=== PATIENT | female | born 1960 | race Hispanic/Latino ===

== ENCOUNTER 2023-04-07 15:49 | Emergency (ER) | payer OTHER ==
--- OUTSIDE RECORDS SUMMARY | 2023-04-07 16:05 | XMS REPORT | Continuity of Care Document ---
:1960 Author Organization [facility] t Address [address] [place] [address] [place] [id number] Care Team Providers Name Role Phone REGINA PIRES Primary Care Physician Unavailable DYLAN FERNANDEZ Attending Clinician Unavailable JONELLE DRISCOLL Attending Clinician Unavailable SVETLANA ORANTES Attending Clinician Unavailable LAB90 Attending Clinician Unavailable DELVIS MERINO Attending Clinician Unavailable RADIOLOGY Attending Clinician Unavailable Brenda Rogers MD Attending Clinician Doctor Unassigned, Martinez Attending Clinician Unavailable Regina Ruiz Attending Clinician REGINA PIRES Attending Clinician Unavailable Edel Flores MD Attending Clinician Vitor Birmingham MD Attending Clinician Provider, [facility] Attending Clinician Unavailable Colten Kramer DO Attending Clinician Brien Valles Attending Clinician BRIEN BEGUM Attending Clinician Unavailable Lorie Lnad PA-C Attending Clinician LORIE LAND Attending Clinician Unavailable Lab, Pcp Covid Attending Clinician Unavailable Lab, Adc Fam Pob I Attending Clinician Unavailable Pob, Adc Lab Main Attending Clinician Unavailable MUNA OCONNOR Attending Clinician Unavailable Muna Oconnor MD Attending Clinician Shayla Mccabe Attending Clinician Rober MICHELLE, Tiesha Attending Clinician Shannan MICHELLE, Hang Moreno Attending Clinician BRENDA ROGERS Attending Clinician Unavailable AMANDA DEL TORO Attending Clinician Unavailable Jasvir Avila Attending Clinician Pob1, Acute Care Clinic Attending Clinician Unavailable 2, Adc Lab Attending Clinician Unavailable Valencia MICHELLE, Vitor Admitting Clinician Rober MICHELLE, Tiesha Admitting Clinician Payers Payer Name Policy Type Policy Number Effective Date Expiration Date Prateek valero [facility] [id number] 2017 00:00:00 [employer] MP 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 9 [id number] 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 [id number] NON-CONTRACT GENERIC Problems Condition Condition Condition Status Onset Resolution Last Treating Co mments Source Name Details Category Date Date Treatment Clinician Date Mixed Mixed Disease Active Yodit hyperlipid hyperlipid 3-23 Se ybold emia emia 00:00: - 00 Externa l Primary Primary Disease Active Yodit hypertensi hypertensi 3-16 Se ybold on on 00:00: - 00 Externa l Other Other Disease Active Yodit fatigue fatigue 3-16 Seybold 00:00: - 00 Externa l Screening Screening Disease Active Kojo sey for lipid for lipid 3-16 Seyb old disorders disorders 00:00: - 00 Externa l Class 3 Class 3 Disease Active Yodit severe severe 3-16 Seybold obesity obesity 00:00: - due to due to 00 Externa excess excess l calories calories with with serious serious comorbidit comorbidit y and body y and body mass index mass index (BMI) of (BMI) of 50.0 to 50.0 to 59.9 in 59.9 in adult adult Prediabete Prediabete Disease Active Burton khan s s 3-16 Seybold 00:00: - 00 Externa l Chest pain Chest pain Disease Active U nivers 7-14 ity of 00:00: [place] [facility] Disease Active 2019-09 Unive rs discharge discharge 0-13 ity of follow[place]up [place] [facility] Dyslipidem Dyslipidem Disease Active 2020- U nivers ia ia 9-25 ity of 00:00: [place] [facility] Asymptomat Asymptomat Disease Active 2019-0 U nivers ic ic 8-11 ity of hypertensi hypertensi 00:[place] ve urgency ve urgency 00 Me dicwy Branch Runny nose Runny nose Disease Active 2019- U nivers 8-11 ity of 00:00: [place] 00 [facility] Pneumonia Pneumonia Disease Active 2019- Uni vers of right of right 8-10 ity of lower lobe lower lobe 00:00[place] due to due to 00 Medical infectious infectious Br anch organism organism Community Community Disease Active 2019- Uni vers acquired acquired 8-10 ity of pneumonia pneumonia 00:[place] of right of right 00 Medica l lower lobe lower lobe Br anch of lung of lung Urticaria, Urticaria, Disease Active 2019- U nivers acute acute 7-28 ity of 00:00: [place] 00 Medical Branch Pruritus Pruritus Disease Active 2019- Unive rs 7-28 ity of 00:00: [place] 00 [facility] Female Female Disease Active 2019- Univers pattern pattern 6-23 ity of hair loss hair loss 00:[place] [facility] Contact Contact Disease Active 2019- Univers dermatitis dermatitis 6-23 it y of , , 00:00: [place] unspecifie unspecifie 00 Me dical d contact d contact Bran ch dermatitis dermatitis type, type, unspecifie unspecifie d trigger d trigger Screening Screening Disease Active 2019- Uni vers for for 2-27 ity of diabetes diabetes 00:00: [place] mellitus mellitus 00 Medica l Branch BMI BMI Disease Active 2020- Univers 50.0-59.9, 50.0-59.9, 2-27 it y of adult adult 00:00: [place] 00 [facility] URI with URI with Disease Active Unive rs cough and cough and 2-06 ity of congestion congestion 00:00: [place] 00 [facility] Congestion Congestion Disease Active 2020- U nivers of nasal of nasal 2-06 ity of sinus sinus 00:00: Medical Branch Wheezing Wheezing Disease Active Unive rs 2-06 ity of 00:00: Medical Branch Viral Viral Disease Active Univers pharyngiti pharyngiti 2-06 it y of s s 00:00: Medical Branch Morbid Morbid Disease Active Univers obesity obesity 5-08 ity of with body with body 00:[place] mass index mass index 00 Me dical of of Branch 40.0-49.9 40.0-49.9 Morbid Morbid Disease Active Univers obesity obesity 5-08 ity of with body with body 00:[place] mass index mass index 00 Me dical of 50 or of 50 or Branch higher higher Total knee Total knee Disease Active U nivers replacemen replacemen 5-08 it y of t status t status 00:00: Medical Branch Dyspnea Dyspnea Disease Active Univers 8-31 ity of 00:00: Medical Branch Chest pain Chest pain Disease Active U nivers 8-24 ity of 00:00: Medical Branch Acute Acute Disease Active Univers chest pain chest pain 8-24 it y of 00:00: Medical Branch Atypical Atypical Disease Active Unive rs chest pain chest pain 8-24 it y of 00:00: Medical Branch Hypertensi Hypertensi Disease Active U nivers on on ity of [facility] Obesity Obesity Disease Active Univers ity of [facility] Allergies, Adverse Reactions, Alerts Allergy Allergy Status Severity Reaction(s) Onset Inactive Treating Comm ents Source Name Type Date Date Clinician NO KNOWN Drug Active Univers ALLERGIE Class ity of S [facility] Social History Social Habit Start Date Stop Date Quantity Comments Source History of tobacco Passive smoker Sharad Dc - use External Gender identity Yodit ahmadi - External Sexual orientation Yodit Dc - External Exposure to Not sure University of SARS-CoV-2 (event) [facility] Alcohol intake 2023-02-01 2023-02-01 Lifetime Yodit cr - 00:00:00 00:00:00 non-drinker External (finding) History of Social 2023-01-16 2023-01-16 Yodit Seybold - function 00:00:00 00:00:00 External Tobacco use and 2023-01-16 2023-01-16 Smokeless Yodit ahmadi - exposure 00:00:00 00:00:00 tobacco non-user External Education 2022-12-13 2022-12-13 16 Yodit Dc - 00:00:00 00:00:00 External Sex [birth year] At [birth year] Yodit ahmadi - 00:00:00 00:00:00 External Smoking Status Start Date Stop Date Source Never smoked tobacco Yodit Pendleton old - External Medications Ordered Filled Start Stop Current Ordering Indication Dosage Frequency Signature Comments Components Source Medication Medication Date Date Medication? Clinician (SIG) Name Name Methylpredn 2022- No [id number] 80mg Yodit isolone 5-05 05-05 Seybold Acetate 17:00: 16:52 - (Depo-Medro 00 :00 Externa l) [40 l mg/mL], 80mg - Physician Administere d (J1030) Methylpredn 2022- No [id number] 80mg 80 mg, Yodit isolone 5-05 05-05 Physician Seybol d Acetate 17:00: 16:52 Administer - (Depo-Medro 00 :00 ed, ONCE, Ext alondra l) [40 1 dose, On l mg/mL], Sat02/01/23 80mg - at 1200 Physician Administere d ([id number]) [place]-3 Yes 1000mg Take 1 Yodit Fatty Acids 5-05 capsule Seybo ld (Fish Oil) 10:51: (1,000 mg - 1000 MG 10 total) by Externa oral mouth l Capsule daily Diclofenac Yes [id number] 75mg Take 1 Yodit Sodium 75 5-05 tablet (75 Seyb old MG oral 00:00: mg total) - Tablet 00 by mouth 2 Externa Delayed times l Response daily Blood Yes [id number] Check BS Kojo y Glucose 4-27 daily Seybold Monitoring 00:00: - Suppl 00 Externa (Blood l Glucose Monitor System) w/Device does not apply Kit Glucose Yes [id number] 1{each} 1 each by Yodit Blood in -27 other Seybold vitro Strip 00:00: route - 00 daily Externa Check BS l daily Lancets 30G 2022-0 Yes [id number] Check BS Yodit does not 4-27 daily Seybold apply Misc 00:00: - 00 Externa l hydroCHLORO 2022-0 Yes [id number] 25mg Take 1 Yodit thiazide 25 4-24 tablet (25 Se ybold MG oral 00:00: mg total) - Tablet 00 by mouth Externa daily l [place]-3 2022-0 Yes 1000mg Take 1 [place] Fatty Acids 4-19 capsule Seybo ld (Fish Oil) 14:23: (1,000 mg - 1000 MG 16 total) by Externa oral mouth l Capsule daily Metformin 0 Yes [id number] 500mg Take 1 Yodit HCl 500 MG 4-19 tablet Seybold oral Tablet 00:00: (500 mg - 00 total) by Externa mouth l daily (with breakfast) Amlodipine 2022-0 Yes [id number] 5mg Take 1 K elsey Besylate 4-19 tablet (5 Seybol d (Norvasc) 5 00:00: mg total) - MG oral 00 by mouth Externa Tablet daily l Tramadol 2022-0 Yes [id number] 50mg QD Take 1 K elsey HCl 4-19 tablet (50 Seybold (ULTRAM) 50 00:00: mg total) - MG oral 00 by mouth Externa Tablet daily as l needed for pain Metformin 2022-0 Yes [id number] 500mg Take 1 Yodit HCl 500 MG 4-19 tablet Seybold oral Tablet 00:00: (500 mg - 00 total) by Externa mouth l daily (with breakfast) Amlodipine 2022-0 Yes [id number] 5mg Take 1 K elsey Besylate 4-19 tablet (5 Seybol d (Norvasc) 5 00:00: mg total) - MG oral 00 by mouth Externa Tablet daily l Tramadol 2022-0 Yes [id number] 50mg QD Take 1 K elsey HCl 4-19 tablet (50 Seybold (ULTRAM) 50 00:00: mg total) - MG oral 00 by mouth Externa Tablet daily as l needed for pain Ketoconazol 2022-0 Yes [id number] APPLY TO Yodit e 2 % apply 4-19 AFFECTED Seyb old externally 00:00: SKIN TWICE - Cream 00 DAILY Externa l Celecoxib 2022-0 Yes [id number] 200mg Q.5D Take 1 Yodit (CeleBREX) 4-03 capsule Seybol d 200 MG oral 00:00: (200 mg - Capsule 00 total) by Externa mouth 2 l times daily as needed for pain Celecoxib 2022-0 Yes [id number] 200mg Q.5D Take 1 Yodit (CeleBREX) 4-03 capsule Seybol d 200 MG oral 00:00: (200 mg - Capsule 00 total) by Externa mouth 2 l times daily as needed for pain Losartan 2022-0 Yes [id number] 100mg Take 1 Ke lsey Potassium 3-30 tablet Seybold (COZAAR) 00:00: (100 mg - 100 MG oral 00 total) by Ext alondra Tablet mouth l daily Losartan 2022-0 Yes [id number] 100mg Take 1 Ke lsey Potassium 3-30 tablet Seybold (COZAAR) 00:00: (100 mg - 100 MG oral 00 total) by Ext alondra Tablet mouth l daily hydroCHLORO 2022-0 Yes [id number] 25mg TAKE 1 Yodit thiazide 25 3-28 TABLET (25 Se ybold MG oral 00:00: MG TOTAL) - Tablet 00 BY MOUTH Externa DAILY. 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 a 0.25 a week l MG/0.5ML subcutaneou s Solution Auto-inject or Ketoconazol 2022-0 Yes [id number] Apply to Yodit e 2 % apply 3-16 affected Seyb old externally 00:00: skin twice - Cream 00 daily Externa l Ketoconazol 2022-0 Yes [id number] Apply to Yodit e 2 % apply 3-16 affected Seyb old externally 00:00: skin twice - Cream 00 daily Externa l Losartan 2022-0 Yes [id number] 25mg Take 1 Kojo sey Potassium 3-16 tablet (25 Seyb old 25 MG oral 00:00: mg total) - Tablet 00 by mouth Externa daily l Ketoconazol 2022- Yes [id number] Apply to Yodit e 2 % apply 16 affected Seyb old externally 00:00: skin twice - Cream 00 daily Externa l Losartan 2022- No [id number] 25mg Take 1 Ke lsey Potassium 12-13- tablet (25 Sey bold 25 MG oral 00:00: 00:00 mg total) - Tablet 00 :00 by mouth Externa daily l methylPREDN 2022-0 Yes [id number] 1{jackelyn} Take 1 jackelyn Monsivais ISolone 12-06 by mouth Seybold (Medrol) 4 00:00: daily As - MG oral 00 directed Externa Tablet l Therapy Pack Triamcinolo 0 2022- No [id number] AAA 2-3 Yodit ne 12-06 04-07 times day Seybold Acetonide 00:00: 04:59 - 0.1 % apply 00 :00 Externa externally l Cream Triamcinolo 0 2022- No [id number] AAA 2-3 Yodit ne 12-06-16 times day Seybold Acetonide 00:00: 00:00 - 0.1 % apply 00 :00 Externa externally l Cream methylPREDN 2022-0 2022- No [id number] 1{jackelyn} Take 1 jackelyn Monsivais ISolone 12-06 by mouth Seybold (Medrol) 4 00:00: 00:00 daily As - MG oral 00 :00 directed Externa Tablet l Therapy Pack Zinc 2022-0 2022- No Take by Yodit Gluconate 3- 03-03 mouth Seybold 50 MG oral 14:47: 00:00 daily - Tablet 50 :00 Externa l hydroCHLORO 2022-0 Yes [id number] 25mg Take 1 Yodit thiazide 25 -03 tablet (25 Se ybold MG oral 00:00: mg total) - Tablet 00 by mouth Externa daily l Celecoxib 2022-0 Yes [id number] 200mg Take 1 Yodit (CeleBREX) 3- capsule Seybol d 200 MG oral 00:00: (200 mg - Capsule 00 total) by Externa mouth 2 l times daily Tramadol 2023-0 Yes [id number] 50mg Q.25D Take 1 Yodit HCl 3-03 tablet (50 Seybold (ULTRAM) 50 00:00: mg total) - MG oral 00 by mouth Externa Tablet every 6 l hours as needed for pain hydroCHLORO 2023-0 Yes [id number] 25mg Take 1 Yodit thiazide 25 3-03 tablet (25 Se ybold MG oral 00:00: mg total) - Tablet 00 by mouth Externa daily l Celecoxib 2023-0 Yes [id number] 200mg Take 1 Yodit (CeleBREX) 3-03 capsule Seybol d 200 MG oral 00:00: (200 mg - Capsule 00 total) by Externa mouth 2 l times daily Tramadol 3-0 Yes [id number] 50mg Q.25D Take 1 Yodit HCl 3-03 tablet (50 Seybold (ULTRAM) 50 00:00: mg total) - MG oral 00 by mouth Externa Tablet every 6 l hours as needed for pain hydroCHLORO 2023-0 Yes [id number] 25mg Take 1 Yodit thiazide 25 3-03 tablet (25 Se ybold MG oral 00:00: mg total) - Tablet 00 by mouth Externa daily l Celecoxib 2023-0 Yes [id number] 200mg Take 1 Yodit (CeleBREX) 3-03 capsule Seybol d 200 MG oral 00:00: (200 mg - Capsule 00 total) by Externa mouth 2 l times daily Tramadol 2023-0 Yes [id number] 50mg Q.25D Take 1 Yodit HCl 3-03 tablet (50 Seybold (ULTRAM) 50 00:00: mg total) - MG oral 00 by mouth Externa Tablet every 6 l hours as needed for pain hydroCHLORO 2023-0 Yes [id number] 25mg Take 1 Yodit thiazide 25 3-03 tablet (25 Se ybold MG oral 00:00: mg total) - Tablet 00 by mouth Externa daily l Celecoxib 2023-0 Yes [id number] 200mg Take 1 Yodit (CeleBREX) 3-03 capsule Seybol d 200 MG oral 00:00: (200 mg - Capsule 00 total) by Externa mouth 2 l times daily Tramadol 2023-0 Yes [id number] 50mg Q.25D Take 1 Yodit HCl 3-03 tablet (50 Seybold (ULTRAM) 50 00:00: mg total) - MG oral 00 by mouth Externa Tablet every 6 l hours as needed for pain Tramadol 0 2022- No [id number] 50mg Q.25D Take 1 Yodit HCl 3-03 04-19 tablet (50 Seybold (ULTRAM) 50 00:00: 00:00 mg total) - MG oral 00 :00 by mouth Externa Tablet every 6 l hours as needed for pain ATORVASTATI 2020-09 Yes [id number] TAKE ONE Univers N 40 mg 1-08 TABLET BY ity of tablet 00:00: MOUTH [place] 00 DAILY Medical Branch IPRATROPIUM 2020-0 Yes [id number] USE 1 VIAL Univers 0.02 % 9-13 IN ity of nebulizer 00:00: NEBULIZER [place] as solution 00 EVERY 8 Medical HOURS Branch NEEDED FOR WHEEZING OR FOR SHORTNESS OF BREATH IPRATROPIUM 2020-0 Yes [id number] USE 1 VIAL Univers 0.02 % 9-13 IN ity of nebulizer 00:00: NEBULIZER [place] as solution 00 EVERY 8 Medical HOURS Branch NEEDED FOR WHEEZING OR FOR SHORTNESS OF BREATH IPRATROPIUM 2020-0 Yes [id number] USE 1 VIAL Univers 0.02 % 9-13 IN ity of nebulizer 00:00: NEBULIZER [place] as solution 00 EVERY 8 Medical HOURS Branch NEEDED FOR WHEEZING OR FOR SHORTNESS OF BREATH IPRATROPIUM 2020-0 Yes [id number] USE 1 VIAL Univers 0.02 % 9-13 IN ity of nebulizer 00:00: NEBULIZER [place] as solution 00 EVERY 8 Medical HOURS Branch NEEDED FOR WHEEZING OR FOR SHORTNESS OF BREATH IPRATROPIUM 2020-0 Yes [id number] USE 1 VIAL Univers 0.02 % 8-30 IN ity of nebulizer 00:00: NEBULIZER [place] as solution 00 EVERY 8 Medical HOURS Branch NEEDED FOR WHEEZING OR FOR SHORTNESS OF BREATH IPRATROPIUM 2020-0 Yes [id number] USE 1 VIAL Univers 0.02 % 8-30 IN ity of nebulizer 00:00: NEBULIZER [place] as solution 00 EVERY 8 Medical HOURS Branch NEEDED FOR WHEEZING OR FOR SHORTNESS OF BREATH IPRATROPIUM 2020-0 202- No [id number] USE 1 VIAL Univers 0.02 % 8-30 09-13 IN ity of nebulizer 00:00: 00:00 NEBULIZER [place] solution 00 :00 EVERY 8 Medical HOURS Branch NEEDED FOR WHEEZING OR FOR SHORTNESS OF BREATH IPRATROPIUM 2020-0 2021- No [id number] USE 1 VIAL Univers 0.02 % 05-29 IN ity of nebulizer 00:00: 00:00 NEBULIZER [place] solution 00 :00 EVERY 8 Medical HOURS Branch NEEDED FOR WHEEZING OR FOR SHORTNESS OF BREATH HYDROCHLORO 2020-0 Yes [id number] TAKE ONE Univers THIAZIDE 25 8-16 TABLET BY ity of mg tablet 00:00: MOUTH [place] 00 DAILY Medical Branch METOPROLOL 2020-0 Yes [id number] TAKE ONE Univers TARTRATE 8-16 TABLET BY ity of 100 mg 00:00: MOUTH [place] tablet 00 TWICE A Medical DAY Branch HYDROCHLORO 2020-0 Yes [id number] TAKE ONE Univers THIAZIDE 25 8-16 TABLET BY ity of mg tablet 00:00: MOUTH [place] 00 DAILY Medical Branch METOPROLOL 2020-0 Yes [id number] TAKE ONE Univers TARTRATE 8-16 TABLET BY ity of 100 mg 00:00: MOUTH [place] tablet 00 TWICE A Medical DAY Branch HYDROCHLORO 2020-0 Yes [id number] TAKE ONE Univers THIAZIDE 25 8-16 TABLET BY ity of mg tablet 00:00: MOUTH [place] 00 DAILY Medical Branch METOPROLOL 2020-0 Yes [id number] TAKE ONE Univers TARTRATE 8-16 TABLET BY ity of 100 mg 00:00: MOUTH [place] tablet 00 TWICE A Medical DAY Branch HYDROCHLORO 2020-0 Yes [id number] TAKE ONE Univers THIAZIDE 25 8-16 TABLET BY ity of mg tablet 00:00: MOUTH [place] 00 DAILY Medical Branch METOPROLOL 2020-0 Yes [id number] TAKE ONE Univers TARTRATE 8-16 TABLET BY ity of 100 mg 00:00: MOUTH [place] tablet 00 TWICE A Medical DAY Branch HYDROCHLORO 1-0 Yes [id number] TAKE ONE Univers THIAZIDE 25 8-16 TABLET BY ity of mg tablet 00:00: MOUTH [place] 00 DAILY Medical Branch METOPROLOL 2020-0 Yes [id number] TAKE ONE Univers TARTRATE 8-16 TABLET BY ity of 100 mg 00:00: MOUTH [place] tablet 00 TWICE A Medical DAY Branch HYDROCHLORO 1-0 Yes [id number] TAKE ONE Univers THIAZIDE 25 8-16 TABLET BY ity of mg tablet 00:00: MOUTH [place] 00 DAILY Medical Branch METOPROLOL 2021-0 Yes [id number] TAKE ONE Univers TARTRATE 8-16 TABLET BY ity of 100 mg 00:00: MOUTH [place] tablet 00 TWICE A Medical DAY Branch HYDROCHLORO 2020-0 Yes [id number] TAKE ONE Univers THIAZIDE 25 8-16 TABLET BY ity of mg tablet 00:00: MOUTH [place] 00 DAILY Medical Branch METOPROLOL 2020-0 Yes [id number] TAKE ONE Univers TARTRATE 8-16 TABLET BY ity of 100 mg 00:00: MOUTH [place] tablet 00 TWICE A Medical DAY Branch HYDROCHLORO 2020-0 Yes [id number] TAKE ONE Univers THIAZIDE 25 8-16 TABLET BY ity of mg tablet 00:00: MOUTH [place] 00 DAILY Medical Branch METOPROLOL 0 Yes [id number] TAKE ONE Univers TARTRATE 8-16 TABLET BY ity of 100 mg 00:00: MOUTH [place] tablet 00 TWICE A Medical DAY Branch albuterol Yes [id number] 2{puff} Inhale 2 Univers 90 7-23 Puffs ity of mcg/actuati 00:00: every 6 Jake as on inhaler 00 (six) Medical hours as Branch needed for Wheezing or Shortness of Breath. albuterol Yes [id number] 2{puff} Inhale 2 Univers 90 7-23 Puffs ity of mcg/actuati 00:00: every 6 Jake as on inhaler 00 (six) Medical hours as Branch needed for Wheezing or Shortness of Breath. albuterol Yes [id number] 2{puff} Inhale 2 Univers 90 7-23 Puffs ity of mcg/actuati 00:00: every 6 Jake as on inhaler 00 (six) Medical hours as Branch needed for Wheezing or Shortness of Breath. albuterol Yes [id number] 2{puff} Inhale 2 Univers 90 7-23 Puffs ity of mcg/actuati 00:00: every 6 Jake as on inhaler 00 (six) Medical hours as Branch needed for Wheezing or Shortness of Breath. albuterol Yes [id number] 2{puff} Inhale 2 Univers 90 7-23 Puffs ity of mcg/actuati 00:00: every 6 Jake as on inhaler 00 (six) Medical hours as Branch needed for Wheezing or Shortness of Breath. albuterol Yes [id number] 2{puff} Inhale 2 Univers 90 7-23 Puffs ity of mcg/actuati 00:00: every 6 Jake as on inhaler 00 (six) Medical hours as Branch needed for Wheezing or Shortness of Breath. albuterol Yes [id number] 2{puff} Inhale 2 Univers 90 7-23 Puffs ity of mcg/actuati 00:00: every 6 Jake as on inhaler 00 (six) Medical hours as Branch needed for Wheezing or Shortness of Breath. albuterol Yes [id number] 2{puff} Inhale 2 Univers 90 7-23 Puffs ity of mcg/actuati 00:00: every 6 Jake as on inhaler 00 (six) Medical hours as Branch needed for Wheezing or Shortness of Breath. albuterol Yes [id number] 2{puff} Inhale 2 Univers 90 7-23 Puffs ity of mcg/actuati 00:00: every 6 Jake as on inhaler 00 (six) Medical hours as Branch needed for Wheezing or Shortness of Breath. albuterol Yes [id number] 2{puff} Inhale 2 Univers 90 7-23 Puffs ity of mcg/actuati 00:00: every 6 Jake as on inhaler 00 (six) Medical hours as Branch needed for Wheezing or Shortness of Breath. atorvastati Yes 40mg 40 mg, Univ ers n (LIPITOR) 7-16 Oral, QHS, it y of tablet 40 02:00: First dose [place] mg 00 (after Medical last Branch modificati on) on Sat04/13/21 at 2100, Until Discontinu ed, Routine
hourly team members approving Restricted medication : HERLINDA MCDERMOTT Zinc 50 mg Yes Take by Univ ers Tab 7-15 mouth ity of 21:51: daily. [address] Branch Zinc 50 mg Yes Take by Univ ers Tab 7-15 mouth ity of 21:51: daily. [address] Branch Zinc 50 mg Yes Take by Univ ers Tab 7-15 mouth ity of 21:51: daily. [address] Branch Zinc 50 mg Yes Take by Univ ers Tab 7-15 mouth ity of 21:51: daily. [address] Zinc 50 mg 0 Yes Take by Univ ers Tab 7-15 mouth ity of 21:51: daily. [address] Zinc 50 mg 2020-0 Yes Take by Univ ers Tab 7-15 mouth ity of 21:51: daily. [address] Zinc 50 mg 2020-0 Yes Take by Univ ers Tab 7-15 mouth ity of 21:51: daily. [address] Zinc 50 mg 2020-0 Yes Take by Univ ers Tab 7-15 mouth ity of 16:51: daily. [address] Zinc 50 mg 2020-0 Yes Take by Univ ers Tab 7-15 mouth ity of 16:51: daily. [address] Zinc 50 mg 2020-0 Yes Take by Univ ers Tab 7-15 mouth ity of 16:51: daily. [address] Zinc 50 mg 0 Yes Take by Univ ers Tab 7-15 mouth ity of 16:51: daily. [address] sulfur 2020-2020- No [id number] 5mL [facility] Intravenou i ty of e microsphr 15:00: 15:00 s, ONCE, 1 [place] (LUMASON) 00 :00 dose, [facility] injection 5 04/13/21 at Br anch mL 1000, Routine
hourly team members approving Restricted medication : VIOLETBYRONAZRAYADIRA zinc Yes 220mg 220 mg, Univers sulfate 7-15 Oral, ity of (ORAZINC) 14:00: DAILY, [place] capsule 220 00 First dose Me dical mg on [facility] 04/13/21 at 0900, Until Discontinu ed losartan Yes 50mg 50 mg, Univers (COZAAR) 7-15 Oral, ity of tablet 50 14:00: DAILY, [place] mg 00 First dose Medical on [facility] 04/13/21 at 0900, Until Discontinu ed, Routine hydroCHLORO Yes 25mg 25 mg, Univ ers thiazide 7-15 Oral, ity of (ESIDRIX) 14:00: DAILY, [place] tablet 25 00 First dose Medi trever mg on [facility] 04/13/21 at 0900, Until Discontinu ed, Routine aspirin Yes 81mg 81 mg, Univers chewable 04-13 Oral, ity of tablet 81 14:00: DAILY, [place] mg 00 First dose Medical on [facility] 04/13/21 at 0900, Until Discontinu ed, Routine enoxaparin Yes 40mg 40 mg, Unive rs (LOVENOX) 04-13 Subcutaneo ity of injection 14:00: us, DAILY, [place] 40 mg 00 First dose Medical on [facility] 04/13/21 at 0900, Until Discontinu ed, Routine metoprolol Yes 100mg 100 mg, Uni vers tartrate 15 Oral, BID, ity o f (LOPRESSOR) 04:15: First dose [place] tablet 100 00 on Sat Medical mg 04/12/21 at Branch 2315, Until Discontinu ed, Routine ipratropium Yes 3mL 3 mL, Unive rs -albuteroL 04-13 Inhalation ity of (DUONEB) 04:00: , Q6HPRN, [place] 0.5 mg-3 55 Starting Medical mg(2.5 mg [facility] )/3 mL 04/12/21 at nebulizer 2300, solution 3 Until mL Discontinu ed, Routine, Wheezing, Shortness of Breath atorvastati 2020- No 80mg 80 mg, Uni vers n (LIPITOR) 04-13 Oral, QHS, i ty of tablet 80 02:00: 03:59 First dose [place] mg 00 :26 on [facility] 04/12/21 at Branch 2100, Until Discontinu ed, Routine
hourly team members approving Restricted medication : HERLINDA MCDERMOTT aspirin 2020- No 325mg 325 mg, Unive rs tablet 325 04-13 Oral, ity of mg 00:45: 00:11 ONCE, 1 [place] 00 :00 dose, [facility] 04/12/21 at Branch 1945, STAT nitroglycer Yes .4mg 0.4 mg, Uni vers in 04-13 Sublingual ity of (NITROSTAT) 00:39: , Q5MIN [place] sublingual 52 PRN, Medical tablet 0.4 Starting Branc h mg [facility] 04/12/21 at 1939, Until Discontinu ed, Routine, Chest pain ondansetron 0 Yes 4mg 4 mg, Slow Univers (ZOFRAN 7-15 IV Push, ity of (PF)) 00:39: Q6HPRN, [place] injection 4 46 Starting Medi trever mg Wed Branch 04/12/21 at 1939, Until Discontinu ed, Routine, Nausea and Vomiting (N/V) morpHINE 0 2020- No 4mg 4 mg, Slow Un sonali injection 4 04-13 07-16 IV Push, ity of mg 00:39: 00:38 Q4HPRN, [place] 41 :41 Starting Medical Wed Branch 04/12/21 at 193, Until [place] 04/13/21 at 1937, Routine, Pain (scale 7-10) HYDROcodone 2020- No 1{tbl} 1 tablet, Univers -acetaminop 04-13 07-17 Oral, ity of hen (NORCO 00:39: 00:38 Q6HPRN, [place] 5) 5-325 mg 37 :37 Starting Medi trever tablet 1 [facility] tablet 04/12/21 at 193, Until 04/14/21 at 1937, Routine, Pain (scale 4-6) acetaminoph Yes 650mg 650 mg, Un sonali en 7-15 Oral, ity of (TYLENOL) 00:39: Q6HPRN, [place] tablet 650 29 Starting Medic al mg [facility] Branch 04/12/21 at 193, Until Discontinu ed, Routine, Pain (scale 1-3), Temp > 38.5 C Zinc 50 mg 0 Yes Take by Univ ers Tab 7-15 mouth ity of 00:21: daily. [place] 28 [facility] Branch traMADoL 50 0 Yes 4647 50mg Take 1 Univ ers mg tablet 7-15 tablet by ity o f 00:00: mouth [place] [id number] every 6 Medical (six) Branch hours as needed for Pain (scale 7-10). Indication s: acute pain traMADoL 50 2020-0 Yes 4647 50mg Take 1 Univ ers mg tablet 7-15 tablet by ity o f 00:00: mouth [place] [id number] every 6 Medical (six) Branch hours as needed for Pain (scale 7-10). Indication s: acute pain traMADoL 50 2020-0 Yes 4647 50mg Take 1 Univ ers mg tablet 7-15 tablet by ity o f 00:00: mouth [place] 00 every 6 Medical (six) Branch hours as needed for Pain (scale 7-10). Indication s: acute pain traMADoL 50 2020-0 Yes 4647 50mg Take 1 Univ ers mg tablet 7-15 tablet by ity o f 00:00: mouth [place] 00 every 6 Medical (six) Branch hours as needed for Pain (scale 7-10). Indication s: acute pain traMADoL 50 2020-0 Yes 4647 50mg Take 1 Univ ers mg tablet 7-15 tablet by ity o f 00:00: mouth [place] 00 every 6 Medical (six) Branch hours as needed for Pain (scale 7-10). Indication s: acute pain traMADoL 50 2020-0 Yes 4647 50mg Take 1 Univ ers mg tablet 7-15 tablet by ity o f 00:00: mouth [place] 00 every 6 Medical (six) Branch hours as needed for Pain (scale 7-10). Indication s: acute pain traMADoL 50 2020-0 Yes 4647 50mg Take 1 Univ ers mg tablet 7-15 tablet by ity o f 00:00: mouth [place] 00 every 6 Medical (six) Branch hours as needed for Pain (scale 7-10). Indication s: acute pain traMADoL 50 2020-0 Yes 4647 50mg Take 1 Univ ers mg tablet 7-15 tablet by ity o f 00:00: mouth [place] 00 every 6 Medical (six) Branch hours as needed for Pain (scale 7-10). Indication s: acute pain traMADoL 50 2020-0 Yes 4647 50mg Take 1 Univ ers mg tablet 7-15 tablet by ity o f 00:00: mouth [place] 00 every 6 Medical (six) Branch hours as needed for Pain (scale 7-10). Indication s: acute pain traMADoL 50 2020-0 Yes 4647 50mg Take 1 Univ ers mg tablet 7-15 tablet by ity o f 00:00: mouth [place] 00 every 6 Medical (six) Branch hours as needed for Pain (scale 7-10). Indication s: acute pain traMADoL 50 2020-0 Yes 4647 50mg Take 1 Univ ers mg tablet 7-15 tablet by ity o f 00:00: mouth [place] 00 every 6 Medical (six) Branch hours as needed for Pain (scale 7-10). Indication s: acute pain ondansetron 2020- No 4mg 4 mg, Slow Univers (ZOFRAN 04-12 IV Push, ity of (PF)) 23:15: 22:21 ONCE, 1 [place] injection 4 00 :00 dose, Wed Med ical mg 04/12/21 at Branch 1815, NAOMI morpHINE 2020- No 4mg 4 mg, Slow Un sonali injection 4 04-12 IV Push, ity of mg 23:15: 22:21 ONCE, 1 [place] 00 :00 dose, Wed Medical 04/12/21 at Branch 1815, STAT iopamidol 2020- No [id number] 100mL 100 mL, Univers (ISOVUE 04-12 Intravenou ity o f 370-500 mL) 22:28: 22:31 s, ONCE, 1 [place] injection 00 :00 dose, Sat Medic al 100 mL 04/12/21 at Branch 1745, Routine Zinc 50 mg Yes Take by [facility] ers Tab 3-05 mouth ity of 14:03: daily. [address] Zinc 50 mg 2020-0 Yes Take by [facility] ers Tab 3-05 mouth ity of 14:03: daily. [address] Zinc 50 mg 2020-0 Yes Take by [facility] ers Tab 3-05 mouth ity of 14:03: daily. [address] Zinc 50 mg 2020-0 Yes Take by [facility] ers Tab 3-05 mouth ity of 14:03: daily. [address] Zinc 50 mg 2020-0 Yes Take by [facility] ers Tab 3-05 mouth ity of 14:03: daily. [address] clotrimazol 2020-0 2020- No [id number] Apply to [facility] e-betametha 12-02- area(s) 2 it y of sone 00:00: 04:59 (two) [place] (LOTRISONE) 00 :00 times Medical cream daily for Branch 30 days. clotrimazol 2020-0 2020- No [id number] Apply to [facility] e-betametha 12-02-05 area(s) 2 it y of sone 00:00: 04:59 (two) [place] (LOTRISONE) 00 :00 times Medical cream daily for Branch 30 days. clotrimazol 2020- No [id number] Apply to [facility] e-betametha 12-02 area(s) 2 it y of sone 00:00: 04:59 (two) [place] (LOTRISONE) 00 :00 times Medical cream daily for Branch 30 days. hydrOXYzine 2020- No [id number] 50mg Take 1 Univers 50 mg 12-02 tablet by ity of tablet 00:00: 04:59 mouth 3 [place] 00 :00 (three) Medical times Branch daily as needed for Itching for up to 21 days. hydrOXYzine 2020- No [id number] 50mg Take 1 Univers 50 mg 12-02 tablet by ity of tablet 00:00: 04:59 mouth 3 [place] 00 :00 (three) Medical times Branch daily as needed for Itching for up to 21 days. hydrOXYzine 2020- No [id number] 50mg Take 1 Univers 50 mg 12-02 tablet by ity of tablet 00:00: 04:59 mouth 3 [place] 00 :00 (three) Medical times Branch daily as needed for Itching for up to 21 days. methylPREDN 2020- No [id number] Take by [facility] 4 12-02 mouth ity of mg tablets 00:00: 05:59 SEE-INSTRU [place] 00 :00 CTIONS for Medical 6 days. Branch follow package directions methylPREDN 2020- No [id number] Take by [place] [id number] 12-02 mouth ity of mg tablets 00:00: 05:59 SEE-INSTRU [place] 00 :00 CTIONS for Medical 6 days. Branch follow package directions methylPREDN 2020-2020- No [id number] Take by [facility] 4 12-02 mouth ity of mg tablets 00:00: 05:59 SEE-INSTRU [place] 00 :00 CTIONS for Medical 6 days. Branch follow package directions Nitrofurant 2020- No [id number] 100mg Take 1 Univers oin&Nit. 2-11 11-18 capsule by ity of Macrocryst 00:00: 05:59 mouth 2 [place] (MACROBID) 00 :00 (two) Medical 100 mg times Branch capsule daily for 7 days. Nitrofurant 2020- No [id number] 100mg Take 1 Univers oin&Nit. 211-18 capsule by ity of Macrocryst 00:00: 05:59 mouth 2 [place] (MACROBID) 00 :00 (two) Medical 100 mg times Branch capsule daily for 7 days. traZODone No [id number] 50mg Take 1 Univers 50 mg 10-1112 tablet by ity of tablet 00:00: 05:59 mouth at [place] 00 :00 bedtime Medical for 30 Branch days. traZODone No [id number] 50mg Take 1 Univers 50 mg 10-11 tablet by ity of tablet 00:00: 05:59 mouth at [place] 00 :00 bedtime Medical for 30 Branch days. traZODone No [id number] 50mg Take 1 Univers 50 mg 10-11 tablet by ity of tablet 00:00: 05:59 mouth at [place] 00 :00 bedtime Medical for 30 Branch days. traZODone No [id number] 50mg Take 1 Univers 50 mg 10-11 tablet by ity of tablet 00:00: 05:59 mouth at [place] 00 :00 bedtime Medical for 30 Branch days. traZODone No [id number] 50mg Take 1 Univers 50 mg 10-11 tablet by ity of tablet 00:00: 05:59 mouth at [place] 00 :00 bedtime Medical for 30 Branch days. ibuprofen 2019-09- No [id number] 800mg Take 1 Univers 800 mg - tablet by ity of tablet 00:00: 05:59 mouth [place] 00 :00 every 6 Medical (six) Branch hours as needed for Pain (scale 4-6) for up to 14 days. ondansetron 2019-09- No [id number] 4mg Take 1 Univers (ZOFRAN) 4 - tablet by ity of mg tablet 00:00: 05:59 mouth [place] 00 :00 every 8 Medical (eight) Branch hours as needed for Nausea and Vomiting (N/V) for up to 14 days. ibuprofen 2019-09 2020- No [id number] 800mg Take 1 Univers 800 mg 0- tablet by ity of tablet 00:00: 05:59 mouth [place] 00 :00 every 6 Medical (six) Branch hours as needed for Pain (scale 4-6) for up to 14 days. ondansetron 2019-09 2020- No [id number] 4mg Take 1 Univers (ZOFRAN) 4 008-06 tablet by ity of mg tablet 00:00: 05:59 mouth [place] 00 :00 every 8 Medical (eight) Branch hours as needed for Nausea and Vomiting (N/V) for up to 14 days. IPRATROPIUM 2020-0 Yes [id number] INHALE 1 Univers 0.02 % 9-30 VIAL IN ity of nebulizer 00:00: NEBUILZER [place] solution 00 BY MOUTH Medical EVERY 8 Branch HOURS NEEDED FOR WHEEZING OR FOR SHORTNESS OF BREATH IPRATROPIUM 2020-0 Yes [id number] INHALE 1 Univers 0.02 % 9-30 VIAL IN ity of nebulizer 00:00: NEBUILZER [place] solution 00 BY MOUTH Medical EVERY 8 Branch HOURS NEEDED FOR WHEEZING OR FOR SHORTNESS OF BREATH IPRATROPIUM 2020-0 Yes [id number] INHALE 1 Univers 0.02 % 9-30 VIAL IN ity of nebulizer 00:00: NEBUILZER [place] solution 00 BY MOUTH Medical EVERY 8 Branch HOURS NEEDED FOR WHEEZING OR FOR SHORTNESS OF BREATH IPRATROPIUM 2020-0 Yes [id number] INHALE 1 Univers 0.02 % 9-30 VIAL IN ity of nebulizer 00:00: NEBUILZER [place] solution 00 BY MOUTH Medical EVERY 8 Branch HOURS NEEDED FOR WHEEZING OR FOR SHORTNESS OF BREATH IPRATROPIUM 2020-0 Yes [id number] INHALE 1 Univers 0.02 % 9-30 VIAL IN ity of nebulizer 00:00: NEBUILZER [place] solution 00 BY MOUTH Medical EVERY 8 Branch HOURS NEEDED FOR WHEEZING OR FOR SHORTNESS OF BREATH IPRATROPIUM 2020-0 Yes [id number] INHALE 1 Univers 0.02 % 9-30 VIAL IN ity of nebulizer 00:00: NEBUILZER [place] solution 00 BY MOUTH Medical EVERY 8 Branch HOURS NEEDED FOR WHEEZING OR FOR SHORTNESS OF BREATH IPRATROPIUM 2020-0 Yes [id number] INHALE 1 Univers 0.02 % 9-30 VIAL IN ity of nebulizer 00:00: NEBUILZER [place] solution 00 BY MOUTH Medical EVERY 8 Branch HOURS NEEDED FOR WHEEZING OR FOR SHORTNESS OF BREATH IPRATROPIUM 2020-0 Yes [id number] INHALE 1 Univers 0.02 % 9-30 VIAL IN ity of nebulizer 00:00: NEBUILZER [place] solution 00 BY MOUTH Medical EVERY 8 Branch HOURS NEEDED FOR WHEEZING OR FOR SHORTNESS OF BREATH IPRATROPIUM 2020-0 Yes [id number] INHALE 1 Univers 0.02 % 9-30 VIAL IN ity of nebulizer 00:00: NEBUILZER [place] solution 00 BY MOUTH Medical EVERY 8 Branch HOURS NEEDED FOR WHEEZING OR FOR SHORTNESS OF BREATH IPRATROPIUM 2020-0 Yes [id number] INHALE 1 Univers 0.02 % 9-30 VIAL IN ity of nebulizer 00:00: NEBUILZER [place] solution 00 BY MOUTH Medical EVERY 8 Branch HOURS NEEDED FOR WHEEZING OR FOR SHORTNESS OF BREATH IPRATROPIUM 2020-0 Yes [id number] INHALE 1 Univers 0.02 % 9-30 VIAL IN ity of nebulizer 00:00: NEBUILZER [place] solution 00 BY MOUTH Medical EVERY 8 Branch HOURS NEEDED FOR WHEEZING OR FOR SHORTNESS OF BREATH IPRATROPIUM 2020-0 Yes [id number] INHALE 1 Univers 0.02 % 9-30 VIAL IN ity of nebulizer 00:00: NEBUILZER [place] solution 00 BY MOUTH Medical EVERY 8 Branch HOURS NEEDED FOR WHEEZING OR FOR SHORTNESS OF BREATH IPRATROPIUM 2020-0 Yes [id number] INHALE 1 Univers 0.02 % 9-30 VIAL IN ity of nebulizer 00:00: NEBUILZER [place] solution 00 BY MOUTH Medical EVERY 8 Branch HOURS NEEDED FOR WHEEZING OR FOR SHORTNESS OF BREATH IPRATROPIUM 2020-0 Yes [id number] INHALE 1 Univers 0.02 % 9-30 VIAL IN ity of nebulizer 00:00: NEBUILZER [place] solution 00 BY MOUTH Medical EVERY 8 Branch HOURS NEEDED FOR WHEEZING OR FOR SHORTNESS OF BREATH IPRATROPIUM 2020-0 Yes [id number] INHALE 1 Univers 0.02 % 9-30 VIAL IN ity of nebulizer 00:00: NEBUILZER [place] solution 00 BY MOUTH Medical EVERY 8 Branch HOURS NEEDED FOR WHEEZING OR FOR SHORTNESS OF BREATH IPRATROPIUM 2020-0 Yes [id number] INHALE 1 Univers 0.02 % 9-30 VIAL IN ity of nebulizer 00:00: NEBUILZER [place] solution 00 BY MOUTH Medical EVERY 8 Branch HOURS NEEDED FOR WHEEZING OR FOR SHORTNESS OF BREATH IPRATROPIUM 2020-0 Yes [id number] INHALE 1 Univers 0.02 % 9-30 VIAL IN ity of nebulizer 00:00: NEBUILZER [place] solution 00 BY MOUTH Medical EVERY 8 Branch HOURS NEEDED FOR WHEEZING OR FOR SHORTNESS OF BREATH IPRATROPIUM 2020-0 Yes [id number] INHALE 1 Univers 0.02 % 9-30 VIAL IN ity of nebulizer 00:00: NEBUILZER [place] solution 00 BY MOUTH Medical EVERY 8 Branch HOURS NEEDED FOR WHEEZING OR FOR SHORTNESS OF BREATH IPRATROPIUM 2020-0 Yes [id number] INHALE 1 Univers 0.02 % 9-30 VIAL IN ity of nebulizer 00:00: NEBUILZER [place] solution 00 BY MOUTH Medical EVERY 8 Branch HOURS NEEDED FOR WHEEZING OR FOR SHORTNESS OF BREATH IPRATROPIUM 2020-0 Yes [id number] INHALE 1 Univers 0.02 % 9-30 VIAL IN ity of nebulizer 00:00: NEBUILZER [place] solution 00 BY MOUTH Medical EVERY 8 Branch HOURS NEEDED FOR WHEEZING OR FOR SHORTNESS OF BREATH IPRATROPIUM 2020-0 Yes [id number] INHALE 1 Univers 0.02 % 9-30 VIAL IN ity of nebulizer 00:00: NEBUILZER [place] solution 00 BY MOUTH Medical EVERY 8 Branch HOURS NEEDED FOR WHEEZING OR FOR SHORTNESS OF BREATH IPRATROPIUM 2020-0 Yes [id number] INHALE 1 Univers 0.02 % 9-30 VIAL IN ity of nebulizer 00:00: NEBUILZER [place] solution 00 BY MOUTH Medical EVERY 8 Branch HOURS NEEDED FOR WHEEZING OR FOR SHORTNESS OF BREATH IPRATROPIUM 2020-0 Yes [id number] INHALE 1 Univers 0.02 % 9-30 VIAL IN ity of nebulizer 00:00: NEBUILZER [place] solution 00 BY MOUTH Medical EVERY 8 Branch HOURS NEEDED FOR WHEEZING OR FOR SHORTNESS OF BREATH IPRATROPIUM 2020-0 Yes [id number] INHALE 1 Univers 0.02 % 9-30 VIAL IN ity of nebulizer 00:00: NEBUILZER [place] solution 00 BY MOUTH Medical EVERY 8 Branch HOURS NEEDED FOR WHEEZING OR FOR SHORTNESS OF BREATH IPRATROPIUM 2020-0 Yes [id number] INHALE 1 Univers 0.02 % 9-30 VIAL IN ity of nebulizer 00:00: NEBUILZER [place] solution 00 BY MOUTH Medical EVERY 8 Branch HOURS NEEDED FOR WHEEZING OR FOR SHORTNESS OF BREATH IPRATROPIUM 2020-0 1- No [id number] INHALE 1 Univers 0.02 % 9-30 08-30 VIAL IN ity of nebulizer 00:00: 00:00 NEBUILZER [place] solution 00 :00 BY MOUTH Medical EVERY 8 Branch HOURS NEEDED FOR WHEEZING OR FOR SHORTNESS OF BREATH IPRATROPIUM 2020-0 2020- No [id number] INHALE 1 Univers 0.02 % 9-30 08-30 VIAL IN ity of nebulizer 00:00: 00:00 NEBUILZER [place] solution 00 :00 BY MOUTH Medical EVERY 8 Branch HOURS NEEDED FOR WHEEZING OR FOR SHORTNESS OF BREATH Zinc 50 mg 2020-0 Yes Take by Univ ers Tab 9-26 mouth ity of 21:16: daily. [place] [address] Medical Branch Zinc 50 mg 2020-0 Yes Take by Univ ers Tab 9-26 mouth ity of 21:16: daily. [place] [address] Medical Branch Zinc 50 mg 2020-0 Yes Take by Univ ers Tab 9-26 mouth ity of 21:16: daily. [place] [address] Medical Branch Zinc 50 mg 2020-0 Yes Take by Univ ers Tab 9-26 mouth ity of 21:16: daily. [place] [address] Medical Branch Zinc 50 mg 2020-0 Yes Take by Univ ers Tab 9-26 mouth ity of 21:16: daily. [place] [address] Medical Branch Zinc 50 mg 2020-0 Yes Take by Univ ers Tab 9-26 mouth ity of 21:16: daily. [place] [address] Medical Branch Zinc 50 mg 2020-0 Yes Take by Univ ers Tab 9-26 mouth ity of 21:16: daily. [place] [address] Medical Branch Zinc 50 mg 2020-0 Yes Take by Univ ers Tab 9-26 mouth ity of 21:16: daily. [place] [address] Medical Branch Zinc 50 mg 2020-0 Yes Take by Univ ers Tab 9-26 mouth ity of 21:16: daily. [address] Zinc 50 mg 2020-0 Yes Take by [facility] ers Tab 9 mouth ity of 21:16: daily. [address] Zinc 50 mg 2020-0 Yes Take by [facility] ers Tab - mouth ity of 21:16: daily. [address] Zinc 50 mg 2020-0 Yes Take by [facility] ers Tab 06-25 mouth ity of 21:16: daily. [address] Zinc 50 mg 2020-0 Yes Take by [facility] ers Tab 9- mouth ity of 21:16: daily. [address] Zinc 50 mg 2020-0 Yes Take by [facility] ers Tab 9 mouth ity of 21:16: daily. [address] Zinc 50 mg 2020-0 Yes Take by [facility] ers Tab 9- mouth ity of 21:16: daily. [address] ondansetron 2020-0 2020- No 4mg 4 mg, Slow Univers (ZOFRAN 06-25 IV Push, ity of (PF)) 18:45: 17:43 ONCE, 1 [place] injection 4 00 :00 dose, Sat Med ical mg 06/25/20 at Branch 1345, Routine KCL 2020-0 2020- No 40meq 40 mEq, Univers (KLOR-CON 06-25 Oral, ity of M20) tablet 18:00: 17:43 ONCE, 1 [place] 40 mEq 00 :00 dose, Sat Medical 06/25/20 at Branch 1300, Routine butalbital- 2020-0 Yes 1{tbl} 1 tablet, Univers acetaminoph 06-25 Oral, ity of en-caff 16:45: Q4HPRN, [place] (ESGIC) 40 Starting Medical 50-325-40 Sat Branch mg tablet 1 06/25/20 at tablet 1145, Until Discontinu ed, Routine, headache melatonin 2020-0 2020- No 6mg 6 mg, Univer s (MELATIN) 06-25 Oral, ity of tablet 6 mg 02:09: 02:18 ONCE, 1 [place] 00 :00 dose, Fri Medical 06/24/20 at Branch 2115, Routine sulfur 2020-0 2020- No 5mL 5 mL, Univers hexafluorid 06-25 Intravenou i ty of e microsphr 00:45: 21:00 s, ONCE, 1 [place] (LUMASON) 00 :00 dose, Fri Medic al injection 5 06/24/20 at Br anch mL 1945, Routine
hourly team members approving Restricted medication : MUNA OCONNOR butalbital2019- No [id number] 1{tbl} Take 1 Univers acetaminoph 9-26 10-27 tablet by it y of en-caff 00:00: 04:59 mouth [place] 50-325-40 00 :00 every 4 Medical mg tablet (four) Branch hours as needed (headache) for up to 30 days. butalbital- 2019- No [id number] 1{tbl} Take 1 Univers acetaminoph 9-26 10-27 tablet by it y of en-caff 00:00: 04:59 mouth [place] 50-325-40 00 :00 every 4 Medical mg tablet (four) Branch hours as needed (headache) for up to 30 days. butalbital- 2019- No [id number] 1{tbl} Take 1 Univers acetaminoph 9-26 10-27 tablet by it y of en-caff 00:00: 04:59 mouth [place] 50-325-40 00 :00 every 4 Medical mg tablet (four) Branch hours as needed (headache) for up to 30 days. butalbital- 2019- No [id number] 1{tbl} Take 1 Univers acetaminoph 9-26 10-27 tablet by it y of en-caff 00:00: 04:59 mouth [place] 50-325-40 00 :00 every 4 Medical mg tablet (four) Branch hours as needed (headache) for up to 30 days. butalbital- 2019- No [id number] 1{tbl} Take 1 Univers acetaminoph 9-26 10-27 tablet by it y of en-caff 00:00: 04:59 mouth [place] 50-325-40 00 :00 every 4 Medical mg tablet (four) Branch hours as needed (headache) for up to 30 days. butalbital2019- No [id number] 1{tbl} Take 1 Univers acetaminoph 9-26 10-27 tablet by it y of en-caff 00:00: 04:59 mouth [place] 50-325-40 00 :00 every 4 Medical mg tablet (four) Branch hours as needed (headache) for up to 30 days. butalbital- 2020-0 2020- No [id number] 1{tbl} Take 1 Univers acetaminoph 9-26 10-27 tablet by it y of en-caff 00:00: 04:59 mouth [place] 50-325-40 00 :00 every 4 Medical mg tablet (four) Branch hours as needed (headache) for up to 30 days. butalbital- 2020-0 2020- No [id number] 1{tbl} Take 1 Univers acetaminoph 9-26 10-27 tablet by it y of en-caff 00:00: 04:59 mouth [place] 50-325-40 00 :00 every 4 Medical mg tablet (four) Branch hours as needed (headache) for up to 30 days. acetaminoph 2020-0 Yes 650mg 650 mg, Un sonali en 9-25 Oral, ity of (TYLENOL) 16:16: Q6HPRN, [place] tablet 650 42 Starting Medic al mg Sat Branch 06/24/20 at 1116, Until Discontinu ed, Routine, Pain (scale 4-6) losartan 2020-0 Yes 50mg 50 mg, Univers (COZAAR) 9-25 Oral, ity of tablet 50 14:00: DAILY, [place] mg 00 First dose Medical on Sat Branch 06/24/20 at 0900, Until Discontinu ed, Routine hydroCHLORO 2020-0 Yes 25mg 25 mg, Univ ers thiazide 9-25 Oral, ity of (ESIDRIX) 14:00: DAILY, [place] tablet 25 00 First dose Medi trever mg on Sat Branch 06/24/20 at 0900, Until Discontinu ed, Routine atorvastati 2020-0 Yes 40mg 40 mg, Univ ers n (LIPITOR) 9-25 Oral, ity of tablet 40 14:00: DAILY, [place] mg 00 First dose Medical on Sat Branch 06/24/20 at 0900, Until Discontinu ed, Routine metoprolol 2020-0 Yes 100mg 100 mg, Uni vers tartrate 9-25 Oral, BID, ity o f (LOPRESSOR) 13:00: First dose [place] tablet 100 00 on Sat Medical mg 06/24/20 at Branch 0800, Until Discontinu ed, Routine cefTRIAXone 2020-0 Yes 1000mg 1,000 mg, Univers (ROCEPHIN) 06-24 IV ity of 1,000 mg in 06:00: Piggyback, [place] NaCl 0.9% 00 Q12H ABX, Medic al (NS) 50 mL First dose [facility] MINI-BAG on Sat06/24/20 at 0100, Until Discontinu ed, 50 mL
R shira for Anti-Infec tive: Empiric Therapy for Suspected Infection< br>Empiric Therapy Site: Urine
D uration of therapy: 7 days furosemide 2019-0 2020- No 20mg 20 mg, IV U nivers (LASIX) 06-24 Push, ity of injection 06:00: 06:08 ONCE, 1 [place] 20 mg 00 :00 dose, [facility] Medical 06/24/20 at Branch 0100, NAOMI aspirin 2019-0 Yes 81mg 81 mg, Univers chewable 06-24 Oral, QAM ity of tablet 81 05:00: WITH [place] mg 00 BREAKFAST, Medical First dose Branch on Sat06/24/20 at 0000, Until Discontinu ed, Routine enoxaparin 2019-0 Yes 40mg 40 mg, Unive rs (LOVENOX) 06-23 Subcutaneo ity of injection 22:00: [place], DAILY, [place] 40 mg 00 First dose Medical on [place] Branch 06/23/20 at 1700, Until Discontinu ed, Routine proCHLORper 2020-0 Yes 5mg 5 mg, Slow Univers azine 06-23 IV Push, ity of (COMPAZINE) 21:49: Q6HPRN, [place] injection 5 42 Starting Medi trever mg [facility] Branch 06/23/20 at 1649, Until Discontinu ed, Routine, Nausea and Vomiting (N/V) acetaminoph 2019-0 2020- No 975mg 975 mg, U nivers en 06-23 Oral, ity of (TYLENOL) 20:00: 20:30 ONCE, 1 [place] tablet 975 00 :00 dose, [place] Medi trever mg 06/23/20 at Branch 1515, NAOMI iohexol 2020-0 2020- No 120mL 120 mL, Unive rs (OMNIPAQUE 06-23 Intravenou it y of 350 19:15: 19:04 s, ONCE, 1 [place] BULK-150 00 :00 dose, [place] Medica l mL) 06/23/20 at [place] injection 1415, 120 mL Routine famotidine 2019-0 2020- No 20mg 20 mg, Univ ers (PEPCID 06-23 Slow IV ity of (PF)) 18:23: 18:28 Push, [place] injection 00 :00 ONCE, 1 Medical 20 mg dose, [place] Branch 06/23/20 at 1330, NAOMI maalox:diph 2020-0 2020- No 15mL 15 mL, Uni vers enhydrAMINE 06-23 Oral, ity of :lidocaine 18:22: 18:30 ONCE, 1 [place] 2 % viscous 00 :00 dose, [place] Med ical 1:1:1 06/23/20 at [place] (FIRST-MOUT 1330, NAOMI HWASH BLM) oral suspension 15 mL NaCl 0.9% 2020-0 2020- No 500mL at 999 [facility] ers (NS) bolus 06-23 mL/hr, 500 it y of infusion 17:45: 18:00 mL, IV [place] 500 mL 00 :00 Infusion, Medical ONCE, 1 Branch dose, [place] 06/23/20 at 1245, STAT NaCl 0.9% 2020-0 2020- No 500mL at 999 [facility] ers (NS) bolus 06-23 mL/hr, 500 it y of infusion 17:39: 19:50 mL, IV [place] 500 mL 00 :00 Infusion, Medical ONCE, 1 [place] dose, [place] 06/23/20 at 1245, STAT aspirin 2019-0 2020- No 324mg 324 mg, Unive rs chewable 06-23 Oral, ity of tablet 324 16:40: 16:58 ONCE, 1 [place] mg 00 :00 dose, [place] Medical 06/23/20 at Branch 1145, NAOMI morpHINE 2020-0 2020- No 4mg 4 mg, Slow Un sonali injection 4 06-23 IV Push, ity of mg 16:39: 17:04 ONCE, 1 [place] 00 :00 dose, [place] Medical 06/23/20 at Branch 1145, STAT ondansetron 2019-0 2020- No 4mg 4 mg, Slow Univers (ZOFRAN 06-23 IV Push, ity of (PF)) 16:38: 17:05 ONCE, 1 [place] injection 4 00 :00 dose, [place] Med ical mg 06/23/20 at Branch 1145, NAOMI IPRATROPIUM 2020-0 Yes [id number] INHALE 1 Univers 0.02 % 9-22 VIAL IN ity of nebulizer 00:00: NEBULIZER [place] solution 00 BY MOUTH Medical EVERY 8 Branch HOURS NEEDED FOR WHEEZING OR FOR SHORTNESS OF BREATH IPRATROPIUM 2020-0 Yes [id number] INHALE 1 Univers 0.02 % 9-22 VIAL IN ity of nebulizer 00:00: NEBULIZER [place] solution 00 BY MOUTH Medical EVERY 8 Branch HOURS NEEDED FOR WHEEZING OR FOR SHORTNESS OF BREATH IPRATROPIUM 2020-0 Yes [id number] INHALE 1 Univers 0.02 % 9-22 VIAL IN ity of nebulizer 00:00: NEBULIZER [place] solution 00 BY MOUTH Medical EVERY 8 Branch HOURS NEEDED FOR WHEEZING OR FOR SHORTNESS OF BREATH IPRATROPIUM 2020-0 Yes [id number] INHALE 1 [facility] 0.02 % 9-22 VIAL IN ity of nebulizer 00:00: NEBULIZER [facility] solution 00 BY MOUTH Medical EVERY 8 Branch HOURS NEEDED FOR WHEEZING OR FOR SHORTNESS OF BREATH IPRATROPIUM 2020-0 2020- No [id number] INHALE 1 [facility] 0.02 % 9-22 30 VIAL IN ity of nebulizer 00:00: 00:00 NEBULIZER [place] solution 00 :00 BY MOUTH Medical EVERY 8 Branch HOURS NEEDED FOR WHEEZING OR FOR SHORTNESS OF BREATH ATORVASTATI 2020-0 Yes [id number] TAKE ONE [facility] N 40 mg 9-03 TABLET BY ity of tablet 00:00: [facility] DAILY Medical Branch ATORVASTATI 2020-0 Yes [id number] TAKE ONE Univers N 40 mg 9-03 TABLET BY ity of tablet 00:00: [facility] DAILY Medical Branch ATORVASTATI 2020-0 Yes [id number] TAKE ONE Univers N 40 mg 9-03 TABLET BY ity of tablet 00:00: [facility] DAILY Medical Branch ATORVASTATI 2020-0 Yes [id number] TAKE ONE Univers N 40 mg 9-03 TABLET BY ity of tablet 00:00: [facility] DAILY Medical Branch ATORVASTATI 2020-0 Yes [id number] TAKE ONE Univers N 40 mg 9-03 TABLET BY ity of tablet 00:00: MOUTH [place] 00 DAILY Medical Branch ATORVASTATI 2020-0 Yes [id number] TAKE ONE [facility] N 40 mg 9-03 TABLET BY ity of tablet 00:00: MOUTH [place] 00 DAILY Medical Branch ATORVASTATI 2020-0 Yes [id number] TAKE ONE [facility] N 40 mg 9-03 TABLET BY ity of tablet 00:00: MOUTH [place] 00 DAILY Medical Branch ATORVASTATI 2020-0 Yes [id number] TAKE ONE [facility] N 40 mg 9-03 TABLET BY ity of tablet 00:00: MOUTH [place] 00 DAILY Medical Branch ATORVASTATI 2020-0 Yes [id number] TAKE ONE [facility] N 40 mg 9-03 TABLET BY ity of tablet 00:00: MOUTH [place] 00 DAILY Medical Branch ATORVASTATI 2020-0 Yes [id number] TAKE ONE [facility] N 40 mg 9-03 TABLET BY ity of tablet 00:00: MOUTH [place] DAILY Medical Branch ATORVASTATI 2020-0 Yes [id number] TAKE ONE [facility] N 40 mg 9-03 TABLET BY ity of tablet 00:00: MOUTH [place] DAILY Medical Branch ATORVASTATI 2020-0 Yes [id number] TAKE ONE [facility] N 40 mg 9-03 TABLET BY ity of tablet 00:00: MOUTH [place] 00 DAILY Medical Branch ATORVASTATI 2020-0 Yes [id number] TAKE ONE [facility] N 40 mg 9-03 TABLET BY ity of tablet 00:00: MOUTH [place] DAILY Medical Branch ATORVASTATI 2020-0 Yes [id number] TAKE ONE [facility] N 40 mg 9-03 TABLET BY ity of tablet 00:00: MOUTH [place] DAILY Medical Branch ATORVASTATI 2020-0 Yes [id number] TAKE ONE [facility] N 40 mg 9-03 TABLET BY ity of tablet 00:00: MOUTH [place] DAILY Medical Branch ATORVASTATI 2020-0 Yes [id number] TAKE ONE [facility] N 40 mg 9-03 TABLET BY ity of tablet 00:00: MOUTH [place] 00 DAILY Medical Branch ATORVASTATI 2020-0 Yes [id number] TAKE ONE [facility] N 40 mg 9-03 TABLET BY ity of tablet 00:00: MOUTH [place] DAILY Medical Branch ATORVASTATI 2020-0 Yes [id number] TAKE ONE [facility] N 40 mg 9-03 TABLET BY ity of tablet 00:00: MOUTH [place] 00 DAILY Medical Branch ATORVASTATI 2020-0 Yes [id number] TAKE ONE [facility] N 40 mg 9-03 TABLET BY ity of tablet 00:00: MOUTH [place] 00 DAILY Medical Branch ATORVASTATI 2020-0 Yes [id number] TAKE ONE [facility] N 40 mg 9-03 TABLET BY ity of tablet 00:00: MOUTH [place] 00 DAILY Medical Branch ATORVASTATI 2020-0 Yes [id number] TAKE ONE [facility] N 40 mg 9-03 TABLET BY ity of tablet 00:00: MOUTH [place] DAILY Medical Branch ATORVASTATI 2020-0 Yes [id number] TAKE ONE [facility] N 40 mg 9-03 TABLET BY ity of tablet 00:00: MOUTH [place] DAILY Medical Branch ATORVASTATI 2020-0 Yes [id number] TAKE ONE [facility] N 40 mg 9-03 TABLET BY ity of tablet 00:00: MOUTH [place] DAILY Medical Branch ATORVASTATI 2020-0 Yes [id number] TAKE ONE [facility] N 40 mg 9-03 TABLET BY ity of tablet 00:00: MOUTH [place] DAILY Medical Branch ATORVASTATI 2020-0 Yes [id number] TAKE ONE [facility] N 40 mg 9-03 TABLET BY ity of tablet 00:00: MOUTH [place] DAILY Medical Branch ATORVASTATI 2020-0 Yes [id number] TAKE ONE [facility] N 40 mg 9-03 TABLET BY ity of tablet 00:00: MOUTH [place] 00 DAILY Medical Branch ATORVASTATI 2020-0 Yes [id number] TAKE ONE [facility] N 40 mg 9-03 TABLET BY ity of tablet 00:00: MOUTH [place] DAILY Medical Branch ATORVASTATI 2020-0 Yes [id number] TAKE ONE [facility] N 40 mg 9-03 TABLET BY ity of tablet 00:00: MOUTH [place] DAILY Medical Branch ATORVASTATI 2020-0 Yes [id number] TAKE ONE [facility] N 40 mg 9-03 TABLET BY ity of tablet 00:00: MOUTH [place] DAILY Medical Branch ATORVASTATI 2020-0 Yes [id number] TAKE ONE [facility] N 40 mg 9-03 TABLET BY ity of tablet 00:00: MOUTH [place] 00 DAILY Medical Branch ATORVASTATI 2020-0 Yes [id number] TAKE ONE [facility] N 40 mg 9-03 TABLET BY ity of tablet 00:00: MOUTH [place] DAILY Medical Branch ATORVASTATI 2020-0 Yes [id number] TAKE ONE [facility] N 40 mg 9-03 TABLET BY ity of tablet 00:00: MOUTH [place] DAILY Medical Branch ATORVASTATI 2020-0 Yes [id number] TAKE ONE [facility] N 40 mg 9-03 TABLET BY ity of tablet 00:00: MOUTH [place] 00 DAILY Medical Branch ATORVASTATI 2020-0 Yes [id number] TAKE ONE [facility] N 40 mg 9-03 TABLET BY ity of tablet 00:00: MOUTH [place] 00 DAILY Medical Branch ATORVASTATI 2020-0 Yes [id number] TAKE ONE [facility] N 40 mg 9-03 TABLET BY ity of tablet 00:00: MOUTH [place] 00 DAILY Medical Branch ATORVASTATI 2020-0 Yes [id number] TAKE ONE [facility] N 40 mg 9-03 TABLET BY ity of tablet 00:00: MOUTH [place] 00 DAILY Medical Branch ATORVASTATI 2020-0 2021- No [id number] TAKE ONE [facility] N 40 mg 9-03 11-08 TABLET BY ity of tablet 00:00: 00:00 MOUTH [place] 00 :00 DAILY Medical Branch IPRATROPIUM 2020-0 Yes [id number] INHALE ONE Univers 0.02 % 8-28 VIAL VIA ity of nebulizer 00:00: NEBULIZER [place] [facility] solution 00 BY MOUTH [facility] EVERY 8 Branch HOURS NEEDED FOR WHEEZING OR FOR SHORTNESS OF BREATH IPRATROPIUM 2020-0 Yes [id number] INHALE ONE Univers 0.02 % 8-28 VIAL VIA ity of nebulizer 00:00: NEBULIZER [place] [facility] solution 00 BY MOUTH [facility] EVERY 8 Branch HOURS NEEDED FOR WHEEZING OR FOR SHORTNESS OF BREATH IPRATROPIUM 2020-0 Yes [id number] INHALE ONE Univers 0.02 % 8-28 VIAL VIA ity of nebulizer 00:00: NEBULIZER [place] solution 00 BY MOUTH [facility] EVERY 8 Branch HOURS NEEDED FOR WHEEZING OR FOR SHORTNESS OF BREATH IPRATROPIUM 2020-0 2020- No [id number] INHALE ONE [facility] 0.02 % 8-28 - VIAL VIA ity of nebulizer 00:00: 00:00 NEBULIZER [place] solution 00 :00 BY MOUTH [facility] EVERY 8 Branch HOURS NEEDED FOR WHEEZING OR FOR SHORTNESS OF BREATH IPRATROPIUM 2020-0 Yes [id number] USE 1 VIAL [facility] 0.02 % 8-18 IN ity of nebulizer 00:00: NEBULIZER [place] [facility] 00 EVERY 8 Medical HOURS Branch NEEDED FOR WHEEZING OR FOR SHORTNESS OF BREATH IPRATROPIUM 2020-0 2020- No [id number] USE 1 VIAL [facility] 0.02 % 8-18 -28 IN ity of nebulizer 00:00: 00:00 NEBULIZER [place] solution 00 :00 EVERY 8 Medical HOURS Branch NEEDED FOR WHEEZING OR FOR SHORTNESS OF BREATH IPRATROPIUM 2020-0 Yes [id number] USE 1 VIAL [facility] 0.02 % 8-10 IN ity of nebulizer 00:00: NEBULIZER [place] 00 EVERY 8 Medical HOURS Branch NEEDED FOR WHEEZING OR FOR SHORTNESS OF BREATH IPRATROPIUM 2020-0 Yes [id number] USE 1 VIAL [facility] 0.02 % 8-10 IN ity of nebulizer 00:00: NEBULIZER [place] 00 EVERY 8 Medical HOURS Branch NEEDED FOR WHEEZING OR FOR SHORTNESS OF BREATH IPRATROPIUM 2020-0 Yes [id number] USE 1 VIAL [facility] 0.02 % 8-10 IN ity of nebulizer 00:00: NEBULIZER [place] [facility] 00 EVERY 8 Medical HOURS Branch NEEDED FOR WHEEZING OR FOR SHORTNESS OF BREATH IPRATROPIUM 2020-0 Yes [id number] USE 1 VIAL [facility] 0.02 % 8-10 IN ity of nebulizer 00:00: NEBULIZER [place] [facility] 00 EVERY 8 Medical HOURS Branch NEEDED FOR WHEEZING OR FOR SHORTNESS OF BREATH IPRATROPIUM 2020-0 Yes [id number] USE 1 VIAL [facility] 0.02 % 8-10 IN ity of nebulizer 00:00: NEBULIZER [place] [facility] 00 EVERY 8 Medical HOURS Branch NEEDED FOR WHEEZING OR FOR SHORTNESS OF BREATH IPRATROPIUM 2020-0 Yes [id number] USE 1 VIAL [facility] 0.02 % 8-10 IN ity of nebulizer 00:00: NEBULIZER [place] [facility] 00 EVERY 8 Medical HOURS Branch NEEDED FOR WHEEZING OR FOR SHORTNESS OF BREATH IPRATROPIUM 2020-0 Yes [id number] USE 1 VIAL [facility] 0.02 % 8-10 IN ity of nebulizer 00:00: NEBULIZER [place] [facility] 00 EVERY 8 Medical HOURS Branch NEEDED FOR WHEEZING OR FOR SHORTNESS OF BREATH IPRATROPIUM 2020-0 Yes [id number] USE 1 VIAL [facility] 0.02 % 8-10 IN ity of nebulizer 00:00: NEBULIZER [place] [facility] 00 EVERY 8 Medical HOURS Branch NEEDED FOR WHEEZING OR FOR SHORTNESS OF BREATH IPRATROPIUM 2020-0 2020- No [id number] USE 1 VIAL [facility] 0.02 % 8-10 08-18 IN ity of nebulizer 00:00: 00:00 NEBULIZER [place] solution 00 :00 EVERY 8 Medical HOURS Branch NEEDED FOR WHEEZING OR FOR SHORTNESS OF BREATH levoFLOXaci 2020-0 2020- No [id number] 750mg Take 1 [facility] n 750 mg 8- 08-15 tablet by ity o f tablet 00:00: 04:59 mouth [place] 00 :00 every 24 Medical (twenty-fo Branch ur) hours for 7 days. codeine-gua 2020-0 2020- No 5mL Take 5 mL Univers ifenesin 8 08-15 by mouth ity of 10-100 mg/5 00:00: 04:59 every 6 [place] mL solution 00 :00 (six) Medical hours as Branch needed for Cough for up to 7 days. Indication s: cough levoFLOXaci 2020-0 2020- No [id number] 750mg Take 1 [facility] n 750 mg 8- 08-15 tablet by ity o f tablet 00:00: 04:59 mouth [place] 00 :00 every 24 Medical (twenty-fo Branch ur) hours for 7 days. codeine-gua 2020-0 2020- No 5mL Take 5 mL Univers ifenesin 8- 08-15 by mouth ity of 10-100 mg/5 00:00: 04:59 every 6 [place] mL solution 00 :00 (six) Medical hours as Branch needed for Cough for up to 7 days. Indication s: cough levoFLOXaci 2020-0 2020- No [id number] 750mg Take 1 [facility] n 750 mg 8-15 tablet by ity o f tablet 00:00: 04:59 mouth [place] 00 :00 every 24 Medical (twenty-fo Branch ur) hours for 7 days. codeine-gua 2020-0 2020- No 5mL Take 5 mL Univers ifenesin 8 08-15 by mouth ity of 10-100 mg/5 00:00: 04:59 every 6 [place] mL solution 00 :00 (six) Medical hours as Branch needed for Cough for up to 7 days. Indication s: cough levoFLOXaci 2020-0 2020- No [id number] 750mg Take 1 [facility] n 750 mg 8- 08-15 tablet by ity o f tablet 00:00: 04:59 mouth [place] 00 :00 every 24 Medical (twenty-fo Branch ur) hours for 7 days. codeine-gua 2020-0 2020- No 5mL Take 5 mL Univers ifenesin 8- 08-15 by mouth ity of 10-100 mg/5 00:00: 04:59 every 6 [place] mL solution 00 :00 (six) Medical hours as Branch needed for Cough for up to 7 days. Indication s: cough levoFLOXaci 2020-0 2020- No [id number] 750mg Take 1 [facility] n 750 mg 8- 08-15 tablet by ity o f tablet 00:00: 04:59 mouth [place] 00 :00 every 24 Medical (twenty-fo Branch ur) hours for 7 days. codeine-gua 2020-0 2020- No 5mL Take 5 mL Univers ifenesin 8 08-15 by mouth ity of 10-100 mg/5 00:00: 04:59 every 6 [place] mL solution 00 :00 (six) Medical hours as Branch needed for Cough for up to 7 days. Indication s: cough levoFLOXaci 2020-0 2020- No [id number] 750mg Take 1 [facility] n 750 mg 8-04 06-15 tablet by ity o f tablet 00:00: 04:59 mouth [place] 00 :00 every 24 Medical (twenty-fo Branch ur) hours for 7 days. codeine-gua 2020-0 2020- No 5mL Take 5 mL [facility] ifenesin 8 08-15 by mouth ity of 10-100 mg/5 00:00: 04:59 every 6 [place] mL solution 00 :00 (six) Medical hours as Branch needed for Cough for up to 7 days. Indication s: cough levoFLOXaci 2020-0 2020- No [id number] 750mg Take 1 [facility] n 750 mg 05-06-15 tablet by ity o f tablet 00:00: 04:59 mouth [place] 00 :00 every 24 Medical (twenty-fo Branch ur) hours for 7 days. codeine-gua 2020-0 2020- No 5mL Take 5 mL [facility] ifenesin 8- 08-15 by mouth ity of 10-100 mg/5 00:00: 04:59 every 6 [place] mL solution 00 :00 (six) Medical hours as Branch needed for Cough for up to 7 days. Indication s: cough levoFLOXaci 2020-0 2020- No [id number] 750mg Take 1 [facility] n 750 mg 8- 08-15 tablet by ity o f tablet 00:00: 04:59 mouth [place] 00 :00 every 24 Medical (twenty-fo Branch ur) hours for 7 days. codeine-gua 2020-0 2020- No 5mL Take 5 mL [facility] ifenesin 05-06 by mouth ity of 10-100 mg/5 00:00: 04:59 every 6 [place] mL solution 00 :00 (six) Medical hours as Branch needed for Cough for up to 7 days. Indication s: cough Miscellaneo 2020-0 Yes [id number] J40: U [facility] 05-04 [place] ity of Supply Kit 00:00: - Dispense [place] 00 # 1 [facility] [place] Respironic s (okay for alternativ e brand) for nebulizer treatment Miscellaneo 2020-0 Yes [id number] J40: U [facility] 05-04 [place] ity of Supply Kit 00:00: - Dispense [place] 00 # 1 [facility] [place] Respironic s (okay for alternativ e brand) for nebulizer treatment Miscellaneo 2020-0 Yes [id number] J40: U [facility] 05-04 [place] ity of Supply Kit 00:00: - Dispense [place] 00 # 1 [facility] [place] Respironic s (okay for alternativ e brand) for nebulizer treatment Miscellaneo 2020-0 Yes [id number] J40: [facility] 05-04 [place] ity of Supply Kit 00:00: - Dispense [place] 00 # 1 [facility] [place] [facility] Respironic s (okay for alternativ e brand) for nebulizer treatment Miscellaneo 2020-0 Yes [id number] J40: [facility] 05-04 [place] ity of Supply Kit 00:00: - Dispense [place] 00 # 1 [facility] [place] [facility] Respironic s (okay for alternativ e brand) for nebulizer treatment Miscellaneo 2020-0 Yes [id number] J40: [facility] 05-04 [place] ity of Supply Kit 00:00: - Dispense [place] 00 # 1 [facility] [place] [facility] Respironic s (okay for alternativ e brand) for nebulizer treatment Miscellaneo 2020-0 Yes [id number] J40: [facility] 05-04 [place] ity of Supply Kit 00:00: - Dispense [place] 00 # 1 [facility] [place] [facility] Respironic s (okay for alternativ e brand) for nebulizer treatment Miscellaneo 2020-0 Yes [id number] J40: [facility] 05-04 [place] ity of Supply Kit 00:00: - Dispense [place] 00 # 1 [facility] [place] [facility] Respironic s (okay for alternativ e brand) for nebulizer treatment Miscellaneo 2020-0 Yes [id number] J40: [facility] 05-04 [place] ity of Supply Kit 00:00: - Dispense [place] 00 # 1 [facility] [place] [facility] Respironic s (okay for alternativ e brand) for nebulizer treatment Miscellaneo 2020-0 Yes [id number] J40: [facility] 05-04 [place] ity of Supply Kit 00:00: - Dispense [place] 00 # 1 [facility] [place] [facility] Respironic s (okay for alternativ e brand) for nebulizer treatment Miscellaneo 2020-0 Yes [id number] J40: U [facility] 05-04 [place] ity of Supply Kit 00:00: - Dispense [place] 00 # 1 [facility] [place] [facility] Respironic s (okay for alternativ e brand) for nebulizer treatment Miscellaneo 2020-0 Yes [id number] J40: [facility] 05-04 [place] ity of Supply Kit 00:00: - Dispense [place] 00 # 1 [facility] [place] [facility] Respironic s (okay for alternativ e brand) for nebulizer treatment Miscellaneo 2020-0 Yes [id number] J40: [facility] 05-04 [place] ity of Supply Kit 00:00: - Dispense [place] 00 # 1 [facility] [place] [facility] Respironic s (okay for alternativ e brand) for nebulizer treatment Miscellaneo 2020-0 Yes [id number] J40: [facility] 05-04 [place] ity of Supply Kit 00:00: - Dispense [place] 00 # 1 [facility] [place] [facility] Respironic s (okay for alternativ e brand) for nebulizer treatment Miscellaneo 2020-0 Yes [id number] J40: [facility] 05-04 [place] ity of Supply Kit 00:00: - Dispense [place] 00 # 1 [facility] [place] [facility] Respironic s (okay for alternativ e brand) for nebulizer treatment Miscellaneo 2020-0 Yes [id number] J40: [facility] 05-04 [place] ity of Supply Kit 00:00: - Dispense [place] 00 # 1 [facility] [place] [facility] Respironic s (okay for alternativ e brand) for nebulizer treatment Miscellaneo 2020-0 Yes [id number] J40: [facility] 05-04 [place] ity of Supply Kit 00:00: - Dispense [place] 00 # 1 [facility] [place] [facility] Respironic s (okay for alternativ e brand) for nebulizer treatment Miscellaneo 2020-0 Yes [id number] J40: [facility] 05-04 [place] ity of Supply Kit 00:00: - Dispense [place] 00 # 1 [facility] [place] [facility] Respironic s (okay for alternativ e brand) for nebulizer treatment Miscellaneo 2020-0 Yes [id number] J40: [facility] 05-04 [place] ity of Supply Kit 00:00: - Dispense [place] 00 # 1 [facility] [place] [facility] Respironic s (okay for alternativ e brand) for nebulizer treatment Miscellaneo 2020-0 Yes [id number] J40: [facility] 05-04 [place] ity of Supply Kit 00:00: - Dispense [place] 00 # 1 [facility] [place] Respironic s (okay for alternativ e brand) for nebulizer treatment Miscellaneo 2020-0 Yes [id number] J40: [facility] 05-04 [place] ity of Supply Kit 00:00: - Dispense [place] 00 # 1 [facility] [place] [facility] Respironic s (okay for alternativ e brand) for nebulizer treatment Miscellaneo 2020-0 Yes [id number] J40: [facility] 05-04 [place] ity of Supply Kit 00:00: - Dispense [place] 00 # 1 [facility] [place] [facility] Respironic s (okay for alternativ e brand) for nebulizer treatment Miscellaneo 2020-0 Yes [id number] J40: [facility] 05-04 [place] ity of Supply Kit 00:00: - Dispense [place] 00 # 1 [facility] [place] Respironic s (okay for alternativ e brand) for nebulizer treatment Miscellaneo 2020-0 Yes [id number] J40: [facility] [place] ity of Supply Kit 00:00: - Dispense [place] 00 # 1 [facility] [place] [facility] Respironic s (okay for alternativ e brand) for nebulizer treatment Miscellaneo 2020-0 Yes [id number] J40: [facility] [place] ity of Supply Kit 00:00: - Dispense [place] 00 # 1 [facility] [place] [facility] Respironic s (okay for alternativ e brand) for nebulizer treatment Miscellaneo 2020-0 Yes [id number] J40: [facility] [place] ity of Supply Kit 00:00: - Dispense [place] 00 # 1 [facility] [place] Respironic s (okay for alternativ e brand) for nebulizer treatment Miscellaneo 2020-0 Yes [id number] J40: [facility] [place] ity of Supply Kit 00:00: - Dispense [place] 00 # 1 [facility] [place] [facility] Respironic s (okay for alternativ e brand) for nebulizer treatment Miscellaneo 2020-0 Yes [id number] J40: [facility] [place] ity of Supply Kit 00:00: - Dispense [place] 00 # 1 [facility] [place] [facility] Respironic s (okay for alternativ e brand) for nebulizer treatment Miscellaneo 2020-0 Yes [id number] J40: [facility] [place] ity of Supply Kit 00:00: - Dispense [place] 00 # 1 [facility] [place] Respironic s (okay for alternativ e brand) for nebulizer treatment Miscellaneo 2020-0 Yes [id number] [facility] [place] ity of Supply Kit 00:00: - Dispense [place] 00 # 1 [facility] [place] [facility] Respironic s (okay for alternativ e brand) for nebulizer treatment Miscellaneo 2020-0 Yes [id number] J40: U [facility] 05-04 [place] ity of Supply Kit 00:00: - Dispense [place] 00 # 1 [facility] [place] Respironic s (okay for alternativ e brand) for nebulizer treatment Miscellaneo 2020-0 Yes [id number] [facility] [place] [facility]y of Supply Kit 00:00: - Dispense [place] 00 # 1 [facility] [place] [facility] Respironic s (okay for alternativ e brand) for nebulizer treatment Miscellaneo 2020-0 Yes [id number] [facility] [place] [facility]y of Supply Kit 00:00: - Dispense [place] 00 # 1 [facility] [place] [facility] Respironic s (okay for alternativ e brand) for nebulizer treatment Miscellaneo 2020-0 Yes [id number] [facility] [place] [facility]y of Supply Kit 00:00: - Dispense [place] 00 # 1 [facility] [place] [facility] Respironic s (okay for alternativ e brand) for nebulizer treatment Miscellaneo 2020-0 Yes [id number] [facility]40[facility] [place] ity of Supply Kit 00:00: - Dispense [place] 00 # 1 [facility] [place] [facility] Respironic s (okay for alternativ e brand) for nebulizer treatment Miscellaneo 2020-0 Yes [id number] J40: [facility] [place] ity of Supply Kit 00:00: - Dispense [place] 00 # 1 [facility] [place] [facility] Respironic s (okay for alternativ e brand) for nebulizer treatment Miscellaneo 2020-0 Yes [id number] [facility]40[facility] [place] ity of Supply Kit 00:00: - Dispense [place] 00 # 1 [facility] [place] [facility] Respironic s (okay for alternativ e brand) for nebulizer treatment Miscellaneo 2020-0 Yes [id number] [facility]40[facility] [place] ity of Supply Kit 00:00: - Dispense [place] 00 # 1 [facility] [place] [facility] Respironic s (okay for alternativ e brand) for nebulizer treatment Miscellaneo 2020-0 Yes [id number] [facility]40[facility] [place] ity of Supply Kit 00:00: - Dispense [place] 00 # 1 [facility] [place] [facility] Respironic s (okay for alternativ e brand) for nebulizer treatment Miscellaneo 2020-0 Yes [id number] J40[facility] [place] ity of Supply Kit 00:00: - Dispense [place] 00 # 1 [facility] [place] [facility] Respironic s (okay for alternativ e brand) for nebulizer treatment Miscellaneo 2020-0 Yes [id number] J40[facility] [place] ity of Supply Kit 00:00: - Dispense [place] 00 # 1 [facility] [place] [facility] Respironic s (okay for alternativ e brand) for nebulizer treatment Miscellaneo 2020-0 Yes [id number] [facility]40[facility] [place] ity of Supply Kit 00:00: - Dispense [place] 00 # 1 [facility] [place] [facility] Respironic s (okay for alternativ e brand) for nebulizer treatment Miscellaneo 2020-0 Yes [id number] [facility]40[facility] [place] ity of Supply Kit 00:00: - Dispense [place] 00 # 1 [facility] [place] [facility] Respironic s (okay for alternativ e brand) for nebulizer treatment Miscellaneo 2020-0 Yes [id number] [facility] [place] ity of Supply Kit 00:00: - Dispense [place] 00 # 1 [facility] [place] [facility] Respironic s (okay for alternativ e brand) for nebulizer treatment Miscellaneo 2020-0 Yes [id number] J40[facility] [place] ity of Supply Kit 00:00: - Dispense [place] 00 # 1 [facility] [place] [facility] Respironic s (okay for alternativ e brand) for nebulizer treatment Miscellaneo 2020-0 Yes [id number] [facility]40[facility] [place] ity of Supply Kit 00:00: - Dispense [place] 00 # 1 [facility] [place] [facility] Respironic s (okay for alternativ e brand) for nebulizer treatment Miscellaneo 2020-0 Yes [id number] J40[facility] [place] ity of Supply Kit 00:00: - Dispense [place] 00 # 1 [facility] [place] [facility] Respironic s (okay for alternativ e brand) for nebulizer treatment Miscellaneo 2020-0 Yes [id number] J40: [facility] 05-04 [place] ity of Supply Kit 00:00: - Dispense [place] 00 # 1 [facility] [place] [facility] Respironic s (okay for alternativ e brand) for nebulizer treatment Miscellaneo 2020-0 Yes [id number] J40: [facility] 05-03 [place] ity of Supply Kit 00:00: - Dispense [place] 00 # 1 [facility] [place] [facility] Respironic s (okay for alternativ e brand) for nebulizer treatment Miscellaneo 2020-0 2020- No [id number] J40: [facility] 05-03 [place] ity of Supply Kit 00:00: 00:00 - Dispense [place] 00 :00 # 1 Medical [place] [facility] Respironic s (okay for alternativ e brand) for nebulizer treatment albuterol 2020-0 Yes [id number] 2.5mg Inhale 3 Univers 2.5 mg /3 8-03 mL every 4 ity of mL (0.083 00:00: (four) [place] %) 00 hours as Medical nebulizer needed for Bran ch solution Wheezing or Shortness of Breath. methylPREDN 2020-0 Yes [id number] Take by [employer] ISolone 8-03 mouth ity of (MEDROL, 00:00: SEE-INSTRU Jake as JACKELYN,) 4 mg 00 CTIONS. Medica l tablets follow Branch package directions albuterol 2020-0 Yes [id number] 2.5mg Inhale 3 Univers 2.5 mg /3 8-03 mL every 4 ity of mL (0.083 00:00: (four) [place] %) 00 hours as Medical nebulizer needed for Bran ch solution Wheezing or Shortness of Breath. methylPREDN 2020-0 Yes [id number] Take by [facility] ISolone 8-03 mouth ity of (MEDROL, 00:00: SEE-INSTRU [place] as JACKELYN,) 4 mg 00 CTIONS. Medica l tablets follow Branch package directions albuterol 2020-0 Yes [id number] 2.5mg Inhale 3 Univers 2.5 mg /3 8-03 mL every 4 ity of mL (0.083 00:00: (four) [place] %) 00 hours as Medical nebulizer needed for Bran ch solution Wheezing or Shortness of Breath. methylPREDN 2020-0 Yes [id number] Take by [facility] ISolone 8-03 mouth ity of (MEDROL, 00:00: SEE-INSTRU [place] as JACKELYN,) 4 mg 00 CTIONS. Medica l tablets follow Branch package directions albuterol 2020-0 Yes [id number] 2.5mg Inhale 3 Univers 2.5 mg /3 8-03 mL every 4 ity of mL (0.083 00:00: (four) [place] %) 00 hours as Medical nebulizer needed for Bran ch solution Wheezing or Shortness of Breath. methylPREDN 2020-0 Yes [id number] Take by [facility] 8-03 mouth ity of (MEDROL, 00:00: SEE-INSTRU [place] JACK[place]N,) 4 mg 00 CTIONS. Medica l tablets follow Branch package directions albuterol 2020-0 Yes [id number] 2.5mg Inhale 3 [facility] 2.5 mg /3 8-03 mL every 4 ity of mL (0.083 00:00: (four) [place] %) 00 hours as Medical nebulizer needed for Bran ch solution Wheezing or Shortness of Breath. albuterol 2020-0 Yes [id number] 2.5mg Inhale 3 [facility] 2.5 mg /3 8-03 mL every 4 ity of mL (0.083 00:00: (four) [place] %) 00 hours as Medical nebulizer needed for Bran ch solution Wheezing or Shortness of Breath. albuterol 2020-0 Yes [id number] 2.5mg Inhale 3 [facility] 2.5 mg /3 8-03 mL every 4 ity of mL (0.083 00:00: (four) [place] %) 00 hours as Medical nebulizer needed for Bran ch solution Wheezing or Shortness of Breath. albuterol 2020-0 Yes [id number] 2.5mg Inhale 3 [facility] 2.5 mg /3 8-03 mL every 4 ity of mL (0.083 00:00: (four) [place] %) 00 hours as Medical nebulizer needed for Bran ch solution Wheezing or Shortness of Breath. albuterol 2020-0 Yes [id number] 2.5mg Inhale 3 [facility] 2.5 mg /3 8-03 mL every 4 ity of mL (0.083 00:00: (four) [place] %) 00 hours as Medical nebulizer needed for Bran ch solution Wheezing or Shortness of Breath. albuterol 2020-0 Yes [id number] 2.5mg Inhale 3 [facility] 2.5 mg /3 8-03 mL every 4 ity of mL (0.083 00:00: (four) [place] %) 00 hours as Medical nebulizer needed for Bran ch solution Wheezing or Shortness of Breath. albuterol 2020-0 Yes [id number] 2.5mg Inhale 3 [facility] 2.5 mg /3 8-03 mL every 4 ity of mL (0.083 00:00: (four) [place] %) 00 hours as Medical nebulizer needed for Bran ch solution Wheezing or Shortness of Breath. albuterol 2020-0 Yes [id number] 2.5mg Inhale 3 [facility] 2.5 mg /3 8-03 mL every 4 ity of mL (0.083 00:00: (four) [place] %) 00 hours as Medical nebulizer needed for Bran ch solution Wheezing or Shortness of Breath. albuterol 2020-0 Yes [id number] 2.5mg Inhale 3 [facility] 2.5 mg /3 8-03 mL every 4 ity of mL (0.083 00:00: (four) [place] %) 00 hours as Medical nebulizer needed for Bran ch solution Wheezing or Shortness of Breath. albuterol 2020-0 Yes [id number] 2.5mg Inhale 3 [facility] 2.5 mg /3 8-03 mL every 4 ity of mL (0.083 00:00: (four) [place] %) 00 hours as Medical nebulizer needed for Bran ch solution Wheezing or Shortness of Breath. albuterol 2020-0 Yes [id number] 2.5mg Inhale 3 [facility] 2.5 mg /3 8-03 mL every 4 ity of mL (0.083 00:00: (four) [place] %) 00 hours as Medical nebulizer needed for Bran ch solution Wheezing or Shortness of Breath. albuterol 2020-0 Yes [id number] 2.5mg Inhale 3 [facility] 2.5 mg /3 8-03 mL every 4 ity of mL (0.083 00:00: (four) [place] %) 00 hours as Medical nebulizer needed for Bran ch solution Wheezing or Shortness of Breath. albuterol 2020-0 Yes [id number] 2.5mg Inhale 3 [facility] 2.5 mg /3 8-03 mL every 4 ity of mL (0.083 00:00: (four) [place] %) 00 hours as Medical nebulizer needed for Bran ch solution Wheezing or Shortness of Breath. albuterol 2020-0 Yes [id number] 2.5mg Inhale 3 [facility] 2.5 mg /3 8-03 mL every 4 ity of mL (0.083 00:00: (four) [place] %) 00 hours as Medical nebulizer needed for Bran ch solution Wheezing or Shortness of Breath. albuterol 2020-0 Yes [id number] 2.5mg Inhale 3 [facility] 2.5 mg /3 8-03 mL every 4 ity of mL (0.083 00:00: (four) [place] %) 00 hours as Medical nebulizer needed for Bran ch solution Wheezing or Shortness of Breath. albuterol 2020-0 Yes [id number] 2.5mg Inhale 3 [facility] 2.5 mg /3 8-03 mL every 4 ity of mL (0.083 00:00: (four) [place] %) 00 hours as Medical nebulizer needed for Bran ch solution Wheezing or Shortness of Breath. albuterol 2020-0 Yes [id number] 2.5mg Inhale 3 [facility] 2.5 mg /3 8-03 mL every 4 ity of mL (0.083 00:00: (four) [place] %) 00 hours as Medical nebulizer needed for Bran ch solution Wheezing or Shortness of Breath. albuterol 2020-0 Yes [id number] 2.5mg Inhale 3 [facility] 2.5 mg /3 8-03 mL every 4 ity of mL (0.083 00:00: (four) [place] %) 00 hours as Medical nebulizer needed for Bran ch solution Wheezing or Shortness of Breath. albuterol 2020-0 Yes [id number] 2.5mg Inhale 3 [facility] 2.5 mg /3 8-03 mL every 4 ity of mL (0.083 00:00: (four) [place] %) 00 hours as Medical nebulizer needed for Bran ch solution Wheezing or Shortness of Breath. albuterol 2020-0 Yes [id number] 2.5mg Inhale 3 [facility] 2.5 mg /3 8-03 mL every 4 ity of mL (0.083 00:00: (four) [place] %) 00 hours as Medical nebulizer needed for Bran ch solution Wheezing or Shortness of Breath. albuterol 2020-0 Yes [id number] 2.5mg Inhale 3 [facility] 2.5 mg /3 8-03 mL every 4 ity of mL (0.083 00:00: (four) [place] %) 00 hours as Medical nebulizer needed for Bran ch solution Wheezing or Shortness of Breath. albuterol 2020-0 Yes [id number] 2.5mg Inhale 3 [facility] 2.5 mg /3 8-03 mL every 4 ity of mL (0.083 00:00: (four) [place] %) 00 hours as Medical nebulizer needed for Bran ch solution Wheezing or Shortness of Breath. albuterol 2020-0 Yes [id number] 2.5mg Inhale 3 [facility] 2.5 mg /3 8-03 mL every 4 ity of mL (0.083 00:00: (four) [place] %) 00 hours as Medical nebulizer needed for Bran ch solution Wheezing or Shortness of Breath. albuterol 2020-0 Yes [id number] 2.5mg Inhale 3 [facility] 2.5 mg /3 8-03 mL every 4 ity of mL (0.083 00:00: (four) [place] %) 00 hours as Medical nebulizer needed for Bran ch solution Wheezing or Shortness of Breath. ipratropium 2020-0 Yes [id number] .5mg Inhale 2.5 [facility] 0.02 % 8-03 mL every 8 ity of nebulizer 00:00: (eight) [place] solution 00 hours as Medical needed for Branch Wheezing or Shortness of Breath. albuterol 2020-0 Yes [id number] 2.5mg Inhale 3 [facility] 2.5 mg /3 8-03 mL every 4 ity of mL (0.083 00:00: (four) [place] %) 00 hours as Medical nebulizer needed for Bran ch solution Wheezing or Shortness of Breath. methylPREDN 2020-0 Yes [id number] Take by [facility] 8-03 mouth ity of (MEDROL, 00:00: SEE-INSTRU [place]N,) 4 mg 00 CTIONS. Medica l tablets follow Branch package directions ipratropium 2020-0 Yes [id number] .5mg Inhale 2.5 [facility] 0.02 % 8-03 mL every 8 ity of nebulizer 00:00: (eight) [place] solution 00 hours as Medical needed for Branch Wheezing or Shortness of Breath. albuterol 2020-0 Yes [id number] 2.5mg Inhale 3 [facility] 2.5 mg /3 8-03 mL every 4 ity of mL (0.083 00:00: (four) [place] %) 00 hours as Medical nebulizer needed for Bran ch solution Wheezing or Shortness of Breath. methylPREDN 2020-0 Yes [id number] Take by [facility] 8-03 mouth ity of (MEDROL, 00:00: SEE-INSTRU [place],) 4 mg 00 CTIONS. Medica l tablets follow Branch package directions ipratropium 2020-0 Yes [id number] .5mg Inhale 2.5 [facility] 0.02 % 8-03 mL every 8 ity of nebulizer 00:00: (eight) [place] solution 00 hours as Medical needed for Branch Wheezing or Shortness of Breath. albuterol 2020-0 Yes [id number] 2.5mg Inhale 3 [facility] 2.5 mg /3 8-03 mL every 4 ity of mL (0.083 00:00: (four) [place] %) 00 hours as Medical nebulizer needed for Bran ch solution Wheezing or Shortness of Breath. methylPREDN 2020-0 Yes [id number] Take by [facility] 8-03 mouth ity of (MEDROL, 00:00: SEE-INSTRU [place] JACK[place]N,) 4 mg 00 CTIONS. Medica l tablets follow Branch package directions ipratropium 2020-0 Yes [id number] .5mg Inhale 2.5 [facility] 0.02 % 8-03 mL every 8 ity of nebulizer 00:00: (eight) [place] solution 00 hours as Medical needed for Branch Wheezing or Shortness of Breath. albuterol 2020-0 Yes [id number] 2.5mg Inhale 3 [facility] 2.5 mg /3 8-03 mL every 4 ity of mL (0.083 00:00: (four) [place] %) 00 hours as Medical nebulizer needed for Bran ch solution Wheezing or Shortness of Breath. methylPREDN 2020-0 Yes [id number] Take by [facility] 8-03 mouth ity of (MEDROL, 00:00: SEE-INSTRU [place],) 4 mg 00 CTIONS. Medica l tablets follow Branch package directions ipratropium 2020-0 Yes [id number] .5mg Inhale 2.5 [facility] 0.02 % 8-03 mL every 8 ity of nebulizer 00:00: (eight) [place] solution 00 hours as Medical needed for Branch Wheezing or Shortness of Breath. albuterol 2020-0 Yes [id number] 2.5mg Inhale 3 [facility] 2.5 mg /3 8-03 mL every 4 ity of mL (0.083 00:00: (four) [place] %) 00 hours as Medical nebulizer needed for Bran ch solution Wheezing or Shortness of Breath. methylPREDN 2020-0 Yes [id number] Take by [facility] 8-03 mouth ity of (MEDROL, 00:00: SEE-INSTRU [place]ACK[place],) 4 mg 00 CTIONS. Medica l tablets follow Branch package directions ipratropium 2020-0 Yes [id number] .5mg Inhale 2.5 [facility] 0.02 % 8-03 mL every 8 ity of nebulizer 00:00: (eight) [place] solution 00 hours as Medical needed for Branch Wheezing or Shortness of Breath. albuterol 2020-0 Yes [id number] 2.5mg Inhale 3 [facility] 2.5 mg /3 8-03 mL every 4 ity of mL (0.083 00:00: (four) [place] %) 00 hours as Medical nebulizer needed for Bran ch solution Wheezing or Shortness of Breath. methylPREDN 2020-0 Yes [id number] Take by [facility] 8-03 mouth ity of (MEDROL, 00:00: SEE-INSTRU [place] JACKELYN,) 4 mg 00 CTIONS. Medica l tablets follow Branch package directions ipratropium 2020-0 Yes [id number] .5mg Inhale 2.5 [facility] 0.02 % 8-03 mL every 8 ity of nebulizer 00:00: (eight) [place] solution 00 hours as Medical needed for Branch Wheezing or Shortness of Breath. albuterol 2020-0 Yes [id number] 2.5mg Inhale 3 [facility] 2.5 mg /3 8-03 mL every 4 ity of mL (0.083 00:00: (four) [place] %) 00 hours as Medical nebulizer needed for Bran ch solution Wheezing or Shortness of Breath. methylPREDN 2020-0 Yes [id number] Take by [facility] 8-03 mouth ity of (MEDROL, 00:00: SEE-INSTRU [place] JACK[place]N,) 4 mg 00 CTIONS. Medica l tablets follow Branch package directions albuterol 2020-0 Yes [id number] 2.5mg Inhale 3 [facility] 2.5 mg /3 8-03 mL every 4 ity of mL (0.083 00:00: (four) [place] %) 00 hours as Medical nebulizer needed for Bran ch solution Wheezing or Shortness of Breath. methylPREDN 2020-0 Yes [id number] Take by [facility] 8-03 mouth ity of (MEDROL, 00:00: SEE-INSTRU [place],) 4 mg 00 CTIONS. Medica l tablets follow Branch package directions albuterol 2020-0 Yes [id number] 2.5mg Inhale 3 [facility] 2.5 mg /3 8-03 mL every 4 ity of mL (0.083 00:00: (four) [place] %) 00 hours as Medical nebulizer needed for Bran ch solution Wheezing or Shortness of Breath. methylPREDN 2020-0 Yes [id number] Take by [facility] 8-03 mouth ity of (MEDROL, 00:00: SEE-INSTRU [place],) 4 mg 00 CTIONS. Medica l tablets follow Branch package directions albuterol 2020-0 Yes [id number] 2.5mg Inhale 3 [facility] 2.5 mg /3 8-03 mL every 4 ity of mL (0.083 00:00: (four) [place] %) 00 hours as Medical nebulizer needed for Bran ch solution Wheezing or Shortness of Breath. methylPREDN 2020-0 Yes [id number] Take by [facility] 8-03 mouth ity of (MEDROL, 00:00: SEE-INSTRU [place],) 4 mg 00 CTIONS. Medica l tablets follow Branch package directions albuterol 2020-0 Yes [id number] 2.5mg Inhale 3 [facility] 2.5 mg /3 8-03 mL every 4 ity of mL (0.083 00:00: (four) [place] %) 00 hours as Medical nebulizer needed for Bran ch solution Wheezing or Shortness of Breath. methylPREDN 2020-0 Yes [id number] Take by [facility] 8-03 mouth ity of (MEDROL, 00:00: SEE-INSTRU [place] JACK[place],) 4 mg 00 CTIONS. Medica l tablets follow Branch package directions albuterol 2020-0 Yes [id number] 2.5mg Inhale 3 [facility] 2.5 mg /3 8-03 mL every 4 ity of mL (0.083 00:00: (four) [place] %) 00 hours as Medical nebulizer needed for Bran ch solution Wheezing or Shortness of Breath. methylPREDN 2020-0 Yes [id number] Take by [facility] 8-03 mouth ity of (MEDROL, 00:00: SEE-INSTRU [place] JACK[place],) 4 mg 00 CTIONS. Medica l tablets follow Branch package directions albuterol 2020-0 Yes [id number] 2.5mg Inhale 3 [facility] 2.5 mg /3 8-03 mL every 4 ity of mL (0.083 00:00: (four) [place] %) 00 hours as Medical nebulizer needed for Bran ch solution Wheezing or Shortness of Breath. methylPREDN 2020-0 Yes [id number] Take by [facility] 8-03 mouth ity of (MEDROL, 00:00: SEE-INSTRU [place]ACK[place],) 4 mg 00 CTIONS. Medica l tablets follow Branch package directions albuterol 2020-0 Yes [id number] 2.5mg Inhale 3 [facility] 2.5 mg /3 8-03 mL every 4 ity of mL (0.083 00:00: (four) [place] %) 00 hours as Medical nebulizer needed for Bran ch solution Wheezing or Shortness of Breath. methylPREDN 2020-0 Yes [id number] Take by [facility] 8-03 mouth ity of (MEDROL, 00:00: SEE-INSTRU [place] JACK[place],) 4 mg 00 CTIONS. Medica l tablets follow Branch package directions albuterol 2020-0 Yes [id number] 2.5mg Inhale 3 [facility] 2.5 mg /3 8-03 mL every 4 ity of mL (0.083 00:00: (four) [place] %) 00 hours as Medical nebulizer needed for Bran ch solution Wheezing or Shortness of Breath. methylPREDN 2020-0 Yes [id number] Take by [employer] ISolone 803 mouth ity of (MEDROL, 00:00: SEE-INSTRU [place] JACKELYN,) 4 mg 00 CTIONS. Medica l tablets follow Branch package directions albuterol 2020 Yes [id number] 2.5mg Inhale 3 [facility] 2.5 mg /3 8-03 mL every 4 ity of mL (0.083 00:00: (four) [place] %) 00 hours as Medical nebulizer needed for Bran ch solution Wheezing or Shortness of Breath. methylPREDN 2020-0 Yes [id number] Take by [employer] ISolone 8 mouth ity of (MEDROL, 00:00: SEE-INSTRU [place] JACKELYN,) 4 mg 00 CTIONS. Medica l tablets follow Branch package directions albuterol 2020- No [id number] 2.5mg Inhale 3 [facility] 2.5 mg /3 8- 07-23 mL every 4 ity of mL (0.083 00:00: 00:00 (four) [place] %) 00 :00 hours as Medical nebulizer needed for Bran ch solution Wheezing or Shortness of Breath. albuterol 2019-2020- No [id number] 2.5mg Inhale 3 [facility] 2.5 mg /3 8-03 07-23 mL every 4 ity of mL (0.083 00:00: 00:00 (four) [place] %) 00 :00 hours as Medical nebulizer needed for Bran ch solution Wheezing or Shortness of Breath. methylPREDN 2020- No [id number] Take by [employer] 05-02 09-24 mouth ity of (MEDROL, 00:00: 00:00 SEE-INSTRU [place] JACKELYN,) 4 mg 00 :00 CTIONS. Medica l tablets follow Branch package directions ipratropium 2020- No [id number] .5mg Inhale 2.5 [facility] 0.02 % 05-02 08-10 mL every 8 ity of nebulizer 00:00: 00:00 (eight) [place] solution 00 :00 hours as Medical needed for Branch Wheezing or Shortness of Breath. albuterol Yes [id number] 2{puff} Inhale 2 [facility] 90 8-01 Puffs ity of mcg/actuati 00:00: every 6 [place] as on inhaler 00 (six) Medical hours as Branch needed for Wheezing or Shortness of Breath. triamcinolo 2020-0 Yes [id number] Apply to [place] [address] area(s) 2 ity of acetonide 00:00: (two) [place] 0.1 % cream 00 times Medical daily. Branch albuterol 2020-0 Yes [id number] 2{puff} Inhale 2 [facility] 90 8-01 Puffs ity of mcg/actuati 00:00: every 6 [place] on inhaler 00 (six) Medical hours as Branch needed for Wheezing or Shortness of Breath. triamcinolo 2020-0 Yes [id number] Apply to [place] [address] area(s) 2 ity of acetonide 00:00: (two) [place] 0.1 % cream 00 times Medical daily. Branch albuterol 2020-0 Yes [id number] 2{puff} Inhale 2 [facility] 90 8-01 Puffs ity of mcg/actuati 00:00: every 6 [place] on inhaler 00 (six) Medical hours as Branch needed for Wheezing or Shortness of Breath. triamcinolo 2020-0 Yes [id number] Apply to [place] [address] area(s) 2 ity of acetonide 00:00: (two) [place] 0.1 % cream 00 times Medical daily. Branch albuterol 2020-0 Yes [id number] 2{puff} Inhale 2 [facility] 90 8-01 Puffs ity of mcg/actuati 00:00: every 6 [place] on inhaler 00 (six) Medical hours as Branch needed for Wheezing or Shortness of Breath. triamcinolo 2020-0 Yes [id number] Apply to [place] [address] area(s) 2 ity of acetonide 00:00: (two) [place] 0.1 % cream 00 times Medical daily. Branch triamcinolo 2020-0 Yes [id number] Apply to [place] [address] area(s) 2 ity of acetonide 00:00: (two) [place] 0.1 % cream 00 times Medical daily. Branch albuterol 2020-0 Yes [id number] 2{puff} Inhale 2 [facility] 90 8-01 Puffs ity of mcg/actuati 00:00: every 6 [place] on inhaler 00 (six) Medical hours as Branch needed for Wheezing or Shortness of Breath. azithromyci 2020-0 Yes [id number] 250mg Take 1 [facility] n 250 mg 8-01 tablet by ity of tablet 00:00: mouth [place] 00 daily. Medical Take 500 Branch mg day 1, then 250 mg days 2 to 5. triamcinolo 2020-0 Yes [id number] Apply to [place] [address] area(s) 2 ity of acetonide 00:00: (two) [place] 0.1 % cream 00 times Medical daily. Branch albuterol 2020-0 Yes [id number] 2{puff} Inhale 2 [facility] 90 8-01 Puffs ity of mcg/actuati 00:00: every 6 [place] as on inhaler 00 (six) Medical hours as Branch needed for Wheezing or Shortness of Breath. azithromyci 2020-0 Yes [id number] 250mg Take 1 [facility] n 250 mg 8-01 tablet by ity of tablet 00:00: mouth [place] 00 daily. Medical Take 500 Branch mg day 1, then 250 mg days 2 to 5. triamcinolo 2020-0 Yes [id number] Apply to [place] [address] area(s) 2 ity of acetonide 00:00: (two) [place] 0.1 % cream 00 times Medical daily. Branch albuterol 2020-0 Yes [id number] 2{puff} Inhale 2 [facility] 90 8-01 Puffs ity of mcg/actuati 00:00: every 6 [place] on inhaler 00 (six) Medical hours as Branch needed for Wheezing or Shortness of Breath. azithromyci 2020-0 Yes [id number] 250mg Take 1 [facility] n 250 mg 8-01 tablet by ity of tablet 00:00: mouth [place] 00 daily. Medical Take 500 Branch mg day 1, then 250 mg days 2 to 5. triamcinolo 2020-0 Yes [id number] Apply to [place] [address] area(s) 2 ity of acetonide 00:00: (two) [place] 0.1 % cream 00 times Medical daily. Branch albuterol 2020-0 Yes [id number] 2{puff} Inhale 2 [facility] 90 8-01 Puffs ity of mcg/actuati 00:00: every 6 [place] on inhaler 00 (six) Medical hours as Branch needed for Wheezing or Shortness of Breath. azithromyci 2020-0 Yes [id number] 250mg Take 1 [facility] n 250 mg 8-01 tablet by ity of tablet 00:00: mouth [place] 00 daily. Medical Take 500 Branch mg day 1, then 250 mg days 2 to 5. triamcinolo 2020-0 Yes [id number] Apply to [place] [address] area(s) 2 ity of acetonide 00:00: (two) [place] 0.1 % cream 00 times Medical daily. Branch albuterol 2020-0 Yes [id number] 2{puff} Inhale 2 [facility] 90 8-01 Puffs ity of mcg/actuati 00:00: every 6 [place] on inhaler 00 (six) Medical hours as Branch needed for Wheezing or Shortness of Breath. azithromyci 2020-0 Yes [id number] 250mg Take 1 [facility] n 250 mg 8-01 tablet by ity of tablet 00:00: mouth [place] 00 daily. Medical Take 500 Branch mg day 1, then 250 mg days 2 to 5. triamcinolo 2020-0 Yes [id number] Apply to [place] [address] area(s) 2 ity of acetonide 00:00: (two) [place] 0.1 % cream 00 times Medical daily. Branch albuterol 2020-0 Yes [id number] 2{puff} Inhale 2 [facility] 90 8-01 Puffs ity of mcg/actuati 00:00: every 6 [place] on inhaler 00 (six) Medical hours as Branch needed for Wheezing or Shortness of Breath. azithromyci 2020-0 Yes [id number] 250mg Take 1 [facility] n 250 mg 8-01 tablet by ity of tablet 00:00: mouth [place] 00 daily. Medical Take 500 Branch mg day 1, then 250 mg days 2 to 5. triamcinolo 2020-0 Yes [id number] Apply to [place] [address] area(s) 2 ity of acetonide 00:00: (two) [place] 0.1 % cream 00 times Medical daily. Branch albuterol 2020-0 Yes [id number] 2{puff} Inhale 2 [facility] 90 8-01 Puffs ity of mcg/actuati 00:00: every 6 [place] on inhaler 00 (six) Medical hours as Branch needed for Wheezing or Shortness of Breath. azithromyci 2020-0 Yes [id number] 250mg Take 1 [facility] n 250 mg 8-01 tablet by ity of tablet 00:00: mouth [place] 00 daily. Medical Take 500 Branch mg day 1, then 250 mg days 2 to 5. triamcinolo 2020-0 Yes [id number] Apply to [place] [address] area(s) 2 ity of acetonide 00:00: (two) [place] 0.1 % cream 00 times Medical daily. Branch albuterol 2020-0 Yes [id number] 2{puff} Inhale 2 [facility] 90 8-01 Puffs ity of mcg/actuati 00:00: every 6 [place] on inhaler 00 (six) Medical hours as Branch needed for Wheezing or Shortness of Breath. azithromyci 2020-0 Yes [id number] 250mg Take 1 [facility] n 250 mg 8-01 tablet by ity of tablet 00:00: mouth [place] 00 daily. Medical Take 500 Branch mg day 1, then 250 mg days 2 to 5. triamcinolo 2020-0 Yes [id number] Apply to [place] [address] area(s) 2 ity of acetonide 00:00: (two) [place] 0.1 % cream 00 times Medical daily. Branch albuterol 2020-0 Yes [id number] 2{puff} Inhale 2 [facility] 90 8-01 Puffs ity of mcg/actuati 00:00: every 6 [place] on inhaler 00 (six) Medical hours as Branch needed for Wheezing or Shortness of Breath. azithromyci 2020-0 Yes [id number] 250mg Take 1 [facility] n 250 mg 8-01 tablet by ity of tablet 00:00: mouth [place] 00 daily. Medical Take 500 Branch mg day 1, then 250 mg days 2 to 5. triamcinolo 2020-0 Yes [id number] Apply to [place] [address] area(s) 2 ity of acetonide 00:00: (two) [place] 0.1 % cream 00 times Medical daily. Branch albuterol 2020-0 Yes [id number] 2{puff} Inhale 2 [facility] 90 8-01 Puffs ity of mcg/actuati 00:00: every 6 [place] on inhaler 00 (six) Medical hours as Branch needed for Wheezing or Shortness of Breath. azithromyci 2020-0 Yes [id number] 250mg Take 1 [facility] n 250 mg 8-01 tablet by ity of tablet 00:00: mouth [place] 00 daily. Medical Take 500 Branch mg day 1, then 250 mg days 2 to 5. triamcinolo 2020-0 Yes [id number] Apply to [place] [address] area(s) 2 ity of acetonide 00:00: (two) [place] 0.1 % cream 00 times Medical daily. Branch albuterol 2020-0 Yes [id number] 2{puff} Inhale 2 [facility] 90 8-01 Puffs ity of mcg/actuati 00:00: every 6 [place] on inhaler 00 (six) Medical hours as Branch needed for Wheezing or Shortness of Breath. triamcinolo 2020-0 Yes [id number] Apply to [place] [address] area(s) 2 ity of acetonide 00:00: (two) [place] 0.1 % cream 00 times Medical daily. Branch albuterol 2020-0 Yes [id number] 2{puff} Inhale 2 [facility] 90 8-01 Puffs ity of mcg/actuati 00:00: every 6 [place] on inhaler 00 (six) Medical hours as Branch needed for Wheezing or Shortness of Breath. triamcinolo 2020-0 Yes [id number] Apply to [place] [address] area(s) 2 ity of acetonide 00:00: (two) [place] 0.1 % cream 00 times Medical daily. Branch albuterol 2020-0 Yes [id number] 2{puff} Inhale 2 [facility] 90 8-01 Puffs ity of mcg/actuati 00:00: every 6 [place] on inhaler 00 (six) Medical hours as Branch needed for Wheezing or Shortness of Breath. triamcinolo 2020-0 Yes [id number] Apply to [place] [address] area(s) 2 ity of acetonide 00:00: (two) [place] 0.1 % cream 00 times Medical daily. Branch albuterol 2020-0 Yes [id number] 2{puff} Inhale 2 [facility] 90 8-01 Puffs ity of mcg/actuati 00:00: every 6 [place] on inhaler 00 (six) Medical hours as Branch needed for Wheezing or Shortness of Breath. triamcinolo 2020-0 Yes [id number] Apply to [place] [address] area(s) 2 ity of acetonide 00:00: (two) [place] 0.1 % cream 00 times Medical daily. Branch albuterol 2020-0 Yes [id number] 2{puff} Inhale 2 [facility] 90 8-01 Puffs ity of mcg/actuati 00:00: every 6 [place] on inhaler 00 (six) Medical hours as Branch needed for Wheezing or Shortness of Breath. triamcinolo 2020-0 Yes [id number] Apply to [place] [address] area(s) 2 ity of acetonide 00:00: (two) [place] 0.1 % cream 00 times Medical daily. Branch albuterol 2020-0 Yes [id number] 2{puff} Inhale 2 [facility] 90 8-01 Puffs ity of mcg/actuati 00:00: every 6 [place] on inhaler 00 (six) Medical hours as Branch needed for Wheezing or Shortness of Breath. triamcinolo 2020-0 Yes [id number] Apply to [place] [address] area(s) 2 ity of acetonide 00:00: (two) [place] 0.1 % cream 00 times Medical daily. Branch albuterol 2020-0 Yes [id number] 2{puff} Inhale 2 [facility] 90 8-01 Puffs ity of mcg/actuati 00:00: every 6 [place] on inhaler 00 (six) Medical hours as Branch needed for Wheezing or Shortness of Breath. triamcinolo 2020-0 Yes [id number] Apply to [address](s) 2 ity of acetonide 00:00: (two) [place] 0.1 % cream 00 times Medical daily. Branch albuterol 2020-0 Yes [id number] 2{puff} Inhale 2 [facility] 90 8-01 Puffs ity of mcg/actuati 00:00: every 6 [place] on inhaler 00 (six) Medical hours as Branch needed for Wheezing or Shortness of Breath. triamcinolo 2020-0 Yes [id number] Apply to [place] [address] area(s) 2 ity of acetonide 00:00: (two) [place] 0.1 % cream 00 times Medical daily. Branch albuterol 2020-0 Yes [id number] 2{puff} Inhale 2 [facility] 90 8-01 Puffs ity of mcg/actuati 00:00: every 6 [place] on inhaler 00 (six) Medical hours as Branch needed for Wheezing or Shortness of Breath. triamcinolo 2020-0 Yes [id number] Apply to [place] [address] area(s) 2 ity of acetonide 00:00: (two) [place] 0.1 % cream 00 times Medical daily. Branch triamcinolo 2019- No [id number] Apply to [facility] 04-30 area(s) 2 ity of acetonide 00:00: 00:00 (two) [place] 0.1 % cream 00 :00 times Medical daily. Branch albuterol 2020- No [id number] 2{puff} Inhale 2 [place] [address] 04-30 Puffs ity of mcg/actuati 00:00: 00:00 every 6 [place] inhaler 00 :00 (six) Medical hours as Branch needed for Wheezing or Shortness of Breath. triamcinolo 2019- No [id number] Apply to [facility] 04-30 area(s) 2 ity of acetonide 00:00: 00:00 (two) [place] 0.1 % cream 00 :00 times Medical daily. [place] fluconazole 2019- No [id number] 150mg Take 1 [facility] (DIFLUCAN) 04-30 tablet by ity of 150 mg 00:00: 04:59 mouth [place] tablet 00 :00 weekly for Medical 4 doses. [place] fluconazole 2019- No [id number] 150mg Take 1 [facility] (DIFLUCAN) 04-30 tablet by ity of 150 mg 00:00: 04:59 mouth [place] tablet 00 :00 weekly for Medical 4 doses. [place] fluconazole 2019- No [id number] 150mg Take 1 [facility] (DIFLUCAN) 04-30 tablet by ity of 150 mg 00:00: 04:59 mouth [place] tablet 00 :00 weekly for Medical 4 doses. [place] fluconazole 2019- No [id number] 150mg Take 1 [facility] (DIFLUCAN) 04-30 tablet by ity of 150 mg 00:00: 04:59 mouth [place] tablet 00 :00 weekly for Medical 4 doses. [place] fluconazole 2019- No [id number] 150mg Take 1 [facility] (DIFLUCAN) 04-30 tablet by ity of 150 mg 00:00: 04:59 mouth [place] tablet 00 :00 weekly for Medical 4 doses. [place] fluconazole 2019- No [id number] 150mg Take 1 [facility] (DIFLUCAN) 04-30 tablet by ity of 150 mg 00:00: 04:59 mouth [place] tablet 00 :00 weekly for Medical 4 doses. [place] fluconazole 2019- No [id number] 150mg Take 1 [facility] (DIFLUCAN) 04-30 tablet by ity of 150 mg 00:00: 04:59 mouth [place] tablet 00 :00 weekly for Medical 4 doses. [place] fluconazole 2019- No [id number] 150mg Take 1 [facility] (DIFLUCAN) 04-30 tablet by ity of 150 mg 00:00: 04:59 mouth [place] tablet 00 :00 weekly for Medical 4 doses. [place] fluconazole 2019- No [id number] 150mg Take 1 [facility] (DIFLUCAN) 04-30 tablet by ity of 150 mg 00:00: 04:59 mouth [place] tablet 00 :00 weekly for Medical 4 doses. [place] fluconazole 2019- No [id number] 150mg Take 1 [facility] (DIFLUCAN) 04-30 tablet by ity of 150 mg 00:00: 04:59 mouth [place] tablet 00 :00 weekly for Medical 4 doses. [place] fluconazole 2019- No [id number] 150mg Take 1 [facility] (DIFLUCAN) 04-30 tablet by ity of 150 mg 00:00: 04:59 mouth [place] tablet 00 :00 weekly for Medical 4 doses. [place] fluconazole 2020- No [id number] 150mg Take 1 [facility] (DIFLUCAN) 04-30 tablet by ity of 150 mg 00:00: 04:59 mouth [place] tablet 00 :00 weekly for Medical 4 doses. [place] fluconazole 2019- No [id number] 150mg Take 1 [facility] (DIFLUCAN) 04-30 tablet by ity of 150 mg 00:00: 04:59 mouth [place] tablet 00 :00 weekly for Medical 4 doses. [place] fluconazole 2019- No [id number] 150mg Take 1 [facility] (DIFLUCAN) 04-30 tablet by ity of 150 mg 00:00: 04:59 mouth [place] tablet 00 :00 weekly for Medical 4 doses. [place] fluconazole 2019- No [id number] 150mg Take 1 [facility] (DIFLUCAN) 8-01 08-24 tablet by ity of 150 mg 00:00: 04:59 mouth [place] tablet 00 :00 weekly for Medical 4 doses. Branch fluconazole 2019- No [id number] 150mg Take 1 [facility] (DIFLUCAN) 04-30-24 tablet by ity of 150 mg 00:00: 04:59 mouth [place] tablet 00 :00 weekly for Medical 4 doses. Branch fluconazole 2019- No [id number] 150mg Take 1 [facility] (DIFLUCAN) 04-30-24 tablet by ity of 150 mg 00:00: 04:59 mouth [place] tablet 00 :00 weekly for Medical 4 doses. Branch fluconazole 2019- No [id number] 150mg Take 1 [facility] (DIFLUCAN) 04-30-24 tablet by ity of 150 mg 00:00: 04:59 mouth [place] tablet 00 :00 weekly for Medical 4 doses. Branch fluconazole 2019- No [id number] 150mg Take 1 [facility] (DIFLUCAN) 04-30 tablet by ity of 150 mg 00:00: 04:59 mouth [place] tablet 00 :00 weekly for Medical 4 doses. Branch amoxicillin 2019- No [id number] 1{tbl} Take 1 [facility] -clavulanat 04-30-12 tablet by it y of e 00:00: 04:59 mouth 2 [place] (AUGMENTIN) 00 :00 (two) Medical 875-125 mg times Branch per tablet daily for 10 days. amoxicillin 2019- No [id number] 1{tbl} Take 1 [facility] -clavulanat 04-30-12 tablet by it y of e 00:00: 04:59 mouth 2 [place] (AUGMENTIN) 00 :00 (two) Medical 875-125 mg times Branch per tablet daily for 10 days. amoxicillin 2019- No [id number] 1{tbl} Take 1 [facility] -clavulanat -10 07-12 tablet by it y of e 00:00: 04:59 mouth 2 [place] (AUGMENTIN) 00 :00 (two) Medical 875-125 mg times Branch per tablet daily for 10 days. amoxicillin 2019- No [id number] 1{tbl} Take 1 [facility] -clavulanat - 08-12 tablet by it y of e 00:00: 04:59 mouth 2 [place] (AUGMENTIN) 00 :00 (two) Medical 875-125 mg times Branch per tablet daily for 10 days. amoxicillin 2020- No [id number] 1{tbl} Take 1 [facility] -clavulanat 8-01 08-12 tablet by it y of e 00:00: 04:59 mouth 2 [place] (AUGMENTIN) 00 :00 (two) Medical 875-125 mg times Branch per tablet daily for 10 days. amoxicillin 2019- 2020- No [id number] 1{tbl} Take 1 [facility] -clavulanat 8-01 08-12 tablet by it y of e 00:00: 04:59 mouth 2 [place] (AUGMENTIN) 00 :00 (two) Medical 875-125 mg times Branch per tablet daily for 10 days. amoxicillin 2020- No [id number] 1{tbl} Take 1 [facility] -clavulanat 8-01 08-12 tablet by it y of e 00:00: 04:59 mouth 2 [place] (AUGMENTIN) 00 :00 (two) Medical 875-125 mg times Branch per tablet daily for 10 days. amoxicillin 2020- No [id number] 1{tbl} Take 1 [facility] -clavulanat 8-01 08-12 tablet by it y of e 00:00: 04:59 mouth 2 [place] (AUGMENTIN) 00 :00 (two) Medical 875-125 mg times Branch per tablet daily for 10 days. amoxicillin 2020- No [id number] 1{tbl} Take 1 [facility] -clavulanat 8-01 08-12 tablet by it y of e 00:00: 04:59 mouth 2 [place] (AUGMENTIN) 00 :00 (two) Medical 875-125 mg times Branch per tablet daily for 10 days. amoxicillin 2020- No [id number] 1{tbl} Take 1 [facility] -clavulanat 8-01 08-12 tablet by it y of e 00:00: 04:59 mouth 2 [place] (AUGMENTIN) 00 :00 (two) Medical 875-125 mg times Branch per tablet daily for 10 days. triamcinolo 2020-0 Yes [id number] Apply to [facility] ne 7-28 area(s) 2 ity of acetonide 00:00: (two) [place] 0.1 % 00 times Medical ointment daily. Branch Apply 2g to affected areas BID triamcinolo 2020-0 Yes [id number] Apply to [facility] 7-28 area(s) 2 ity of acetonide 00:00: (two) [place] 0.1 % 00 times Medical ointment daily. Branch Apply 2g to affected areas BID triamcinolo 2020-0 Yes [id number] Apply to [facility] 7-28 area(s) 2 ity of acetonide 00:00: (two) [place] 0.1 % 00 times Medical ointment daily. Branch Apply 2g to affected areas BID triamcinolo 2020-0 Yes [id number] Apply to [facility] 7-28 area(s) 2 ity of acetonide 00:00: (two) [place] 0.1 % 00 times Medical ointment daily. Branch Apply 2g to affected areas BID triamcinolo 2020-0 Yes [id number] Apply to [facility] 7-28 area(s) 2 ity of acetonide 00:00: (two) [place] 0.1 % 00 times Medical ointment daily. Branch Apply 2g to affected areas BID hydrOXYzine 2020-0 Yes [id number] 25mg Take 1 [facility] 25 mg 7-28 tablet by ity of tablet 00:00: mouth [place] 00 every 6 Medical (six) Branch hours as needed for Itching (Rash). triamcinolo 2020-0 Yes [id number] Apply to [facility] 7-28 area(s) 2 ity of acetonide 00:00: (two) [place] 0.1 % 00 times Medical ointment daily. Branch Apply 2g to affected areas BID hydrOXYzine 2020-0 Yes [id number] 25mg Take 1 [facility] 25 mg 7-28 tablet by ity of tablet 00:00: mouth [place] 00 every 6 Medical (six) Branch hours as needed for Itching (Rash). triamcinolo 2020-0 Yes [id number] Apply to [facility] 7-28 area(s) 2 ity of acetonide 00:00: (two) [place] 0.1 % 00 times Medical ointment daily. Branch Apply 2g to affected areas BID hydrOXYzine 2020-0 Yes [id number] 25mg Take 1 [facility] 25 mg 7-28 tablet by ity of tablet 00:00: mouth [place] 00 every 6 Medical (six) Branch hours as needed for Itching (Rash). triamcinolo 2020-0 Yes [id number] Apply to [facility] ne 7-28 area(s) 2 ity of acetonide 00:00: (two) [place] 0.1 % 00 times Medical ointment daily. Branch Apply 2g to affected areas BID hydrOXYzine 2020-0 Yes [id number] 25mg Take 1 [facility] 25 mg 7-28 tablet by ity of tablet 00:00: mouth [place] 00 every 6 Medical (six) Branch hours as needed for Itching (Rash). triamcinolo 2020-0 Yes [id number] Apply to [facility] 7-28 area(s) 2 ity of acetonide 00:00: (two) [place] 0.1 % 00 times Medical ointment daily. Branch Apply 2g to affected areas BID hydrOXYzine 2020-0 Yes [id number] 25mg Take 1 [facility] 25 mg 7-28 tablet by ity of tablet 00:00: mouth [place] 00 every 6 Medical (six) Branch hours as needed for Itching (Rash). triamcinolo 2020-0 Yes [id number] Apply to [facility] 7-28 area(s) 2 ity of acetonide 00:00: (two) [place] 0.1 % 00 times Medical ointment daily. Branch Apply 2g to affected areas BID hydrOXYzine 2020-0 Yes [id number] 25mg Take 1 [facility] 25 mg 7-28 tablet by ity of tablet 00:00: mouth [place] 00 every 6 Medical (six) Branch hours as needed for Itching (Rash). triamcinolo 2020-0 Yes [id number] Apply to [facility] 7-28 area(s) 2 ity of acetonide 00:00: (two) [place] 0.1 % 00 times Medical ointment daily. Branch Apply 2g to affected areas BID hydrOXYzine 2020-0 Yes [id number] 25mg Take 1 [facility] 25 mg 7-28 tablet by ity of tablet 00:00: mouth [place] 00 every 6 Medical (six) Branch hours as needed for Itching (Rash). triamcinolo 2020-0 Yes [id number] Apply to [facility] 7-28 area(s) 2 ity of acetonide 00:00: (two) [place] 0.1 % 00 times Medical ointment daily. Branch Apply 2g to affected areas BID hydrOXYzine 2020-0 Yes [id number] 25mg Take 1 [facility] 25 mg 7-28 tablet by ity of tablet 00:00: mouth [place] 00 every 6 Medical (six) Branch hours as needed for Itching (Rash). triamcinolo 2020-0 Yes [id number] Apply to [facility] ne 7-28 area(s) 2 ity of acetonide 00:00: (two) [place] 0.1 % 00 times Medical ointment daily. Branch Apply 2g to affected areas BID hydrOXYzine 2020-0 Yes [id number] 25mg Take 1 [facility] 25 mg 7-28 tablet by ity of tablet 00:00: mouth [place] 00 every 6 Medical (six) Branch hours as needed for Itching (Rash). triamcinolo 2020-0 Yes [id number] Apply to [facility] ne 7-28 area(s) 2 ity of acetonide 00:00: (two) [place] 0.1 % 00 times Medical ointment daily. Branch Apply 2g to affected areas BID hydrOXYzine 2020-0 Yes [id number] 25mg Take 1 [facility] 25 mg 7-28 tablet by ity of tablet 00:00: mouth [place] 00 every 6 Medical (six) Branch hours as needed for Itching (Rash). triamcinolo 2020-0 Yes [id number] Apply to [facility] ne 7-28 area(s) 2 ity of acetonide 00:00: (two) [place] 0.1 % 00 times Medical ointment daily. Branch Apply 2g to affected areas BID hydrOXYzine 2020-0 Yes [id number] 25mg Take 1 [facility] 25 mg 7-28 tablet by ity of tablet 00:00: mouth [place] 00 every 6 Medical (six) Branch hours as needed for Itching (Rash). triamcinolo 2020-0 Yes [id number] Apply to [facility] ne 7-28 area(s) 2 ity of acetonide 00:00: (two) [place] 0.1 % 00 times Medical ointment daily. Branch Apply 2g to affected areas BID triamcinolo 2020-0 Yes [id number] Apply to [facility] ne 7-28 area(s) 2 ity of acetonide 00:00: (two) [place] 0.1 % 00 times Medical ointment daily. Branch Apply 2g to affected areas BID triamcinolo 2020-0 Yes [id number] Apply to [facility] ne 7-28 area(s) 2 ity of acetonide 00:00: (two) [place] 0.1 % 00 times Medical ointment daily. Branch Apply 2g to affected areas BID triamcinolo 2020-0 Yes [id number] Apply to [facility] 7-28 area(s) 2 ity of acetonide 00:00: (two) [place] 0.1 % 00 times Medical ointment daily. Branch Apply 2g to affected areas BID triamcinolo 2020-0 Yes [id number] Apply to [facility] 7-28 area(s) 2 ity of acetonide 00:00: (two) [place] 0.1 % 00 times Medical ointment daily. Branch Apply 2g to affected areas BID triamcinolo 2020-0 Yes [id number] Apply to [facility] 7- area(s) 2 ity of acetonide 00:00: (two) [place] 0.1 % 00 times Medical ointment daily. Branch Apply 2g to affected areas BID triamcinolo 2020-0 Yes [id number] Apply to [place] [address] area(s) 2 ity of acetonide 00:00: (two) [place] 0.1 % 00 times Medical ointment daily. Branch Apply 2g to affected areas BID triamcinolo 2020-0 Yes [id number] Apply to [place] [address] area(s) 2 ity of acetonide 00:00: (two) [place] 0.1 % 00 times Medical ointment daily. Branch Apply 2g to affected areas BID triamcinolo 2020-0 Yes [id number] Apply to [place] [address] area(s) 2 ity of acetonide 00:00: (two) [place] 0.1 % 00 times Medical ointment daily. Branch Apply 2g to affected areas BID triamcinolo 2020-0 Yes [id number] Apply to [facility] area(s) 2 ity of acetonide 00:00: (two) [place] 0.1 % 00 times Medical ointment daily. Branch Apply 2g to affected areas BID triamcinolo 2020-0 2020- No [id number] Apply to [place] [address] 09-24 area(s) 2 ity of acetonide 00:00: 00:00 (two) [place] 0.1 % 00 :00 times Medical ointment daily. Branch Apply 2g to affected areas BID triamcinolo 2020-0 2020- No [id number] Apply to [facility] 7- 09-24 area(s) 2 ity of acetonide 00:00: 00:00 (two) [place] 0.1 % 00 :00 times Medical ointment daily. Branch Apply 2g to affected areas BID nystatin 2020-0 Yes [id number] Apply to [facility] 100,000 7-16 area(s) 2 ity of unit/gram 00:00: (two) [place] cream 00 times Medical daily. Branch nystatin 2020-0 Yes [id number] Apply to [facility] 100,000 7-16 area(s) 2 ity of unit/gram 00:00: (two) [place] cream 00 times Medical daily. Branch nystatin 2020-0 Yes [id number] Apply to [facility] 100,000 7-16 area(s) 2 ity of unit/gram 00:00: (two) [place] cream 00 times Medical daily. Branch nystatin 2020-0 Yes [id number] Apply to [facility] 100,000 7-16 area(s) 2 ity of unit/gram 00:00: (two) [place] cream 00 times Medical daily. Branch nystatin 2020-0 Yes [id number] Apply to [facility] 100,000 7-16 area(s) 2 ity of unit/gram 00:00: (two) [place] cream 00 times Medical daily. Branch triamcinolo 2020-0 Yes [id number] Apply to [facility] ne 7-16 area(s) 2 ity of acetonide 00:00: (two) [place] 0.1 % cream 00 times Medical daily. Branch nystatin 2020-0 Yes [id number] Apply to [facility] 100,000 7-16 area(s) 2 ity of unit/gram 00:00: (two) [place] cream 00 times Medical daily. Branch triamcinolo 2020-0 Yes [id number] Apply to [facility] ne 7-16 area(s) 2 ity of acetonide 00:00: (two) [place] 0.1 % cream 00 times Medical daily. Branch nystatin 2020-0 Yes [id number] Apply to [facility] 100,000 7-16 area(s) 2 ity of unit/gram 00:00: (two) [place] cream 00 times Medical daily. Branch nystatin 2020-0 Yes [id number] Apply to [facility] 100,000 7-16 area(s) 2 ity of unit/gram 00:00: (two) [place] cream 00 times Medical daily. Branch nystatin 2020-0 Yes [id number] Apply to [facility] 100,000 7-16 area(s) 2 ity of unit/gram 00:00: (two) [place] cream 00 times Medical daily. Branch nystatin 2020-0 Yes [id number] Apply to [facility] 100,000 7-16 area(s) 2 ity of unit/gram 00:00: (two) [place] cream 00 times Medical daily. Branch nystatin 2020-0 Yes [id number] Apply to [facility] 100,000 7-16 area(s) 2 ity of unit/gram 00:00: (two) [place] cream 00 times Medical daily. Branch nystatin 2020-0 Yes [id number] Apply to [facility] 100,000 7-16 area(s) 2 ity of unit/gram 00:00: (two) [place] cream 00 times Medical daily. Branch nystatin 2020-0 Yes [id number] Apply to [facility] 100,000 7-16 area(s) 2 ity of unit/gram 00:00: (two) [place] cream 00 times Medical daily. Branch nystatin 2020-0 Yes [id number] Apply to [facility] 100,000 7-16 area(s) 2 ity of unit/gram 00:00: (two) [place] cream 00 times Medical daily. Branch nystatin 2020-0 Yes [id number] Apply to [facility] 100,000 7-16 area(s) 2 ity of unit/gram 00:00: (two) [place] cream 00 times Medical daily. Branch nystatin 2020-0 Yes [id number] Apply to [facility] 100,000 7-16 area(s) 2 ity of unit/gram 00:00: (two) [place] cream 00 times Medical daily. Branch nystatin 2020-0 Yes [id number] Apply to [facility] 100,000 7-16 area(s) 2 ity of unit/gram 00:00: (two) [place] cream 00 times Medical daily. Branch nystatin 2020-0 Yes [id number] Apply to [facility] 100,000 7-16 area(s) 2 ity of unit/gram 00:00: (two) [place] cream 00 times Medical daily. Branch nystatin 2020-0 Yes [id number] Apply to [facility] 100,000 7-16 area(s) 2 ity of unit/gram 00:00: (two) [place] cream 00 times Medical daily. Branch nystatin 2020-0 Yes [id number] Apply to [facility] 100,000 7-16 area(s) 2 ity of unit/gram 00:00: (two) [place] cream 00 times Medical daily. Branch nystatin 2020-0 Yes [id number] Apply to [facility] 100,000 7-16 area(s) 2 ity of unit/gram 00:00: (two) [place] cream 00 times Medical daily. Branch nystatin 2020-0 Yes [id number] Apply to [facility] 100,000 7-16 area(s) 2 ity of unit/gram 00:00: (two) [place] cream 00 times Medical daily. Branch nystatin 2020-0 Yes [id number] Apply to [facility] 100,000 7-16 area(s) 2 ity of unit/gram 00:00: (two) [place] cream 00 times Medical daily. Branch nystatin 2020-0 Yes [id number] Apply to [facility] 100,000 7-16 area(s) 2 ity of unit/gram 00:00: (two) [place] cream 00 times Medical daily. Branch nystatin 2020-0 Yes [id number] Apply to [facility] 100,000 7-16 area(s) 2 ity of unit/gram 00:00: (two) [place] cream 00 times Medical daily. Branch nystatin 2020-0 Yes [id number] Apply to [facility] 100,000 7-16 area(s) 2 ity of unit/gram 00:00: (two) [place] cream 00 times Medical daily. Branch nystatin 2020-0 Yes [id number] Apply to [facility] 100,000 7-16 area(s) 2 ity of unit/gram 00:00: (two) [place] cream 00 times Medical daily. Branch nystatin 2020-0 2020- No [id number] Apply to [facility] 100,000 7-16 09-24 area(s) 2 ity of unit/gram 00:00: 00:00 (two) [place] cream 00 :00 times Medical daily. Branch nystatin 2020-0 2020- No [id number] Apply to [facility] 100,000 7-16 09-24 area(s) 2 ity of unit/gram 00:00: 00:00 (two) [place] cream 00 :00 times Medical daily. Branch triamcinolo 2020-0 2020- No [id number] Apply to [facility] ne 7-16 07-28 area(s) 2 ity of acetonide 00:00: 00:00 (two) [place] 0.1 % cream 00 :00 times Medical daily. Branch losartan 50 2020-0 Yes [id number] 50mg Take 1 [facility] mg tablet 7-10 tablet by ity o f 00:00: mouth [place] 00 daily. Medical Branch metoprolol 2020-0 Yes [id number] 100mg Take 1 [facility] tartrate 7-10 tablet by ity of 100 mg 00:00: mouth 2 [place] tablet 00 (two) Medical times Branch daily. losartan 50 2020-0 Yes [id number] 50mg Take 1 [facility] mg tablet 7-10 tablet by ity o f 00:00: mouth [place] 00 daily. Medical Branch metoprolol 2020-0 Yes [id number] 100mg Take 1 [facility] tartrate 7-10 tablet by ity of 100 mg 00:00: mouth 2 [place] tablet 00 (two) Medical times Branch daily. losartan 50 2020-0 Yes [id number] 50mg Take 1 [facility] mg tablet 7-10 tablet by ity o f 00:00: mouth [place] 00 daily. Medical Branch metoprolol 2020-0 Yes [id number] 100mg Take 1 [facility] tartrate 7-10 tablet by ity of 100 mg 00:00: mouth 2 [place] tablet 00 (two) Medical times Branch daily. losartan 50 2020-0 Yes [id number] 50mg Take 1 [facility] mg tablet 7-10 tablet by ity o f 00:00: mouth [place] 00 daily. Medical Branch metoprolol 2020-0 Yes [id number] 100mg Take 1 [facility] tartrate 7-10 tablet by ity of 100 mg 00:00: mouth 2 [place] tablet 00 (two) Medical times Branch daily. losartan 50 2020-0 Yes [id number] 50mg Take 1 [facility] mg tablet 7-10 tablet by ity o f 00:00: mouth [place] 00 daily. Medical Branch losartan 50 2020-0 Yes [id number] 50mg Take 1 [facility] mg tablet 7-10 tablet by ity o f 00:00: mouth [place] 00 daily. Medical Branch metoprolol 2020-0 Yes [id number] 100mg Take 1 [facility] tartrate 7-10 tablet by ity of 100 mg 00:00: mouth 2 [place] tablet 00 (two) Medical times Branch daily. losartan 50 2020-0 Yes [id number] 50mg Take 1 [facility] mg tablet 7-10 tablet by ity o f 00:00: mouth [place] 00 daily. Medical Branch metoprolol 2020-0 Yes [id number] 100mg Take 1 [facility] tartrate 7-10 tablet by ity of 100 mg 00:00: mouth 2 [place] tablet 00 (two) Medical times Branch daily. losartan 50 2020-0 Yes [id number] 50mg Take 1 [facility] mg tablet 7-10 tablet by ity o f 00:00: mouth [place] 00 daily. Medical Branch metoprolol 2020-0 Yes [id number] 100mg Take 1 [facility] tartrate 7-10 tablet by ity of 100 mg 00:00: mouth 2 [place] tablet 00 (two) Medical times Branch daily. losartan 50 2020-0 Yes [id number] 50mg Take 1 [facility] mg tablet 7-10 tablet by ity o f 00:00: mouth [place] 00 daily. Medical Branch metoprolol 2020-0 Yes [id number] 100mg Take 1 [facility] tartrate 7-10 tablet by ity of 100 mg 00:00: mouth 2 [place] tablet 00 (two) Medical times Branch daily. losartan 50 2020-0 Yes [id number] 50mg Take 1 [facility] mg tablet 7-10 tablet by ity o f 00:00: mouth [place] 00 daily. Medical Branch metoprolol 2020-0 Yes [id number] 100mg Take 1 [facility] tartrate 7-10 tablet by ity of 100 mg 00:00: mouth 2 [place] tablet 00 (two) Medical times Branch daily. losartan 50 2020-0 Yes [id number] 50mg Take 1 [facility] mg tablet 7-10 tablet by ity o f 00:00: mouth [place] 00 daily. Medical Branch metoprolol 2020-0 Yes [id number] 100mg Take 1 [facility] tartrate 7-10 tablet by ity of 100 mg 00:00: mouth 2 [place] tablet 00 (two) Medical times Branch daily. losartan 50 2020-0 Yes [id number] 50mg Take 1 [facility] mg tablet 7-10 tablet by ity o f 00:00: mouth [place] 00 daily. Medical Branch metoprolol 2020-0 Yes [id number] 100mg Take 1 [facility] tartrate 7-10 tablet by ity of 100 mg 00:00: mouth 2 [place] tablet 00 (two) Medical times Branch daily. losartan 50 2020-0 Yes [id number] 50mg Take 1 [facility] mg tablet 7-10 tablet by ity o f 00:00: mouth [place] 00 daily. Medical Branch metoprolol 2020-0 Yes [id number] 100mg Take 1 [facility] tartrate 7-10 tablet by ity of 100 mg 00:00: mouth 2 [place] tablet 00 (two) Medical times Branch daily. losartan 50 2020-0 Yes [id number] 50mg Take 1 [facility] mg tablet 7-10 tablet by ity o f 00:00: mouth [place] 00 daily. Medical Branch metoprolol 2020-0 Yes [id number] 100mg Take 1 [facility] tartrate 7-10 tablet by ity of 100 mg 00:00: mouth 2 [place] tablet 00 (two) Medical times Branch daily. losartan 50 2020-0 Yes [id number] 50mg Take 1 [facility] mg tablet 7-10 tablet by ity o f 00:00: mouth [place] 00 daily. Medical Branch metoprolol 2020-0 Yes [id number] 100mg Take 1 [facility] tartrate 7-10 tablet by ity of 100 mg 00:00: mouth 2 [place] tablet 00 (two) Medical times Branch daily. losartan 50 2020-0 Yes [id number] 50mg Take 1 [facility] mg tablet 7-10 tablet by ity o f 00:00: mouth [place] 00 daily. Medical Branch metoprolol 2020-0 Yes [id number] 100mg Take 1 [facility] tartrate 7-10 tablet by ity of 100 mg 00:00: mouth 2 [place] tablet 00 (two) Medical times Branch daily. losartan 50 2020-0 Yes [id number] 50mg Take 1 [facility] mg tablet 7-10 tablet by ity o f 00:00: mouth [place] 00 daily. Medical Branch metoprolol 2020-0 Yes [id number] 100mg Take 1 [facility] tartrate 7-10 tablet by ity of 100 mg 00:00: mouth 2 [place] tablet 00 (two) Medical times Branch daily. losartan 50 2020-0 Yes [id number] 50mg Take 1 [facility] mg tablet 7-10 tablet by ity o f 00:00: mouth [place] 00 daily. Medical Branch metoprolol 2020-0 Yes [id number] 100mg Take 1 [facility] tartrate 7-10 tablet by ity of 100 mg 00:00: mouth 2 [place] tablet 00 (two) Medical times Branch daily. losartan 50 2020-0 Yes [id number] 50mg Take 1 [facility] mg tablet 7-10 tablet by ity o f 00:00: mouth [place] 00 daily. Medical Branch metoprolol 2020-0 Yes [id number] 100mg Take 1 [facility] tartrate 7-10 tablet by ity of 100 mg 00:00: mouth 2 [place] tablet 00 (two) Medical times Branch daily. losartan 50 2020-0 Yes [id number] 50mg Take 1 [facility] mg tablet 7-10 tablet by ity o f 00:00: mouth [place] 00 daily. Medical Branch metoprolol 2020-0 Yes [id number] 100mg Take 1 [facility] tartrate 7-10 tablet by ity of 100 mg 00:00: mouth 2 [place] tablet 00 (two) Medical times Branch daily. losartan 50 2020-0 Yes [id number] 50mg Take 1 [facility] mg tablet 7-10 tablet by ity o f 00:00: mouth [place] 00 daily. Medical Branch metoprolol 2020-0 Yes [id number] 100mg Take 1 [facility] tartrate 7-10 tablet by ity of 100 mg 00:00: mouth 2 [place] tablet 00 (two) Medical times Branch daily. losartan 50 2020-0 Yes [id number] 50mg Take 1 [facility] mg tablet 7-10 tablet by ity o f 00:00: mouth [place] 00 daily. Medical Branch metoprolol 2020-0 Yes [id number] 100mg Take 1 [facility] tartrate 7-10 tablet by ity of 100 mg 00:00: mouth 2 [place] tablet 00 (two) Medical times Branch daily. losartan 50 2020-0 Yes [id number] 50mg Take 1 [facility] mg tablet 7-10 tablet by ity o f 00:00: mouth [place] 00 daily. Medical Branch metoprolol 2020-0 Yes [id number] 100mg Take 1 [facility] tartrate 7-10 tablet by ity of 100 mg 00:00: mouth 2 [place] tablet 00 (two) Medical times Branch daily. losartan 50 2020-0 Yes [id number] 50mg Take 1 [facility] mg tablet 7-10 tablet by [facility] o f 00:00: mouth [place] 00 daily. [facility] metoprolol 2020-0 Yes [id number] 100mg Take 1 [facility] tartrate 7-10 tablet by [facility] of 100 mg 00:00: mouth 2 [place] tablet 00 (two) Medical times Branch daily. losartan 50 2020-0 Yes [id number] 50mg Take 1 [facility] mg tablet 7-10 tablet by [facility] o f 00:00: mouth [place] 00 daily. [facility] metoprolol 2020-0 Yes [id number] 100mg Take 1 [facility] tartrate 7-10 tablet by [facility] of 100 mg 00:00: mouth 2 [place] tablet 00 (two) Medical times [facility] daily. losartan 50 2020-0 Yes [id number] 50mg Take 1 [facility] mg tablet 7-10 tablet by [facility] o f 00:00: mouth [place] 00 daily. [facility] metoprolol 2020-0 Yes [id number] 100mg Take 1 [facility] tartrate 7-10 tablet by [facility] of 100 mg 00:00: mouth 2 [place] tablet 00 (two) Medical times [facility] daily. losartan 50 2020-0 Yes [id number] 50mg Take 1 [facility] mg tablet 7-10 tablet by [facility] o f 00:00: mouth [place] 00 daily. [facility] metoprolol 2020-0 Yes [id number] 100mg Take 1 [facility] tartrate 7-10 tablet by [facility] of 100 mg 00:00: mouth 2 [place] tablet 00 (two) Medical times [facility] daily. losartan 50 2020-0 Yes [id number] 50mg Take 1 [facility] mg tablet 7-10 tablet by [facility] o f 00:00: mouth [place] 00 daily. [facility] metoprolol 2020-0 Yes [id number] 100mg Take 1 [facility] tartrate 7-10 tablet by [facility] of 100 mg 00:00: mouth 2 [place] tablet 00 (two) Medical times [facility] daily. losartan 50 2020-0 Yes [id number] 50mg Take 1 [facility] mg tablet 7-10 tablet by [facility] o f 00:00: mouth [place] 00 daily. [facility] metoprolol 2020-0 Yes [id number] 100mg Take 1 [facility] tartrate 7-10 tablet by [facility] of 100 mg 00:00: mouth 2 [place] tablet 00 (two) Medical times Branch daily. losartan 50 2020-0 Yes [id number] 50mg Take 1 [facility] mg tablet 7-10 tablet by [facility] o f 00:00: mouth [place] 00 daily. [facility] metoprolol 2020-0 Yes [id number] 100mg Take 1 [facility] tartrate 7-10 tablet by [facility] of 100 mg 00:00: mouth 2 [place] tablet 00 (two) Medical times Branch daily. losartan 50 2020-0 Yes [id number] 50mg Take 1 [facility] mg tablet 7-10 tablet by [facility] o f 00:00: mouth [place] 00 daily. [facility] losartan 50 2020-0 Yes [id number] 50mg Take 1 [facility] mg tablet 7-10 tablet by [facility] o f 00:00: mouth [place] 00 daily. [facility] losartan 50 2020-0 Yes [id number] 50mg Take 1 [facility] mg tablet 7-10 tablet by [facility] o f 00:00: mouth [place] 00 daily. [facility] losartan 50 2020-0 Yes [id number] 50mg Take 1 [facility] mg tablet 7-10 tablet by [facility] o f 00:00: mouth [place] 00 daily. [facility] losartan 50 2020-0 Yes [id number] 50mg Take 1 [facility] mg tablet 7-10 tablet by [facility] o f 00:00: mouth [place] 00 daily. [facility] losartan 50 2020-0 Yes [id number] 50mg Take 1 [facility] mg tablet 7-10 tablet by [facility] o f 00:00: mouth [place] 00 daily. [facility] losartan 50 2020-0 Yes [id number] 50mg Take 1 [facility] mg tablet 7-10 tablet by [facility] o f 00:00: mouth [place] 00 daily. [facility] metoprolol 2020-0 Yes [id number] 100mg Take 1 [facility] tartrate 7-10 tablet by [facility] of 100 mg 00:00: mouth 2 [place] tablet 00 (two) Medical times [facility] daily. losartan 50 2020-0 Yes [id number] 50mg Take 1 [facility] mg tablet 7-10 tablet by [facility] o f 00:00: mouth [place] 00 daily. [facility] metoprolol 2020-0 Yes [id number] 100mg Take 1 [facility] tartrate 7-10 tablet by [facility] of 100 mg 00:00: mouth 2 [place] tablet 00 (two) Medical times [facility] daily. losartan 50 2020-0 Yes [id number] 50mg Take 1 [facility] mg tablet 7-10 tablet by [facility] o f 00:00: mouth [place] 00 daily. [facility] metoprolol 2020-0 Yes [id number] 100mg Take 1 [facility] tartrate 7-10 tablet by [facility] of 100 mg 00:00: mouth 2 [place] tablet 00 (two) Medical times [facility] daily. losartan 50 2020-0 Yes [id number] 50mg Take 1 [facility] mg tablet 7-10 tablet by [facility] o f 00:00: mouth [place] 00 daily. [facility] metoprolol 2020-0 Yes [id number] 100mg Take 1 [facility] tartrate 7-10 tablet by [facility] of 100 mg 00:00: mouth 2 [place] tablet 00 (two) Medical times [facility] daily. losartan 50 2020-0 Yes [id number] 50mg Take 1 [facility] mg tablet 7-10 tablet by [facility] o f 00:00: mouth [place] 00 daily. [facility] metoprolol 2020-0 Yes [id number] 100mg Take 1 [facility] tartrate 7-10 tablet by [facility] of 100 mg 00:00: mouth 2 [place] tablet 00 (two) Medical times [facility] daily. losartan 50 2020-0 Yes [id number] 50mg Take 1 [facility] mg tablet 7-10 tablet by [facility] o f 00:00: mouth [place] 00 daily. [facility] metoprolol 2020-0 Yes [id number] 100mg Take 1 [facility] tartrate 7-10 tablet by [facility] of 100 mg 00:00: mouth 2 [place] tablet 00 (two) Medical times [facility] daily. losartan 50 2020-0 Yes [id number] 50mg Take 1 [facility] mg tablet 7-10 tablet by [facility] o f 00:00: mouth [place] 00 daily. [facility] metoprolol 2020-0 Yes [id number] 100mg Take 1 [facility] tartrate 7-10 tablet by [facility] of 100 mg 00:00: mouth 2 [place] tablet 00 (two) Medical times [facility] daily. losartan 50 2020-0 Yes [id number] 50mg Take 1 [facility] mg tablet 7-10 tablet by [facility] o f 00:00: mouth [place] 00 daily. [facility] metoprolol 2020-0 Yes [id number] 100mg Take 1 [facility] tartrate 7-10 tablet by [facility] of 100 mg 00:00: mouth 2 [place] tablet 00 (two) Medical times [facility] daily. losartan 50 2020-0 Yes [id number] 50mg Take 1 [facility] mg tablet 7-10 tablet by [facility] o f 00:00: mouth [place] 00 daily. [facility] metoprolol 2020-0 Yes [id number] 100mg Take 1 [facility] tartrate 7-10 tablet by [facility] of 100 mg 00:00: mouth 2 [place] tablet 00 (two) Medical times Branch daily. losartan 50 2020-0 Yes [id number] 50mg Take 1 [facility] mg tablet 7-10 tablet by [facility] o f 00:00: mouth [place] 00 daily. [facility] metoprolol 2020-0 Yes [id number] 100mg Take 1 [facility] tartrate 7-10 tablet by [facility] of 100 mg 00:00: mouth 2 [place] tablet 00 (two) Medical times Branch daily. losartan 50 2020-0 Yes [id number] 50mg Take 1 [facility] mg tablet 7-10 tablet by [facility] o f 00:00: mouth [place] 00 daily. [facility] metoprolol 2020-0 Yes [id number] 100mg Take 1 [facility] tartrate 7-10 tablet by [facility] of 100 mg 00:00: mouth 2 [place] tablet 00 (two) Medical times [facility] daily. losartan 50 2020-0 Yes [id number] 50mg Take 1 [facility] mg tablet 7-10 tablet by [facility] o f 00:00: mouth [place] 00 daily. [facility] metoprolol 2020-0 Yes [id number] 100mg Take 1 [facility] tartrate 7-10 tablet by [facility] of 100 mg 00:00: mouth 2 [place] tablet 00 (two) Medical times Branch daily. losartan 50 2020-0 Yes [id number] 50mg Take 1 [facility] mg tablet 7-10 tablet by [facility] o f 00:00: mouth [place] 00 daily. [facility] metoprolol 2020-0 Yes [id number] 100mg Take 1 [facility] tartrate 7-10 tablet by [facility] of 100 mg 00:00: mouth 2 [place] tablet 00 (two) Medical times [facility] daily. losartan 50 2020-0 Yes [id number] 50mg Take 1 [facility] mg tablet 7-10 tablet by [facility] o f 00:00: mouth [place] 00 daily. [facility] metoprolol 2020-0 Yes [id number] 100mg Take 1 [facility] tartrate 7-10 tablet by [facility] of 100 mg 00:00: mouth 2 [place] tablet 00 (two) Medical times Branch daily. losartan 50 2020-0 Yes [id number] 50mg Take 1 [facility] mg tablet 7-10 tablet by [facility] o f 00:00: mouth [place] 00 daily. [facility] metoprolol 2020-0 Yes [id number] 100mg Take 1 [facility] tartrate 7-10 tablet by [facility] of 100 mg 00:00: mouth 2 [place] tablet 00 (two) Medical times Branch daily. losartan 50 2020-0 Yes [id number] 50mg Take 1 [facility] mg tablet 7-10 tablet by [facility] o f 00:00: mouth [place] 00 daily. [facility] metoprolol 2020-0 Yes [id number] 100mg Take 1 [facility] tartrate 7-10 tablet by [facility] of 100 mg 00:00: mouth 2 [place] tablet 00 (two) Medical times Branch daily. losartan 50 2020-0 Yes [id number] 50mg Take 1 [facility] mg tablet 7-10 tablet by [facility] o f 00:00: mouth [place] 00 daily. [facility] metoprolol 2020-0 Yes [id number] 100mg Take 1 [facility] tartrate 7-10 tablet by [facility] of 100 mg 00:00: mouth 2 [place] tablet 00 (two) Medical times Branch daily. losartan 50 2020-0 Yes [id number] 50mg Take 1 [facility] mg tablet 7-10 tablet by [facility] o f 00:00: mouth [place] 00 daily. [facility] metoprolol 2020-0 Yes [id number] 100mg Take 1 [facility] tartrate 7-10 tablet by [facility] of 100 mg 00:00: mouth 2 [place] tablet 00 (two) Medical times Branch daily. losartan 50 2020-0 Yes [id number] 50mg Take 1 [facility] mg tablet 7-10 tablet by [facility] o f 00:00: mouth [place] 00 daily. [facility] metoprolol 2020-0 Yes [id number] 100mg Take 1 [facility] tartrate 7-10 tablet by [facility] of 100 mg 00:00: mouth 2 [place] tablet 00 (two) Medical times Branch daily. losartan 50 2020-0 Yes [id number] 50mg Take 1 [facility] mg tablet 7-10 tablet by [facility] o f 00:00: mouth [place] 00 daily. [facility] metoprolol 2020-0 Yes [id number] 100mg Take 1 [facility] tartrate 7-10 tablet by [facility] of 100 mg 00:00: mouth 2 [place] tablet 00 (two) Medical times Branch daily. losartan 50 2020-0 Yes [id number] 50mg Take 1 [facility] mg tablet 7-10 tablet by [facility] o f 00:00: mouth [place] 00 daily. [facility] losartan 50 2020-0 Yes [id number] 50mg Take 1 [facility] mg tablet 7-10 tablet by [facility] o f 00:00: mouth [place] 00 daily. [facility] metoprolol 2020-0 Yes [id number] 100mg Take 1 [facility] tartrate 7-10 tablet by [facility] of 100 mg 00:00: mouth 2 [place] tablet 00 (two) Medical times Branch daily. losartan 50 2020-0 Yes [id number] 50mg Take 1 [facility] mg tablet 7-10 tablet by [facility] o f 00:00: mouth [place] 00 daily. [facility] metoprolol 2020-0 Yes [id number] 100mg Take 1 [facility] tartrate 7-10 tablet by [facility] of 100 mg 00:00: mouth 2 [place] tablet 00 (two) Medical times Branch daily. losartan 50 2020-0 Yes [id number] 50mg Take 1 [facility] mg tablet 7-10 tablet by it[facility] o f 00:00: mouth [place] 00 daily. [facility] metoprolol 2020-0 Yes [id number] 100mg Take 1 [facility] tartrate 7-10 tablet by [facility] of 100 mg 00:00: mouth 2 [place] tablet 00 (two) Medical times Branch daily. losartan 50 2020-0 Yes [id number] 50mg Take 1 [facility] mg tablet 7-10 tablet by [facility] o f 00:00: mouth [place] 00 daily. [facility] metoprolol 2020-0 Yes [id number] 100mg Take 1 [facility] tartrate 7-10 tablet by [facility] of 100 mg 00:00: mouth 2 [place] tablet 00 (two) Medical times [place] daily. losartan 50 2020-0 Yes [id number] 50mg Take 1 [facility] mg tablet 7-10 tablet by ity o f 00:00: mouth [place] 00 daily. [facility] metoprolol 2020-0 Yes [id number] 100mg Take 1 [facility] tartrate 7-10 tablet by [facility] of 100 mg 00:00: mouth 2 [place] tablet 00 (two) Medical times [place] daily. metoprolol 2020-0 2021- No [id number] 100mg Take 1 [facility] tartrate 7-10 08-16 tablet by ity o f 100 mg 00:00: 00:00 mouth 2 [place] tablet 00 :00 (two) Medical times [place] daily. metoprolol 2020-0 2021- No [id number] 100mg Take 1 [facility] tartrate 7-10 08-16 tablet by ity o f 100 mg 00:00: 00:00 mouth 2 [place] tablet 00 :00 (two) Medical times [place] daily. nystatin 2020-0 Yes [id number] Apply to [facility] 100,000 6-23 area(s) 2 [facility] of unit/gram 00:00: (two) [place] cream 00 times Medical daily. Branch triamcinolo 2020-0 Yes [id number] Apply to [facility] ne 6-23 area(s) 2 ity of acetonide 00:00: (two) [place] 0.1 % cream 00 times Medical daily. Branch nystatin 2020-0 Yes [id number] Apply to [facility] nivers 100,000 6-23 area(s) 2 ity of unit/gram 00:00: (two) [place] cream 00 times Medical daily. Branch triamcinolo 2020-0 Yes [id number] Apply to [facility] ne 6-23 area(s) 2 ity of acetonide 00:00: (two) [place] 0.1 % cream 00 times Medical daily. Branch nystatin 2020-0 Yes [id number] Apply to [facility] nivers 100,000 6-23 area(s) 2 ity of unit/gram 00:00: (two) [place] cream 00 times Medical daily. Branch triamcinolo 2020-0 Yes [id number] Apply to [facility] ne 6-23 area(s) 2 ity of acetonide 00:00: (two) [place] 0.1 % cream 00 times Medical daily. Branch nystatin 2020-0 Yes [id number] Apply to [facility] nivers 100,000 6-23 area(s) 2 ity of unit/gram 00:00: (two) [place] cream 00 times Medical daily. Branch triamcinolo 2020-0 Yes [id number] Apply to [facility] ne 6-23 area(s) 2 ity of acetonide 00:00: (two) [place] 0.1 % cream 00 times Medical daily. Branch nystatin 2020-0 Yes [id number] Apply to [facility] nivers 100,000 6-23 area(s) 2 ity of unit/gram 00:00: (two) [place] cream 00 times Medical daily. Branch triamcinolo 2020-0 Yes [id number] Apply to [facility] ne 6-23 area(s) 2 ity of acetonide 00:00: (two) [place] 0.1 % cream 00 times Medical daily. Branch nystatin 2020-0 Yes [id number] Apply to [facility] nivers 100,000 6-23 area(s) 2 ity of unit/gram 00:00: (two) [place] cream 00 times Medical daily. Branch triamcinolo 2020-0 Yes [id number] Apply to [facility] ne 6-23 area(s) 2 ity of acetonide 00:00: (two) [place] 0.1 % cream 00 times Medical daily. Branch nystatin 2020-0 Yes [id number] Apply to [facility] nivers 100,000 6-23 area(s) 2 ity of unit/gram 00:00: (two) [place] cream 00 times Medical daily. Branch triamcinolo 2020-0 Yes [id number] Apply to [facility] ne 6-23 area(s) 2 ity of acetonide 00:00: (two) [place] 0.1 % cream 00 times Medical daily. Branch nystatin 2020-0 2020- No [id number] Apply to [facility] 100,000 6-23 07-16 area(s) 2 ity of unit/gram 00:00: 00:00 (two) [place] cream 00 :00 times Medical daily. Branch triamcinolo 2020-0 2020- No [id number] Apply to [facility] ne 6-23 07-16 area(s) 2 ity of acetonide 00:00: 00:00 (two) [place] 0.1 % cream 00 :00 times Medical daily. Branch nystatin 2019-0 2020- No [id number] Apply to [facility] 100,000 03-22 area(s) 2 ity of unit/gram 00:00: 00:00 (two) [place] cream 00 :00 times Medical daily. Branch triamcinolo 0 2020- No [id number] Apply to [facility] ne 03-22 area(s) 2 ity of acetonide 00:00: 00:00 (two) [place] 0.1 % cream 00 :00 times Medical daily. Branch METOPROLOL 2020-0 Yes [id number] TAKE ONE [facility] TARTRATE 5-21 TABLET BY ity of 100 mg 00:00: MOUTH [place] tablet 00 TWICE A Medical DAY Branch METOPROLOL 2020-0 Yes [id number] TAKE ONE [facility] TARTRATE 5-21 TABLET BY ity of 100 mg 00:00: MOUTH [place] tablet 00 TWICE A Medical DAY Branch METOPROLOL 2020-0 Yes [id number] TAKE ONE [facility] TARTRATE 5-21 TABLET BY ity of 100 mg 00:00: MOUTH [place] tablet 00 TWICE A Medical DAY Branch METOPROLOL 2020-0 Yes [id number] TAKE ONE [facility] TARTRATE 5-21 TABLET BY ity of 100 mg 00:00: MOUTH [place] tablet 00 TWICE A Medical DAY Branch METOPROLOL 2020-0 Yes [id number] TAKE ONE [facility] TARTRATE 5-21 TABLET BY ity of 100 mg 00:00: MOUTH [place] tablet 00 TWICE A Medical DAY Branch METOPROLOL 2020-0 Yes [id number] TAKE ONE [facility] TARTRATE 5-21 TABLET BY ity of 100 mg 00:00: MOUTH [place] tablet 00 TWICE A Medical DAY Branch METOPROLOL 2020-0 Yes [id number] TAKE ONE [facility] TARTRATE 5-21 TABLET BY ity of 100 mg 00:00: MOUTH [place] tablet 00 TWICE A Medical DAY Branch METOPROLOL 2020-0 2020- No [id number] TAKE ONE [facility] TARTRATE 5-21 07-10 TABLET BY ity o f 100 mg 00:00: 00:00 MOUTH [place] tablet 00 :00 TWICE A Medical DAY Branch METOPROLOL 2020-0 2020- No [id number] TAKE ONE [facility] TARTRATE 5-21 07-10 TABLET BY ity o f 100 mg 00:00: 00:00 MOUTH [place] tablet 00 :00 TWICE A Medical DAY Branch METOPROLOL 2020-0 2020- No [id number] TAKE ONE [facility] TARTRATE 5-21 07-10 TABLET BY ity o f 100 mg 00:00: 00:00 MOUTH [place] tablet 00 :00 TWICE A Medical DAY Branch aspirin 2020-0 2020- No 81mg Take 81 mg [facility] vers (ASPIRIN 2-27 02-27 by mouth ity of LOW DOSE) 22:25: 00:00 daily. [place] 81 mg EC 21 :00 Medical tablet Branch aspirin 2020-0 2020- No 81mg Take 81 mg [facility] vers (ASPIRIN 2-27 02-27 by mouth ity of LOW DOSE) 22:25: 00:00 daily. [place] 81 mg EC 21 :00 Medical tablet Branch aspirin 2020-0 2020- No 81mg Take 81 mg [facility] vers (ASPIRIN 2-27 02-27 by mouth ity of LOW DOSE) 22:25: 00:00 daily. [place] 81 mg EC 21 :00 Medical tablet Branch hydroCHLORO 2020-0 Yes [id number] 25mg Take 1 [facility] thiazide 25 2-27 tablet by ity of mg tablet 00:00: mouth [place] 00 daily. Medical [facility] aspirin 2020-0 Yes [id number] 81mg Take 1 [facility] ers (ASPIRIN 2-27 tablet by ity of LOW DOSE) 00:00: mouth [place] 81 mg EC 00 daily. Medical tablet Branch hydroCHLORO 2020-0 Yes [id number] 25mg Take 1 [facility] thiazide 25 2-27 tablet by ity of mg tablet 00:00: mouth [place] 00 daily. Medical [facility] aspirin 2020-0 Yes [id number] 81mg Take 1 [facility] ers (ASPIRIN 2-27 tablet by ity of LOW DOSE) 00:00: mouth [place] 81 mg EC 00 daily. Medical tablet Branch hydroCHLORO 2020-0 Yes [id number] 25mg Take 1 [facility] thiazide 25 2-27 tablet by ity of mg tablet 00:00: mouth [place] 00 daily. Medical [facility] aspirin 2020-0 Yes [id number] 81mg Take 1 [facility] ers (ASPIRIN 2-27 tablet by ity of LOW DOSE) 00:00: mouth [place] 81 mg EC 00 daily. Medical tablet Branch aspirin 2020-0 Yes [id number] 81mg Take 1 [facility] ers (ASPIRIN 2-27 tablet by ity of LOW DOSE) 00:00: mouth [place] 81 mg EC 00 daily. Medical tablet Branch hydroCHLORO 2020-0 Yes [id number] 25mg Take 1 [facility] thiazide 25 2-27 tablet by ity of mg tablet 00:00: mouth [place] 00 daily. Medical [facility] aspirin 2020-0 Yes [id number] 81mg Take 1 [facility] ers (ASPIRIN 2-27 tablet by ity of LOW DOSE) 00:00: mouth [place] 81 mg EC 00 daily. Medical tablet Branch hydroCHLORO 2020-0 Yes [id number] 25mg Take 1 [facility] thiazide 25 2-27 tablet by ity of mg tablet 00:00: mouth [place] 00 daily. Medical [facility] aspirin 2020-0 Yes [id number] 81mg Take 1 [facility] ers (ASPIRIN 2-27 tablet by ity of LOW DOSE) 00:00: mouth [place] 81 mg EC 00 daily. Medical tablet Branch hydroCHLORO 2020-0 Yes [id number] 25mg Take 1 [facility] thiazide 25 2-27 tablet by ity of mg tablet 00:00: mouth [place] 00 daily. Medical [facility] aspirin 2020-0 Yes [id number] 81mg Take 1 [facility] ers (ASPIRIN 2-27 tablet by ity of LOW DOSE) 00:00: mouth [place] 81 mg EC 00 daily. Medical tablet Branch hydroCHLORO 2020-0 Yes [id number] 25mg Take 1 [facility] thiazide 25 2-27 tablet by ity of mg tablet 00:00: mouth [place] 00 daily. Medical [facility] aspirin 2020-0 Yes [id number] 81mg Take 1 [facility] ers (ASPIRIN 2-27 tablet by ity of LOW DOSE) 00:00: mouth [place] 81 mg EC 00 daily. Medical tablet Branch hydroCHLORO 2020-0 Yes [id number] 25mg Take 1 [facility] thiazide 25 2-27 tablet by ity of mg tablet 00:00: mouth [place] 00 daily. Medical [facility] aspirin 2020-0 Yes [id number] 81mg Take 1 [facility] ers (ASPIRIN 2-27 tablet by ity of LOW DOSE) 00:00: mouth [place] 81 mg EC 00 daily. Medical tablet Branch hydroCHLORO 2020-0 Yes [id number] 25mg Take 1 [facility] thiazide 25 2-27 tablet by ity of mg tablet 00:00: mouth [place] 00 daily. Medical [facility] aspirin 2020-0 Yes [id number] 81mg Take 1 [facility] ers (ASPIRIN 2-27 tablet by ity of LOW DOSE) 00:00: mouth [place] 81 mg EC 00 daily. Medical tablet Branch hydroCHLORO 2020-0 Yes [id number] 25mg Take 1 [facility] thiazide 25 2-27 tablet by ity of mg tablet 00:00: mouth [place] 00 daily. Medical [facility] aspirin 2020-0 Yes [id number] 81mg Take 1 [facility] ers (ASPIRIN 2-27 tablet by ity of LOW DOSE) 00:00: mouth [place] 81 mg EC 00 daily. Medical tablet Branch hydroCHLORO 2020-0 Yes [id number] 25mg Take 1 [facility] thiazide 25 2-27 tablet by ity of mg tablet 00:00: mouth [place] 00 daily. Medical [facility] aspirin 2020-0 Yes [id number] 81mg Take 1 [facility] ers (ASPIRIN 2-27 tablet by ity of LOW DOSE) 00:00: mouth [place] 81 mg EC 00 daily. Medical tablet Branch hydroCHLORO 2020-0 Yes [id number] 25mg Take 1 [facility] thiazide 25 2-27 tablet by ity of mg tablet 00:00: mouth [place] 00 daily. Medical [facility] aspirin 2020-0 Yes [id number] 81mg Take 1 [facility] ers (ASPIRIN 2-27 tablet by ity of LOW DOSE) 00:00: mouth [place] 81 mg EC 00 daily. Medical tablet Branch hydroCHLORO 2020-0 Yes [id number] 25mg Take 1 [facility] thiazide 25 2-27 tablet by ity of mg tablet 00:00: mouth [place] 00 daily. Medical [facility] aspirin 2020-0 Yes [id number] 81mg Take 1 [facility] ers (ASPIRIN 2-27 tablet by ity of LOW DOSE) 00:00: mouth [place] 81 mg EC 00 daily. Medical tablet Branch hydroCHLORO 2020-0 Yes [id number] 25mg Take 1 [facility] thiazide 25 2-27 tablet by ity of mg tablet 00:00: mouth [place] 00 daily. Medical [facility] aspirin 2020-0 Yes [id number] 81mg Take 1 [facility] ers (ASPIRIN 2-27 tablet by ity of LOW DOSE) 00:00: mouth [place] 81 mg EC 00 daily. Medical tablet Branch hydroCHLORO 2020-0 Yes [id number] 25mg Take 1 [facility] thiazide 25 2-27 tablet by ity of mg tablet 00:00: mouth [place] 00 daily. Medical [facility] aspirin 2020-0 Yes [id number] 81mg Take 1 [facility] ers (ASPIRIN 2-27 tablet by ity of LOW DOSE) 00:00: mouth [place] 81 mg EC 00 daily. Medical tablet Branch hydroCHLORO 2020-0 Yes [id number] 25mg Take 1 [facility] thiazide 25 2-27 tablet by ity of mg tablet 00:00: mouth [place] 00 daily. Medical [facility] aspirin 2020-0 Yes [id number] 81mg Take 1 [facility] ers (ASPIRIN 2-27 tablet by ity of LOW DOSE) 00:00: mouth [place] 81 mg EC 00 daily. Medical tablet Branch hydroCHLORO 2020-0 Yes [id number] 25mg Take 1 [facility] thiazide 25 2-27 tablet by ity of mg tablet 00:00: mouth [place] 00 daily. Medical [facility] aspirin 2020-0 Yes [id number] 81mg Take 1 [facility] ers (ASPIRIN 2-27 tablet by ity of LOW DOSE) 00:00: mouth [place] 81 mg EC 00 daily. Medical tablet Branch hydroCHLORO 2020-0 Yes [id number] 25mg Take 1 [facility] thiazide 25 2-27 tablet by ity of mg tablet 00:00: mouth [place] 00 daily. Medical [facility] aspirin 2020-0 Yes [id number] 81mg Take 1 [facility] ers (ASPIRIN 2-27 tablet by ity of LOW DOSE) 00:00: mouth [place] 81 mg EC 00 daily. Medical tablet Branch hydroCHLORO 2020-0 Yes [id number] 25mg Take 1 [facility] thiazide 25 2-27 tablet by ity of mg tablet 00:00: mouth [place] 00 daily. Medical [facility] aspirin 2020-0 Yes [id number] 81mg Take 1 [facility] ers (ASPIRIN 2-27 tablet by ity of LOW DOSE) 00:00: mouth [place] 81 mg EC 00 daily. Medical tablet Branch hydroCHLORO 2020-0 Yes [id number] 25mg Take 1 [facility] thiazide 25 2-27 tablet by ity of mg tablet 00:00: mouth [place] 00 daily. Medical [facility] aspirin 2020-0 Yes [id number] 81mg Take 1 [facility] ers (ASPIRIN 2-27 tablet by ity of LOW DOSE) 00:00: mouth [place] 81 mg EC 00 daily. Medical tablet Branch hydroCHLORO 2020-0 Yes [id number] 25mg Take 1 [facility] thiazide 25 2-27 tablet by ity of mg tablet 00:00: mouth [place] 00 daily. Medical [facility] aspirin 2020-0 Yes [id number] 81mg Take 1 [facility] ers (ASPIRIN 2-27 tablet by ity of LOW DOSE) 00:00: mouth [place] 81 mg EC 00 daily. Medical tablet Branch hydroCHLORO 2020-0 Yes [id number] 25mg Take 1 [facility] thiazide 25 2-27 tablet by ity of mg tablet 00:00: mouth [place] 00 daily. Medical Branch aspirin 2020-0 Yes [id number] 81mg Take 1 [facility] ers (ASPIRIN 2-27 tablet by ity of LOW DOSE) 00:00: mouth [place] 81 mg EC 00 daily. Medical tablet Branch hydroCHLORO 2020-0 Yes [id number] 25mg Take 1 [facility] thiazide 25 2-27 tablet by ity of mg tablet 00:00: mouth [place] 00 daily. Medical Branch aspirin 2020-0 Yes [id number] 81mg Take 1 [facility] ers (ASPIRIN 2-27 tablet by ity of LOW DOSE) 00:00: mouth [place] 81 mg EC 00 daily. Medical tablet Branch hydroCHLORO 2020-0 Yes [id number] 25mg Take 1 [facility] thiazide 25 2-27 tablet by ity of mg tablet 00:00: mouth [place] 00 daily. Medical Branch aspirin 2020-0 Yes [id number] 81mg Take 1 [facility] ers (ASPIRIN 2-27 tablet by ity of LOW DOSE) 00:00: mouth [place] 81 mg EC 00 daily. Medical tablet Branch hydroCHLORO 2020-0 Yes [id number] 25mg Take 1 [facility] thiazide 25 2-27 tablet by ity of mg tablet 00:00: mouth [place] 00 daily. Medical Branch aspirin 2020-0 Yes [id number] 81mg Take 1 [facility] ers (ASPIRIN 2-27 tablet by ity of LOW DOSE) 00:00: mouth [place] 81 mg EC 00 daily. Medical tablet Branch hydroCHLORO 2020-0 Yes [id number] 25mg Take 1 [facility] thiazide 25 2-27 tablet by ity of mg tablet 00:00: mouth [place] 00 daily. Medical Branch aspirin 2020-0 Yes [id number] 81mg Take 1 [facility] ers (ASPIRIN 2-27 tablet by ity of LOW DOSE) 00:00: mouth [place] 81 mg EC 00 daily. Medical tablet Branch hydroCHLORO 2020-0 Yes [id number] 25mg Take 1 [facility] thiazide 25 2-27 tablet by ity of mg tablet 00:00: mouth [place] 00 daily. Medical Branch aspirin 2020-0 Yes [id number] 81mg Take 1 [facility] ers (ASPIRIN 2-27 tablet by ity of LOW DOSE) 00:00: mouth [place] 81 mg EC 00 daily. Medical tablet Branch hydroCHLORO 2020-0 Yes [id number] 25mg Take 1 [facility] thiazide 25 2-27 tablet by ity of mg tablet 00:00: mouth [place] 00 daily. Medical Branch aspirin 2020-0 Yes [id number] 81mg Take 1 [facility] ers (ASPIRIN 2-27 tablet by ity of LOW DOSE) 00:00: mouth [place] 81 mg EC 00 daily. Medical tablet Branch hydroCHLORO 2020-0 Yes [id number] 25mg Take 1 [facility] thiazide 25 2-27 tablet by ity of mg tablet 00:00: mouth [place] 00 daily. Medical Branch aspirin 2020-0 Yes [id number] 81mg Take 1 [facility] ers (ASPIRIN 2-27 tablet by ity of LOW DOSE) 00:00: mouth [place] 81 mg EC 00 daily. Medical tablet Branch aspirin 2020-0 Yes [id number] 81mg Take 1 [facility] ers (ASPIRIN 2-27 tablet by ity of LOW DOSE) 00:00: mouth [place] 81 mg EC 00 daily. Medical tablet Branch aspirin 2020-0 Yes [id number] 81mg Take 1 [facility] ers (ASPIRIN 2-27 tablet by ity of LOW DOSE) 00:00: mouth [place] 81 mg EC 00 daily. Medical tablet Branch aspirin 2020-0 Yes [id number] 81mg Take 1 [facility] ers (ASPIRIN 2-27 tablet by ity of LOW DOSE) 00:00: mouth [place] 81 mg EC 00 daily. Medical tablet Branch aspirin 2020-0 Yes [id number] 81mg Take 1 [facility] (ASPIRIN 2-27 tablet by ity of LOW DOSE) 00:00: mouth [place] 81 mg EC 00 daily. Medical tablet Branch aspirin 2020-0 Yes [id number] 81mg Take 1 [facility] (ASPIRIN 2-27 tablet by ity of LOW DOSE) 00:00: mouth [place] 81 mg EC 00 daily. Medical tablet Branch aspirin 2020-0 Yes [id number] 81mg Take 1 [facility] (ASPIRIN 2-27 tablet by ity of LOW DOSE) 00:00: mouth [place] 81 mg EC 00 daily. Medical tablet Branch hydroCHLORO 2020-0 Yes [id number] 25mg Take 1 [facility] thiazide 25 2-27 tablet by [facility] of mg tablet 00:00: mouth [place] 00 daily. Medical [facility] metoprolol 2020-0 Yes [id number] 100mg Take 1 [facility] tartrate 2-27 tablet by [facility] of (LOPRESSOR) 00:00: mouth 2 [place] 100 mg 00 (two) Medical tablet times Branch daily. valsartan 2020-0 Yes [id number] 320mg Take 1 [facility] 320 mg 2-27 tablet by [facility] of tablet 00:00: mouth [place] 00 daily. Medical Branch aspirin 2020-0 Yes [id number] 81mg Take 1 [facility] (ASPIRIN 2-27 tablet by ity of LOW DOSE) 00:00: mouth [place] 81 mg EC 00 daily. Medical tablet Branch hydroCHLORO 2020-0 Yes [id number] 25mg Take 1 [facility] thiazide 25 2-27 tablet by [facility] of mg tablet 00:00: mouth [place] 00 daily. Medical [facility] metoprolol 2020-0 Yes [id number] 100mg Take 1 [facility] tartrate 2-27 tablet by [facility] of (LOPRESSOR) 00:00: mouth 2 [place] 100 mg 00 (two) Medical tablet times Branch daily. valsartan 2020-0 Yes [id number] 320mg Take 1 [facility] 320 mg 2-27 tablet by [facility] of tablet 00:00: mouth [place] 00 daily. Medical [facility] aspirin 2020-0 Yes [id number] 81mg Take 1 [facility] (ASPIRIN 2-27 tablet by ity of LOW DOSE) 00:00: mouth [place] 81 mg EC 00 daily. Medical tablet Branch hydroCHLORO 2020-0 Yes [id number] 25mg Take 1 [facility] thiazide 25 2-27 tablet by [facility] of mg tablet 00:00: mouth [place] 00 daily. Medical [facility] metoprolol 2020-0 Yes [id number] 100mg Take 1 [facility] tartrate 2-27 tablet by [facility] of (LOPRESSOR) 00:00: mouth 2 [place] 100 mg 00 (two) Medical tablet times Branch daily. valsartan 2020-0 Yes [id number] 320mg Take 1 [facility] 320 mg 2-27 tablet by [facility] of tablet 00:00: mouth [place] 00 daily. Medical [facility] aspirin 2020-0 Yes [id number] 81mg Take 1 [facility] (ASPIRIN 2-27 tablet by ity of LOW DOSE) 00:00: mouth [place] 81 mg EC 00 daily. Medical tablet Branch hydroCHLORO 2020-0 Yes [id number] 25mg Take 1 [facility] thiazide 25 2-27 tablet by [facility] of mg tablet 00:00: mouth [place] 00 daily. Medical [facility] metoprolol 2020-0 Yes [id number] 100mg Take 1 [facility] tartrate 2-27 tablet by [facility] of (LOPRESSOR) 00:00: mouth 2 [place] 100 mg 00 (two) Medical tablet times Branch daily. valsartan 2020-0 Yes [id number] 320mg Take 1 [facility] 320 mg 2-27 tablet by [facility] of tablet 00:00: mouth [place] 00 daily. Medical [facility] aspirin 2020-0 Yes [id number] 81mg Take 1 [facility] (ASPIRIN 2-27 tablet by ity of LOW DOSE) 00:00: mouth [place] 81 mg EC 00 daily. Medical tablet Branch hydroCHLORO 2020-0 Yes [id number] 25mg Take 1 [facility] thiazide 25 2-27 tablet by [facility] of mg tablet 00:00: mouth [place] 00 daily. Medical [facility] metoprolol 2020-0 Yes [id number] 100mg Take 1 [facility] tartrate 2-27 tablet by [facility] of (LOPRESSOR) 00:00: mouth 2 [place] 100 mg 00 (two) Medical tablet times Branch daily. valsartan 2020-0 Yes [id number] 320mg Take 1 [facility] 320 mg 2-27 tablet by [facility] of tablet 00:00: mouth [place] 00 daily. Medical Branch aspirin 2020-0 Yes [id number] 81mg Take 1 [facility] (ASPIRIN 2-27 tablet by ity of LOW DOSE) 00:00: mouth [place] 81 mg EC 00 daily. Medical tablet Branch hydroCHLORO 2020-0 Yes [id number] 25mg Take 1 [facility] thiazide 25 2-27 tablet by [facility] of mg tablet 00:00: mouth [place] 00 daily. Medical Branch metoprolol 2020-0 Yes [id number] 100mg Take 1 [facility] tartrate 2-27 tablet by [facility] of (LOPRESSOR) 00:00: mouth 2 [place] 100 mg 00 (two) Medical tablet times Branch daily. valsartan 2020-0 Yes [id number] 320mg Take 1 [facility] 320 mg 2-27 tablet by [facility] of tablet 00:00: mouth [place] 00 daily. Medical Branch aspirin 2020-0 Yes [id number] 81mg Take 1 [facility] (ASPIRIN 2-27 tablet by ity of LOW DOSE) 00:00: mouth [place] 81 mg EC 00 daily. Medical tablet Branch hydroCHLORO 2020-0 Yes [id number] 25mg Take 1 [facility] thiazide 25 2-27 tablet by [facility] of mg tablet 00:00: mouth [place] 00 daily. Medical Branch metoprolol 2020-0 Yes [id number] 100mg Take 1 [facility] tartrate 2-27 tablet by ity of (LOPRESSOR) 00:00: mouth 2 [place] 100 mg 00 (two) Medical tablet times Branch daily. valsartan 2020-0 Yes [id number] 320mg Take 1 [facility] 320 mg 2-27 tablet by it[facility] of tablet 00:00: mouth [place] 00 daily. Medical Branch aspirin 2020-0 Yes [id number] 81mg Take 1 [facility] (ASPIRIN 2-27 tablet by ity of LOW DOSE) 00:00: mouth [place] 81 mg EC 00 daily. Medical tablet Branch hydroCHLORO 2020-0 Yes [id number] 25mg Take 1 [facility] thiazide 25 2-27 tablet by [facility]y of mg tablet 00:00: mouth [place] 00 daily. Medical Branch metoprolol 2020-0 Yes [id number] 100mg Take 1 [facility] tartrate 2-27 tablet by ity of (LOPRESSOR) 00:00: mouth 2 [place] 100 mg 00 (two) Medical tablet times Branch daily. valsartan 2020-0 Yes [id number] 320mg Take 1 [facility] 320 mg 2-27 tablet by [facility] of tablet 00:00: mouth [place] 00 daily. Medical Branch aspirin 2020-0 Yes [id number] 81mg Take 1 [facility] (ASPIRIN 2-27 tablet by ity of LOW DOSE) 00:00: mouth [place] 81 mg EC 00 daily. Medical tablet Branch hydroCHLORO 2020-0 Yes [id number] 25mg Take 1 [facility] thiazide 25 2-27 tablet by [facility]y of mg tablet 00:00: mouth [place] 00 daily. Medical Branch valsartan 2020-0 Yes [id number] 320mg Take 1 [facility] 320 mg 2-27 tablet by [facility] of tablet 00:00: mouth [place] 00 daily. Medical [facility] aspirin 2020-0 Yes [id number] 81mg Take 1 [facility] (ASPIRIN 2-27 tablet by ity of LOW DOSE) 00:00: mouth [place] 81 mg EC 00 daily. Medical tablet Branch hydroCHLORO 2020-0 Yes [id number] 25mg Take 1 [facility] thiazide 25 2-27 tablet by ity of mg tablet 00:00: mouth [place] 00 daily. Medical Branch valsartan 2020-0 Yes [id number] 320mg Take 1 [facility] 320 mg 2-27 tablet by [facility] of tablet 00:00: mouth [place] 00 daily. Medical [facility] aspirin 2020-0 Yes [id number] 81mg Take 1 [facility] (ASPIRIN 2-27 tablet by ity of LOW DOSE) 00:00: mouth [place] 81 mg EC 00 daily. Medical tablet Branch hydroCHLORO 2020-0 Yes [id number] 25mg Take 1 [facility] thiazide 25 2-27 tablet by ity of mg tablet 00:00: mouth [place] 00 daily. Medical Branch valsartan 2020-0 Yes [id number] 320mg Take 1 [facility] 320 mg 2-27 tablet by [facility] of tablet 00:00: mouth [place] 00 daily. Medical [facility] aspirin 2020-0 Yes [id number] 81mg Take 1 [facility] (ASPIRIN 2-27 tablet by ity of LOW DOSE) 00:00: mouth [place] 81 mg EC 00 daily. Medical tablet Branch hydroCHLORO 2020-0 Yes [id number] 25mg Take 1 [facility] thiazide 25 2-27 tablet by [facility]y of mg tablet 00:00: mouth [place] 00 daily. Medical [facility] valsartan 2020-0 Yes [id number] 320mg Take 1 [facility] 320 mg 2-27 tablet by [facility] of tablet 00:00: mouth [place] 00 daily. Medical [facility] aspirin 2020-0 Yes [id number] 81mg Take 1 [facility] (ASPIRIN 2-27 tablet by ity of LOW DOSE) 00:00: mouth [place] 81 mg EC 00 daily. Medical tablet Branch hydroCHLORO 2020-0 Yes [id number] 25mg Take 1 [facility] thiazide 25 2-27 tablet by [facility]y of mg tablet 00:00: mouth [place] 00 daily. Medical [facility] valsartan 2020-0 Yes [id number] 320mg Take 1 [facility] 320 mg 2-27 tablet by [facility] of tablet 00:00: mouth [place] 00 daily. Medical [facility] aspirin 2020-0 Yes [id number] 81mg Take 1 [facility] (ASPIRIN 2-27 tablet by ity of LOW DOSE) 00:00: mouth [place] 81 mg EC 00 daily. Medical tablet Branch hydroCHLORO 2020-0 Yes [id number] 25mg Take 1 [facility] thiazide 25 2-27 tablet by [facility]y of mg tablet 00:00: mouth [place] 00 daily. Medical Branch valsartan 2020-0 Yes [id number] 320mg Take 1 [facility] 320 mg 2-27 tablet by [facility] of tablet 00:00: mouth [place] 00 daily. Medical [facility] aspirin 2020-0 Yes [id number] 81mg Take 1 [facility] (ASPIRIN 2-27 tablet by ity of LOW DOSE) 00:00: mouth [place] 81 mg EC 00 daily. Medical tablet Branch hydroCHLORO 2020-0 Yes [id number] 25mg Take 1 [facility] thiazide 25 2-27 tablet by [facility] of mg tablet 00:00: mouth [place] 00 daily. Medical Branch valsartan 2020-0 Yes [id number] 320mg Take 1 [facility] 320 mg 2-27 tablet by [facility] of tablet 00:00: mouth [place] 00 daily. Medical [facility] aspirin 2020-0 Yes [id number] 81mg Take 1 [facility] (ASPIRIN 2-27 tablet by ity of LOW DOSE) 00:00: mouth [place] 81 mg EC 00 daily. Medical tablet Branch hydroCHLORO 2020-0 Yes [id number] 25mg Take 1 [facility] thiazide 25 2-27 tablet by [facility] of mg tablet 00:00: mouth [place] 00 daily. Medical [facility] aspirin 2020-0 Yes [id number] 81mg Take 1 [facility] (ASPIRIN 2-27 tablet by ity of LOW DOSE) 00:00: mouth [place] 81 mg EC 00 daily. Medical tablet Branch hydroCHLORO 2020-0 Yes [id number] 25mg Take 1 [facility] thiazide 25 2-27 tablet by ity of mg tablet 00:00: mouth [place] 00 daily. Medical Branch aspirin 2020-0 Yes [id number] 81mg Take 1 [facility] (ASPIRIN 2-27 tablet by ity of LOW DOSE) 00:00: mouth [place] 81 mg EC 00 daily. Medical tablet Branch hydroCHLORO 2020-0 Yes [id number] 25mg Take 1 [facility] thiazide 25 2-27 tablet by [facility] of mg tablet 00:00: mouth [place] 00 daily. Medical Branch aspirin 2020-0 Yes [id number] 81mg Take 1 [facility] (ASPIRIN 2-27 tablet by ity of LOW DOSE) 00:00: mouth [place] 81 mg EC 00 daily. Medical tablet Branch hydroCHLORO 2020-0 Yes [id number] 25mg Take 1 [facility] thiazide 25 2-27 tablet by [facility] of mg tablet 00:00: mouth [place] 00 daily. Medical [facility] aspirin 2020-0 Yes [id number] 81mg Take 1 [facility] (ASPIRIN 2-27 tablet by ity of LOW DOSE) 00:00: mouth [place] 81 mg EC 00 daily. Medical tablet Branch hydroCHLORO 2020-0 Yes [id number] 25mg Take 1 [facility] thiazide 25 2-27 tablet by [facility] of mg tablet 00:00: mouth [place] 00 daily. Medical [facility] aspirin 2020-0 Yes [id number] 81mg Take 1 [facility] (ASPIRIN 2-27 tablet by ity of LOW DOSE) 00:00: mouth [place] 81 mg EC 00 daily. Medical tablet Branch hydroCHLORO 2020-0 Yes [id number] 25mg Take 1 [facility] thiazide 25 2-27 tablet by it[facility] of mg tablet 00:00: mouth [place] 00 daily. Medical [facility] aspirin 2020-0 Yes [id number] 81mg Take 1 [facility] (ASPIRIN 2-27 tablet by ity of LOW DOSE) 00:00: mouth [place] 81 mg EC 00 daily. Medical tablet Branch hydroCHLORO 2020-0 Yes [id number] 25mg Take 1 [facility] thiazide 25 2-27 tablet by [facility] of mg tablet 00:00: mouth [place] 00 daily. Medical [facility] aspirin 2020-0 Yes [id number] 81mg Take 1 [facility] (ASPIRIN 2-27 tablet by ity of LOW DOSE) 00:00: mouth [place] 81 mg EC 00 daily. Medical tablet Branch hydroCHLORO 2020-0 Yes [id number] 25mg Take 1 [facility] thiazide 25 2-27 tablet by ity of mg tablet 00:00: mouth [place] 00 daily. Medical [facility] aspirin 2020-0 Yes [id number] 81mg Take 1 [facility] (ASPIRIN 2-27 tablet by ity of LOW DOSE) 00:00: mouth [place] 81 mg EC 00 daily. Medical tablet Branch hydroCHLORO 2020-0 Yes [id number] 25mg Take 1 [facility] thiazide 25 2-27 tablet by ity of mg tablet 00:00: mouth [place] 00 daily. Medical [facility] aspirin 2020-0 Yes [id number] 81mg Take 1 [facility] (ASPIRIN 2-27 tablet by ity of LOW DOSE) 00:00: mouth [place] 81 mg EC 00 daily. Medical tablet Branch hydroCHLORO 2020-0 Yes [id number] 25mg Take 1 [facility] thiazide 25 2-27 tablet by [facility] of mg tablet 00:00: mouth [place] 00 daily. Medical [facility] aspirin 2020-0 Yes [id number] 81mg Take 1 [facility] (ASPIRIN 2-27 tablet by ity of LOW DOSE) 00:00: mouth [place] 81 mg EC 00 daily. Medical tablet Branch hydroCHLORO 2020-0 Yes [id number] 25mg Take 1 [facility] thiazide 25 2-27 tablet by [facility] of mg tablet 00:00: mouth [place] 00 daily. Medical Branch aspirin 2020-0 Yes [id number] 81mg Take 1 [facility] (ASPIRIN 2-27 tablet by ity of LOW DOSE) 00:00: mouth [place] 81 mg EC 00 daily. Medical tablet Branch hydroCHLORO 2020-0 Yes [id number] 25mg Take 1 [facility] thiazide 25 2-27 tablet by [facility] of mg tablet 00:00: mouth [place] 00 daily. Medical [facility] aspirin 2020-0 Yes [id number] 81mg Take 1 [facility] (ASPIRIN 2-27 tablet by ity of LOW DOSE) 00:00: mouth [place] 81 mg EC 00 daily. Medical tablet Branch hydroCHLORO 2020-0 Yes [id number] 25mg Take 1 [facility] thiazide 25 2-27 tablet by ity of mg tablet 00:00: mouth [place] 00 daily. Medical [facility] aspirin 2020-0 Yes [id number] 81mg Take 1 [facility] (ASPIRIN 2-27 tablet by ity of LOW DOSE) 00:00: mouth [place] 81 mg EC 00 daily. Medical tablet Branch hydroCHLORO 2020-0 Yes [id number] 25mg Take 1 [facility] thiazide 25 2-27 tablet by it[facility] of mg tablet 00:00: mouth [place] 00 daily. Medical [facility] aspirin 2020-0 Yes [id number] 81mg Take 1 [facility] (ASPIRIN 2-27 tablet by ity of LOW DOSE) 00:00: mouth [place] 81 mg EC 00 daily. Medical tablet Branch hydroCHLORO 2020-0 Yes [id number] 25mg Take 1 [facility] thiazide 25 2-27 tablet by [facility] of mg tablet 00:00: mouth [place] 00 daily. Medical [facility] aspirin 2020-0 Yes [id number] 81mg Take 1 [facility] (ASPIRIN 2-27 tablet by ity of LOW DOSE) 00:00: mouth [place] 81 mg EC 00 daily. Medical tablet Branch hydroCHLORO 2020-0 Yes [id number] 25mg Take 1 [facility] thiazide 25 2-27 tablet by it[facility] of mg tablet 00:00: mouth [place] 00 daily. Medical [facility] aspirin 2020-0 Yes [id number] 81mg Take 1 [facility] (ASPIRIN 2-27 tablet by ity of LOW DOSE) 00:00: mouth [place] 81 mg EC 00 daily. Medical tablet Branch hydroCHLORO 2020-0 Yes [id number] 25mg Take 1 [facility] thiazide 25 2-27 tablet by ity of mg tablet 00:00: mouth [place] 00 daily. Medical Branch aspirin 2020-0 Yes [id number] 81mg Take 1 [facility] (ASPIRIN 2-27 tablet by ity of LOW DOSE) 00:00: mouth [place] 81 mg EC 00 daily. Medical tablet Branch hydroCHLORO 2020-0 Yes [id number] 25mg Take 1 [facility] thiazide 25 2-27 tablet by ity of mg tablet 00:00: mouth [place] 00 daily. Medical [facility] aspirin 2020-0 Yes [id number] 81mg Take 1 [facility] (ASPIRIN 2-27 tablet by ity of LOW DOSE) 00:00: mouth [place] 81 mg EC 00 daily. Medical tablet Branch hydroCHLORO 2020-0 Yes [id number] 25mg Take 1 [facility] thiazide 25 2-27 tablet by ity of mg tablet 00:00: mouth [place] 00 daily. Medical [facility] aspirin 2020-0 Yes [id number] 81mg Take 1 [facility] (ASPIRIN 2-27 tablet by ity of LOW DOSE) 00:00: mouth [place] 81 mg EC 00 daily. Medical tablet Branch hydroCHLORO 2020-0 Yes [id number] 25mg Take 1 [facility] thiazide 25 2-27 tablet by ity of mg tablet 00:00: mouth [place] 00 daily. Medical Branch aspirin 2020-0 Yes [id number] 81mg Take 1 [facility] (ASPIRIN 2-27 tablet by ity of LOW DOSE) 00:00: mouth [place] 81 mg EC 00 daily. Medical tablet Branch hydroCHLORO 2020-0 Yes [id number] 25mg Take 1 [facility] thiazide 25 2-27 tablet by ity of mg tablet 00:00: mouth [place] 00 daily. Medical Branch aspirin 2020-0 Yes [id number] 81mg Take 1 [facility] (ASPIRIN 2-27 tablet by ity of LOW DOSE) 00:00: mouth [place] 81 mg EC 00 daily. Medical tablet Branch aspirin 2020-0 Yes [id number] 81mg Take 1 [facility] (ASPIRIN 2-27 tablet by ity of LOW DOSE) 00:00: mouth [place] 81 mg EC 00 daily. Medical tablet Branch hydroCHLORO 2020-0 Yes [id number] 25mg Take 1 [facility] thiazide 25 2-27 tablet by ity of mg tablet 00:00: mouth [place] 00 daily. Medical Branch aspirin 2020-0 Yes [id number] 81mg Take 1 [facility] (ASPIRIN 2-27 tablet by ity of LOW DOSE) 00:00: mouth [place] 81 mg EC 00 daily. Medical tablet Branch hydroCHLORO 2020-0 Yes [id number] 25mg Take 1 [facility] thiazide 25 2-27 tablet by ity of mg tablet 00:00: mouth [place] 00 daily. Medical Branch aspirin 2020-0 Yes [id number] 81mg Take 1 [facility] (ASPIRIN 2-27 tablet by ity of LOW DOSE) 00:00: mouth [place] 81 mg EC 00 daily. Medical tablet Branch hydroCHLORO 2020-0 Yes [id number] 25mg Take 1 [facility] thiazide 25 2-27 tablet by ity of mg tablet 00:00: mouth [place] 00 daily. Medical Branch aspirin 2020-0 Yes [id number] 81mg Take 1 [facility] (ASPIRIN 2-27 tablet by ity of LOW DOSE) 00:00: mouth [place] 81 mg EC 00 daily. Medical tablet Branch hydroCHLORO 2020-0 Yes [id number] 25mg Take 1 [facility] thiazide 25 2-27 tablet by ity of mg tablet 00:00: mouth [place] 00 daily. Medical [facility] aspirin 2020-0 Yes [id number] 81mg Take 1 [facility] (ASPIRIN 2-27 tablet by ity of LOW DOSE) 00:00: mouth [place] 81 mg EC 00 daily. Medical tablet Branch hydroCHLORO Yes [id number] 25mg Take 1 [facility] thiazide 25 2-27 tablet by ity of mg tablet 00:00: mouth [place] 00 daily. Medical Branch aspirin Yes [id number] 81mg Take 1 [facility] (ASPIRIN 2-27 tablet by ity of LOW DOSE) 00:00: mouth [place] 81 mg EC 00 daily. Medical tablet Branch hydroCHLORO 2020- No [id number] 25mg Take 1 [facility] thiazide 25 2-27 08-16 tablet by it y of mg tablet 00:00: 00:00 mouth [place] 00 :00 daily. Medical Branch hydroCHLORO 2020- No [id number] 25mg Take 1 [facility] thiazide 25 2-27 08-16 tablet by it y of mg tablet 00:00: 00:00 mouth [place] 00 :00 daily. Medical Branch valsartan 2019- No [id number] 320mg Take 1 [facility] 320 mg 2-27 07-10 tablet by ity of tablet 00:00: 00:00 mouth [place] 00 :00 daily. Medical Branch valsartan 2019- No [id number] 320mg Take 1 [facility] 320 mg 2-27 07-10 tablet by ity of tablet 00:00: 00:00 mouth [place] 00 :00 daily. Medical Branch valsartan 2019- No [id number] 320mg Take 1 [facility] 320 mg 2-27 07-10 tablet by it[facility] of tablet 00:00: 00:00 mouth [place] 00 :00 daily. Medical Branch metoprolol 2019- No [id number] 100mg Take 1 [facility] tartrate 2-27 05-21 tablet by ity o f (LOPRESSOR) 00:00: 00:00 mouth 2 [place] 100 mg 00 :00 (two) Medical tablet times Branch daily. metoprolol 2019- No [id number] 100mg Take 1 [facility] tartrate 2-27 05-21 tablet by ity o f (LOPRESSOR) 00:00: 00:00 mouth 2 [place] 100 mg 00 :00 (two) Medical tablet times Branch daily. benzonatate 2019- Yes [id number] 100mg Take 1 [facility] 100 mg 2-08 capsule by ity of capsule 00:00: mouth 3 00 (three) Medical times Branch daily as needed for Cough. benzonatate 2020-0 Yes [id number] 100mg Take 1 [facility] 100 mg 2-08 capsule by ity of capsule 00:00: mouth 3 00 (three) Medical times Branch daily as needed for Cough. benzonatate 2020-0 2020- No [id number] 100mg Take 1 [facility] 100 mg 2-08 -27 capsule by ity of capsule 00:00: 00:00 mouth 3 [place] 00 :00 (three) Medical times Branch daily as needed for Cough. benzonatate 2019-0 2020- No [id number] 100mg Take 1 [facility] 100 mg 2-08 -27 capsule by ity of capsule 00:00: 00:00 mouth 3 [place] 00 :00 (three) Medical times Branch daily as needed for Cough. Pseudoephed 2020-0 Yes [id number] 1{tbl} Take 1 [facility] rine HCl 2-06 tablet by ity of (SUDAFED 24 00:00: mouth [place] HOUR) 240 00 daily. Medical mg Tb24 Branch fluticasone 2020-0 Yes [id number] 1{spray Use 1 [facility] propionate 2-06 } [place] in ity o f (FLONASE 00:00: each [place] ALLERGY 00 nostril Medical RELIEF) 50 daily. Branch mcg/actuati on nasal spray acetaminoph 2020-0 Yes [id number] 650mg Take 1 [facility] en 650 mg 2-06 tablet by ity o f CR tablet 00:00: mouth [place] 00 every 8 Medical (eight) Branch hours as needed for Pain. Pseudoephed 2020-0 Yes [id number] 1{tbl} Take 1 [facility] rine HCl 2-06 tablet by ity of (SUDAFED 24 00:00: mouth [place] HOUR) 240 00 daily. Medical mg Tb24 Branch fluticasone 2020-0 Yes [id number] 1{spray Use 1 [facility] propionate 2-06 } [place] in [facility] o f (FLONASE 00:00: each [place] ALLERGY 00 nostril Medical RELIEF) 50 daily. Branch mcg/actuati on nasal spray acetaminoph 2020-0 Yes [id number] 650mg Take 1 [facility] en 650 mg 2-06 tablet by ity o f CR tablet 00:00: mouth [place] 00 every 8 Medical (eight) Branch hours as needed for Pain. Pseudoephed 2020-0 Yes [id number] 1{tbl} Take 1 [facility] rine HCl 2-06 tablet by ity of (SUDAFED 24 00:00: mouth [place] HOUR) 240 00 daily. Medical mg Tb24 Branch fluticasone 2020-0 Yes [id number] 1{spray Use 1 [facility] propionate 2-06 } [place] in [facility] o f (FLONASE 00:00: each [place] ALLERGY 00 nostril Medical RELIEF) 50 daily. Branch mcg/actuati on nasal spray acetaminoph 2020-0 Yes [id number] 650mg Take 1 [facility] en 650 mg 2-06 tablet by ity o f CR tablet 00:00: mouth [place] 00 every 8 Medical (eight) Branch hours as needed for Pain. acetaminoph 2020-0 Yes [id number] 650mg Take 1 [facility] en 650 mg 2-06 tablet by ity o f CR tablet 00:00: mouth [place] 00 every 8 Medical (eight) Branch hours as needed for Pain. fluticasone 2020-0 Yes [id number] 1{spray Use 1 [facility] propionate 2-06 } [place] in [facility] o f (FLONASE 00:00: each [place] ALLERGY 00 nostril Medical RELIEF) 50 daily. Branch mcg/actuati on nasal spray acetaminoph 2020-0 Yes [id number] 650mg Take 1 [facility] en 650 mg 2-06 tablet by ity o f CR tablet 00:00: mouth [place] 00 every 8 Medical (eight) Branch hours as needed for Pain. fluticasone 2020-0 Yes [id number] 1{spray Use 1 [facility] propionate 2-06 } [place] in [facility] o f (FLONASE 00:00: each [place] ALLERGY 00 nostril Medical RELIEF) 50 daily. Branch mcg/actuati on nasal spray acetaminoph 2020-0 Yes [id number] 650mg Take 1 [facility] en 650 mg 2-06 tablet by ity o f CR tablet 00:00: mouth [place] 00 every 8 Medical (eight) Branch hours as needed for Pain. fluticasone 2020-0 Yes [id number] 1{spray Use 1 [facility] propionate 2-06 } [place] in [facility] o f (FLONASE 00:00: each [place] ALLERGY 00 nostril Medical RELIEF) 50 daily. Branch mcg/actuati on nasal spray acetaminoph 2020-0 Yes [id number] 650mg Take 1 [facility] en 650 mg 2-06 tablet by ity o f CR tablet 00:00: mouth [place] 00 every 8 Medical (eight) Branch hours as needed for Pain. fluticasone 2020-0 Yes [id number] 1{spray Use 1 [facility] propionate 2-06 } [place] in [facility] o f (FLONASE 00:00: each [place] ALLERGY 00 nostril Medical RELIEF) 50 daily. Branch mcg/actuati on nasal spray acetaminoph 2020-0 Yes [id number] 650mg Take 1 [facility] en 650 mg 2-06 tablet by ity o f CR tablet 00:00: mouth [place] 00 every 8 Medical (eight) Branch hours as needed for Pain. fluticasone 2020-0 Yes [id number] 1{spray Use 1 [facility] propionate 2-06 } [place] in [facility] o f (FLONASE 00:00: each [place] ALLERGY 00 nostril Medical RELIEF) 50 daily. Branch mcg/actuati on nasal spray acetaminoph 2020-0 Yes [id number] 650mg Take 1 [facility] en 650 mg 2-06 tablet by ity o f CR tablet 00:00: mouth [place] 00 every 8 Medical (eight) Branch hours as needed for Pain. fluticasone 2020-0 Yes [id number] 1{spray Use 1 [facility] propionate 2-06 } [place] in [facility] o f (FLONASE 00:00: each [place] ALLERGY 00 nostril Medical RELIEF) 50 daily. Branch mcg/actuati on nasal spray acetaminoph 2020-0 Yes [id number] 650mg Take 1 [facility] en 650 mg 2-06 tablet by ity o f CR tablet 00:00: mouth [place] 00 every 8 Medical (eight) Branch hours as needed for Pain. fluticasone 2020-0 Yes [id number] 1{spray Use 1 [facility] propionate 2-06 } [place] in [facility] o f (FLONASE 00:00: each [place] ALLERGY 00 nostril Medical RELIEF) 50 daily. Branch mcg/actuati on nasal spray acetaminoph 2020-0 Yes [id number] 650mg Take 1 [facility] en 650 mg 2-06 tablet by ity o f CR tablet 00:00: mouth [place] 00 every 8 Medical (eight) Branch hours as needed for Pain. fluticasone 2020-0 Yes [id number] 1{spray Use 1 [facility] propionate 2-06 } [place] in [facility] o f (FLONASE 00:00: each [place] ALLERGY 00 nostril Medical RELIEF) 50 daily. Branch mcg/actuati on nasal spray acetaminoph 2020-0 Yes [id number] 650mg Take 1 [facility] en 650 mg 2-06 tablet by ity o f CR tablet 00:00: mouth [place] 00 every 8 Medical (eight) Branch hours as needed for Pain. fluticasone 2020-0 Yes [id number] 1{spray Use 1 [facility] propionate 2-06 } [place] in [facility] o f (FLONASE 00:00: each [place] ALLERGY 00 nostril Medical RELIEF) 50 daily. Branch mcg/actuati on nasal spray acetaminoph 2020-0 Yes [id number] 650mg Take 1 [facility] en 650 mg 2-06 tablet by ity o f CR tablet 00:00: mouth [place] 00 every 8 Medical (eight) Branch hours as needed for Pain. Pseudoephed 2020-0 Yes [id number] 1{tbl} Take 1 [facility] rine HCl 2-06 tablet by ity of (SUDAFED 24 00:00: mouth [place] HOUR) 240 00 daily. Medical mg Tb24 Branch fluticasone 2020-0 Yes [id number] 1{spray Use 1 [facility] propionate 2-06 } [place] in [facility] o f (FLONASE 00:00: each [place] ALLERGY 00 nostril Medical RELIEF) 50 daily. Branch mcg/actuati on nasal spray fluticasone 2020-0 Yes [id number] 1{spray Use 1 [facility] propionate 2-06 } [place] in [facility] o f (FLONASE 00:00: each [place] ALLERGY 00 nostril Medical RELIEF) 50 daily. Branch mcg/actuati on nasal spray acetaminoph 2020-0 Yes [id number] 650mg Take 1 [facility] en 650 mg 2-06 tablet by ity o f CR tablet 00:00: mouth [place] 00 every 8 Medical (eight) Branch hours as needed for Pain. acetaminoph 2020-0 Yes [id number] 650mg Take 1 [facility] en 650 mg 2-06 tablet by ity o f CR tablet 00:00: mouth [place] 00 every 8 Medical (eight) Branch hours as needed for Pain. bromphenira 2020-0 Yes [id number] 10mL Take 10 mL [facility] mine-pseudo 2-06 by mouth 4 it y of ephedrine-D 00:00: (four) [place] [facility] (BROMFED 00 times Medical DM) 2-30-10 daily as Bran ch mg/5 mL needed for syrup Congestion /Allergies or Cough. nystatin/ma 2019-0 Yes [id number] 5mL Take 5 mL [facility] alox/diphen 2-06 by mouth ity of hydrAMINE/l 00:00: as needed [place] idocaine 2 00 (Sore Medical % viscous throat). Branch 1:1:1:1 Gargle and Susp spit, do suspension not swallow fluticasone 2020-0 Yes [id number] 1{spray Use 1 [facility] propionate 2-06 } [facility] in [facility] o f (FLONASE 00:00: each [place] ALLERGY 00 nostril Medical RELIEF) 50 daily. Branch mcg/actuati on nasal spray acetaminoph 2020-0 Yes [id number] 650mg Take 1 [facility] en 650 mg 2-06 tablet by ity o f CR tablet 00:00: mouth [place] 00 every 8 Medical (eight) Branch hours as needed for Pain. fluticasone 2020-0 Yes [id number] 1{spray Use 1 [facility] propionate 2-06 } [facility] in [facility] o f (FLONASE 00:00: each [place] ALLERGY 00 nostril Medical RELIEF) 50 daily. Branch mcg/actuati on nasal spray acetaminoph 2020-0 Yes [id number] 650mg Take 1 [facility] 650 mg 2-06 tablet by ity o f CR tablet 00:00: mouth [place] 00 every 8 Medical (eight) Branch hours as needed for Pain. fluticasone 2020-0 Yes [id number] 1{spray Use 1 [facility] propionate 2-06 } [facility] in [facility] o f (FLONASE 00:00: each [place] ALLERGY 00 nostril Medical RELIEF) 50 daily. Branch mcg/actuati on nasal spray acetaminoph 2020-0 Yes [id number] 650mg Take 1 [facility] 650 mg 2-06 tablet by ity o f CR tablet 00:00: mouth [place] 00 every 8 Medical (eight) Branch hours as needed for Pain. fluticasone 2020-0 Yes [id number] 1{spray Use 1 [facility] propionate 2-06 } [facility] in [facility] o f (FLONASE 00:00: each [place] ALLERGY 00 nostril Medical RELIEF) 50 daily. Branch mcg/actuati on nasal spray acetaminoph 2020-0 Yes [id number] 650mg Take 1 [facility] 650 mg 2-06 tablet by ity o f CR tablet 00:00: mouth [place] 00 every 8 Medical (eight) Branch hours as needed for Pain. fluticasone 2020-0 Yes [id number] 1{spray Use 1 [facility] propionate 2-06 } [facility] in [facility] f (FLONASE 00:00: each [place] ALLERGY 00 nostril Medical RELIEF) 50 daily. Branch mcg/actuati on nasal spray acetaminoph 2020-0 Yes [id number] 650mg Take 1 [facility] 650 mg 2-06 tablet by ity o f CR tablet 00:00: mouth [place] 00 every 8 Medical (eight) Branch hours as needed for Pain. fluticasone 2020-0 Yes [id number] 1{spray Use 1 [facility] propionate 2-06 } [facility] in [facility] o f (FLONASE 00:00: each [place] ALLERGY 00 nostril Medical RELIEF) 50 daily. Branch mcg/actuati on nasal spray acetaminoph 2020-0 Yes [id number] 650mg Take 1 [facility] 650 mg 2-06 tablet by ity o f CR tablet 00:00: mouth [place] 00 every 8 Medical (eight) Branch hours as needed for Pain. fluticasone 2020-0 Yes [id number] 1{spray Use 1 [facility] propionate 2-06 } [facility] in [facility] o f (FLONASE 00:00: each [place] ALLERGY 00 nostril Medical RELIEF) 50 daily. Branch mcg/actuati on nasal spray acetaminoph 2020-0 Yes [id number] 650mg Take 1 [facility] 650 mg 2-06 tablet by ity o f CR tablet 00:00: mouth [place] 00 every 8 Medical (eight) Branch hours as needed for Pain. fluticasone 2020-0 Yes [id number] 1{spray Use 1 [facility] propionate 2-06 } [facility] in [facility] o f (FLONASE 00:00: each [place] ALLERGY 00 nostril Medical RELIEF) 50 daily. Branch mcg/actuati on nasal spray acetaminoph 2020-0 Yes [id number] 650mg Take 1 [facility] 650 mg 2-06 tablet by ity o f CR tablet 00:00: mouth [place] 00 every 8 Medical (eight) Branch hours as needed for Pain. fluticasone 2020-0 Yes [id number] 1{spray Use 1 [facility] propionate 2-06 } [facility] in [facility] o f (FLONASE 00:00: each [place] ALLERGY 00 nostril Medical RELIEF) 50 daily. Branch mcg/actuati on nasal spray acetaminoph 2020-0 Yes [id number] 650mg Take 1 [facility] 650 mg 2-06 tablet by ity o f CR tablet 00:00: mouth [place] 00 every 8 Medical (eight) Branch hours as needed for Pain. Pseudoephed 2020-0 Yes [id number] 1{tbl} Take 1 [facility] rine HCl 2-06 tablet by ity of (SUDAFED 24 00:00: mouth [place] HOUR) 240 00 daily. Medical mg Tb24 Branch fluticasone 2020-0 Yes [id number] 1{spray Use 1 [facility] propionate 2-06 } [facility] in [facility] o f (FLONASE 00:00: each [place] ALLERGY 00 nostril Medical RELIEF) 50 daily. Branch mcg/actuati on nasal spray acetaminoph 2020-0 Yes [id number] 650mg Take 1 [facility] 650 mg 2-06 tablet by ity o f CR tablet 00:00: mouth [place] 00 every 8 Medical (eight) Branch hours as needed for Pain. fluticasone 2020-0 Yes [id number] 1{spray Use 1 [facility] propionate 2-06 } [facility] in [facility] o f (FLONASE 00:00: each [place] ALLERGY 00 nostril Medical RELIEF) 50 daily. Branch mcg/actuati on nasal spray acetaminoph 2020-0 Yes [id number] 650mg Take 1 [facility] 650 mg 2-06 tablet by ity o f CR tablet 00:00: mouth [place] 00 every 8 Medical (eight) Branch hours as needed for Pain. fluticasone 2020-0 Yes [id number] 1{spray Use 1 [facility] propionate 2-06 } [facility] in [facility] o f (FLONASE 00:00: each [place] ALLERGY 00 nostril Medical RELIEF) 50 daily. Branch mcg/actuati on nasal spray acetaminoph 2020-0 Yes [id number] 650mg Take 1 [facility] 650 mg 2-06 tablet by ity o f CR tablet 00:00: mouth [place] 00 every 8 Medical (eight) Branch hours as needed for Pain. bromphenira 2020-0 Yes [id number] 10mL Take 10 mL [facility] mine-pseudo 2-06 by mouth 4 it y of ephedrine-D 00:00: (four) [place] (BROMFED 00 times Medical DM) 2-30-10 daily as Bran ch mg/5 mL needed for syrup Congestion /Allergies or Cough. fluticasone 2020-0 Yes [id number] 1{spray Use 1 [facility] propionate 2-06 } [facility] in [facility] o f (FLONASE 00:00: each [place] ALLERGY 00 nostril Medical RELIEF) 50 daily. Branch mcg/actuati on nasal spray acetaminoph 2020-0 Yes [id number] 650mg Take 1 [facility] 650 mg 2-06 tablet by ity o f CR tablet 00:00: mouth [place] 00 every 8 Medical (eight) Branch hours as needed for Pain. nystatin/ma 2020-0 Yes [id number] 5mL Take 5 mL [facility] alox/diphen 2-06 by mouth ity of hydrAMINE/l 00:00: as needed [place] idocaine 2 00 (Sore Medical % viscous throat). Branch 1:1:1:1 Gargle and Susp spit, do suspension not swallow fluticasone 2020-0 Yes [id number] 1{spray Use 1 [facility] propionate 2-06 } [facility] in [facility] o f (FLONASE 00:00: each [place] ALLERGY 00 nostril Medical RELIEF) 50 daily. Branch mcg/actuati on nasal spray acetaminoph 2020-0 Yes [id number] 650mg Take 1 [facility] 650 mg 2-06 tablet by ity o f CR tablet 00:00: mouth [place] 00 every 8 Medical (eight) Branch hours as needed for Pain. acetaminoph 2020-0 Yes [id number] 650mg Take 1 [facility] 650 mg 2-06 tablet by ity o f CR tablet 00:00: mouth [place] 00 every 8 Medical (eight) Branch hours as needed for Pain. acetaminoph 2020-0 Yes [id number] 650mg Take 1 [facility] 650 mg 2-06 tablet by ity o f CR tablet 00:00: mouth [place] 00 every 8 Medical (eight) Branch hours as needed for Pain. acetaminoph 2020-0 Yes [id number] 650mg Take 1 [facility] 650 mg 2-06 tablet by ity o f CR tablet 00:00: mouth [place] 00 every 8 Medical (eight) Branch hours as needed for Pain. acetaminoph 2020-0 Yes [id number] 650mg Take 1 [facility] 650 mg 2-06 tablet by ity o f CR tablet 00:00: mouth [place] 00 every 8 Medical (eight) Branch hours as needed for Pain. acetaminoph 2020-0 Yes [id number] 650mg Take 1 [facility] 650 mg 2-06 tablet by ity o f CR tablet 00:00: mouth [place] 00 every 8 Medical (eight) Branch hours as needed for Pain. Pseudoephed 2020-0 Yes [id number] 1{tbl} Take 1 [facility] rine HCl 2-06 tablet by ity of (SUDAFED 24 00:00: mouth [place] HOUR) 240 00 daily. Medical mg Tb24 Branch acetaminoph 2020-0 Yes [id number] 650mg Take 1 [facility] en 650 mg 2-06 tablet by ity o f CR tablet 00:00: mouth [place] 00 every 8 Medical (eight) Branch hours as needed for Pain. fluticasone 2020-0 Yes [id number] 1{spray Use 1 [facility] propionate 2-06 } [facility] in [facility] o f (FLONASE 00:00: each [place] ALLERGY 00 nostril Medical RELIEF) 50 daily. Branch mcg/actuati on nasal spray acetaminoph 2020-0 Yes [id number] 650mg Take 1 [facility] 650 mg 2-06 tablet by ity o f CR tablet 00:00: mouth [place] 00 every 8 Medical (eight) Branch hours as needed for Pain. acetaminoph 2020-0 Yes [id number] 650mg Take 1 [facility] 650 mg 2-06 tablet by ity o f CR tablet 00:00: mouth [place] 00 every 8 Medical (eight) Branch hours as needed for Pain. bromphenira 2020-0 Yes [id number] 10mL Take 10 mL [facility] mine-pseudo 2-06 by mouth 4 it y of ephedrine-D 00:00: (four) [place] [facility] (BROMFED 00 times Medical DM) 2-30-10 daily as Bran ch mg/5 mL needed for syrup Congestion /Allergies or Cough. acetaminoph 2020-0 Yes [id number] 650mg Take 1 [facility] 650 mg 2-06 tablet by ity o f CR tablet 00:00: mouth [place] 00 every 8 Medical (eight) Branch hours as needed for Pain. nystatin/ma 2020-0 Yes [id number] 5mL Take 5 mL [facility] alox/diphen 2-06 by mouth ity of hydrAMINE/l 00:00: as needed [place] idocaine 2 00 (Sore Medical % viscous throat). Branch 1:1:1:1 Gargle and Susp spit, do suspension not swallow Pseudoephed 2020-0 Yes [id number] 1{tbl} Take 1 [facility] rine HCl 2-06 tablet by ity of (SUDAFED 24 00:00: mouth [place] HOUR) 240 00 daily. Medical mg Tb24 Branch fluticasone 2020-0 Yes [id number] 1{spray Use 1 [facility] propionate 2-06 } [facility] in [facility] o f (FLONASE 00:00: each [place] ALLERGY 00 nostril Medical RELIEF) 50 daily. Branch mcg/actuati on nasal spray acetaminoph 2020-0 Yes [id number] 650mg Take 1 [facility] en 650 mg 2-06 tablet by ity o f CR tablet 00:00: mouth [place] 00 every 8 Medical (eight) Branch hours as needed for Pain. bromphenira 2020-0 Yes [id number] 10mL Take 10 mL [facility] mine-pseudo 2-06 by mouth 4 it y of ephedrine-D 00:00: (four) [place] [facility] (BROMFED 00 times Medical DM) 2-30-10 daily as Bran ch mg/5 mL needed for syrup Congestion /Allergies or Cough. nystatin/ma 2020-0 Yes [id number] 5mL Take 5 mL [facility] alox/diphen 2-06 by mouth ity of hydrAMINE/l 00:00: as needed [place] idocaine 2 00 (Sore Medical % viscous throat). Branch 1:1:1:1 Gargle and Susp spit, do suspension not swallow acetaminoph 2020-0 Yes [id number] 650mg Take 1 [facility] en 650 mg 2-06 tablet by ity o f CR tablet 00:00: mouth [place] 00 every 8 Medical (eight) Branch hours as needed for Pain. Pseudoephed 2020-0 Yes [id number] 1{tbl} Take 1 [facility] rine HCl 2-06 tablet by ity of (SUDAFED 24 00:00: mouth [place] HOUR) 240 00 daily. Medical mg Tb24 Branch fluticasone 2020-0 Yes [id number] 1{spray Use 1 [facility] propionate 2-06 } [facility] in [facility] o f (FLONASE 00:00: each [place] ALLERGY 00 nostril Medical RELIEF) 50 daily. Branch mcg/actuati on nasal spray acetaminoph 2020-0 Yes [id number] 650mg Take 1 [facility] en 650 mg 2-06 tablet by ity o f CR tablet 00:00: mouth [place] 00 every 8 Medical (eight) Branch hours as needed for Pain. Pseudoephed 2020-0 Yes [id number] 1{tbl} Take 1 [facility] rine HCl 2-06 tablet by ity of (SUDAFED 24 00:00: mouth [place] HOUR) 240 00 daily. Medical mg Tb24 Branch fluticasone 2020-0 Yes [id number] 1{spray Use 1 [facility] propionate 2-06 } [facility] in [facility] o f (FLONASE 00:00: each [place] ALLERGY 00 nostril Medical RELIEF) 50 daily. Branch mcg/actuati on nasal spray acetaminoph 2020-0 Yes [id number] 650mg Take 1 [facility] en 650 mg 2-06 tablet by ity o f CR tablet 00:00: mouth [place] 00 every 8 Medical (eight) Branch hours as needed for Pain. Pseudoephed 2020-0 Yes [id number] 1{tbl} Take 1 [facility] rine HCl 2-06 tablet by ity of (SUDAFED 24 00:00: mouth [place] HOUR) 240 00 daily. Medical mg Tb24 Branch fluticasone 2020-0 Yes [id number] 1{spray Use 1 [facility] propionate 2-06 } [facility] in [facility] o f (FLONASE 00:00: each [place] ALLERGY 00 nostril Medical RELIEF) 50 daily. Branch mcg/actuati on nasal spray acetaminoph 2020-0 Yes [id number] 650mg Take 1 [facility] en 650 mg 2-06 tablet by ity o f CR tablet 00:00: mouth [place] 00 every 8 Medical (eight) Branch hours as needed for Pain. Pseudoephed 2020-0 Yes [id number] 1{tbl} Take 1 [facility] rine HCl 2-06 tablet by ity of (SUDAFED 24 00:00: mouth [place] HOUR) 240 00 daily. Medical mg Tb24 Branch fluticasone 2020-0 Yes [id number] 1{spray Use 1 [facility] propionate 2-06 } [facility] in [facility] o f (FLONASE 00:00: each [place] ALLERGY 00 nostril Medical RELIEF) 50 daily. Branch mcg/actuati on nasal spray acetaminoph 2020-0 Yes [id number] 650mg Take 1 [facility] en 650 mg 2-06 tablet by ity o f CR tablet 00:00: mouth [place] 00 every 8 Medical (eight) Branch hours as needed for Pain. Pseudoephed 2020-0 Yes [id number] 1{tbl} Take 1 [facility] rine HCl 2-06 tablet by ity of (SUDAFED 24 00:00: mouth [place] HOUR) 240 00 daily. Medical mg Tb24 Branch fluticasone 2020-0 Yes [id number] 1{spray Use 1 [facility] propionate 2-06 } [facility] in [facility] o f (FLONASE 00:00: each [place] ALLERGY 00 nostril Medical RELIEF) 50 daily. Branch mcg/actuati on nasal spray acetaminoph 2020-0 Yes [id number] 650mg Take 1 [facility] en 650 mg 2-06 tablet by ity o f CR tablet 00:00: mouth [place] 00 every 8 Medical (eight) Branch hours as needed for Pain. Pseudoephed 2020-0 Yes [id number] 1{tbl} Take 1 [facility] rine HCl 2-06 tablet by ity of (SUDAFED 24 00:00: mouth [place] HOUR) 240 00 daily. Medical mg Tb24 Branch fluticasone 2020-0 Yes [id number] 1{spray Use 1 [facility] propionate 2-06 } [facility] in [facility] o f (FLONASE 00:00: each [place] ALLERGY 00 nostril Medical RELIEF) 50 daily. Branch mcg/actuati on nasal spray acetaminoph 2020-0 Yes [id number] 650mg Take 1 [facility] en 650 mg 2-06 tablet by ity o f CR tablet 00:00: mouth [place] 00 every 8 Medical (eight) Branch hours as needed for Pain. Pseudoephed 2020-0 Yes [id number] 1{tbl} Take 1 [facility] rine HCl 2-06 tablet by ity of (SUDAFED 24 00:00: mouth [place] HOUR) 240 00 daily. Medical mg Tb24 Branch fluticasone 2020-0 Yes [id number] 1{spray Use 1 [facility] propionate 2-06 } [facility] in it[facility] o f (FLONASE 00:00: each [place] ALLERGY 00 nostril Medical RELIEF) 50 daily. Branch mcg/actuati on nasal spray acetaminoph 2020-0 Yes [id number] 650mg Take 1 [facility] en 650 mg 2-06 tablet by ity o f CR tablet 00:00: mouth [place] 00 every 8 Medical (eight) Branch hours as needed for Pain. Pseudoephed 2020-0 Yes [id number] 1{tbl} Take 1 [facility] rine HCl 2-06 tablet by ity of (SUDAFED 24 00:00: mouth [place] HOUR) 240 00 daily. Medical mg Tb24 Branch fluticasone 2020-0 Yes [id number] 1{spray Use 1 [facility] propionate 2-06 } [facility] in [facility] o f (FLONASE 00:00: each [place] ALLERGY 00 nostril Medical RELIEF) 50 daily. Branch mcg/actuati on nasal spray acetaminoph 2020-0 Yes [id number] 650mg Take 1 [facility] en 650 mg 2-06 tablet by ity o f CR tablet 00:00: mouth [place] 00 every 8 Medical (eight) Branch hours as needed for Pain. Pseudoephed 2020-0 Yes [id number] 1{tbl} Take 1 [facility] rine HCl 2-06 tablet by ity of (SUDAFED 24 00:00: mouth [place] HOUR) 240 00 daily. Medical mg Tb24 Branch fluticasone 2020-0 Yes [id number] 1{spray Use 1 [facility] propionate 2-06 } [facility] in [facility] o f (FLONASE 00:00: each [place] ALLERGY 00 nostril Medical RELIEF) 50 daily. Branch mcg/actuati on nasal spray acetaminoph 2020-0 Yes [id number] 650mg Take 1 [facility] en 650 mg 2-06 tablet by ity o f CR tablet 00:00: mouth [place] 00 every 8 Medical (eight) Branch hours as needed for Pain. Pseudoephed 2020-0 Yes [id number] 1{tbl} Take 1 [facility] rine HCl 2-06 tablet by ity of (SUDAFED 24 00:00: mouth [place] HOUR) 240 00 daily. Medical mg Tb24 Branch fluticasone 2020-0 Yes [id number] 1{spray Use 1 [facility] propionate 2-06 } [facility] in [facility] o f (FLONASE 00:00: each [place] ALLERGY 00 nostril Medical RELIEF) 50 daily. Branch mcg/actuati on nasal spray acetaminoph 2020-0 Yes [id number] 650mg Take 1 [facility] en 650 mg 2-06 tablet by ity o f CR tablet 00:00: mouth [place] 00 every 8 Medical (eight) Branch hours as needed for Pain. Pseudoephed 2020-0 Yes [id number] 1{tbl} Take 1 [facility] rine HCl 2-06 tablet by ity of (SUDAFED 24 00:00: mouth [place] HOUR) 240 00 daily. Medical mg Tb24 Branch fluticasone 2020-0 Yes [id number] 1{spray Use 1 [facility] propionate 2-06 } [facility] in [facility] o f (FLONASE 00:00: each [place] ALLERGY 00 nostril Medical RELIEF) 50 daily. Branch mcg/actuati on nasal spray acetaminoph 2020-0 Yes [id number] 650mg Take 1 [facility] en 650 mg 2-06 tablet by ity o f CR tablet 00:00: mouth [place] 00 every 8 Medical (eight) Branch hours as needed for Pain. Pseudoephed 2020-0 Yes [id number] 1{tbl} Take 1 [facility] rine HCl 2-06 tablet by ity of (SUDAFED 24 00:00: mouth [place] HOUR) 240 00 daily. Medical mg Tb24 Branch fluticasone 2020-0 Yes [id number] 1{spray Use 1 [facility] propionate 2-06 } [facility] in [facility] o f (FLONASE 00:00: each [place] ALLERGY 00 nostril Medical RELIEF) 50 daily. Branch mcg/actuati on nasal spray acetaminoph 2020-0 Yes [id number] 650mg Take 1 [facility] en 650 mg 2-06 tablet by ity o f CR tablet 00:00: mouth [place] 00 every 8 Medical (eight) Branch hours as needed for Pain. Pseudoephed 2020-0 Yes [id number] 1{tbl} Take 1 [facility] rine HCl 2-06 tablet by ity of (SUDAFED 24 00:00: mouth [place] HOUR) 240 00 daily. Medical mg Tb24 Branch fluticasone 2020-0 Yes [id number] 1{spray Use 1 [facility] propionate 2-06 } [place] in [facility] o f (FLONASE 00:00: each [place] ALLERGY 00 nostril Medical RELIEF) 50 daily. Branch mcg/actuati on nasal spray acetaminoph 2020-0 Yes [id number] 650mg Take 1 [facility] en 650 mg 2-06 tablet by ity o f CR tablet 00:00: mouth [place] 00 every 8 Medical (eight) Branch hours as needed for Pain. Pseudoephed 2020-0 Yes [id number] 1{tbl} Take 1 [facility] rine HCl 2-06 tablet by ity of (SUDAFED 24 00:00: mouth [place] HOUR) 240 00 daily. Medical mg Tb24 Branch fluticasone 2020-0 Yes [id number] 1{spray Use 1 [facility] propionate 2-06 } [place] in [facility] o f (FLONASE 00:00: each [place] ALLERGY 00 nostril Medical RELIEF) 50 daily. Branch mcg/actuati on nasal spray acetaminoph 2020-0 Yes [id number] 650mg Take 1 [facility] en 650 mg 2-06 tablet by ity o f CR tablet 00:00: mouth [place] 00 every 8 Medical (eight) Branch hours as needed for Pain. Pseudoephed 2020-0 Yes [id number] 1{tbl} Take 1 [facility] rine HCl 2-06 tablet by ity of (SUDAFED 24 00:00: mouth [place] HOUR) 240 00 daily. Medical mg Tb24 Branch fluticasone 2020-0 Yes [id number] 1{spray Use 1 [facility] propionate 2-06 } [place] in [facility] o f (FLONASE 00:00: each [place] ALLERGY 00 nostril Medical RELIEF) 50 daily. Branch mcg/actuati on nasal spray acetaminoph 2020-0 Yes [id number] 650mg Take 1 [facility] en 650 mg 2-06 tablet by ity o f CR tablet 00:00: mouth [place] 00 every 8 Medical (eight) Branch hours as needed for Pain. Pseudoephed 2020-0 Yes [id number] 1{tbl} Take 1 [facility] rine HCl 2-06 tablet by ity of (SUDAFED 24 00:00: mouth [place] HOUR) 240 00 daily. Medical mg Tb24 Branch fluticasone 2020-0 Yes [id number] 1{spray Use 1 [facility] propionate 2-06 } [place] in [facility] o f (FLONASE 00:00: each [place] ALLERGY 00 nostril Medical RELIEF) 50 daily. Branch mcg/actuati on nasal spray acetaminoph 2020-0 Yes [id number] 650mg Take 1 [facility] en 650 mg 2-06 tablet by ity o f CR tablet 00:00: mouth [place] 00 every 8 Medical (eight) Branch hours as needed for Pain. Pseudoephed 2020-0 Yes [id number] 1{tbl} Take 1 [facility] rine HCl 2-06 tablet by ity of (SUDAFED 24 00:00: mouth [place] HOUR) 240 00 daily. Medical mg Tb24 Branch fluticasone 2020-0 Yes [id number] 1{spray Use 1 [facility] propionate 2-06 } [place] in [facility] o f (FLONASE 00:00: each [place] ALLERGY 00 nostril Medical RELIEF) 50 daily. Branch mcg/actuati on nasal spray acetaminoph 2020-0 Yes [id number] 650mg Take 1 [facility] en 650 mg 2-06 tablet by ity o f CR tablet 00:00: mouth [place] 00 every 8 Medical (eight) Branch hours as needed for Pain. Pseudoephed 2020-0 Yes [id number] 1{tbl} Take 1 [facility] rine HCl 2-06 tablet by ity of (SUDAFED 24 00:00: mouth [place] HOUR) 240 00 daily. Medical mg Tb24 Branch fluticasone 2020-0 Yes [id number] 1{spray Use 1 [facility] propionate 2-06 } [place] in [facility] o f (FLONASE 00:00: each [place] ALLERGY 00 nostril Medical RELIEF) 50 daily. Branch mcg/actuati on nasal spray acetaminoph 2020-0 Yes [id number] 650mg Take 1 [facility] en 650 mg 2-06 tablet by ity o f CR tablet 00:00: mouth [place] 00 every 8 Medical (eight) Branch hours as needed for Pain. Pseudoephed 2020-0 Yes [id number] 1{tbl} Take 1 [facility] rine HCl 2-06 tablet by ity of (SUDAFED 24 00:00: mouth [place] HOUR) 240 00 daily. Medical mg Tb24 Branch fluticasone 2020-0 Yes [id number] 1{spray Use 1 [facility] propionate 2-06 } [place] in [facility] o f (FLONASE 00:00: each [place] ALLERGY 00 nostril Medical RELIEF) 50 daily. Branch mcg/actuati on nasal spray acetaminoph 2020-0 Yes [id number] 650mg Take 1 [facility] en 650 mg 2-06 tablet by ity o f CR tablet 00:00: mouth [place] 00 every 8 Medical (eight) Branch hours as needed for Pain. Pseudoephed 2020-0 Yes [id number] 1{tbl} Take 1 [facility] rine HCl 2-06 tablet by ity of (SUDAFED 24 00:00: mouth [place] HOUR) 240 00 daily. Medical mg Tb24 Branch fluticasone 2020-0 Yes [id number] 1{spray Use 1 [facility] propionate 2-06 } [place] in [facility] o f (FLONASE 00:00: each [place] ALLERGY 00 nostril Medical RELIEF) 50 daily. Branch mcg/actuati on nasal spray acetaminoph 2020-0 Yes [id number] 650mg Take 1 [facility] en 650 mg 2-06 tablet by ity o f CR tablet 00:00: mouth [place] 00 every 8 Medical (eight) Branch hours as needed for Pain. Pseudoephed 2020-0 Yes [id number] 1{tbl} Take 1 [facility] rine HCl 2-06 tablet by ity of (SUDAFED 24 00:00: mouth [place] HOUR) 240 00 daily. Medical mg Tb24 Branch fluticasone 2020-0 Yes [id number] 1{spray Use 1 [facility] propionate 2-06 } [facility] in [facility] o f (FLONASE 00:00: each [place] ALLERGY 00 nostril Medical RELIEF) 50 daily. Branch mcg/actuati on nasal spray acetaminoph 2020-0 Yes [id number] 650mg Take 1 [facility] en 650 mg 2-06 tablet by ity o f CR tablet 00:00: mouth [place] 00 every 8 Medical (eight) Branch hours as needed for Pain. Pseudoephed 2020-0 Yes [id number] 1{tbl} Take 1 [facility] rine HCl 2-06 tablet by ity of (SUDAFED 24 00:00: mouth [place] HOUR) 240 00 daily. Medical mg Tb24 Branch fluticasone 2020-0 Yes [id number] 1{spray Use 1 [facility] propionate 2-06 } [place] in [facility] o f (FLONASE 00:00: each [place] ALLERGY 00 nostril Medical RELIEF) 50 daily. Branch mcg/actuati on nasal spray acetaminoph 2020-0 Yes [id number] 650mg Take 1 [facility] en 650 mg 2-06 tablet by ity o f CR tablet 00:00: mouth [place] 00 every 8 Medical (eight) Branch hours as needed for Pain. Pseudoephed 2020-0 Yes [id number] 1{tbl} Take 1 [facility] rine HCl 2-06 tablet by ity of (SUDAFED 24 00:00: mouth [place] HOUR) 240 00 daily. Medical mg Tb24 Branch fluticasone 2020-0 Yes [id number] 1{spray Use 1 [facility] propionate 2-06 } [place] in [facility] o f (FLONASE 00:00: each [place] ALLERGY 00 nostril Medical RELIEF) 50 daily. Branch mcg/actuati on nasal spray acetaminoph 2020-0 Yes [id number] 650mg Take 1 [facility] en 650 mg 2-06 tablet by ity o f CR tablet 00:00: mouth [place] 00 every 8 Medical (eight) Branch hours as needed for Pain. Pseudoephed 2020-0 Yes [id number] 1{tbl} Take 1 [facility] rine HCl 2-06 tablet by ity of (SUDAFED 24 00:00: mouth [place] HOUR) 240 00 daily. Medical mg Tb24 Branch fluticasone 2020-0 Yes [id number] 1{spray Use 1 [facility] propionate 2-06 } [place] in [facility] o f (FLONASE 00:00: each [place] ALLERGY 00 nostril Medical RELIEF) 50 daily. Branch mcg/actuati on nasal spray acetaminoph 2020-0 Yes [id number] 650mg Take 1 [facility] en 650 mg 2-06 tablet by ity o f CR tablet 00:00: mouth [place] 00 every 8 Medical (eight) Branch hours as needed for Pain. Pseudoephed 2020-0 Yes [id number] 1{tbl} Take 1 [facility] rine HCl 2-06 tablet by ity of (SUDAFED 24 00:00: mouth [place] HOUR) 240 00 daily. Medical mg Tb24 Branch fluticasone 2020-0 Yes [id number] 1{spray Use 1 [facility] propionate 2-06 } [place] in [facility] o f (FLONASE 00:00: each [place] ALLERGY 00 nostril Medical RELIEF) 50 daily. Branch mcg/actuati on nasal spray acetaminoph 2020-0 Yes [id number] 650mg Take 1 [facility] en 650 mg 2-06 tablet by ity o f CR tablet 00:00: mouth [place] 00 every 8 Medical (eight) Branch hours as needed for Pain. Pseudoephed 2020-0 Yes [id number] 1{tbl} Take 1 [facility] rine HCl 2-06 tablet by ity of (SUDAFED 24 00:00: mouth [place] HOUR) 240 00 daily. Medical mg Tb24 Branch fluticasone 2020-0 Yes [id number] 1{spray Use 1 [facility] propionate 2-06 } [place] in [facility] o f (FLONASE 00:00: each [place] ALLERGY 00 nostril Medical RELIEF) 50 daily. Branch mcg/actuati on nasal spray acetaminoph 2020-0 Yes [id number] 650mg Take 1 [facility] en 650 mg 2-06 tablet by ity o f CR tablet 00:00: mouth [place] 00 every 8 Medical (eight) Branch hours as needed for Pain. Pseudoephed 2020-0 Yes [id number] 1{tbl} Take 1 [facility] rine HCl 2-06 tablet by ity of (SUDAFED 24 00:00: mouth [place] HOUR) 240 00 daily. Medical mg Tb24 Branch fluticasone 2020-0 Yes [id number] 1{spray Use 1 [facility] propionate 2-06 } [place] in [facility] o f (FLONASE 00:00: each [place] ALLERGY 00 nostril Medical RELIEF) 50 daily. Branch mcg/actuati on nasal spray acetaminoph 2020-0 Yes [id number] 650mg Take 1 [facility] en 650 mg 2-06 tablet by ity o f CR tablet 00:00: mouth [place] 00 every 8 Medical (eight) Branch hours as needed for Pain. Pseudoephed 2020-0 Yes [id number] 1{tbl} Take 1 [facility] rine HCl 2-06 tablet by ity of (SUDAFED 24 00:00: mouth [place] HOUR) 240 00 daily. Medical mg Tb24 Branch fluticasone 2020-0 Yes [id number] 1{spray Use 1 [facility] propionate 2-06 } [facility]ina in ity o f (FLONASE 00:00: each [place] ALLERGY 00 nostril Medical RELIEF) 50 daily. Branch mcg/actuati on nasal spray acetaminoph 2020-0 Yes [id number] 650mg Take 1 [facility] en 650 mg 2-06 tablet by ity o f CR tablet 00:00: mouth [place] 00 every 8 Medical (eight) Branch hours as needed for Pain. Pseudoephed 2020-0 Yes [id number] 1{tbl} Take 1 [facility] rine HCl 2-06 tablet by ity of (SUDAFED 24 00:00: mouth [place] HOUR) 240 00 daily. Medical mg Tb24 Branch fluticasone 2020-0 Yes [id number] 1{spray Use 1 [facility] propionate 2-06 } [facility] in ity o f (FLONASE 00:00: each [place] ALLERGY 00 nostril Medical RELIEF) 50 daily. Branch mcg/actuati on nasal spray acetaminoph 2020-0 Yes [id number] 650mg Take 1 [facility] en 650 mg 2-06 tablet by ity o f CR tablet 00:00: mouth [place] 00 every 8 Medical (eight) Branch hours as needed for Pain. Pseudoephed 2020-0 Yes [id number] 1{tbl} Take 1 [facility] rine HCl 2-06 tablet by ity of (SUDAFED 24 00:00: mouth [place] HOUR) 240 00 daily. Medical mg Tb24 Branch fluticasone 2020-0 Yes [id number] 1{spray Use 1 [facility] propionate 2-06 } [facility] in ity o f (FLONASE 00:00: each [place] ALLERGY 00 nostril Medical RELIEF) 50 daily. Branch mcg/actuati on nasal spray acetaminoph 2020-0 Yes [id number] 650mg Take 1 [facility] en 650 mg 2-06 tablet by ity o f CR tablet 00:00: mouth [place] 00 every 8 Medical (eight) Branch hours as needed for Pain. Pseudoephed 2020-0 Yes [id number] 1{tbl} Take 1 [facility] rine HCl 2-06 tablet by ity of (SUDAFED 24 00:00: mouth [place] HOUR) 240 00 daily. Medical mg Tb24 Branch fluticasone 2020-0 Yes [id number] 1{spray Use 1 [facility] propionate 2-06 } [facility] in ity o f (FLONASE 00:00: each [place] ALLERGY 00 nostril Medical RELIEF) 50 daily. Branch mcg/actuati on nasal spray acetaminoph 2020-0 Yes [id number] 650mg Take 1 [facility] en 650 mg 2-06 tablet by ity o f CR tablet 00:00: mouth [place] 00 every 8 Medical (eight) Branch hours as needed for Pain. Pseudoephed 2020-0 Yes [id number] 1{tbl} Take 1 [facility] rine HCl 2-06 tablet by ity of (SUDAFED 24 00:00: mouth [place] HOUR) 240 00 daily. Medical mg Tb24 Branch fluticasone 2020-0 Yes [id number] 1{spray Use 1 [facility] propionate 2-06 } [facility] in ity o f (FLONASE 00:00: each [place] ALLERGY 00 nostril Medical RELIEF) 50 daily. Branch mcg/actuati on nasal spray acetaminoph 2020-0 Yes [id number] 650mg Take 1 [facility] en 650 mg 2-06 tablet by ity o f CR tablet 00:00: mouth [place] 00 every 8 Medical (eight) Branch hours as needed for Pain. Pseudoephed 2020-0 Yes [id number] 1{tbl} Take 1 [facility] rine HCl 2-06 tablet by ity of (SUDAFED 24 00:00: mouth [place] HOUR) 240 00 daily. Medical mg Tb24 Branch fluticasone 2020-0 Yes [id number] 1{spray Use 1 [facility] propionate 2-06 } [facility] in ity o f (FLONASE 00:00: each [place] ALLERGY 00 nostril Medical RELIEF) 50 daily. Branch mcg/actuati on nasal spray acetaminoph 2020-0 Yes [id number] 650mg Take 1 [facility] en 650 mg 2-06 tablet by ity o f CR tablet 00:00: mouth [place] 00 every 8 Medical (eight) Branch hours as needed for Pain. Pseudoephed 2020-0 Yes [id number] 1{tbl} Take 1 [facility] rine HCl 2-06 tablet by ity of (SUDAFED 24 00:00: mouth [place] HOUR) 240 00 daily. Medical mg Tb24 Branch fluticasone 2020-0 Yes [id number] 1{spray Use 1 [facility] propionate 2-06 } [facility] in ity o f (FLONASE 00:00: each [place] ALLERGY 00 nostril Medical RELIEF) 50 daily. Branch mcg/actuati on nasal spray acetaminoph 2020-0 Yes [id number] 650mg Take 1 [facility] en 650 mg 2-06 tablet by ity o f CR tablet 00:00: mouth [place] 00 every 8 Medical (eight) Branch hours as needed for Pain. Pseudoephed 2020-0 Yes [id number] 1{tbl} Take 1 [facility] rine HCl 2-06 tablet by ity of (SUDAFED 24 00:00: mouth [place] HOUR) 240 00 daily. Medical mg Tb24 Branch fluticasone 2020-0 Yes [id number] 1{spray Use 1 [facility] propionate 2-06 } [facility] in ity o f (FLONASE 00:00: each [place] ALLERGY 00 nostril Medical RELIEF) 50 daily. Branch mcg/actuati on nasal spray acetaminoph 2020-0 Yes [id number] 650mg Take 1 [facility] en 650 mg 2-06 tablet by ity o f CR tablet 00:00: mouth [place] 00 every 8 Medical (eight) Branch hours as needed for Pain. Pseudoephed 2020-0 Yes [id number] 1{tbl} Take 1 [facility] rine HCl 2-06 tablet by ity of (SUDAFED 24 00:00: mouth [place] HOUR) 240 00 daily. Medical mg Tb24 Branch fluticasone 2020-0 Yes [id number] 1{spray Use 1 [facility] propionate 2-06 } [facility] in ity o f (FLONASE 00:00: each [place] ALLERGY 00 nostril Medical RELIEF) 50 daily. Branch mcg/actuati on nasal spray acetaminoph 2020-0 Yes [id number] 650mg Take 1 [facility] en 650 mg 2-06 tablet by ity o f CR tablet 00:00: mouth [place] 00 every 8 Medical (eight) Branch hours as needed for Pain. Pseudoephed 2020-0 Yes [id number] 1{tbl} Take 1 [facility] rine HCl 2-06 tablet by ity of (SUDAFED 24 00:00: mouth [place] HOUR) 240 00 daily. Medical mg Tb24 Branch fluticasone 2020-0 Yes [id number] 1{spray Use 1 [facility] propionate 2-06 } [place] in ity o f (FLONASE 00:00: each [place] ALLERGY 00 nostril Medical RELIEF) 50 daily. Branch mcg/actuati on nasal spray acetaminoph 2020-0 Yes [id number] 650mg Take 1 [facility] en 650 mg 2-06 tablet by ity o f CR tablet 00:00: mouth [place] 00 every 8 Medical (eight) Branch hours as needed for Pain. acetaminoph 2020-0 Yes [id number] 650mg Take 1 [facility] en 650 mg 2-06 tablet by ity o f CR tablet 00:00: mouth [place] 00 every 8 Medical (eight) Branch hours as needed for Pain. Pseudoephed 2020-0 Yes [id number] 1{tbl} Take 1 [facility] rine HCl 2-06 tablet by ity of (SUDAFED 24 00:00: mouth [place] HOUR) 240 00 daily. Medical mg Tb24 Branch fluticasone 2020-0 Yes [id number] 1{spray Use 1 [facility] propionate 2-06 } [facility] in ity o f (FLONASE 00:00: each [place] ALLERGY 00 nostril Medical RELIEF) 50 daily. Branch mcg/actuati on nasal spray acetaminoph 2020-0 Yes [id number] 650mg Take 1 [facility] en 650 mg 2-06 tablet by ity o f CR tablet 00:00: mouth [place] 00 every 8 Medical (eight) Branch hours as needed for Pain. Pseudoephed 2020-0 Yes [id number] 1{tbl} Take 1 [facility] rine HCl 2-06 tablet by ity of (SUDAFED 24 00:00: mouth [place] HOUR) 240 00 daily. Medical mg Tb24 Branch fluticasone 2020-0 Yes [id number] 1{spray Use 1 [facility] propionate 2-06 } [facility] in ity o f (FLONASE 00:00: each [place] ALLERGY 00 nostril Medical RELIEF) 50 daily. Branch mcg/actuati on nasal spray acetaminoph 2020-0 Yes [id number] 650mg Take 1 [facility] en 650 mg 2-06 tablet by ity o f CR tablet 00:00: mouth [place] 00 every 8 Medical (eight) Branch hours as needed for Pain. Pseudoephed 2020-0 Yes [id number] 1{tbl} Take 1 [facility] rine HCl 2-06 tablet by ity of (SUDAFED 24 00:00: mouth [place] HOUR) 240 00 daily. Medical mg Tb24 Branch fluticasone 2020-0 Yes [id number] 1{spray Use 1 [facility] propionate 2-06 } [facility] in ity o f (FLONASE 00:00: each [place] ALLERGY 00 nostril Medical RELIEF) 50 daily. Branch mcg/actuati on nasal spray acetaminoph 2020-0 Yes [id number] 650mg Take 1 [facility] en 650 mg 2-06 tablet by ity o f CR tablet 00:00: mouth [place] 00 every 8 Medical (eight) Branch hours as needed for Pain. Pseudoephed 2020-0 Yes [id number] 1{tbl} Take 1 [facility] rine HCl 2-06 tablet by ity of (SUDAFED 24 00:00: mouth [place] HOUR) 240 00 daily. Medical mg Tb24 Branch fluticasone 2020-0 Yes [id number] 1{spray Use 1 [facility] propionate 2-06 } [facility] in ity o f (FLONASE 00:00: each [place] ALLERGY 00 nostril Medical RELIEF) 50 daily. Branch mcg/actuati on nasal spray acetaminoph 2020-0 Yes [id number] 650mg Take 1 [facility] en 650 mg 2-06 tablet by ity o f CR tablet 00:00: mouth [place] 00 every 8 Medical (eight) Branch hours as needed for Pain. Pseudoephed 2020-0 Yes [id number] 1{tbl} Take 1 [facility] rine HCl 2-06 tablet by ity of (SUDAFED 24 00:00: mouth [place] HOUR) 240 00 daily. Medical mg Tb24 Branch fluticasone 2020-0 Yes [id number] 1{spray Use 1 [facility] propionate 2-06 } [facility] in ity o f (FLONASE 00:00: each [place] ALLERGY 00 nostril Medical RELIEF) 50 daily. Branch mcg/actuati on nasal spray acetaminoph 2020-0 Yes [id number] 650mg Take 1 [facility] en 650 mg 2-06 tablet by ity o f CR tablet 00:00: mouth [place] 00 every 8 Medical (eight) Branch hours as needed for Pain. fluticasone 2020-0 2020- No [id number] 1{spray Use 1 [facility] propionate 2-06 07-14 } [facility] in ity of (FLONASE 00:00: 00:00 each [place] ALLERGY 00 :00 nostril Medical RELIEF) 50 daily. Branch mcg/actuati on nasal spray Pseudoephed 2019- 2020- No [id number] 1{tbl} Take 1 [facility] rine HCl 11-0524 tablet by ity o f (SUDAFED 24 00:00: 00:[place] H[place] 240 00 :00 daily. Medical mg Tb24 Branch bromphenira 2019-2019- No [id number] 10mL Take 10 mL [facility] mine-pseudo 11-05 by mouth 4 i ty of ephedrine-D 00:00: 00:00 (four) [place] as M (BROMFED 00 :00 times Medical DM) 2-30-10 daily as Bran ch mg/5 mL needed for syrup Congestion /Allergies or Cough. nystatin/ma 2019-0 2020- No [id number] 5mL Take 5 mL [facility] alox/diphen 11-05 by mouth ity of hydrAMINE/l 00:00: 00:00 as needed [place] idocaine 2 00 :00 (Sore Medical % viscous throat). Branch 1:1:1:1 Gargle and Susp spit, do suspension not swallow bromphenira 2019-0 2019- No [id number] 10mL Take 10 mL [facility] mine-pseudo 11-05 by mouth 4 i ty of ephedrine-D 00:00: 00:00 (four) [place] as M (BROMFED 00 :00 times Medical DM) 2-30-10 daily as Bran ch mg/5 mL needed for syrup Congestion /Allergies or Cough. nystatin/ma 2019-0 2020- No [id number] 5mL Take 5 mL [facility] alox/diphen 11-05 by mouth ity of hydrAMINE/l 00:00: 00:00 as needed [place] idocaine 2 00 :00 (Sore Medical % viscous throat). Branch 1:1:1:1 Gargle and Susp spit, do suspension not swallow bromphenira 2019-0 2019- No [id number] 10mL Take 10 mL [facility] mine-pseudo 11-05 by mouth 4 i ty of ephedrine-D 00:00: 00:00 (four) [place] as M (BROMFED 00 :00 times Medical DM) 2-30-10 daily as Bran ch mg/5 mL needed for syrup Congestion /Allergies or Cough. nystatin/ma 2019-0 2020- No [id number] 5mL Take 5 mL [facility] alox/diphen 11-05 by mouth ity of hydrAMINE/l 00:00: 00:00 as needed [place] idocaine 2 00 :00 (Sore Medical % viscous throat). Branch 1:1:1:1 Gargle and Susp spit, do suspension not swallow albuterol 2018-09 Yes [id number] 2{puff} Inhale 2 [facility] 90 2-12 Puffs ity of mcg/actuati 00:00: every 6 [place] as on inhaler 00 (six) Medical hours as Branch needed for Wheezing or Shortness of Breath. albuterol 2018-09 Yes [id number] 2{puff} Inhale 2 [facility] 90 2-12 Puffs ity of mcg/actuati 00:00: every 6 [place] as on inhaler 00 (six) Medical hours as Branch needed for Wheezing or Shortness of Breath. albuterol 2018-09 Yes [id number] 2{puff} Inhale 2 [facility] 90 2-12 Puffs ity of mcg/actuati 00:00: every 6 [place] as on inhaler 00 (six) Medical hours as Branch needed for Wheezing or Shortness of Breath. albuterol 2018-09 Yes [id number] 2{puff} Inhale 2 [facility] 90 2-12 Puffs ity of mcg/actuati 00:00: every 6 [place] as on inhaler 00 (six) Medical hours as Branch needed for Wheezing or Shortness of Breath. albuterol 2018-09 Yes [id number] 2{puff} Inhale 2 [facility] 90 2-12 Puffs ity of mcg/actuati 00:00: every 6 [place] as on inhaler 00 (six) Medical hours as Branch needed for Wheezing or Shortness of Breath. albuterol 2018-09 Yes [id number] 2{puff} Inhale 2 [facility] 90 2-12 Puffs ity of mcg/actuati 00:00: every 6 [place] as on inhaler 00 (six) Medical hours as Branch needed for Wheezing or Shortness of Breath. albuterol 2018-09 Yes [id number] 2{puff} Inhale 2 [facility] 90 2-12 Puffs ity of mcg/actuati 00:00: every 6 [place] as on inhaler 00 (six) Medical hours as Branch needed for Wheezing or Shortness of Breath. albuterol 2018-09 Yes [id number] 2{puff} Inhale 2 [facility] 90 2-12 Puffs ity of mcg/actuati 00:00: every 6 [place] as on inhaler 00 (six) Medical hours as Branch needed for Wheezing or Shortness of Breath. albuterol 2018-09 Yes [id number] 2{puff} Inhale 2 [facility] 90 2-12 Puffs ity of mcg/actuati 00:00: every 6 [place] as on inhaler 00 (six) Medical hours as Branch needed for Wheezing or Shortness of Breath. albuterol 2018-09 Yes [id number] 2{puff} Inhale 2 [facility] 90 2-12 Puffs ity of mcg/actuati 00:00: every 6 [place] as on inhaler 00 (six) Medical hours as Branch needed for Wheezing or Shortness of Breath. azithromyci 2018-09 Yes [id number] 500mg Take 1 [facility] n 500 mg 2-12 tablet by ity of tablet 00:00: mouth [place] 00 daily. Medical Branch albuterol 2018-09 Yes [id number] 2{puff} Inhale 2 [facility] 90 2-12 Puffs ity of mcg/actuati 00:00: every 6 [place] as on inhaler 00 (six) Medical hours as Branch needed for Wheezing or Shortness of Breath. codeine-gua 2018-09 Yes [id number] 5mL Take 5 mL [facility] ifenesin 2-12 by mouth ity of (CHERATUSSI 00:00: every 6 [place] as N AC) 00 (six) Medical 10-100 mg/5 hours as Bran ch mL solution needed for Cough. albuterol 2018-09 Yes [id number] 2{puff} Inhale 2 [facility] 90 2-12 Puffs ity of mcg/actuati 00:00: every 6 [place] as on inhaler 00 (six) Medical hours as Branch needed for Wheezing or Shortness of Breath. albuterol 2018-09 Yes [id number] 2{puff} Inhale 2 [facility] 90 2-12 Puffs ity of mcg/actuati 00:00: every 6 [place] as on inhaler 00 (six) Medical hours as Branch needed for Wheezing or Shortness of Breath. albuterol 2018-09 Yes [id number] 2{puff} Inhale 2 [facility] 90 2-12 Puffs ity of mcg/actuati 00:00: every 6 [place] as on inhaler 00 (six) Medical hours as Branch needed for Wheezing or Shortness of Breath. albuterol 2018-09 Yes [id number] 2{puff} Inhale 2 [facility] 90 2-12 Puffs ity of mcg/actuati 00:00: every 6 [place] as on inhaler 00 (six) Medical hours as Branch needed for Wheezing or Shortness of Breath. albuterol 2018-09 Yes [id number] 2{puff} Inhale 2 [facility] 90 2-12 Puffs ity of mcg/actuati 00:00: every 6 [place] as on inhaler 00 (six) Medical hours as Branch needed for Wheezing or Shortness of Breath. albuterol 2018-09 Yes [id number] 2{puff} Inhale 2 [facility] 90 2-12 Puffs ity of mcg/actuati 00:00: every 6 [place] as on inhaler 00 (six) Medical hours as Branch needed for Wheezing or Shortness of Breath. albuterol 2018-09 Yes [id number] 2{puff} Inhale 2 [facility] 90 2-12 Puffs ity of mcg/actuati 00:00: every 6 [place] as on inhaler 00 (six) Medical hours as Branch needed for Wheezing or Shortness of Breath. albuterol 2018-09 Yes [id number] 2{puff} Inhale 2 [facility] 90 2-12 Puffs ity of mcg/actuati 00:00: every 6 [place] as on inhaler 00 (six) Medical hours as Branch needed for Wheezing or Shortness of Breath. albuterol 2018-09 Yes [id number] 2{puff} Inhale 2 [facility] 90 2-12 Puffs ity of mcg/actuati 00:00: every 6 [place] as on inhaler 00 (six) Medical hours as Branch needed for Wheezing or Shortness of Breath. albuterol 2018-09 Yes [id number] 2{puff} Inhale 2 [facility] 90 2-12 Puffs ity of mcg/actuati 00:00: every 6 [place] as on inhaler 00 (six) Medical hours as Branch needed for Wheezing or Shortness of Breath. azithromyci 2018-09 Yes [id number] 500mg Take 1 [facility] n 500 mg 2-12 tablet by ity of tablet 00:00: mouth [place] 00 daily. Medical Branch albuterol 2018-09 Yes [id number] 2{puff} Inhale 2 [facility] 90 2-12 Puffs ity of mcg/actuati 00:00: every 6 [place] as on inhaler 00 (six) Medical hours as Branch needed for Wheezing or Shortness of Breath. codeine-gua 2018-09 Yes [id number] 5mL Take 5 mL [facility] ifenesin 2-12 by mouth ity of (CHERATUSSI 00:00: every 6 [place] as N AC) 00 (six) Medical 10-100 mg/5 hours as Bran ch mL solution needed for Cough. albuterol 2018-09 Yes [id number] 2{puff} Inhale 2 [facility] 90 2-12 Puffs ity of mcg/actuati 00:00: every 6 [place] as on inhaler 00 (six) Medical hours as Branch needed for Wheezing or Shortness of Breath. albuterol 2018-09 Yes [id number] 2{puff} Inhale 2 [facility] 90 2-12 Puffs ity of mcg/actuati 00:00: every 6 [place] as on inhaler 00 (six) Medical hours as Branch needed for Wheezing or Shortness of Breath. albuterol 2018-09 Yes [id number] 2{puff} Inhale 2 [facility] 90 2-12 Puffs ity of mcg/actuati 00:00: every 6 [place] as on inhaler 00 (six) Medical hours as Branch needed for Wheezing or Shortness of Breath. albuterol 2018-09 Yes [id number] 2{puff} Inhale 2 [facility] 90 2-12 Puffs ity of mcg/actuati 00:00: every 6 [place] as on inhaler 00 (six) Medical hours as Branch needed for Wheezing or Shortness of Breath. albuterol 2018-09 Yes [id number] 2{puff} Inhale 2 [facility] 90 2-12 Puffs ity of mcg/actuati 00:00: every 6 [place] as on inhaler 00 (six) Medical hours as Branch needed for Wheezing or Shortness of Breath. albuterol 2018-09 Yes [id number] 2{puff} Inhale 2 [facility] 90 2-12 Puffs ity of mcg/actuati 00:00: every 6 [place] as on inhaler 00 (six) Medical hours as Branch needed for Wheezing or Shortness of Breath. azithromyci 2018-09 Yes [id number] 500mg Take 1 [facility] n 500 mg 2-12 tablet by ity of tablet 00:00: mouth [place] 00 daily. Medical Branch codeine-gua 2018-09 Yes [id number] 5mL Take 5 mL [facility] ifenesin 2-12 by mouth ity of (CHERATUSSI 00:00: every 6 [place] as N AC) 00 (six) Medical 10-100 mg/5 hours as Bran ch mL solution needed for Cough. albuterol 2018-09 Yes [id number] 2{puff} Inhale 2 [facility] 90 2-12 Puffs ity of mcg/actuati 00:00: every 6 [place] as on inhaler 00 (six) Medical hours as Branch needed for Wheezing or Shortness of Breath. azithromyci 2018-09 Yes [id number] 500mg Take 1 [facility] n 500 mg 2-12 tablet by ity of tablet 00:00: mouth [place] 00 daily. Medical Branch codeine-gua 2018-09 Yes [id number] 5mL Take 5 mL [facility] ifenesin 2-12 by mouth ity of (CHERATUSSI 00:00: every 6 [place] as N AC) 00 (six) Medical 10-100 mg/5 hours as Bran ch mL solution needed for Cough. albuterol 2018-09 Yes [id number] 2{puff} Inhale 2 [facility] 90 2-12 Puffs ity of mcg/actuati 00:00: every 6 [place] as on inhaler 00 (six) Medical hours as Branch needed for Wheezing or Shortness of Breath. albuterol 2018-09 Yes [id number] 2{puff} Inhale 2 [facility] 90 2-12 Puffs ity of mcg/actuati 00:00: every 6 [place] as on inhaler 00 (six) Medical hours as Branch needed for Wheezing or Shortness of Breath. albuterol 2018-09 Yes [id number] 2{puff} Inhale 2 [facility] 90 2-12 Puffs ity of mcg/actuati 00:00: every 6 [place] as on inhaler 00 (six) Medical hours as Branch needed for Wheezing or Shortness of Breath. albuterol 2018-09 Yes [id number] 2{puff} Inhale 2 [facility] 90 2-12 Puffs ity of mcg/actuati 00:00: every 6 [place] as on inhaler 00 (six) Medical hours as Branch needed for Wheezing or Shortness of Breath. albuterol 2018-09 Yes [id number] 2{puff} Inhale 2 [facility] 90 2-12 Puffs ity of mcg/actuati 00:00: every 6 [place] as on inhaler 00 (six) Medical hours as Branch needed for Wheezing or Shortness of Breath. albuterol 2018-09 Yes [id number] 2{puff} Inhale 2 [facility] 90 2-12 Puffs ity of mcg/actuati 00:00: every 6 [place] as on inhaler 00 (six) Medical hours as Branch needed for Wheezing or Shortness of Breath. albuterol 2018-09 Yes [id number] 2{puff} Inhale 2 [facility] 90 2-12 Puffs ity of mcg/actuati 00:00: every 6 [place] as on inhaler 00 (six) Medical hours as Branch needed for Wheezing or Shortness of Breath. albuterol 2018-09 Yes [id number] 2{puff} Inhale 2 [facility] 90 2-12 Puffs ity of mcg/actuati 00:00: every 6 [place] as on inhaler 00 (six) Medical hours as Branch needed for Wheezing or Shortness of Breath. albuterol 2018-09 Yes [id number] 2{puff} Inhale 2 [facility] 90 2-12 Puffs ity of mcg/actuati 00:00: every 6 [place] as on inhaler 00 (six) Medical hours as Branch needed for Wheezing or Shortness of Breath. albuterol 2018-09 Yes [id number] 2{puff} Inhale 2 [facility] 90 2-12 Puffs ity of mcg/actuati 00:00: every 6 [place] as on inhaler 00 (six) Medical hours as Branch needed for Wheezing or Shortness of Breath. albuterol 2018-09 Yes [id number] 2{puff} Inhale 2 [facility] 90 2-12 Puffs ity of mcg/actuati 00:00: every 6 [place] as on inhaler 00 (six) Medical hours as Branch needed for Wheezing or Shortness of Breath. albuterol 2018-09 Yes [id number] 2{puff} Inhale 2 [facility] 90 2-12 Puffs ity of mcg/actuati 00:00: every 6 [place] as on inhaler 00 (six) Medical hours as Branch needed for Wheezing or Shortness of Breath. albuterol 2018-09 Yes [id number] 2{puff} Inhale 2 [facility] 90 2-12 Puffs ity of mcg/actuati 00:00: every 6 [place] as on inhaler 00 (six) Medical hours as Branch needed for Wheezing or Shortness of Breath. albuterol 2018-09 Yes [id number] 2{puff} Inhale 2 [facility] 90 2-12 Puffs ity of mcg/actuati 00:00: every 6 [place] as on inhaler 00 (six) Medical hours as Branch needed for Wheezing or Shortness of Breath. albuterol 2018-09 Yes [id number] 2{puff} Inhale 2 [facility] 90 2-12 Puffs ity of mcg/actuati 00:00: every 6 [place] as on inhaler 00 (six) Medical hours as Branch needed for Wheezing or Shortness of Breath. albuterol 2018-09 Yes [id number] 2{puff} Inhale 2 [facility] 90 2-12 Puffs ity of mcg/actuati 00:00: every 6 [place] as on inhaler 00 (six) Medical hours as Branch needed for Wheezing or Shortness of Breath. albuterol 2018-09 Yes [id number] 2{puff} Inhale 2 [facility] 90 2-12 Puffs ity of mcg/actuati 00:00: every 6 [place] as on inhaler 00 (six) Medical hours as Branch needed for Wheezing or Shortness of Breath. albuterol 2018-09 Yes [id number] 2{puff} Inhale 2 [facility] 90 2-12 Puffs ity of mcg/actuati 00:00: every 6 [place] as on inhaler 00 (six) Medical hours as Branch needed for Wheezing or Shortness of Breath. albuterol 2018-09 Yes [id number] 2{puff} Inhale 2 [facility] 90 2-12 Puffs ity of mcg/actuati 00:00: every 6 [place] as on inhaler 00 (six) Medical hours as Branch needed for Wheezing or Shortness of Breath. albuterol 2018-09 Yes [id number] 2{puff} Inhale 2 [facility] 90 2-12 Puffs ity of mcg/actuati 00:00: every 6 [place] as on inhaler 00 (six) Medical hours as Branch needed for Wheezing or Shortness of Breath. albuterol 2018-09 Yes [id number] 2{puff} Inhale 2 [facility] 90 2-12 Puffs ity of mcg/actuati 00:00: every 6 [place] as on inhaler 00 (six) Medical hours as Branch needed for Wheezing or Shortness of Breath. albuterol 2018-09 Yes [id number] 2{puff} Inhale 2 [facility] 90 2-12 Puffs ity of mcg/actuati 00:00: every 6 [place] as on inhaler 00 (six) Medical hours as Branch needed for Wheezing or Shortness of Breath. albuterol 2018-09 Yes [id number] 2{puff} Inhale 2 [facility] 90 2-12 Puffs ity of mcg/actuati 00:00: every 6 [place] as on inhaler 00 (six) Medical hours as Branch needed for Wheezing or Shortness of Breath. albuterol 2018-09 Yes [id number] 2{puff} Inhale 2 [facility] 90 2-12 Puffs ity of mcg/actuati 00:00: every 6 [place] as on inhaler 00 (six) Medical hours as Branch needed for Wheezing or Shortness of Breath. albuterol 2018-09 Yes [id number] 2{puff} Inhale 2 [facility] 90 2-12 Puffs ity of mcg/actuati 00:00: every 6 [place] as on inhaler 00 (six) Medical hours as Branch needed for Wheezing or Shortness of Breath. albuterol 2018-09 Yes [id number] 2{puff} Inhale 2 [facility] 90 2-12 Puffs ity of mcg/actuati 00:00: every 6 [place] as on inhaler 00 (six) Medical hours as Branch needed for Wheezing or Shortness of Breath. albuterol 2018-09 Yes [id number] 2{puff} Inhale 2 [facility] 90 2-12 Puffs ity of mcg/actuati 00:00: every 6 [place] as on inhaler 00 (six) Medical hours as Branch needed for Wheezing or Shortness of Breath. albuterol 2018-09 Yes [id number] 2{puff} Inhale 2 [facility] 90 2-12 Puffs ity of mcg/actuati 00:00: every 6 [place] as on inhaler 00 (six) Medical hours as Branch needed for Wheezing or Shortness of Breath. albuterol 2018-09 Yes [id number] 2{puff} Inhale 2 [facility] 90 2-12 Puffs ity of mcg/actuati 00:00: every 6 [place] as on inhaler 00 (six) Medical hours as Branch needed for Wheezing or Shortness of Breath. albuterol 2018-09 Yes [id number] 2{puff} Inhale 2 [facility] 90 2-12 Puffs ity of mcg/actuati 00:00: every 6 [place] as on inhaler 00 (six) Medical hours as Branch needed for Wheezing or Shortness of Breath. albuterol 2018-09 Yes [id number] 2{puff} Inhale 2 [facility] 90 2-12 Puffs ity of mcg/actuati 00:00: every 6 [place] as on inhaler 00 (six) Medical hours as Branch needed for Wheezing or Shortness of Breath. albuterol 2018-09 Yes [id number] 2{puff} Inhale 2 [facility] 90 2-12 Puffs ity of mcg/actuati 00:00: every 6 [place] as on inhaler 00 (six) Medical hours as Branch needed for Wheezing or Shortness of Breath. albuterol 2018-09 Yes [id number] 2{puff} Inhale 2 [facility] 90 2-12 Puffs ity of mcg/actuati 00:00: every 6 [place] as on inhaler 00 (six) Medical hours as Branch needed for Wheezing or Shortness of Breath. albuterol 2018-09 Yes [id number] 2{puff} Inhale 2 [facility] 90 2-12 Puffs ity of mcg/actuati 00:00: every 6 [place] as on inhaler 00 (six) Medical hours as Branch needed for Wheezing or Shortness of Breath. albuterol 2018-09 Yes [id number] 2{puff} Inhale 2 [facility] 90 2-12 Puffs ity of mcg/actuati 00:00: every 6 [place] as on inhaler 00 (six) Medical hours as Branch needed for Wheezing or Shortness of Breath. albuterol 2018-09 Yes [id number] 2{puff} Inhale 2 Univers 90 2-12 Puffs ity of mcg/actuati 00:00: every 6 [place] on inhaler 00 (six) Medical hours as Branch needed for Wheezing or Shortness of Breath. albuterol 2018-09 Yes [id number] 2{puff} Inhale 2 [facility] 90 2-12 Puffs ity of mcg/actuati 00:00: every 6 [place] on inhaler 00 (six) Medical hours as Branch needed for Wheezing or Shortness of Breath. albuterol 2018-09 Yes [id number] 2{puff} Inhale 2 [facility] 90 2-12 Puffs ity of mcg/actuati 00:00: every 6 [place] on inhaler 00 (six) Medical hours as Branch needed for Wheezing or Shortness of Breath. albuterol 2018-09 Yes [id number] 2{puff} Inhale 2 [facility] 90 2-12 Puffs ity of mcg/actuati 00:00: every 6 [place] on inhaler 00 (six) Medical hours as Branch needed for Wheezing or Shortness of Breath. albuterol 2018-09 Yes [id number] 2{puff} Inhale 2 [facility] 90 2-12 Puffs ity of mcg/actuati 00:00: every 6 [place] on inhaler 00 (six) Medical hours as Branch needed for Wheezing or Shortness of Breath. albuterol 2018-09 Yes [id number] 2{puff} Inhale 2 [facility] 90 2-12 Puffs ity of mcg/actuati 00:00: every 6 [place] on inhaler 00 (six) Medical hours as Branch needed for Wheezing or Shortness of Breath. albuterol 2018-09 Yes [id number] 2{puff} Inhale 2 [facility] 90 2-12 Puffs ity of mcg/actuati 00:00: every 6 [place] on inhaler 00 (six) Medical hours as Branch needed for Wheezing or Shortness of Breath. albuterol 2018-09 Yes [id number] 2{puff} Inhale 2 [facility] 90 2-12 Puffs ity of mcg/actuati 00:00: every 6 [place] on inhaler 00 (six) Medical hours as Branch needed for Wheezing or Shortness of Breath. albuterol 2018-09- No [id number] 2{puff} Inhale 2 [facility] 90 2-12 07-14 Puffs ity of mcg/actuati 00:00: 00:00 every 6 [place] inhaler 00 :00 (six) Medical hours as Branch needed for Wheezing or Shortness of Breath. azithromyci 2018-09- No [id number] 500mg Take 1 Univers n 500 mg 11-11 tablet by ity o f tablet 00:00: 00:00 mouth [place] 00 :00 daily. Medical Branch codeine-gua 2018-09- No [id number] 5mL Take 5 mL Univers ifenesin 11-11 by mouth ity of (CHERATUSSI 00:00: 00:00 every 6 [place] AC) 00 :00 (six) Medical 10-100 mg/5 hours as Bran ch mL solution needed for Cough. azithromyci 2018-09- No [id number] 500mg Take 1 [facility] n 500 mg 11-11- tablet by ity o f tablet 00:00: 00:00 mouth [place] 00 :00 daily. [facility]-09- No [id number] 5mL Take 5 mL Univers ifenesin 11-11 by mouth ity of (CHERATUSSI 00:00: 00:00 every 6 [place] AC) 00 :00 (six) Medical 10-100 mg/5 hours as Bran ch mL solution needed for Cough. azithromyci 2018-09- No [id number] 500mg Take 1 Univers n 500 mg 11-11 tablet by ity o f tablet 00:00: 00:00 mouth [place] 00 :00 daily. Medical Branch [facility] 2018-09- No [id number] 5mL Take 5 mL Univers ifenesin 11-11 by mouth ity of (CHERATUSSI 00:00: 00:00 every 6 [place] AC) 00 :00 (six) Medical 10-100 mg/5 hours as Bran ch mL solution needed for Cough. benzonatate 2018-09- No [id number] 200mg Take 1 [facility] 200 mg 2-08 31-06 capsule by ity of capsule 00:00: 00:00 mouth 3 [place] 00 :00 (three) Medical times Branch daily as needed for Cough. benzonatate 2018-09- No [id number] 200mg Take 1 [facility] 200 mg 2-12 -06 capsule by ity of capsule 00:00: 00:00 mouth 3 [place] 00 :00 (three) Medical times Branch daily as needed for Cough. hydroCHLORO 2019- Yes [id number] 25mg Take 1 Univers thiazide 25 7-23 tablet by ity of mg tablet 00:00: mouth [place] 00 daily. Medical Branch metoprolol 2018-0 Yes [id number] 100mg Take 1 Univers tartrate 7-23 tablet by ity of (LOPRESSOR) 00:00: mouth 2 [place] 100 mg 00 (two) Medical tablet times Branch daily. hydroCHLORO 2018- Yes [id number] 25mg Take 1 Univers thiazide 25 7-23 tablet by ity of mg tablet 00:00: mouth [place] 00 daily. Medical Branch metoprolol Yes [id number] 100mg Take 1 Univers tartrate 7-23 tablet by ity of (LOPRESSOR) 00:00: mouth 2 [place] 100 mg 00 (two) Medical tablet times Branch daily. hydroCHLORO Yes [id number] 25mg Take 1 Univers thiazide 25 7-23 tablet by ity of mg tablet 00:00: mouth [place] 00 daily. Medical Branch metoprolol Yes [id number] 100mg Take 1 Univers tartrate 7-23 tablet by ity of (LOPRESSOR) 00:00: mouth 2 [place] 100 mg 00 (two) Medical tablet times Branch daily. hydroCHLORO Yes [id number] 25mg Take 1 Univers thiazide 25 7-23 tablet by ity of mg tablet 00:00: mouth [place] 00 daily. Medical Branch metoprolol Yes [id number] 100mg Take 1 Univers tartrate 7-23 tablet by ity of (LOPRESSOR) 00:00: mouth 2 [place] 100 mg 00 (two) Medical tablet times Branch daily. hydroCHLORO 2019- No [id number] 25mg Take 1 Univers thiazide 25 7-23 02-27 tablet by it y of mg tablet 00:00: 00:00 mouth [place] 00 :00 daily. Medical Branch metoprolol 2019- No [id number] 100mg Take 1 Univers tartrate 7-23 02-27 tablet by ity o f (LOPRESSOR) 00:00: 00:00 mouth 2 [place] 100 mg 00 :00 (two) Medical tablet times Branch daily. hydroCHLORO 2020- No [id number] 25mg Take 1 Univers thiazide 25 7-23 02-27 tablet by it y of mg tablet 00:00: 00:00 mouth [place] 00 :00 daily. Medical Branch metoprolol 2020- No [id number] 100mg Take 1 Univers tartrate 7-23 02-27 tablet by ity o f (LOPRESSOR) 00:00: 00:00 mouth 2 [place] 100 mg 00 :00 (two) Medical tablet times Branch daily. hydroCHLORO 2019- No [id number] 25mg Take 1 Univers thiazide 25 7-23 02-27 tablet by it y of mg tablet 00:00: 00:00 mouth [place] 00 :00 daily. Medical Branch metoprolol 2020- No [id number] 100mg Take 1 Univers tartrate 7-23 02-27 tablet by ity o f (LOPRESSOR) 00:00: 00:00 mouth 2 [place] 100 mg 00 :00 (two) Medical tablet [facility] Branch daily. atorvastati 2018- Yes [id number] 40mg Take 1 Univers n 40 mg 7-19 tablet by ity of tablet 00:00: mouth [place] 00 daily. Medical Branch valsartan Yes [id number] 320mg Take 1 U nivers 320 mg 7-19 tablet by ity of tablet 00:00: mouth [place] 00 daily. Medical Branch atorvastati Yes [id number] 40mg Take 1 Univers n 40 mg 7-19 tablet by ity of tablet 00:00: mouth [place] 00 daily. Medical Branch valsartan 2018- Yes [id number] 320mg Take 1 U nivers 320 mg 7-19 tablet by ity of tablet 00:00: mouth [place] 00 daily. Medical Branch atorvastati Yes [id number] 40mg Take 1 Univers n 40 mg 7-19 tablet by ity of tablet 00:00: mouth [place] 00 daily. Medical Branch valsartan 2018- Yes [id number] 320mg Take 1 U nivers 320 mg 7-19 tablet by ity of tablet 00:00: mouth [place] 00 daily. Medical Branch atorvastati Yes [id number] 40mg Take 1 Univers n 40 mg 7-19 tablet by ity of tablet 00:00: mouth [place] 00 daily. Medical Branch valsartan Yes [id number] 320mg Take 1 U nivers 320 mg 7-19 tablet by ity of tablet 00:00: mouth [place] 00 daily. Medical Branch atorvastati Yes [id number] 40mg Take 1 Univers n 40 mg 7-19 tablet by ity of tablet 00:00: mouth [place] 00 daily. Medical Branch atorvastati Yes [id number] 40mg Take 1 Univers n 40 mg 7-19 tablet by ity of tablet 00:00: mouth [place] 00 daily. Medical Branch atorvastati Yes [id number] 40mg Take 1 Univers n 40 mg 7-19 tablet by ity of tablet 00:00: mouth [place] 00 daily. [facility] Branch atorvasta 2018-0 Yes [id number] 40mg Take 1 Univers n 40 mg 7-19 tablet by ity of tablet 00:00: mouth [place] 00 daily. [facility] Yes [id number] 40mg Take 1 Univers n 40 mg 7-19 tablet by ity of tablet 00:00: mouth [place] 00 daily. [facility] Branch atorvasta 2018-0 Yes [id number] 40mg Take 1 Univers n 40 mg 7-19 tablet by ity of tablet 00:00: mouth [place] 00 daily. [facility] Branch atorvasta Yes [id number] 40mg Take 1 Univers n 40 mg 7-19 tablet by ity of tablet 00:00: mouth [place] 00 daily. [facility] Branch atorvasta Yes [id number] 40mg Take 1 Univers n 40 mg 7-19 tablet by ity of tablet 00:00: mouth [place] 00 daily. [facility] Branch atorvasta Yes [id number] 40mg Take 1 Univers n 40 mg 7-19 tablet by ity of tablet 00:00: mouth [place] 00 daily. [facility] Branch atorvasta Yes [id number] 40mg Take 1 Univers n 40 mg 7-19 tablet by ity of tablet 00:00: mouth [place] 00 daily. [facility] Branch atorvasta Yes [id number] 40mg Take 1 Univers n 40 mg 7-19 tablet by ity of tablet 00:00: mouth [place] 00 daily. [facility] Branch atorvasta Yes [id number] 40mg Take 1 Univers n 40 mg 7-19 tablet by ity of tablet 00:00: mouth [place] 00 daily. [facility] Branch atorvasta 0 Yes [id number] 40mg Take 1 Univers n 40 mg 7-19 tablet by ity of tablet 00:00: mouth [place] 00 daily. [facility] Branch atorvasta 2018-0 Yes [id number] 40mg Take 1 Univers n 40 mg 7-19 tablet by ity of tablet 00:00: mouth [place] 00 daily. [facility] Branch atorvasta 0 Yes [id number] 40mg Take 1 Univers n 40 mg 7-19 tablet by ity of tablet 00:00: mouth [place] 00 daily. [facility] Branch atorvasta Yes [id number] 40mg Take 1 Univers n 40 mg 7-19 tablet by ity of tablet 00:00: mouth [place] 00 daily. [facility] Branch atorvasta 2019-0 Yes [id number] 40mg Take 1 Univers n 40 mg 7-19 tablet by ity of tablet 00:00: mouth [place] 00 daily. [facility] Branch atorvasta 0 Yes [id number] 40mg Take 1 Univers n 40 mg 7-19 tablet by ity of tablet 00:00: mouth [place] 00 daily. [facility] Branch atorvasta 2018-0 Yes [id number] 40mg Take 1 Univers n 40 mg 7-19 tablet by ity of tablet 00:00: mouth [place] 00 daily. [facility] Branch atorvasta 0 Yes [id number] 40mg Take 1 Univers n 40 mg 7-19 tablet by ity of tablet 00:00: mouth [place] 00 daily. [facility] Branch atorvasta Yes [id number] 40mg Take 1 Univers n 40 mg 7-19 tablet by ity of tablet 00:00: mouth [place] 00 daily. Medical Branch atorvasta Yes [id number] 40mg Take 1 Univers n 40 mg 7-19 tablet by ity of tablet 00:00: mouth [place] 00 daily. [facility] Branch atorvasta Yes [id number] 40mg Take 1 Univers n 40 mg 7-19 tablet by ity of tablet 00:00: mouth [place] 00 daily. [facility] Branch atorvasta 0 Yes [id number] 40mg Take 1 Univers n 40 mg 7-19 tablet by ity of tablet 00:00: mouth [place] 00 daily. [facility] Branch atorvasta 2018-0 Yes [id number] 40mg Take 1 Univers n 40 mg 7-19 tablet by ity of tablet 00:00: mouth [place] 00 daily. [facility] Branch atorvasta 0 Yes [id number] 40mg Take 1 Univers n 40 mg 7-19 tablet by ity of tablet 00:00: mouth [place] 00 daily. [facility] Branch atorvasta 2018-0 Yes [id number] 40mg Take 1 Univers n 40 mg 7-19 tablet by ity of tablet 00:00: mouth [place] 00 daily. [facility] Branch atorvasta 0 Yes [id number] 40mg Take 1 Univers n 40 mg 7-19 tablet by ity of tablet 00:00: mouth [place] 00 daily. [facility] Branch atorvasta 0 Yes [id number] 40mg Take 1 Univers n 40 mg 7-19 tablet by ity of tablet 00:00: mouth [place] 00 daily. Medical Branch atorvastati 2018-0 Yes [id number] 40mg Take 1 Univers n 40 mg 7-19 tablet by ity of tablet 00:00: mouth [place] 00 daily. Medical Branch atorvasta 0 Yes [id number] 40mg Take 1 Univers n 40 mg 7-19 tablet by ity of tablet 00:00: mouth [place] 00 daily. Medical Branch atorvasta 0 Yes [id number] 40mg Take 1 Univers n 40 mg 7-19 tablet by ity of tablet 00:00: mouth [place] 00 daily. Medical Branch atorvasta 0 Yes [id number] 40mg Take 1 Univers n 40 mg 7-19 tablet by ity of tablet 00:00: mouth [place] 00 daily. Medical Branch atorvasta Yes [id number] 40mg Take 1 Univers n 40 mg 7-19 tablet by ity of tablet 00:00: mouth [place] 00 daily. Medical Branch atorvasta Yes [id number] 40mg Take 1 Univers n 40 mg 7-19 tablet by ity of tablet 00:00: mouth [place] 00 daily. Medical Branch atorvasta Yes [id number] 40mg Take 1 Univers n 40 mg 7-19 tablet by ity of tablet 00:00: mouth [place] 00 daily. Medical Branch atorvasta 0 Yes [id number] 40mg Take 1 Univers n 40 mg 7-19 tablet by ity of tablet 00:00: mouth [place] 00 daily. Medical Branch atorvastati 2018-0 Yes [id number] 40mg Take 1 Univers n 40 mg 7-19 tablet by ity of tablet 00:00: mouth [place] 00 daily. Medical Branch atorvastati 0 Yes [id number] 40mg Take 1 Univers n 40 mg 7-19 tablet by ity of tablet 00:00: mouth [place] 00 daily. Medical Branch atorvasta 0 Yes [id number] 40mg Take 1 Univers n 40 mg 7-19 tablet by ity of tablet 00:00: mouth [place] 00 daily. Medical Branch atorvastati 0 Yes [id number] 40mg Take 1 Univers n 40 mg 7-19 tablet by ity of tablet 00:00: mouth [place] 00 daily. Medical Branch atorvastati 0 Yes [id number] 40mg Take 1 Univers n 40 mg 7-19 tablet by ity of tablet 00:00: mouth [place] 00 daily. Medical Branch atorvastati 2020- No [id number] 40mg Take 1 Univers n 40 mg 7-18 06- tablet by ity of tablet 00:00: 00:00 mouth [place] 00 :00 daily. [facility] Branch valsartan 2020- No [id number] 320mg Take 1 Univers 320 mg 7-11-26 tablet by ity of tablet 00:00: 00:00 mouth [place] 00 :00 daily. [facility] Branch valsartan 2020- No [id number] 320mg Take 1 Univers 320 mg 7-11-26 tablet by ity of tablet 00:00: 00:00 mouth [place] 00 :00 daily. [facility] Branch valsartan 2020- No [id number] 320mg Take 1 Univers 320 mg 04-17 tablet by ity of tablet 00:00: 00:00 mouth [place] 00 :00 daily. [facility] Branch aspirin Yes 81mg Take 81 mg Univ ers (ASPIRIN 5-23 by mouth ity of LOW DOSE) 15:27: daily. [place] 81 mg EC 26 Medical tablet Branch aspirin Yes 81mg Take 81 mg Univ ers (ASPIRIN 5-23 by mouth ity of LOW DOSE) 15:27: daily. [place] 81 mg EC 26 [facility] tablet Branch aspirin Yes 81mg Take 81 mg Univ ers (ASPIRIN 5-23 by mouth ity of LOW DOSE) 15:27: daily. [place] 81 mg EC 26 [facility] tablet Branch aspirin Yes 81mg Take 81 mg Univ ers (ASPIRIN 5-23 by mouth ity of LOW DOSE) 15:27: daily. [place] 81 mg EC 26 [facility] Branch Immunizations Ordered Immunization Filled Immunization Date Status Commen ts Source Name Name Pneumococcal Vaccine, 2020-07-16 Completed Kojo matta Seybold - Polysaccharide 00:00:00 External Tdap- (Boostrix, 2020-07-16 Completed Yodit Donald Adasherrie) 00:00:00 External Pneumococcal Vaccine, 2020-07-16 Completed Kojo matta Seybold - Polysaccharide 00:00:00 External Tdap- (Boostrix, 2020-07-16 Completed Yodit gaxiola - Adasherrie) 00:00:00 External Pneumococcal Vaccine, 2020-07-16 Completed Kojo sey Seybold - Polysaccharide 00:00:00 External Tdap- (Boostrix, 2020-07-16 Completed Yodit S eybold - Adacel) 00:00:00 External Pneumococcal Vaccine, 2020-07-16 Completed Kojo sey Seybold - Polysaccharide 00:00:00 External Tdap- (Boostrix, 2020-07-16 Completed Yodit S eybold - Adacel) 00:00:00 External Pneumococcal Vaccine, 2020-07-16 Completed Kojo sey Seybold - Polysaccharide 00:00:00 External Tdap- (Boostrix, 2020-07-16 Completed Yodit S eybold - Adacel) 00:00:00 External Pneumococcal Vaccine, 2020-07-16 Completed Kojo sey Seybold - Polysaccharide 00:00:00 External Tdap- (Boostrix, 2020-07-16 Completed Yodit S eybold - Adacel) 00:00:00 External TDAP 2020-07-16 Completed University of 00:00:00 [facility] Pneumococcal 2020-07-16 Completed University o f Polysaccharide, 00:00:00 [place] [facility] ical PPSV23 (PNEUMOVAX) Branch TDAP 2020-07-16 Completed University of 00:00:00 [facility] Pneumococcal 2020-07-16 Completed University o f Polysaccharide, 00:00:00 [place] [facility] ical PPSV23 (PNEUMOVAX) Branch TDAP 2020-07-16 Completed University of 00:00:00 [facility] Pneumococcal 2020-07-16 Completed University o f Polysaccharide, 00:00:00 [place] [facility] ical PPSV23 (PNEUMOVAX) Branch TDAP 2020-07-16 Completed University of 00:00:00 [facility] Pneumococcal 2020-07-16 Completed University o f Polysaccharide, 00:00:00 [place] [facility] ical PPSV23 (PNEUMOVAX) Branch TDAP 2020-07-16 Completed University of 00:00:00 [facility] Pneumococcal 2020-07-16 Completed University o f Polysaccharide, 00:00:00 [place] [facility] ical PPSV23 (PNEUMOVAX) Branch TDAP 2020-07-16 Completed University of 00:00:00 [facility] Pneumococcal 2020-07-16 Completed University o f Polysaccharide, 00:00:00 [place] [facility] ical PPSV23 (PNEUMOVAX) Branch TDAP 2020-07-16 Completed University of 00:00:00 [facility] Pneumococcal 2020-07-16 Completed University o f Polysaccharide, 00:00:00 [facility] ical PPSV23 (PNEUMOVAX) Branch TDAP 2020-07-16 Completed University of 00:00:00 [facility] Pneumococcal 2020-07-16 Completed University o f Polysaccharide, 00:00:00 [facility] ical PPSV23 (PNEUMOVAX) Branch TDAP 2020-07-16 Completed University of 00:00:00 [facility] Pneumococcal 2020-07-16 Completed University o f Polysaccharide, 00:00:00 [facility] ical PPSV23 (PNEUMOVAX) Branch TDAP 2020-07-16 Completed University of 00:00:00 [facility] Pneumococcal 2020-07-16 Completed University o f Polysaccharide, 00:00:00 [facility] ical PPSV23 (PNEUMOVAX) Branch TDAP 2020-07-16 Completed University of 00:00:00 [facility] Pneumococcal 2020-07-16 Completed University o f Polysaccharide, 00:00:00 [facility] ical PPSV23 (PNEUMOVAX) Branch Influenza Virus 2020-07-12 Completed Yodit Se ybold - Vaccine, Quad, Egg 00:00:00 [employer] Free Influenza Virus 2020-07-12 Completed Yodit Se ybold - Vaccine, Quad, Egg 00:00:00 [employer] Free Influenza Virus 2020-07-12 Completed Yodit Se ybold - Vaccine, Quad, Egg 00:00:00 [employer] Free Influenza Virus 2020-07-12 Completed Yodit Se ybold - Vaccine, Quad, Egg 00:00:00 [employer] Free Influenza Virus 2020-07-12 Completed Yodit Se ybold - Vaccine, Quad, Egg 00:00:00 [employer] Free Influenza Virus 2020-07-12 Completed Yodit Se ybold - Vaccine, Quad, Egg 00:00:00 [employer] Free Influenza Virus 2020-07-12 Completed Universit y of Vaccine Recomb Quad 00:00:00 [place] [facility] IM, Preserv and ABX Branc h Free 18-64 YRS Influenza Virus 2020-07-12 Completed Universit y of Vaccine Recomb Quad 00:00:00 [place] [facility] IM, Preserv and ABX Branc h Free 18-64 YRS Influenza Virus 2020-07-12 Completed Universit y of Vaccine Recomb Quad 00:00:00 [place] [facility] IM, Preserv and ABX Branc h Free 18-64 YRS Influenza Virus 2020-07-12 Completed Universit y of Vaccine Recomb Quad 00:00:00 [place] [facility] IM, Preserv and ABX Branc h Free 18-64 YRS Influenza Virus 2020-07-12 Completed Universit y of Vaccine Recomb Quad 00:00:00 [place] [facility] IM, Preserv and ABX Branc h Free 18-64 YRS Influenza Virus 2020-07-12 Completed Universit y of Vaccine Recomb Quad 00:00:00 [place] [facility] IM, Preserv and ABX Branc h Free 18-64 YRS Influenza Virus 2020-07-12 Completed Universit y of Vaccine Recomb Quad 00:00:00 [place] [facility] IM, Preserv and ABX Branc h Free 18-64 YRS Influenza Virus 2020-07-12 Completed Universit y of Vaccine Recomb Quad 00:00:00 [place] [facility] IM, Preserv and ABX Branc h Free 18-64 YRS Influenza Virus 2020-07-12 Completed Universit y of Vaccine Recomb Quad 00:00:00 [place] [facility] IM, Preserv and ABX Branc h Free 18-64 YRS Influenza Virus 2020-07-12 Completed Universit y of Vaccine Recomb Quad 00:00:00 [place] [facility] IM, Preserv and ABX Branc h Free 18-64 YRS Influenza Virus 2020-07-12 Completed Universit y of Vaccine Recomb Quad 00:00:00 [place] [facility] IM, Preserv and ABX Branc h Free 18-64 YRS Vital Signs Vital Name Observation Time Observation Value Comments Source Systolic blood 2023-01-16 18:54:00 158 mm[Hg] Yodit Dc - pressure External Diastolic blood 2023-01-16 18:54:00 70 mm[Hg] Valerie Dc - pressure External Heart rate 2023-01-16 18:54:00 118 /min Yodit gaxiola - External Body temperature 2023-01-16 18:54:00 37 Sherrie Meghna Dc - External Respiratory rate 2023-01-16 18:54:00 15 /min Meghna Dc - External Body height 2023-01-16 18:54:00 162.6 cm Yodit gaxiola - External Body weight 2023-01-16 18:54:00 151.501 kg Yodit gaxiola - External BMI 2023-01-16 18:54:00 57.33 kg/m2 Yodit Chandra eybold - External Body weight 2022-12-20 16:35:00 150.594 kg Yodit Chandra eybold - External BMI 2022-12-20 16:35:00 56.99 kg/m2 Yodit Chandra eybold - External Systolic blood 2022-12-20 16:35:00 156 mm[Hg] Yodit Seybold - pressure External Diastolic blood 2022-12-20 16:35:00 68 mm[Hg] Kojose y Seybold - pressure External Heart rate 2022-12-20 16:35:00 86 /min Yodit Chandra eybold - External Body temperature 2022-12-20 16:35:00 36.67 Sherrie Meghna ey Seybold - External Respiratory rate 2022-12-20 16:35:00 15 /min Meghna ey Seybold - External Body height 2022-12-20 16:35:00 162.6 cm Yodit Chandra eybold - External Systolic blood 2022-12-13 15:52:00 174 mm[Hg] Yodit Seybold - pressure External Diastolic blood 2022-12-13 15:52:00 94 mm[Hg] Valerie y Seybold - pressure External Heart rate 2022-12-13 15:52:00 92 /min Yodit Chandra eybold - External Body temperature 2022-12-13 15:52:00 36.78 Sherrie Meghna ey Seybold - External Respiratory rate 2022-12-13 15:52:00 16 /min Meghna ey Seybold - External Body height 2022-12-13 15:52:00 162.6 cm Yodit Chandra eybold - External Body weight 2022-12-13 15:52:00 151.955 kg Yodit Chandra eybold - External BMI 2022-12-13 15:52:00 57.50 kg/m2 Yodit Chandra eybold - External Systolic blood 2022-11-30 20:43:00 172 mm[Hg] Yodit Seybold - pressure External Diastolic blood 2022-11-30 20:43:00 82 mm[Hg] Kojose y Seybold - pressure External Heart rate 2022-11-30 20:43:00 93 /min Yodit Chandra eybold - External Body temperature 2022-11-30 20:43:00 36.67 Sherrie Meghna Dc - External Respiratory rate 2022-11-30 20:43:00 16 /min Meghna Dc - External Body height 2022-11-30 20:43:00 162.6 cm Yodit Chandra eybold - External Body weight 2022-11-30 20:43:00 154.223 kg Yodit Chandra eybold - External BMI 2022-11-30 20:43:00 58.36 kg/m2 Yodit Chandra eybold - External Systolic blood 2021-04-21 19:29:00 122 mm[Hg] Univer sity of pressure [place] [facility] Diastolic blood 2021-04-21 19:29:00 62 mm[Hg] Unive rsity of pressure [place] [facility] Heart rate 2021-04-21 19:24:00 68 /min [facility] ty [facility] [place] [facility] [place] Body temperature 2021-04-21 19:24:00 36 Hserrie Univ ersity of [place] [facility] Respiratory rate 2021-04-21 19:24:00 20 /min Univ ersity of [place] [facility] Body height 2021-04-21 19:24:00 162.6 cm Universi ty of [place] [facility] Body weight 2021-04-21 19:24:00 148.145 kg [facility]i ty [facility] [place] [facility] BMI 2021-04-21 19:24:00 56.06 kg/m2 Universi ty of [place] [facility] Oxygen saturation in 2021-04-21 19:24:00 98 /min University of Arterial blood by [facility] [place] Pulse oximetry Branch Systolic blood 2021-04-13 20:16:00 123 mm[Hg] Univer sity of pressure [place] [facility] Diastolic blood 2021-04-13 20:16:00 54 mm[Hg] Unive rsity of pressure [place] [facility] Heart rate 2021-04-13 20:16:00 52 /min Universi ty of [place] [facility] Body temperature 2021-04-13 20:16:00 36.22 Sherrie Univ ersity of [place] [facility] Respiratory rate 2021-04-13 20:16:00 18 /min Univ ersity of [facility] Branch Oxygen saturation in 2021-04-13 20:16:00 96 /min University of Arterial blood by [facility] Pulse oximetry Branch Body height 2021-04-13 00:49:00 162.6 cm Universi ty of [place] [facility] Body weight 2021-04-13 00:49:00 139.708 kg Universi ty of [place] [facility] BMI 2021-04-13 00:49:00 52.87 kg/m2 [facility] [place] [facility] Systolic blood 2021-04-12 20:02:00 159 mm[Hg] Univer sity of pressure [place] [facility] Diastolic blood 2021-04-12 20:02:00 102 mm[Hg] Unive rsity of pressure [place] [facility] Heart rate 2021-04-12 20:02:00 91 /min [facility] [place] [facility] Body temperature 2021-04-12 20:01:00 36.67 Sherrie Univ ersity of [place] [facility] Respiratory rate 2021-04-12 20:01:00 20 /min Univ ersity of [place] [facility] Body height 2021-04-12 20:01:00 162.6 cm [facility] [place] [facility] Body weight 2021-04-12 20:01:00 147.419 kg [facility] [place] [facility] BMI 2021-04-12 20:01:00 55.79 kg/m2 [facility] [place] [facility] Oxygen saturation in 2021-04-12 20:01:00 98 /min University of Arterial blood by [facility] Pulse oximetry Branch Systolic blood 2020-12-02 14:07:00 141 mm[Hg] Univer sity of [facility] Diastolic blood 2020-12-02 14:07:00 84 mm[Hg] Unive rsity of [facility] Heart rate 2020-12-02 14:03:00 84 /min [facility] Body temperature 2020-12-02 14:03:00 36.56 Sherrie [facility] Respiratory rate 2020-12-02 14:03:00 13 /min [facility] Body height 2020-12-02 14:03:00 162.6 cm [facility] Body weight 2020-12-02 14:03:00 141.069 kg [facility] BMI 2020-12-02 14:03:00 53.38 kg/m2 [facility] Oxygen saturation in 2020-12-02 14:03:00 96 /min University of Ar[facility] blood by [place] [facility] Pulse oximetry Branch Systolic blood 2020-11-10 15:53:00 176 mm[Hg] Univer sity of pressure [facility] Diastolic blood 2020-11-10 15:53:00 102 mm[Hg] Unive rsity of pressure [facility] Heart rate 2020-11-10 15:53:00 82 /min [facility] Body temperature 2020-11-10 15:45:00 36.5 Sherrie [facility] Respiratory rate 2020-11-10 15:45:00 18 /min Univ [facility] Body height 2020-11-10 15:45:00 162.6 cm [facility] Body weight 2020-11-10 15:45:00 145.151 kg [facility] BMI 2020-11-10 15:45:00 54.93 kg/m2 [facility] Oxygen saturation in 2020-11-10 15:45:00 99 /min University of Arterial blood by [facility] trever Pulse oximetry Branch Systolic blood 2020-07-22 16:22:00 159 mm[Hg] Univer sity of pressure [facility] Diastolic blood 2020-07-22 16:22:00 93 mm[Hg] Unive rsity of pressure [facility] Heart rate 2020-07-22 16:21:00 87 /min [facility] Body temperature 2020-07-22 16:21:00 36.67 Sherrie [facility] Respiratory rate 2020-07-22 16:21:00 18 /min Univ [facility] Body height 2020-07-22 16:21:00 160 cm [facility] Body weight 2020-07-22 16:21:00 147.419 kg [facility] BMI 2020-07-22 16:21:00 57.57 kg/m2 [facility] Oxygen saturation in 2020-07-22 16:21:00 96 /min [facility] by [place] [facility] Pulse oximetry Branch Systolic blood 2020-06-25 16:05:00 116 mm[Hg] Univer sity of [facility] Diastolic blood 2020-06-25 16:05:00 50 mm[Hg] Unive rsity of [facility] Heart rate 2020-06-25 16:05:00 51 /min [facility] Body temperature 2020-06-25 16:05:00 36.17 Sherrie [facility] Respiratory rate 2020-06-25 16:05:00 18 /min Univ [facility] Oxygen saturation in 2020-06-25 16:05:00 96 /min University of Arterial blood by [facility] Pulse oximetry Branch Body weight 2020-06-25 09:37:00 143.422 kg [facility] BMI 2020-06-25 09:37:00 54.27 kg/m2 [facility] Body height 2020-06-23 21:32:00 162.6 cm [facility] Systolic blood 2020-06-23 15:33:00 178 mm[Hg] Univer sity of [facility] Diastolic blood 2020-06-23 15:33:00 90 mm[Hg] Unive rsity of [facility] Heart rate 2020-06-23 15:33:00 94 /min [facility] Body temperature 2020-06-23 15:33:00 36.89 Sherrie [facility] Body height 2020-06-23 15:33:00 162.6 cm [facility] Body weight 2020-06-23 15:33:00 146.058 kg [facility] BMI 2020-06-23 15:33:00 55.27 kg/m2 [facility] Oxygen saturation in 2020-06-23 15:33:00 98 /min University of Arterial blood by [facility] Pulse oximetry Branch Systolic blood 2020-05-10 21:16:00 157 mm[Hg] Univer sity of [facility] Diastolic blood 2020-05-10 21:16:00 91 mm[Hg] Unive rsity of [facility] Heart rate 2020-05-10 20:31:00 102 /min [facility] Body temperature 2020-05-10 20:31:00 36.61 Sherrie [facility] Respiratory rate 2020-05-10 20:31:00 18 /min Univ [facility] Body weight 2020-05-10 20:31:00 146.466 kg [facility] BMI 2020-05-10 20:31:00 55.43 kg/m2 [facility] Oxygen saturation in 2020-05-10 20:31:00 95 /min University of Arterial blood by [facility] Pulse oximetry Branch Systolic blood 2020-04-30 17:03:00 164 mm[Hg] Univer sity of [facility] Diastolic blood 2020-04-30 17:03:00 76 mm[Hg] Unive rsity of [facility] Heart rate 2020-04-30 16:59:00 67 /min [facility] Body temperature 2020-04-30 16:59:00 36.44 Sherrie [facility] Respiratory rate 2020-04-30 16:59:00 20 /min Univ [facility] Body height 2020-04-30 16:59:00 162.6 cm [facility] Body weight 2020-04-30 16:59:00 145.151 kg [facility] [place] [facility] BMI 2020-04-30 16:59:00 54.93 kg/m2 [facility] Oxygen saturation in 2020-04-30 16:59:00 97 /min University of Arterial blood by [facility] Pulse oximetry Branch Systolic blood 2020-03-22 19:50:00 142 mm[Hg] Univer sity of [facility] Diastolic blood 2020-03-22 19:50:00 62 mm[Hg] Unive rsity of [facility] Heart rate 2020-03-22 19:50:00 72 /min [facility] Body temperature 2020-03-22 19:50:00 36.61 Sherrie [facility] Respiratory rate 2020-03-22 19:50:00 20 /min Univ [facility] Body height 2020-03-22 19:50:00 162.6 cm [facility] Body weight 2020-03-22 19:50:00 149.732 kg [facility] BMI 2020-03-22 19:50:00 56.66 kg/m2 [facility] Oxygen saturation in 2020-03-22 19:50:00 100 /min University of Arterial blood by [facility] Pulse oximetry Branch Systolic blood 2019-11-26 22:00:00 177 mm[Hg] Univer sity of [facility] Diastolic blood 2019-11-26 22:00:00 91 mm[Hg] Unive rsity of [facility] Heart rate 2019-11-26 21:59:00 83 /min Universi ty of [facility] Body temperature 2019-11-26 21:59:00 37 Sherrie Univ [facility] Respiratory rate 2019-11-26 21:59:00 18 /min Univ [facility] Body height 2019-11-26 21:59:00 162.6 cm [facility]i [facility] [place] [facility] [place] Body weight 2019-11-26 21:59:00 151.32 kg [facility] BMI 2019-11-26 21:59:00 57.26 kg/m2 Universi ty of [facility] Oxygen saturation in 2019-11-26 21:59:00 97 /min University of Arterial blood by [facility] Pulse oximetry Branch Systolic blood 2019-11-05 19:32:00 146 mm[Hg] Univer sity of pressure [facility] Diastolic blood 2019-11-05 19:32:00 82 mm[Hg] Unive rsity of pressure [facility] Heart rate 2019-11-05 19:32:00 79 /min [facility] Body temperature 2019-11-05 19:32:00 36.5 Sherrie Univ ersity of [facility] Respiratory rate 2019-11-05 19:32:00 18 /min Univ ersity of [facility] Body height 2019-11-05 19:32:00 162.6 cm [facility] Body weight 2019-11-05 19:32:00 150.413 kg [facility] BMI 2019-11-05 19:32:00 56.92 kg/m2 [facility] Procedures Procedure Date / Time Performing Clinician Source Performed INSURANCE CORRESPONDENCE 2021-06-14 05:01:00 Doctor Unassigned, [facility] TRANSTHORACIC ECHO (TTE) 2021-04-13 14:55:24 Vitor Birmingham [facility] versity [facility] COMPLETE W/ CONTRAST Medical [facility] TROPONIN I 2021-04-13 09:40:00 Herlinda Mcdermott [facility] TROPONIN I 2021-04-13 03:47:00 Vitor Birmingham [facility] LIPID PANEL ([id number])(TOTAL 2021-04-13 03:47:00 Herlidna Mcdermott [facility] CHOLESTEROL, Medical Branch TRIGLYCERIDES, HDL) CT CHEST PULMONARY 2021-04-12 22:35:01 Edel Flores [facility] ANGIOGRAM Medical Branch HB ECG ROUTINE & RHYTHM 2021-04-12 22:14:10 Edel Flores [facility] STRIP [facility] XR CHEST 1 VW 2021-04-12 21:57:05 Edel Flores [facility] LIPASE 2021-04-12 21:49:00 Edel Flores [facility] TROPONIN I 2021-04-12 21:49:00 Edel Flores [facility] THYROID STIMULATING 2021-04-12 21:49:00 Herlinda Mcdermott [facility] HORMONE Medical Branch COMP. METABOLIC PANEL 2021-04-12 21:49:00 Edel Flores [facility] ([id number]) Medical Branch CBC WITH DIFF 2021-04-12 21:49:00 Edel Flores [facility] GLYCOSYLATED HEMOGLOBIN 2021-04-12 21:49:00 Baldemar [facility] (A1C) [facility] PROTHROMBIN TIME / INR 2021-04-12 21:49:00 Edel Flores [facility] ACTIVATED PARTIAL 2021-04-12 21:49:00 Edel Flores [facility] THRMPLAS MIRIAM [facility] N-TERMINAL PRO-BNP 2021-04-12 21:49:00 Edel Flores [facility] COVID-19 (ID NOW RAPID 2021-04-12 21:49:00 Edel Flores [facility] TESTING) Medical Branch LAB ONLY COVID 2021-04-12 21:49:00 Edel Flores [facility] INTERPRETATION [facility] CONSENT/REFUSAL FOR 2021-04-12 21:16:36 Doctor Unassmicaela, [facility] DIAGNOSIS AND TREATMENT [facility] NOTICE OF PRIVACY 2021-04-12 21:16:23 Doctor Unassigned, [facility] PRACTICES [facility] POCT URINALYSIS 2020-11-10 15:42:00 Lorie Land [facility] CBC WITH DIFF 2020-07-22 18:11:00 Brien Begum [facility] INSURANCE CORRESPONDENCE 2020-07-14 05:01:00 Doctor Unassigned, [facility] TROPONIN I 2020-06-25 07:11:00 [facility]OLIC [facility]EL 2020-06-25 07:11:00 Tiesha Richter [facility] (NA, K, CL, CO2, GLUCOSE, Medica l Branch BUN, CREATININE, CA) CBC WITH DIFF 2020-06-25 07:11:00 Rober [facility] FECES CULTURE 2020-06-24 21:45:00 Ekaterina Carey [facility] FECAL LEUKOCYTES 2020-06-24 21:45:00 Aurelio Ekaterinamore Torres [facility] CLOSTRIDIUM DIFFICILE 2020-06-24 21:45:00 Ekaterina Carey [facility] ECHO ROUTINE W/DOPPLER 2020-06-24 20:38:39 [facility] 2020-06-24 15:32:17 Muna Oconnor [facility] PHOSPHORUS 2020-06-24 09:06:00 Rusty castillo [facility] MAGNESIUM 2020-06-24 09:06:00 Rusty [facility] TROPONIN I 2020-06-24 09:06:00 Rusty [facility] BASIC METABOLIC PANEL 2020-06-24 09:06:00 Tiesha Richter [facility] (NA, K, CL, CO2, GLUCOSE, Medica l Branch BUN, CREATININE, CA) CBC WITH DIFF 2020-06-24 09:06:00 Tiesha Richter [facility] PROTHROMBIN TIME / INR 2020-06-24 09:06:00 Candis Ojeda [facility] N-TERMINAL PRO-BNP 2020-06-24 09:06:00 Candis Ojeda [facility] PROCALCITONIN 2020-06-24 05:48:00 Rusty [facility] TROPONIN I 2020-06-24 04:27:00 [facility] TROP[facility] I 2020-06-23 23:09:00 Lexie Richterecca [facility] LIPID PANEL ([id number])(TOTAL 2020-06-23 23:09:00 Muna Oconnor [facility] CHOLESTEROL, [facility] TRIGLYCERIDES, HDL) LACTIC ACID WHOLE BLOOD 2020-06-23 19:53:00 Shayla Andres [facility] CT ABDOMEN PELVIS W 2020-06-23 19:18:53 [facility] CONTRAST [facility] CT CHEST PULMONARY 2020-06-23 19:18:53 [facility] ANGIOGRAM [facility] THROAT CULTURE 2020-06-23 18:29:00 Dmitry [facility] RAPID STREP SCREEN FOR 2020-06-23 18:29:00 Shayla Andres [facility] GROUP A Medical [place] URINALYSIS 2020-06-23 18:11:00 Dmitry [facility] URINE CULTURE 2020-06-23 17:58:00 Dmitry [facility] XR CHEST 1 VW COVID 2020-06-23 17:50:57 Shayla Andres [facility] UNILATERAL VENOUS DUPLEX 2020-06-23 17:32:41 Shayla Andres [facility] LOWER EXTREMITY BY Medical [facility] VASCULAR LAB EKG-12 LEAD 2020-06-23 16:52:25 Dmitry [facility] BLOOD CULTURE SCREEN 2020-06-23 16:44:00 Shayla Andres [facility] FERRITIN SERUM 2020-06-23 16:44:00 Tiesha Richter [facility] TROPONIN I 2020-06-23 16:44:00 Dmitry [facility] COMP. METABOLIC PANEL 2020-06-23 16:44:00 Shayla Andres [facility] ([id number]) Medical Branch CBC WITH DIFF 2020-06-23 16:44:00 Dmitry [facility] GLYCOSYLATED HEMOGLOBIN 2020-06-23 16:44:00 Muna Oconnor [facility] (A1C) Medical Branch N-TERMINAL PRO-BNP 2020-06-23 16:44:00 Shayla Andres [facility] LACTIC ACID WHOLE BLOOD 2020-06-23 16:44:00 [facility] COVID-19 (ID NOW RAPID 2020-06-23 16:44:00 [facility] TESTING) Medical Branch EKG-12 LEAD 2020-06-23 16:24:01 [facility] NOTICE OF PRIVACY 2020-06-23 16:08:32 Doctor Killian, [facility] PRACTICES [facility] CONSENT/REFUSAL FOR 2020-06-23 16:08:20 Doctor Killian, [facility] DIAGNOSIS AND TREATMENT [facility] COVID-19 (PCR MOLECULAR 2020-06-23 15:28:00 Regina Pires [facility] TESTING) Medical Branch XR CHEST 2 2020-05-09 17:32:10 Brenda Rogers [facility] Medical [place] ASSIGNMENT OF BENEFITS 2020-05-09 16:47:30 Doctor Unassigned, [facility] XR CHEST 2 2020-04-30 17:40:27 Jasvir Omer [facility] ASSIGNMENT OF BENEFITS 2020-03-22 19:09:34 Doctor Unassigned, [facility] AGREEMENTS AUTHORIZATIONS 2019-11-30 06:01:00 Doctor Killian, [facility] AND IRREVOCABLE [facility] ASSIGNMENTS (FORM 2001) POCT FLU A AND B 2019-11-05 00:00:00 Brenda Rogers [facility] (MOLECULAR) Medical Branch Encounters Start End Encounter Admission Attending Care Care Encounter Source Date/Time Date/Time Type Type Clinicians Facility Department ID 2021-07-31 Emergency [facility] [id number] [facility]-07-28 Emergency [facility] [id number] Univers 19:13:43 [facility] 2023-04-17 2023-04-17 Outpatient PREOMARI YODIT MONSIVAIS [id number] Yodit 08:30:00 08:30:00 DYLAN Seybol d 2023-03-29 2023-03-29 Outpatient DRISCOLL, YODIT MONSIVAIS [id number] [place] 00:00:00 00:00:00 JONELLE Seybol d 2023-02-28 2023-02-28 Outpatient DRISCOLLYODIT MELENDEZ [id number] [place] 00:00:00 00:00:00 JONELLE Seybol d 2023-02-27 2023-02-27 Outpatient PREZAS YODIT MONSIVAIS [id number] [place] 00:00:00 00:00:00 DYLAN Seybol d 2023-02-22 2023-02-22 Outpatient DRISCOLL, YODIT MONSIVAIS [id number] [place]it 00:00:00 00:00:00 JONELLE Seybol d 2023-02-01 2023-02-01 Outpatient YODIT MONSIVAIS [id number] Y[place]it 11:25:00 11:25:00 Seybol d 2023-02-01 2023-02-01 Outpatient DRISCOLLYODIT [id number] [place] 10:40:00 10:40:00 JONELLE Seybol d 2023-02-01 2023-02-01 Outpatient PREZAS YODIT MONSIVAIS [id number] [place] 00:00:00 00:00:00 DYLAN Seybol d 2023-02-01 2023-02-01 Outpatient YODIT MONSIVAIS [id number] [place] 00:00:00 00:00:00 Seybol d 2023-01-24 2023-01-24 Outpatient PREZASYODIT [id number] [place] 00:00:00 00:00:00 DYLAN Seybol d 2023-01-24 2023-01-24 Outpatient PREZASYODIT [id number] [place] 00:00:00 00:00:00 DYLAN Seybol d 2023-01-21 2023-01-21 Outpatient PREZASYODIT [id number] Yoidt 00:00:00 00:00:00 DYLAN Seybol d 2023-01-18 2023-01-18 Outpatient PREZAS, YODIT MONSIVAIS [id number] Yodit 00:00:00 00:00:00 DYLAN Seybol d 2023-01-16 2023-01-16 Outpatient PREZAS, YODIT MONSIVAIS [id number] Y[place]it 14:00:00 14:00:00 DYLAN Seybol d 2023-01-16 2023-01-16 Outpatient PREZAS, YODIT MONSIVAIS [id number] [place]it 00:00:00 00:00:00 DYLAN Seybol d 2023-01-15 2023-01-15 Outpatient PREZAS, YODIT MONSIVAIS [id number] [place]it 00:00:00 00:00:00 DYLAN Seybol d 2023-01-07 2023-01-07 Outpatient DRISCOLL, YODIT MONSIVAIS [id number] [place] 13:10:00 13:10:00 JONELLE Seybol d 2022-12-31 2022-12-31 Outpatient PREZAS, YODIT MONSIVAIS [id number] [place] 00:00:00 00:00:00 DYLAN Seybol d 2022-12-31 2022-12-31 Outpatient PREZAS, YODIT MONSIVAIS [id number] [place] 00:00:00 00:00:00 DYLAN Seybol d 2022-12-28 2022-12-28 Outpatient HUNDL, YODIT MONSIVAIS [id number] [place] 08:30:00 08:30:00 SVETLANA Seybol d 2022-12-27 2022-12-27 Outpatient PREZAS, YODIT MONSIVAIS [id number] [place] 00:00:00 00:00:00 DYLAN Seybol d 2022-12-27 2022-12-27 Outpatient PREZAS, YODIT MONSIVAIS [id number] [place] 00:00:00 00:00:00 DYLAN Seybol d 2022-12-23 2022-12-23 Outpatient HUNDL, YODIT MONSIVAIS [id number] Y[place]it 00:00:00 00:00:00 SVETLANA Seybol d 2022-12-20 2022-12-20 Outpatient PREZASYODIT [id number] [place] 11:30:00 11:30:00 DYLAN Seybol d 2022-12-14 2022-12-14 Outpatient PREZAS, YODIT MONSIVAIS [id number] [place] 00:00:00 00:00:00 DYLAN Seybol d 2022-12-14 2022-12-14 Outpatient PREZAPrateek, YODIT MONSIVAIS [id number] [place]it 00:00:00 00:00:00 DYLAN Seybol d 2022-12-13 2022-12-13 Outpatient LAB90 YODIT MONSIVAIS [id number] [place] 12:15:00 12:15:00 Seybol d 2022-12-13 2022-12-13 Outpatient PREZAS, YODIT MONSIVAIS [id number] Y[place]it 11:45:00 11:45:00 DYLAN Seybol d 2022-12-13 2022-12-13 Outpatient PREZAS, YODIT MONSIVAIS [id number] [place] 00:00:00 00:00:00 DYLAN Seybol d 2022-12-12 2022-12-12 Outpatient HUNDL, YODIT MONSIVAIS [id number] [place] 00:00:00 00:00:00 SVETLANA Seybol d 2022-12-06 2022-12-06 Outpatient YODIT MERINO [id number] [place] 15:15:00 15:15:00 DELVIS Seybol d 2022-12-05 2022-12-05 Outpatient YODIT ORANTES [id number] [place] 00:00:00 00:00:00 SVETLANA Seybol d 2022-12-03 2022-12-03 Outpatient ANTWONL, YODIT MONSIVAIS [id number] [place] 15:00:00 15:00:00 SVETLANA Seybol d 2022-11-30 2022-11-30 Outpatient LAMBERTO, YODIT MONSIVAIS [id number] [place] 15:00:00 15:00:00 SVETLANA Seybol d 2022-11-30 2022-11-30 Outpatient YODIT MONSIVAIS [id number] [place] 00:00:00 00:00:00 Seybol d 2022-07-30 2022-07-30 Outpatient R RADIOLOGY [facility] [id number] Univers 00:00:00 00:00:00 ity of [facility] 2021-08-07 2021-08-07 [facility] [id number] Univers 00:00:00 00:00:00 Brenda FIELDS [id number] it y of [place] [id number] Jake as PROFESSIO [phone] [address] OFFICE BUILDING ONE 2021-06-14 2021-06-14 Orders Doctor LORIE [id number] Univers 00:00:00 00:00:00 Only Unassigned, DIONNE [id number] ity of [place] [facility] [id number] Jake as [phone] [address] 2021-06-12 2021-06-[address] [facility] [id number] Univers 00:00:00 00:00:00 Brenda Peña [id number] i [id number] [phone] [address] 2021-05-28 2021-05-28 [facility] 1.2.840.114 [id number] Univers 00:00:00 00:00:00 Brenda Peña [id number] i [id number] [phone] [address] 2021-05-11 2021-05-11 [facility] [id number] Univers 00:00:00 00:00:00 Brenda Peña [id number] i [id number] [phone] [address] 2021-04-21 2021-04-[address] [facility] [id number] Univers 14:22:08 15:04:17 Visit Regina Fields [id number] i ty of [place] [id number] Jake as Professio [phone] Nm dical nal [address] [place] Office Building One 2021-04-21 2021-04-21 Outpatient R PRANAY [facility] [id number] Univers 14:30:00 14:30:00 REGINA dowell [facility] 2021-04-12 2021-04-13 Emergency Mark Edel [facility] 1.2.840. 114 [id number] Univers 16:33:00 16:48:00 Vitor [place] [id number] [id number] [phone] [facility] [address] [place] 2021-04-12 2021-04-12 Outpatient R PRANAY [facility] [id number] Univers 16:00:00 16:00:00 REGINA ity [facility] 2021-04-12 2021-04-12 Urgent Provider, [facility] 1.2.840.114 [id number] Univers 14:51:47 15:53:11 Care Regina Pires [facility] [id number] ity of [place] [id number] Jake as Professio [phone] [address] Office [facility] One 2021-04-12 2021-04-12 Outpatient R PRANAY [facility] [id number] Univers 15:00:00 15:00:00 REGINA suttonparvin [facility] 2021-04-12 2021-04-12 Orders Doctor LORIE [id number] Univers 00:00:00 00:00:00 Only Unassigned, DIONNE [id number] ity of [place] [facility] [id number] Jake as [phone] [facility] 009 Branch 2020-12-06 2020-12-06 Patient Williams [facility] 1.2.840.114 [id number] Univers 00:00:00 00:00:00 Outreach Colten MENDEZ [id number] i ty of [place] [facility] [id number] [place] [phone] [address] 2020-12-02 2020-12-02 Urgent Provider, [facility] 1.2.840.114 [id number] Univers 07:47:52 08:07:52 Care Brien [facility] [id number] ity of [place] [id number] Jake as Professio [phone] Nm dical nal [address] [place] Office [facility] One 2020-12-02 2020-12-02 Outpatient R KEL [facility] [id number] Univers 08:00:00 08:00:00 BRIEN ity [facility] 2020-11-10 2020-11-10 Urgent Provider, [facility] 1.2.840.114 [id number] Univers 09:31:37 09:51:37 Care Emery [facility] [id number] ity of [place] [id number] Jake as Professio [phone] [address] One 2020-11-10 2020-11-10 [facility] [id number] Univers 09:40:00 09:40:00 LORIE ity [facility] 2020-11-10 2020-11-10 Letter Lab, Pcp [facility] 1.2.840.114 [id number] Univers 00:00:00 00:00:00 (Out) [facility] [id number] it y of [place] [id number] Jake as Professio [phone] [address] One 2020-11-05 2020-11-05 Outpatient R [facility] [id number] Univers 11:20:00 11:20:00 ity [facility] 2020-10-14 2020-10-14 Laboratory Lab, Adc Fam Pob I [facility] 1.2. 840.114 [id number] Univers 15:22:37 15:42:37 Only SusanBrien [facility] [id number] ity of [place] [id number] Jake as Professio [phone] [address] 2020-10-14 2020-10-14 [facility] [id number] Univers 15:40:00 15:40:00 BRIEN dowell [facility] 2020-10-14 2020-10-14 Patient Kel [facility] 1.2.840.114 [id number] Univers 00:00:00 00:00:00 Secure Msg [facility] [id number] ity of [place] [id number] Jake as Professio [phone] [address] 2020-10-11 2020-10-11 [facility] [facility] 1.2.840.114 [id number] Univers 16:45:52 17:15:52 ne Visit Brien Fields 350.1.13.10 i ty of [place] 4.2.7.2.686 Jake as Professio [phone] [address] 2020-10-11 2020-10-11 [facility] [id number] Univers 16:00:00 16:00:00 BRIEN dowell [facility] 2020-08-29 2020-08-29 Telephone [facility] 1.2.840.114 [id number] Univers 00:00:00 00:00:00 [facility] 350.1.13.10 it y of [place] 4.2.7.2.686 [place] as Professio [phone] [address] 2020-08-13 2020-08-13 Telephone LORIE Rogers 1.2.840.114 [id number] Univers 00:00:00 00:00:00 Brenda DIONNE 350.1.13.10 it y of [facility] 4.2.7.2.686 [place] as [phone] [address] 2020-07-22 2020-07-22 Director Targeted Marketing Robert, Adc Lab Main [facility] 1.2.8 40.114 [id number] Univers 13:06:45 13:21:45 Visit Regina Pires 350.1.13.10 it[place] of [place] [phone] [facility] 353 [facility] 2020-07-22 2020-07-22 Urgent Provider, [facility] 1.2.840.114 [id number] Univers 10:49:27 12:10:43 Care Regina Pires [facility] 350.1.13.10 ity of [place] 4.2.7.2.686 [place] Professio [phone] [facility] [address] [place] 2020-07-22 2020-07-22 [facility]patient [facility] [id number] Univers 11:00:00 11:00:00 [facility] 2020-07-18 2020-07-[address] [facility] 1.2.840.114 [id number] Univers 00:00:00 00:00:00 Brenda Peña 350.1.13.10 i ty [place] [phone] [address] 2020-07-14 2020-07-14 Orders Doctor LORIE 1.2.840.114 [id number] Univers 00:00:00 00:00:00 Only Unassigned, DIONNE 350.1.13.10 ity of [place] [facility] 4.2.7.2.686 Jake as [phone] [address] 2020-07-08 2020-07-08 Out[facility] [id number] Univers 09:00:00 09:00:00 SENDIL ity [facility] 2020-07-08 2020-07-[address] [facility] 1.2.840.114 [id number] Univers 00:00:00 00:00:00 Secure Msg Brenda Peña 350.1.13.10 ity of [place] [phone] [address] 2020-07-06 2020-07-[address] [facility] 1.2.840.114 [id number] Univers 00:00:00 00:00:00 Brenda Peña 350.1.13.10 i [place] [phone] [facility] 044 [facility] 2020-06-29 2020-06-29 Telephone Anastasia [facility] 1.2.773.060 [id number] Univers 00:00:00 00:00:00 Muna Werner Mariana 350.1.13.10 ity of [place] [phone] [facility] nal 059 [facility] 2020-06-26 2020-06-26 Refill Alexa [facility] 1.2.840.114 [id number] Univers 00:00:00 00:00:00 Brenda Peña 350.1.13.10 i ty of [place] [phone] [facility] 044 [facility] 2020-06-23 2020-06-25 Emergency Shayla Andres [facility] 1.2.840. 114 [id number] Univers 11:15:00 15:30:00 Tiesha Richter 350.1.13.10 ity of [place] 4.2.7.2.686 [place] [phone] [facility] [address] [place] [address] 2020-06-23 2020-06-23 Urgent Provider, [facility] Urgent Care [facility] 1.2.840.114 [id number] Univers 09:36:58 11:58:29 Care Brien Begum [facility] 350.1.13.10 ity of [place] 4.2.7.2.686 [place] as Professio [phone] [facility] [address] [place] [address] 2020-06-23 2020-06-23 Outpatient R [facility] [id number] Univers 09:40:00 09:40:00 ity of [facility] 2020-06-23 2020-06-23 Orders Doctor MELO 1.2.840.114 [id number] Univers 00:00:00 00:00:00 Only Unassigned, DIONNE 350.1.13.10 ity of [place] [facility] 4.2.7.2.686 Jake as [phone] [address] 2020-06-20 2020-06-20 [facility]ill [facility] 1.2.840.114 [id number] Univers 00:00:00 00:00:00 Brenda Peña 350.1.13.10 i ty of [place].2.[place] [phone] [address] 2020-06-03 2020-06-[address] [facility] 1.2.840.114 [id number] Univers 00:00:00 00:00:00 Brenda Peña 350.1.13.10 i ty [place].2.[place] [phone] [address] 2020-06-02 2020-06-02 [facility] 1.2.840.114 [id number] Univers 00:00:00 00:00:00 [facility] 350.1.13.10 it y of [place] 4.2.7.2.686 [place] Professio [phone] [address] Office [facility] One 2020-05-22 2020-05-22 Refill [facility] 1.2.840.114 [id number] Univers 00:00:00 00:00:00 Brenda Peña 350.1.13.10 i ty [place].2.[place] [phone] [address] 2020-05-17 2020-05-17 [facility] 1.2.840.114 [id number] Univers 00:00:00 00:00:00 Brenda Peña 350.1.13.10 i ty of [place].2.[place] [phone] [address] 2020-05-10 2020-05-[address] [facility] 1.2.840.114 [id number] Univers 15:18:44 16:16:20 Visit Brenda Peña 350.1.13.10 i ty of [place] 4.2.7.2.[place] [phone] Nm dical nal 044 [facility] 2020-05-10 2020-05-10 Outpatient R [facility] [id number] Univers 15:20:00 15:20:00 BRENDA dowell of [facility] 2020-05-09 2020-05-[address] [facility] 1.2.840.114 [id number] Univers 11:48:18 23:59:00 Encounter Brenda Peña 350.1.13.10 ity of [place] 4.2.7.2.[place] [phone] [facility] [address] [place] 2020-05-09 2020-05-[address] [facility] 1.2.840.114 [id number] Univers 10:22:20 10:42:20 Visit Brenda Peña 350.1.13.10 i ty of [place] 4.2.7.2.[place] [phone] Nm dical nal [address] [place] [address] 2020-05-09 2020-05-09 Outpatient R [facility] [id number] Univers 10:40:00 10:40:00 BRENDA dowell [facility] 2020-05-09 2020-05-09 Orders Doctor LORIE 1.2.840.114 [id number] Univers 00:00:00 00:00:00 Only Unassigned, DIONNE 350.1.13.10 ity of [place] [facility] 4.2.7.2.686 Jake as [phone] [facility] [address] [place] 2020-05-09 2020-05-[address] [facility] 1.2.840.114 [id number] Univers 00:00:00 00:00:00 Secure Msg Brenda Peña 350.1.13.10 ity of [place].2.[place] [phone] Nm dic[address] 2020-05-07 2020-05-07 Outpatient R [facility] [id number] Univers 12:00:00 12:00:00 ity of [facility] 2020-05-07 2020-05-[address] [facility] 1.2.840.114 [id number] Univers 00:00:00 00:00:00 Brenda Peña 350.1.13.10 i ty of [place].2.[place] [phone] Nm dic[address] 2020-05-06 2020-05-06 Outpatient [facility] [id number] Univers 20:00:00 20:00:00 AMANDA lopez [facility] 2020-05-03 2020-05-[address] [facility] 1.2.840.114 [id number] Univers 00:00:00 00:00:00 Brenda Peña 350.1.13.10 i ty of [place].2.[place] [phone] [address] 2020-05-03 2020-05-[address] [facility] 1.2.840.114 [id number] Univers 00:00:00 00:00:00 Secure Msg Brenad Peña 350.1.13.10 ity of [place].2.[place] [phone] [address] 2020-05-02 2020-05-[address] [facility] 1.2.840.114 [id number] Univers 12:15:43 12:30:43 ne Visit Brenda Peña 350.1.13.10 ity of [place] 4[place]2.7.2.[place] [phone] [address] 2020-05-02 2020-05-02 Outpatient R [facility] [id number] Univers 11:00:00 11:00:00 BRENDA ity of [facility] 2020-04-30 2020-04-30 [facility] 1.2.408.962 [id number] Univers 12:25:08 23:59:00 Encounter Jasvir Peña 350.1.13.10 ity of [place] 4[place]2.7.2.[place] [phone] [facility] [address] [place] 2020-04-30 2020-04-30 Urgent Pob1, Acute Care Clinic [facility] 1. 2.840.114 [id number] Univers 09:18:09 13:10:27 Brien Mata [facility] 350.1.13.10 ity of [place] 4.2.7.2.686 [place] as Professio [phone] [address] 2020-04-30 2020-04-30 [facility] [id number] Univers 12:00:00 12:00:00 BRIEN dowell [facility] 2020-04-30 2020-04-30 Telephone Pob1, Acute [facility] 1.2.840.114 [id number] Univers 00:00:00 00:00:00 [facility] 350.1.13.10 ity of [place] 4.2.7.2.686 [place] Professio [phone] [address] 2020-04-25 2020-04-25 Outpatient R [facility] [id number] Univers 14:15:00 14:15:00 BRENDA dowell [facility] 2020-04-25 2020-04-25 Patient [facility] 1.2.840.114 [id number] Univers 00:00:00 00:00:00 Secure Msg Brenda Peña 350.1.13.10 ity [facility] 4.2.7.2.[place] [phone] [address] 2020-04-18 2020-04-18 Outpatient [facility] [id number] Univers 08:00:00 08:00:00 BRENDA dowell [facility] 2020-04-11 2020-04-11 Patient [facility] 1.2.840.114 [id number] Univers 00:00:00 00:00:00 Secure Msg Brenda Peña 350.1.13.10 ity [facility] 4.2.7.2.[place] [phone] [address] 2020-04-08 2020-04-08 Out[facility] [id number] Univers 16:00:00 16:00:00 BRENDA dowell [facility] 2020-04-08 2020-04-08 Telephone [facility] 1.2.840.114 [id number] Univers 00:00:00 00:00:00 Brenda Peña 350.1.13.10 i ty of [place].2.[place] [phone] [facility] 044 [facility] 2020-04-08 2020-04-08 Telephone [facility] 1.2.840.114 [id number] Univers 00:00:00 00:00:00 Brenda Peña 350.1.13.10 i ty of [place] 4[place]2.7.2.[place] [phone] [facility] 044 [facility] 2020-04-03 2020-04-03 Refill [facility] 1.2.840.114 [id number] Univers 00:00:00 00:00:00 Brenda Peña 350.1.13.10 i ty of [place] 4[place]2.7.2.[place] [phone] [facility] 059 [facility] 2020-03-22 2020-03-22 Director Targeted Marketing 2, Adc Lab [facility] 1.2.840.114 [id number] Univers 15:44:06 15:59:06 Visit Brenda Rogers 350.1.13.10 ity of [place] 4[place]2.[place].2.[place] [phone] [facility] 353 [facility] 2020-03-22 2020-03-22 Office [facility] 1.2.840.114 [id number] Univers 14:11:37 14:31:37 Visit Brenda Peña 350.1.13.10 i ty of [place] 4[place]2.7.2.[place] [phone] [facility] 044 [facility] 2020-03-22 2020-03-22 Outpatient R ALEXA [facility] [id number] Univers 14:20:00 14:20:00 BRENDA dowell [facility] 2020-03-22 2020-03-22 Orders Doctor LORIE 1.2.840.114 [id number] Univers 00:00:00 00:00:00 Only Unassigned, DIONNE 350.1.13.10 ity of [place] [facility] 4.2.7.2.686 Jake as [phone] [address] 2020-02-17 2020-02-17 Chidi [facility] 1.2.840.114 [id number] Univers 00:00:00 00:00:00 Hang Peña 350.1.13.10 i ty [place].2.[place] [phone] Nm dicwy nal 059 [facility] 2019-12-14 2019-12-[address] [facility] 1.2.840.114 [id number] Univers 00:00:00 00:00:00 Brenda Peña 350.1.13.10 i ty of [place].2.[place] [phone] [facility] 231 [facility] 2019-12-11 2019-12-[address] [facility] 1.2.840.114 [id number] Univers 00:00:00 00:00:00 Secure Msg Brenda Peña 350.1.13.10 ity of [place] 4[place]2.[place].2.[place] [phone] Nm dical nal 044 [facility] 2019-12-04 2019-12-04 Outpatient R [facility] [id number] Univers 16:00:00 16:00:00 BRENDA suttony of [facility] 2019-12-04 2019-12-[address] [facility] 1.2.840.114 [id number] Univers 00:00:00 00:00:00 Secure Msg Brenda Peña 350.1.13.10 ity of [place] 4[place]2.[place].2.[place] [phone] [facility] 231 [facility] 2019-12-02 2019-12-[address] [facility] 1.2.840.114 [id number] Univers 00:00:00 00:00:00 Brenda Peña 350.1.13.10 i ty of [place] 4[place].2.[place] [phone] Nm dical [facility] 044 [facility] 2019-11-30 2019-11-30 Director Targeted Marketing 2, Adc Lab [facility] 1.2.840.114 [id number] Univers 08:09:23 08:24:23 Visit Brenda Rogers 350.1.13.10 ity of [place].2.[place] [phone] [facility] 353 [facility] 2019-11-30 2019-11-30 Outpatient [facility] [id number] Univers 08:00:00 08:00:00 BRENDA suttonparvin [facility] 2019-11-30 2019-11-30 Orders Doctor LORIE 1.2.840.114 [id number] Univers 00:00:00 00:00:00 Only Unassigned, DIONNE 350.1.13.10 ity of [place] [facility] 4.2.7.2.686 Jake as [phone] [address] 2019-11-26 2019-11-[address] [facility] 1.2.840.114 [id number] Univers 15:41:59 16:34:21 Visit Brenda Peña 350.1.13.10 i ty of [place] 4[place]2.[place].2.[place] [phone] [address] 2019-11-26 2019-11-26 Outpatient R [facility] [id number] Univers 16:00:00 16:00:00 BRENDA dowell [facility] 2019-11-19 2019-11-19 Telephone [facility] 1.2.840.114 [id number] Univers 00:00:00 00:00:00 Brenda Peña 350.1.13.10 i ty of [place] 4[place].2.[place] [phone] [facility] 044 [facility] 2019-11-05 2019-11-05 Office [facility] 1.2.840.114 [id number] Univers 12:51:54 14:47:08 Visit Brenda Peña 350.1.13.10 i ty of [place] 4.2.7.2.[place] [phone] [address] 2019-11-05 2019-11-05 Telephone Alexa [facility]NEVA 1.2.840.114 [id number] Univers 00:00:00 00:00:00 Brenda Peña 350.1.13.10 i ty of [place].2.[place] [phone] [address] 2019-11-05 2019-11-05 Patient Shannan [facility] 1.2.840.114 [id number] Univers 00:00:00 00:00:00 Secure Msg Hang Fields 350.1.13.10 ity of [place] 4.2.7.2.686 [place] as Professio [phone] [address] Office [address] One Results Test Description Test Time Test Comments Results Result [facility] e Comments LAB ONLY COVID 2021-03-30 COVID DMT [facility] 5 InterpretationInte [facility] 16:50:43 rpretation/Recomme Branch ndations:Molecular NAAT Tests for Active Infection with the SARS-CoV-2 Virus:The patient has currently tested negative for the SARS-CoV-2 virus that causes COVID-19 illness. This most likely indicates that the patient does not have an active infection with the SARS-CoV-2 virus. However, infection is not completely ruled out as the false negative rate for molecular NAAT testing using a nasopharyngeal sample can be up to 30%, mostly dependent on the timing of sample collection in relation to illness onset and any deficiencies in sampling techniques. If the patient has symptoms concerning for COVID-19 illness, a repeat NAAT test (PCR, Rapid ID Now, etc.) should be performed, at which time the SARS-CoV-2 virus - if present - may have reached a detectable viral load (usually peaking by the end of the first week of symptoms). Tests for IgM and/or IgG Antibodies to the SARS-CoV-2 Virus:If the patient develops COVID-19 illness in the future, testing for IgM and IgG antibodies approximately 3 weeks after illness onset will likely indicate if the patient has produced antibodies to the SARS-CoV-2 virus. However, some patients may take longer to develop detectable antibodies, while some patients who were infected with SARS-CoV-2 may never develop antibodies. While antibodies to SARS-CoV-2 may provide some degree of immunity, at this time the strength and duration of the antibody response is unknown. Interpretation Result Comments:These interpretation comments are based upon all COVID-19 testing the patient has had at [facility], including molecular NAAT testing (more commonly known as PCR testing and Rapid ID Now testing) and antibody testing. It does not take into account any testing that a patient has had outside of the [facility] medical record. [facility] LABOR[facility] SERVICESCOVID IgamecwRVDT-ZgS-1 NAAT (no units) ? ? Date ? Value ? 11/10/2020 ? Not Detected ? ? ? 10/14/2020 ? Not Detected ? ? ? 07/22/2020 ? Not Detected ? ? ? 06/23/2020 ? Not Detected ? ? ? 04/30/2020 ? Not Detected ? SARS-CoV -2 Rapid ID NOW (no units) ? ? Date ? Value ? 04/12/2021 ? Not Detected ? ? ? 06/23/2020 ? Not Detected ? [facility] Troponin I 2021-04-13 10:45:30 Test Item Value Reference Range Interpretation Comme nts TROPONIN I (test code = 0.001 ng/mL See_Comment [Au tomated message] The [id number]) system which ge nerated this result tra nsmitted reference range : <=0.034. The reference r [place] was not used to int erpret this result as normal/abnormal . AP (test code = AP) Reference (Normal) Range (defined by the 99th percentile reference limit): <= 0.034 ng/mL Note: Cardiac troponin begins to rise 3-4 hours after the onset of ischemia. Repeat in 4-6 hours if the sample was drawn within 3-4 hours of the onset of the symptom and found normal. Diagnosis of myocardial injury is made with acute changes in cTn concentrations with at least one serial sample above the 99th percentile upper reference limit (URL), taken together with the patient's clinical presentation. Biotin has been reported to cause a negative bias, interpret results relative to patient's use of biotin. Lab Interpretation Normal (test code = 42710-4) [facility] (Total Cholesterol, Triglycerides, HDL)2021-04-13 06:57:49 Test Item Value Reference Range Interpretation Comments CHOL (test code = 209 mg/dL 120-200 H [id number]) HDL (test code = 34 mg/dL >50 L 3588404393) HDLC RATIO (test code = See_Comment H [Au tomated message] [id number]) The system [employer] generated this result transmit julita reference range : <=4.5. The refe rence range was not u sed to interpret th is result as normal/abnormal . TRIG (test code = 152 mg/dL 30-170 2353116558) LDL CHOL (test code = 145 mg/dL See_Comment [Auto mated message] 08428-5) The system [employer] generated this result transmit julita reference range : <=160. The refe rence range was not u sed to interpret th is result as normal/abnormal . VLDL (test code = 30 mg/dL 5-60 8116870400) Lab Interpretation (test Abnormal code = 56541-0) [facility] [id number] 04:35:59 Test Item Value Reference Interpretation Comments Range TROPONIN I (test 0.002 ng/mL See_Comment [Automated code = [id number]) message] The system which generated this result transmitted reference range : <=0.034. The reference range was not used to interpret this result as normal/abnormal . AP (test code = Reference (Normal) AP) Range (defined by the 99th percentile reference limit): <= 0.034 ng/mL Note: Cardiac troponin begins to rise 3-4 hours after the onset of ischemia. Repeat in 4-6 hours if the sample was drawn within 3-4 hours of the onset of the symptom and found normal. Diagnosis of myocardial injury is made with acute changes in cTn concentrations with at least one serial sample above the 99th percentile upper reference limit (URL), taken together with the patient's clinical presentation. Biotin has been reported to cause a negative bias, interpret results relative to patient's use of biotin. Lab Interpretation Normal (test code = 38781-5) [facility] Hemoglobin (A1C)2021-04-13 02:47:18 Test Item Value Reference Range Interpretation Comments HGB A1C (test code = 5.8 % 4.0-5.7 H 4548-4) AP (test code = AP) Reference RangesNormal: <5.7%Prediabetes: 5.7 - 6.4%Diabetes: > 6.5% Lab Interpretation (test Abnormal code = 10084-3) [facility] Worth[facility] Stimulating Hormone (TSH)2021-04-13 02:45:44 Test Item Value Reference Range Interpretation Comments TSH (test code = See_Comment Biotin has been [id number]) reported to cau se a negative bias, interpret resul ts relative to pat jordin's use of biotin. [Automated mess age] The system [employer] generated this result transmitted ref erence range: 0.45 - 4 .70 mIU/L. The refe rence range was not u sed to interpret this result as normal/abnor mal. Lab Interpretation (test Normal code = 33901-5) [facility] CHEST PULMONARY [id number] 23:32:03Impression: 1. No acute abnormalities evident. Specifically, negative for pulmonaryembolus.2. Atherosclerosis.3. Small airways disease. RL: 460 End of Report Electronically signed by Matthias Ortiz 04/12/2021 6:32 PMOrdering Physician: EDEL FLORES Clinical history: Pulmonary embolus suspected, with high pretestprobability. Technique: CT angiography of the chest was performed with intravenouscontrast. Axial source images, MPRS, and MIPS were reviewed. Thisexamination was performed according to ALARA principles. Technical quality: Adequate Comparison: June 23, 2020 Findings: No filling defects are seen within the pulmonary arterial tree to suggestpulmonary malaise. There is mild aorticatherosclerosis, with no thoracicaortic aneurysm or dissection. Heart size is normal. No pericardialeffusion is evident. There is a mosaic perfusion pattern of the lungs,compatible with small airways disease. Small calcified pulmonary granulomasare present. No acute pulmonary abnormalities are evident. There are nopleural effusions. No intrathoracic lymphadenopathy is apparent. Agallbladder is not visualized. Colonic diverticula are present. No acutebony abnormalities are evident. There are mild degenerative changes of thespine. [facility], Radiant Results Inft User - 04/12/2021 6:33 PM CDT Ordering Physician: EDEL FLORESClinical history: Pulmonary embolus suspected, with high pretestprobability.Technique: CT angiography of the chest was performed with intravenouscontrast. Axial source images, MPRS, and MIPS were reviewed. Thisexamination was performed according to ALARA principles.Technical quality: AdequateComparison: June 23, 2020F indings:No filling defects are seen within the pulmonary arterial tree to suggestpulmonary malaise. There is mild aortic atherosclerosis, with no thoracicaortic aneurysm or dissection. Heart size is normal. No pericardialeffusion is evident. There is a mosaic perfusion pattern of the lungs,compatible with small airways disease. Small calcified pulmonary granulomasare present. No acute pulmonary abnormalities are evident. There are nopleural effusions. No intrathoracic lymphadenopathy is apparent. Agallbladder is not visualized. Colonic diverticula are present. No acutebony abnormalities are evident. There are mild degenerative changes of thespine.IMPRESSIONImpression:1. No acute abnormalities evident. Specifically, negative for pulmonaryembolus.2. Atherosclerosis.3. Small airways disease.RL: 460End of Report [facility] WorthSUSY [id number] 22:30:48 Test Item Value Reference Interpretation Comments Range TROPONIN I (test 0.002 ng/mL See_Comment [Automated code = [id number]) message] The system which generated this result transmitted reference range : <=0.034. The reference range was not used to interpret this result as normal/abnormal . AP (test code = Reference (Normal) AP) Range (defined by the 99th percentile reference limit): <= 0.034 ng/mL Note: Cardiac troponin begins to rise 3-4 hours after the onset of ischemia. Repeat in 4-6 hours if the sample was drawn within 3-4 hours of the onset of the symptom and found normal. Diagnosis of myocardial injury is made with acute changes in cTn concentrations with at least one serial sample above the 99th percentile upper reference limit (URL), taken together with the patient's clinical presentation. Biotin has been reported to cause a negative bias, interpret results relative to patient's use of biotin. Lab Interpretation Normal (test code = 69568-3) [facility] WorthN-TERMINAL [id number] 22:27:44 Test Item Value Reference Range Interpretation Comments NT-proBNP (test code 87 pg/mL See_Comment [Autom ated = [id number]) message] The system which generated this result transmitted reference range : <=125. The reference range was not used to interpret this result as normal/abnormal . AP (test code = AP) Biotin has been reported to cause a negative bias, interpret results relative to patient's use of biotin. Lab Interpretation Normal (test code = 82867-4) [facility] WorthXR CHEST 1 [id number] 22:26:26 No acute cardiopulmonary abnormality. Preliminary Report Dictated by Resident: Aj Sanchez MD., have reviewed this study and agree withthe above report.EXAM: XR CHEST 1VW 04/12/2021 4:49 PM HISTORY: 61 years-old Female with chest pain . TECHNIQUE: Portable AP view of the chest. COMPARISON: CXR 6 05/09/2020, CT PE 06/23/2020. FINDINGS: Cardiomediastinal: The cardiomediast inal silhouette is unremarkable. Lungs and pleura: The lungs are clear. No focal consolidation,pneumothorax, or pleural effusion is seen. Included osseous structures show no acute abnormality. [facility], Radiant Results Inft User - 04/12/2021 5:27 PM CDTFormatting of this note might be different from the or iginal.EXAM: XR CHEST 1 VW 04/12/2021 4:49 PMHISTORY: 61 years-old Female with chest pain .TECHNIQUE:Portable AP view of the chest. COMPARISON: CXR 6 05/09/2020, CT PE 06/23/2020.FINDINGS: Cardiomediastinal: The cardiomediastinal silhouette is unremarkable.Lungs and pleura: The lungs are clear. No focal consolidation,pneumothorax, or pleural effusion is seen.Included osseous structures show no acute abnormality.IMPRESSIONNo acute cardiopulmonary abnormality.Preliminary Report Dictated by Resident: Aj Montaño MD., have reviewed this study and agree withthe above report. [facility]. METABOLIC PANEL (68075)2021-04-12 22:18:43 Test Item Value Reference Range Interpretation Comments NA (test code = 139 mmol/L 135-145 7138815239) K (test code = 3.8 mmol/L 3.5-5.0 4858507563) CL (test code = 105 mmol/L 98-108 8234009280) CO2 TOTAL (test code = 25 mmol/L 23-31 5792066672) AGAP (test code = 2-16 6076516418) BUN (test code = 16 mg/dL 7-23 9105435673) GLUCOSE (test code = 100 mg/dL 70-110 2937555024) CREATININE (test code = 0.79 mg/dL 0.50-1.04 9286538867) TOTAL BILI (test code = 0.6 mg/dL 0.1-1.2 2524655580) CALCIUM (test code = 9.8 mg/dL 8.6-10.6 2390667681) T PROTEIN (test code = 8.2 g/dL 6.3-8.2 6138767713) ALBUMIN (test code = 4.6 g/dL 3.5-5.0 9998497752) ALK PHOS (test code = 140 U/L 34-122 H 4116608609) ALTv (test code = 16 U/L 5-35 1742-6) AST(SGOT) (test code = 22 U/L 13-40 9094185734) eGFR (test code = mL/min/1.73m2 5666065488) AP (test code = AP) Association of Glomerular Filtration Rate (GFR) and Staging of Kidney Disease* + --+ --+ ------+| GFR (mL/min/1.73 m2) ?| With Kidney Damage ?| ?Without Kidney Damage+ --------+ --------+ +| ?>90 ?| ?Stage one ?| ? Normal ?+ ---+ ---+ -------+| ?60-89 ?| ?Stage two ?| ? Decreased GFR ? + --+ --+ ------+| ?30-59 ?| ?Stage three ?| ? Stage three ? + --+ --+ ------+| ?15-29 ?| ?Stage four ? | ? Stage four ?+ ---+ ---+ -------+| ?<15 (or dialysis) ? ?| ?Stage five ? | ? Stage five ?+ ---+ ---+ -------+ *Each stage assumes the associated GFR level has been in effect for at least three months. ?Stages 1 to 5, with or without kidney disease, indicate chronic kidney disease. Notes: Determination of stages one and two (with eGFR >59mL/min/1.73 m2) requires estimation of kidney damage for at least three months as defined by structural or functional abnormalities of the kidney, manifested by either:Pathological abnormalities or Markers of kidney damage (including abnormalities in the composition of the blood or urine or abnormalities in imaging tests). Lab Interpretation Abnormal (test code = 58720-9) [facility] WorthLIPASE2021-07-14 22:18:43 Test Item Value Reference Range Interpretation Comments LIPASE (test code = 2742592048) 94 U/L 0-220 Lab Interpretation (test code = Normal 32033-5) [facility] WorthCOVID-19 (ID NOW RAPID TESTING)2021-04-12 22:10:43 Test Item Value Reference Range Interpretation Comments SARS-CoV-2 Rapid ID NOW Not Detected Not Detected (test code = 80639-6) AP (test code = AP) ID NOW COVID-19 Assay is an isothermal nucleic acid amplification test intended for the qualitative detection of nucleic acid from SARS-CoV-2 viral RNA in nasopharyngeal (VACCINE CUSTOMER REPRESENTATIVE) specimens. It is used under Emergency Use Authorization (EUA) by FDA. The limit of detection (LOD) of the assay is 125 Genome Equivalents/mL. A positive result is indicative of the presence of SARS-CoV-2 RNA. ?Clinical correlation with patient history and other diagnostic information is necessary to determine patient infection status. A negative (Not Detected) result does not preclude SARS-CoV-2 infection. In patients with clinical symptoms and other tests that are consistent with SARS-CoV-2 infection, negative results should be treated as presumptive negative and a new specimen should be tested with alternative PCR molecular test. Invalid: Please collect a new specimen for repeat patient testing if clinically indicated. Lab Interpretation Normal (test code = 79296-9) [facility] WorthACTIVATED PARTIAL THRMPLAS [id number] 22:05:20 Test Item Value Reference Range Interpretation Comments APTT Patient (test See_Comment [Automat ed code = 3173-2) message] The system which generated this result transmitted reference range : 23 - 38 Seconds . The reference range was not used to interpr et this result as normal/abnormal . AP (test code = AP) The [facility] patient population mean normal value for aPTT is 30 seconds. Lab Interpretation Normal (test code = 88092-2) [facility] WorthPROTHROMBIN TIME / [id number] 22:03:18 Test Item Value Reference Range Interpretation Comments PROTIME PATIENT (test See_Comment [Auto mated message] code = 5964-2) The system [employer] generated this result transmitted ref erence range: 12.0 - 1 4.7 Seconds. The re ference range was not u sed to interpret this result as normal/abnor mal. INR (test code = 6301-6) Nor mal INR <1.1; Warfarin Therap eutic range 2.0 to 3. 0 or 2.5 to 3.5, dep ending upon the indica tions. Lab Interpretation (test Normal code = 95738-2) [facility] WorthCBC WITH [id number] 21:57:20 Test Item Value Reference Range Interpretation Comments WBC (test code = See_Comment [Automated message] 6690-2) The system [employer] generated this result transmitted ref erence range: 4.30 - 1 1.10 10*3/?L. The re ference range was not u sed to interpret this result as normal/abnor mal. RBC (test code = See_Comment [Automated message] 789-8) The system [employer] generated this result transmitted ref erence range: 3.93 - 5 .25 10*6/?L. The re ference range was not u sed to interpret this result as normal/abnor mal. HGB (test code = 12.5 g/dL 11.6-15.0 718-7) HCT (test code = 39.4 % 35.7-45.2 4544-3) MCV (test code = 83.5 fL 80.6-95.5 787-2) MCH (test code = 26.5 pg 25.9-32.8 785-6) MCHC (test code = 31.7 g/dL 31.6-35.1 786-4) RDW-SD (test code 45.6 fL 39.0-49.9 = 24101-3) RDW-CV (test code 15.1 % 12.0-15.5 = 788-0) PLT (test code = See_Comment [Automated message] 777-3) The system [employer] generated this result transmitted ref erence range: 166 - 35 8 10*3/?L. The re ference range was not u sed to interpret this result as normal/abnor mal. MPV (test code = 10.8 fL 9.5-12.9 00016-3) NRBC/100 WBC (test See_Comment [Automat ed message] code = 2902157712) The syste m which generated this result transmitted ref erence range: 0.0 - 10 .0 /100 WBCs. The refer ence range was not u sed to interpret this result as normal/abnor mal. NRBC x10^3 (test <0.01 See_Comment [Automated message] code = 0747762416) The syste m which generated this result transmitted ref erence range: 10*3/?L. The reference range was not used to interpr et this result as normal/abnormal . GRAN MAT (NEUT) % 62.0 % (test code = 770-8) IMM GRAN % (test 0.30 % code = 5115372411) LYMPH % (test code 28.4 % = 736-9) MONO % (test code 6.1 % = 5905-5) EOS % (test code = 2.5 % 713-8) BASO % (test code 0.7 % = 706-2) GRAN MAT 5.81 10*3/uL 1.88-7.09 x10^3(ANC) (test code = 6000554676) IMM GRAN x10^3 0.03 10*3/uL 0.00-0.06 (test code = 6967785202) LYMPH x10^3 (test 2.66 10*3/uL 1.32-3.29 code = 731-0) MONO x10^3 (test 0.57 10*3/uL 0.33-0.92 code = 742-7) EOS x10^3 (test 0.23 10*3/uL 0.03-0.39 code = 711-2) BASO x10^3 (test 0.07 10*3/uL 0.01-0.07 code = 704-7) [facility] WorthPONM URINALYSIS W SPECIFIC [id number] 15:52:00 Test Item Value Reference Range Interpretation Comments POCT U SP GRAV (test code = 1.005 mg/dl 1.005-1.025 3255) POCT PH U (test code = 3254) 7 mg/dl 5-8 POCT U LEUK EST (test code = trace Negative - Negative 3263) POCT U NIT (test code = Negative Negative - Negative 3262) POCT U PROT (test code = Negative Negative - Negative 3259) POCT U GLU (test code = Negative Negative - Negative 3256) POCT U KETONE (test code = Negative Negative - Negative 3258) POCT U UROBILI (test code = Normal 0.2-1 3260) POCT U BILI (test code = Negative Negative - Negative 3261) POCT U BLD (test code = Negative Negative - Negative 3257) POCT U COLOR (test code = yellow clear 3266) POCT U APPEAR (test code = 3267) Lab Interpretation (test Abnormal code = 50727-5) [facility] WITH [id number] 18:24:00 Test Item Value Reference Range Interpretation Comments WBC (test code = See_Comment [Automated 6690-2) message] The sy stem which generated this result transmitted reference range : 4.30 - 11.10 10*3/?L. The reference range was not used to interpret this result as normal/abnormal . RBC (test code = See_Comment [Automated 789-8) message] The sy stem which generated this result transmitted reference range : 3.93 - 5.25 10*6/?L. The reference range was not used to interpret this result as normal/abnormal . HGB (test code = 12.0 g/dL 11.6-15 718-7) HCT (test code = 38.5 % 35.7-45.2 4544-3) MCV (test code = 88.3 fL 80.6-95.5 787-2) MCH (test code = 27.5 pg 25.9-32.8 785-6) MCHC (test code = 31.2 g/dL 31.6-35.1 L 786-4) RDW-SD (test code = 48.2 fL 39-49.9 09843-2) RDW-CV (test code = 15.0 % 12-15.5 788-0) PLT (test code = See_Comment [Automated 777-3) message] The sy stem which generated this result transmitted reference range : 166 - 358 10*3/ ?L. The reference r peyton was not used to interpret this result as normal/abnormal . MPV (test code = 11.5 fL 9.5-12.9 60493-4) NRBC/100 WBC (test See_Comment [Automat ed code = 0225380785) message] The system which generated this result transmitted reference range : 0.0 - 10.0 /100 WBCs. The refer ence range was not u sed to interpret th is result as normal/abnormal . NRBC x10^3 (test code <0.01 See_Comment [Auto mated = 2316113505) message] The s ystem which generated this result transmitted reference range : 10*3/?L. The reference range was not used to interpret this result as normal/abnormal . GRAN MAT (NEUT) % 58.0 % (test code = 770-8) IMM GRAN % (test code 0.50 % = 3131300945) LYMPH % (test code = 29.5 % 736-9) MONO % (test code = 7.3 % 5905-5) EOS % (test code = 4.0 % 713-8) BASO % (test code = 0.7 % 706-2) GRAN MAT x10^3(ANC) 5.08 10*3/uL 1.88-7.09 (test code = 3491270993) IMM GRAN x10^3 (test 0.04 10*3/uL 0-0.06 code = 4576076237) LYMPH x10^3 (test code 2.58 10*3/uL 1.32-3.29 = 731-0) MONO x10^3 (test code 0.64 10*3/uL 0.33-0.92 = 742-7) EOS x10^3 (test code = 0.35 10*3/uL 0.03-0.39 711-2) BASO x10^3 (test code 0.06 10*3/uL 0.01-0.07 = 704-7) Lab Interpretation Abnormal (test code = 68367-1) [facility] WorthTHROAT [id number] 11:45:00 Test Item Value Reference Range Interpretation Comments Throat Culture (test No Beta-Hemolytic code = 626-2) Streptococcus isolated [facility] with [id number] 09:40:00 Test Item Value Reference Range Interpretation Comments WBC (test code = See_Comment [Automated 8890-2) message] The sy stem which generated this result transmitted reference range : 4.30 - 11.10 10*3/?L. The reference range was not used to interpret this result as normal/abnormal . RBC (test code = See_Comment [Automated 849-8) message] The sy stem which generated this result transmitted reference range : 3.93 - 5.25 10*6/?L. The reference range was not used to interpret this result as normal/abnormal . HGB (test code = 11.0 g/dL 11.6-15 L 718-7) HCT (test code = 35.5 % 35.7-45.2 L 4544-3) MCV (test code = 88.3 fL 80.6-95.5 787-2) MCH (test code = 27.4 pg 25.9-32.8 785-6) MCHC (test code = 31.0 g/dL 31.6-35.1 L 786-4) RDW-SD (test code = 47.4 fL 39-49.9 44228-3) RDW-CV (test code = 14.8 % 12-15.5 788-0) PLT (test code = See_Comment [Automated 777-3) message] The sy stem which generated this result transmitted reference range : 166 - 358 10*3/ ?L. The reference r peyton was not used to interpret this result as normal/abnormal . MPV (test code = 11.2 fL 9.5-12.9 21447-6) NRBC/100 WBC (test See_Comment [Automat ed code = 4063210289) message] The system which generated this result transmitted reference range : 0.0 - 10.0 /100 WBCs. The refer ence range was not u sed to interpret th is result as normal/abnormal . NRBC x10^3 (test code <0.01 See_Comment [Auto mated = 5733364752) message] The s ystem which generated this result transmitted reference range : 10*3/?L. The reference range was not used to interpret this result as normal/abnormal . GRAN MAT (NEUT) % 60.1 % (test code = 770-8) IMM GRAN % (test code 0.60 % = 3953414259) LYMPH % (test code = 28.8 % 736-9) MONO % (test code = 6.2 % 5905-5) EOS % (test code = 3.7 % 713-8) BASO % (test code = 0.6 % 706-2) GRAN MAT x10^3(ANC) 4.97 10*3/uL 1.88-7.09 (test code = 3452468009) IMM GRAN x10^3 (test 0.05 10*3/uL 0-0.06 code = 3377991314) LYMPH x10^3 (test code 2.38 10*3/uL 1.32-3.29 = 731-0) MONO x10^3 (test code 0.51 10*3/uL 0.33-0.92 = 742-7) EOS x10^3 (test code = 0.31 10*3/uL 0.03-0.39 711-2) BASO x10^3 (test code 0.05 10*3/uL 0.01-0.07 = 704-7) Lab Interpretation Abnormal (test code = 20994-2) [facility] WorthFECAL [id number] 09:33:00 Test Item Value Reference Range Interpretation Comments Fecal Leukocytes (test code = Negative Negative 1063834527) Lab Interpretation (test code = Normal 51078-9) [facility] WorthTROPONIN [id number] 07:53:00 Test Item Value Reference Range Interpretation Comments TROPONIN I (test 0.000 ng/mL See_Comment [Automated code = 4607678896) message] The system which generated this result transmitted reference range : <=0.034. The reference range was not used to interpret this result as normal/abnormal . AP (test code = Equal or Less than AP) 0.034 ng/ml---Normal ?Note: Cardiac troponin begins to rise 3-4 hours after the onset of ischemia. Repeat in 4-6 hours if the sample was drawn within 3-4 hours of the onset of the symptom and found normal. Between 0.035 and 0.120 ng/mL--- Borderline. Questionable myocardial injury or necrosis ? ?Note: Serial measurement may be necessary to confirm or exclude the diagnosis of myocardial injury or necrosis; Clinical correlation (symptoms, EKGs, imaging studies, and others) required; Repeat in 4-6 hours if clinically indicated. ? Equal or Higher than 0.121 ng/mL---Abnormal. Myocardial Injury or Necrosis Likely ? Biotin has been reported to cause a negative bias, interpret results relative to patient's use of biotin. ? Lab Interpretation Normal (test code = 28555-8) [facility] WorthBasic Metabolic Panel (NA, K, CL, CO2, GLUCOSE, BUN, CREATININE, CA)2020-06-25 07:42:00 Test Item Value Reference Range Interpretation Comments NA (test code = 137 mmol/L 135-145 8609490576) K (test code = 3.3 mmol/L 3.5-5 L 2243291633) CL (test code = 102 mmol/L 98-108 4427754299) CO2 TOTAL (test code = 28 mmol/L 23-31 3344698706) AGAP (test code = 2-16 0006145327) BUN (test code = 20 mg/dL 7-23 3812381398) GLUCOSE (test code = 116 mg/dL 70-110 H 6223250742) CREATININE (test code = 0.71 mg/dL 0.5-1.04 6464270557) CALCIUM (test code = 8.9 mg/dL 8.6-10.6 0764032407) eGFR Calculation mL/min/1.73m2 (Non-) (test code = 0351048402) eGFR Calculation mL/min/1.73m2 () (test code = 4058887243) AP (test code = AP) Association of Glomerular Filtration Rate (GFR) and Staging of Kidney Disease* + --+ --+ ------+| GFR (mL/min/1.73 m2) ?| With Kidney Damage ?| ?Without Kidney Damage+ --------+ --------+ +| ?>90 ?| ?Stage one ?| ? Normal ?+ ---+ ---+ -------+| ?60-89 ?| ?Stage two ?| ? Decreased GFR ? + --+ --+ ------+| ?30-59 ?| ?Stage three ?| ? Stage three ? + --+ --+ ------+| ?15-29 ?| ?Stage four ? | ? Stage four ?+ ---+ ---+ -------+| ?<15 (or dialysis) ? ?| ?Stage five ? | ? Stage five ?+ ---+ ---+ -------+ *Each stage assumes the associated GFR level has been in effect for at least three months. ?Stages 1 to 5, with or without kidney disease, indicate chronic kidney disease. Notes: Determination of stages one and two (with eGFR >59mL/min/1.73 m2) requires estimation of kidney damage for at least three months as defined by structural or functional abnormalities of the kidney, manifested by either:Pathological abnormalities or Markers of kidney damage (including abnormalities in the composition of the blood or urine or abnormalities in imaging tests). Lab Interpretation Abnormal (test code = 01319-0) [facility] WorthCLOSTRIDIUM DIFFICILE [id number] 01:34:00 Test Item Value Reference Range Interpretation Comments Clostridioides (Clostridium) Negative Negative difficile (test code = 99210-1) Lab Interpretation (test code = Normal 26833-9) [facility] WorthURINE [id number] 15:37:00 Test Item Value Reference Range Interpretation Comments URINE CULTURE (test 10,000 - 100,000 CFU/mL code = 630-4) mixed aerobic organisms - suggests endogenous microbial contamination [facility] WorthPROCALCITONIN2020-09-25 13:21:00 Test Item Value Reference Range Interpretation Comments Procalcitonin (test 0.03 ng/mL <0.07 code = 3762589693) AP (test code = AP) INTERPRETATION OF PROCALCITONIN RESULTS IN ADULTS >= 18 YEARS OF AGE Initiation and discontinuation of antibiotics on patients with suspected or confirmed Lower Respiratory Tract Infection in Adults >= 18 years of age. + +-------- --------+ + -----+|Procalcitonin |Interpretation ?|Antibiotic ? ? |Considerations ? |ng/mL ? | ?|recommendation | ? + +-------- --------+ + -----+| <0.1 ? | Bacterial ? ? ?| Strongly ? ? ?| ? | ?| infection very | discouraged ? | Overruling: ? | ?| unlikely ? ? ? | ? | ? Clinically unstable ? ? ? + +-------- --------+ + ? High risk for adverse ? ? | <0.25 ?| Bacterial ? ? ?| Discouraged ? | ? outcome ? | ?| infection ? ? ?| ? | ? SEE IMPORTANT NOTE ?| ?| unlikely ? ? ? | ? | ? + +-------- --------+ + -----+| >=0.25 ? ? ? | Bacterial ? ? ?| Encouraged ? ?| ? | ?| infection ? ? ?| ? | ? | ?| likely ? | ? | Consider treatment failure ?+ +------- ---------+ -+ if levels does not decrease | >0.5 ? | Bacterial ? ? ?| Strongly ? ? ?| appropriately ? | ?| infection very | encouraged ? ?| ? | ?| likely ? | ? | ? + +-------- --------+ + -----+ Discontinuation of antibiotics in high-acuity patients with suspected or confirmed sepsis in Adults >= 18 years of age. + +-------- --------+ + -----+|Procalcitonin |Interpretation ?|Antibiotic ? ? |Considerations ? |ng/mL ? | ?|recommendation | ? + +-------- --------+ + -----+| <0.25 ?| Bacterial ? ? ?| Strongly ? ? ?| ? | ?| infection very | discouraged ? | Overruling: ? | ?| unlikely ? ? ? | ? | ? Clinically unstable ? ? ? + +-------- --------+ + ? High risk for adverse ? ? | <0.5 or drop | Bacterial ? ? ?| Discouraged ? | ? outcome ? | >80% from ? ?| infection ? ? ?| ? | ? SEE IMPORTANT NOTE ?| highest PCT ?| unlikely ? ? ? | ? | ? | level ?| ?| ? | ? + +-------- --------+ + -----+| >=0.5 ?| Bacterial ? ? ?| Encouraged ? ?| ? | ?| infection ? ? ?| ? | ? | ?| likely ? | ? | Consider treatment failure ?+ +------- ---------+ -+ if levels does not decrease | >1.0 ? | Bacterial ? ? ?| Strongly ? ? ?| appropriately ? | ?| infection very | encouraged ? ?| ? | ?| likely ? | ? | ? + +-------- --------+ + -----+ Percentage of drop of Procalcitonin calculation for Discontinuation of antibiotics in high-acuity patients with suspected or confirmed sepsis in Adults >= 18 years of age. ? Procalcitonin highest{}-Procalcitonin current{}Delta Procalcitonin = x100% ? Procalcitonin current {} IMPORTANT NOTE: Procalcitonin may be elevated without bacterial infection by physiologic stress related to trauma, ellis, chronic dialysis, metastatic cancer, surgery in the past seven days, malaria, some fungal infections, and some forms of vasculitis. The interpretation algorithm may not apply to patients with immunosuppression (equivalent of >10 mg of prednisone daily), HIV with CD4 cell count < 350 cells/mm3, active malignancy on systemic chemotherapy, solid organ transplant or hematopoietic stem cell transplantation, or hospital acquired pneumonia. Additionally, some clinical trials of procalcitonin have excluded patients with shock requiring vasopressor use, acute respiratory failure requiring mechanical ventilation, or those with known lung abscess/empyema. For further information please refer to:[email or web address] Lab Interpretation Normal (test code = 71350-4) [facility] WorthPROTHROMBIN TIME / [id number] 11:06:00 Test Item Value Reference Range Interpretation Comments PROTIME PATIENT (test See_Comment [Auto mated message] code = 5964-2) The system wh ich generated this result transmitted ref erence range: 12.0 - 1 4.7 Seconds. The re ference range was not u sed to interpret this result as normal/abnor mal. INR (test code = 6301-6) Nor mal INR <1.1; Warfarin Therap eutic range 2.0 to 3. 0 or 2.5 to 3.5, dep ending upon the indica tions. Lab Interpretation (test Normal code = 94752-4) [facility] WorthTROPONIN [id number] 10:51:00 Test Item Value Reference Range Interpretation Comments TROPONIN I (test 0.000 ng/mL See_Comment [Automated code = 3541430568) message] The system which generated this result transmitted reference range : <=0.034. The reference range was not used to interpret this result as normal/abnormal . AP (test code = Equal or Less than AP) 0.034 ng/ml---Normal ?Note: Cardiac troponin begins to rise 3-4 hours after the onset of ischemia. Repeat in 4-6 hours if the sample was drawn within 3-4 hours of the onset of the symptom and found normal. Between 0.035 and 0.120 ng/mL--- Borderline. Questionable myocardial injury or necrosis ? ?Note: Serial measurement may be necessary to confirm or exclude the diagnosis of myocardial injury or necrosis; Clinical correlation (symptoms, EKGs, imaging studies, and others) required; Repeat in 4-6 hours if clinically indicated. ? Equal or Higher than 0.121 ng/mL---Abnormal. Myocardial Injury or Necrosis Likely ? Biotin has been reported to cause a negative bias, interpret results relative to patient's use of biotin. ? Lab Interpretation Normal (test code = 73161-6) [id number] 10:48:00 Test Item Value Reference Range Interpretation Comments NT-proBNP (test code 76 pg/mL See_Comment [Autom ated = 7080625860) message] The system which generated this result transmitted reference range : <=125. The reference range was not used to interpret this result as normal/abnormal . AP (test code = AP) Biotin has been reported to cause a negative bias, interpret results relative to patient's use of biotin. Lab Interpretation Normal (test code = 92704-3) [facility] (NA, K, CL, CO2, GLUCOSE, BUN, CREATININE, CA)2020-06-24 10:43:00 Test Item Value Reference Range Interpretation Comments NA (test code = 139 mmol/L 135-145 2621252141) K (test code = 3.5 mmol/L 3.5-5 6084213516) CL (test code = 102 mmol/L 98-108 7439513776) CO2 TOTAL (test code = 32 mmol/L 23-31 H 0992158497) AGAP (test code = 2-16 5573640825) BUN (test code = 16 mg/dL 7-23 2405935771) GLUCOSE (test code = 110 mg/dL 70-110 6529968800) CREATININE (test code = 0.75 mg/dL 0.5-1.04 4267370469) CALCIUM (test code = 8.9 mg/dL 8.6-10.6 9201524115) eGFR Calculation mL/min/1.73m2 (Non-) (test code = 1280051600) eGFR Calculation mL/min/1.73m2 () (test code = 7120468122) AP (test code = AP) Association of Glomerular Filtration Rate (GFR) and Staging of Kidney Disease* + --+ --+ ------+| GFR (mL/min/1.73 m2) ?| With Kidney Damage ?| ?Without Kidney Damage+ --------+ --------+ +| ?>90 ?| ?Stage one ?| ? Normal ?+ ---+ ---+ -------+| ?60-89 ?| ?Stage two ?| ? Decreased GFR ? + --+ --+ ------+| ?30-59 ?| ?Stage three ?| ? Stage three ? + --+ --+ ------+| ?15-29 ?| ?Stage four ? | ? Stage four ?+ ---+ ---+ -------+| ?<15 (or dialysis) ? ?| ?Stage five ? | ? Stage five ?+ ---+ ---+ -------+ *Each stage assumes the associated GFR level has been in effect for at least three months. ?Stages 1 to 5, with or without kidney disease, indicate chronic kidney disease. Notes: Determination of stages one and two (with eGFR >59mL/min/1.73 m2) requires estimation of kidney damage for at least three months as defined by structural or functional abnormalities of the kidney, manifested by either:Pathological abnormalities or Markers of kidney damage (including abnormalities in the composition of the blood or urine or abnormalities in imaging tests). Lab Interpretation Abnormal (test code = 51793-8) [facility] Test Item Value Reference Range Interpretation Comments MAGNESIUM (test code = 4632551613) 2.2 mg/dL 1.7-2.4 Lab Interpretation (test code = Normal 13044-2) [facility]-25 10:42:00 Test Item Value Reference Range Interpretation Comments PHOSPHORUS (test code = 1336354842) 3.5 mg/dL 2.5-5 Lab Interpretation (test code = Normal 28818-4) [facility] with [id number] 10:06:00 Test Item Value Reference Range Interpretation Comments WBC (test code = See_Comment [Automated 6690-2) message] The sy stem which generated this result transmitted reference range : 4.30 - 11.10 10*3/?L. The reference range was not used to interpret this result as normal/abnormal . RBC (test code = See_Comment [Automated 789-8) message] The sy stem which generated this result transmitted reference range : 3.93 - 5.25 10*6/?L. The reference range was not used to interpret this result as normal/abnormal . HGB (test code = 11.2 g/dL 11.6-15 L 718-7) HCT (test code = 35.5 % 35.7-45.2 L 4544-3) MCV (test code = 87.9 fL 80.6-95.5 787-2) MCH (test code = 27.7 pg 25.9-32.8 785-6) MCHC (test code = 31.5 g/dL 31.6-35.1 L 786-4) RDW-SD (test code = 48.3 fL 39-49.9 50654-6) RDW-CV (test code = 15.0 % 12-15.5 788-0) PLT (test code = See_Comment [Automated 777-3) message] The sy stem which generated this result transmitted reference range : 166 - 358 10*3/ ?L. The reference r peyton was not used to interpret this result as normal/abnormal . MPV (test code = 11.6 fL 9.5-12.9 78975-6) NRBC/100 WBC (test See_Comment [Automat ed code = 1602541655) message] The system which generated this result transmitted reference range : 0.0 - 10.0 /100 WBCs. The refer ence range was not u sed to interpret th is result as normal/abnormal . NRBC x10^3 (test code <0.01 See_Comment [Auto mated = 6564854047) message] The s [employer] which generated this result transmitted reference range : 10*3/?L. The reference range was not used to interpret this result as normal/abnormal . GRAN MAT (NEUT) % 61.4 % (test code = 770-8) IMM GRAN % (test code 0.30 % = 4043020496) LYMPH % (test code = 27.6 % 736-9) MONO % (test code = 6.9 % 5905-5) EOS % (test code = 3.2 % 713-8) BASO % (test code = 0.6 % 706-2) GRAN MAT x10^3(ANC) 4.17 10*3/uL 1.88-7.09 (test code = 4833138638) IMM GRAN x10^3 (test <0.03 0-0.06 code = 9427385626) LYMPH x10^3 (test code 1.88 10*3/uL 1.32-3.29 = 731-0) MONO x10^3 (test code 0.47 10*3/uL 0.33-0.92 = 742-7) EOS x10^3 (test code = 0.22 10*3/uL 0.03-0.39 711-2) BASO x10^3 (test code 0.04 10*3/uL 0.01-0.07 = 704-7) Lab Interpretation Abnormal (test code = 36869-9) [id number] 05:30:00 Test Item Value Reference Range Interpretation Comments TROPONIN I (test 0.002 ng/mL See_Comment [Automated code = 7755034554) message] The system which generated this result transmitted reference range : <=0.034. The reference range was not used to interpret this result as normal/abnormal . AP (test code = Equal or Less than AP) 0.034 ng/ml---Normal ?Note: Cardiac troponin begins to rise 3-4 hours after the onset of ischemia. Repeat in 4-6 hours if the sample was drawn within 3-4 hours of the onset of the symptom and found normal. Between 0.035 and 0.120 ng/mL--- Borderline. Questionable myocardial injury or necrosis ? ?Note: Serial measurement may be necessary to confirm or exclude the diagnosis of myocardial injury or necrosis; Clinical correlation (symptoms, EKGs, imaging studies, and others) required; Repeat in 4-6 hours if clinically indicated. ? Equal or Higher than 0.121 ng/mL---Abnormal. Myocardial Injury or Necrosis Likely ? Biotin has been reported to cause a negative bias, interpret results relative to patient's use of biotin. ? Lab Interpretation Normal (test code = 60279-6) [facility] Worth[facility]IP[facility] PAN[facility] (73454)(TOTAL CHOLESTEROL, TRIGLYCERIDES, HDL)2020-06-24 03:13:00 Test Item Value Reference Range Interpretation Comments CHOL (test code = 150 mg/dL 120-200 5644695331) HDL (test code = 28 mg/dL >50 L 7971637837) HDLC RATIO (test code = See_Comment H [Au tomated message] 7096864398) The system [employer] generated this result transmit julita reference range : <=4.5. The refe rence range was not u sed to interpret th is result as normal/abnormal . TRIG (test code = 136 mg/dL 30-170 6869549736) LDL CHOL (test code = 95 mg/dL See_Comment [Auto mated message] 71826-4) The system [employer] generated this result transmit julita reference range : <=160. The refe rence range was not u sed to interpret th is result as normal/abnormal . VLDL (test code = 27 mg/dL 5-60 6640124574) Lab Interpretation (test Abnormal code = 05833-6) [facility]OSYL[facility] HEMOGLOBIN (A1C)2020-06-24 03:07:00 Test Item Value Reference Range Interpretation Comments HGB A1C (test code = 5.8 % 4-6 4548-4) AP (test code = AP) %A1C (NGSP) Interpretation (ADA)4.8-5.6 ? ? Normal or (Non-Diabetic Range)5.7-6.4 ? ? Increased Risk (Pre-Diabetic)>6.5 ?Diabetes Indicated Lab Interpretation Normal (test code = 55631-5) [facility])2020-06-24 01:56:00 Test Item Value Reference Range Interpretation Comments SARS-CoV-2 PCR (test Not Detected Not Detected code = 86891-9) AP (test code = AP) [employer] SARS-CoV-2 Assay is a nucleic acid amplification test intended for the qualitative detection of RNA from SARS-CoV-2 from nasopharyngeal (VACCINE CUSTOMER REPRESENTATIVE) specimens. ?It is used under Emergency Use Authorization (EUA) by FDA. A positive result is indicative of the presence of SARS-CoV-2 RNA. ?Clinical correlation with patient history and other diagnostic information is necessary to determine patient infection status. A negative (Not Detected) result does not preclude SARS-CoV-2 infection. ?Clinical correlation with patient history and other diagnostic information should be used in patient management decisions. Invalid: Unable to generate a valid test result on this specimen. ?Please submit a new specimen for repeat testing if clinically indicated. Lab Interpretation Normal (test code = 36240-5) [facility] [id number] 00:15:00 Test Item Value Reference Range Interpretation Comments TROPONIN I (test 0.002 ng/mL See_Comment [Automated code = 1711721847) message] The system which generated this result transmitted reference range : <=0.034. The reference range was not used to interpret this result as normal/abnormal . AP (test code = Equal or Less than AP) 0.034 ng/ml---Normal ?Note: Cardiac troponin begins to rise 3-4 hours after the onset of ischemia. Repeat in 4-6 hours if the sample was drawn within 3-4 hours of the onset of the symptom and found normal. Between 0.035 and 0.120 ng/mL--- Borderline. Questionable myocardial injury or necrosis ? ?Note: Serial measurement may be necessary to confirm or exclude the diagnosis of myocardial injury or necrosis; Clinical correlation (symptoms, EKGs, imaging studies, and others) required; Repeat in 4-6 hours if clinically indicated. ? Equal or Higher than 0.121 ng/mL---Abnormal. Myocardial Injury or Necrosis Likely ? Biotin has been reported to cause a negative bias, interpret results relative to patient's use of biotin. ? Lab Interpretation Normal (test code = 87697-5) [facility] WorthFERRITIN [id number] 21:53:00 Test Item Value Reference Range Interpretation Comments FERRITIN (test code = 39.6 ng/mL 11-264 8845075785) AP (test code = AP) Biotin has been reported to cause a negative bias, interpret results relative to patient's use of biotin. Lab Interpretation (test Normal code = 95703-0) [facility] WorthLactic Acid Whole [id number] 20:03:00 Test Item Value Reference Range Interpretation Comments LACTIC ACID (test code = 1.27 mmol/L 3578216422) [facility] WorthCT ABDOMEN PELVIS W [id number] 19:41:49CT Abdomen and Pelvis with intravenous contrast. CLINICAL HISTORY: Acute generalized/epigastric abdominal pain. DOSE: Up-to-date CT equipment and radiation dose reduction techniques wereemployed. CTDIvol: 2.29+6.84+8.18+24.85 mGy. DLP: 290+1270 mGy-cm. TECHNIQUE : Contiguous axial imaging from the level of the lung basesthrough the pubic symphysis were performed after the uncomplicatedadministration of Omnipaque contrast material. Coronal and sagittalreconstructions were obtained. Auto mA and/or iterative reconstruction wereused to reduce radiation dose. FINDINGS: ? Lower lungs: Clear. Liver, Gallbl adder and Spleen: S/P cholecystectomy. Liver is 18.6 cm andspleen measures approximately 12.5 x 6.5 cm. No focal enhancing lesionsvisualized in the liver or in the spleen. Biliary duct in the pancreaticduct appear of normal size. Peritoneum: ?No free air or free fluid. No lymphadenopathy. Pancreas and Adrenals: ?Unremarkable pancreas and adrenal glands. Kidneys and Ureters: ?No visible calculi in therenal collecting systems. No hydroureter or hydronephrosis. No enhancing kidney lesions visualized. Vessels: Mild atherosclerosis of aorta and iliac arteries. No aorticaneurysm. Retroperitoneum: No abnormal fluid or lymphadenopathy. Bowel: No acute findings. Mild diverticulosis of the sigmoid and descendingcolon noted with additional scattered diverticula suspected progressedoverlies well without anyacute changes. Normal appendix is visualized. Bladder and Reproductive Organs: Grossly unremarkable unopacified and underdistended urinary bladder. No gross pathology seen in the uterus or adnexa. Bones: Mild right hip joint arthritis noted with subchondral degenerativechanges in the weightbearing surface of the head of the right femur. Noaggressive bone lesions. No compression deformity in the lumbar vertebralbodies. Soft tissues: Unremarkable. CONCLUSION:1. No acute intra- abdominal or pelvic abnormality detected.2. S/P cholecystectomy. Mild hepatosplenomegaly. [facility], Radiant Results Inft User - 06/23/2020 2:42 PM CDTCT Abdomen and Pelvis with intravenous contrast.CLINICAL HISTORY: Acute generalize d/epigastric abdominal pain.DOSE: Up-to-date CT equipment and radiation dose reduction techniques wereemployed. CTDIvol: 2.29+6.84+8.18+24.85 mGy. DLP: 290+1270 mGy-cm.TECHNIQUE : Contiguous axial imaging from the level of the lung basesthrough the pubic symphysis were performed after the uncomplicated administration of Omnipaque contrast material. Coronal and sagittalreconstructions were obtained. Auto mA and/or iterative reconstruction wereused to reduce radiation dose.FINDINGS: Lower lungs: Clear.Liver, Gallbladder and Spleen: S/P cholecystectomy. Liver is 18.6 cm andspleen measures qrufnmumsavhe83.5 x 6.5 cm. No focal enhancing lesionsvisualized in the liver or in the spleen. Biliary duct in the pancreaticduct appear of normal size.Peritoneum: No free air or free fluid. No lymphadenopathy.Pancreas and Adrenals: Unremarkable pancreas and adrenal glands.Kidneys and Ureters: No visible calculi in the renal collecting systems. No hydroureter or hydronephrosis. No enhancing kidney lesions visualized. Vessels: Mild atherosclerosis of aorta and iliac arteries. No aorticaneurysm.Retroperitoneum: No abnormal fluid or lymphadenopathy.Bowel: No acute findings. Mild diverticulosis of the sigmoid and descendingcolon noted with additional scattered diverticula suspected progressedoverlies well withoutany acute changes. Normal appendix is visualized.Bladder and Reproductive Organs: Grossly unremarkable unopacified and underdistended urinary bladder. No gross pathology seen in the uterus or adnexa.Bones: Mild right hip joint arthritis noted with subchondral degenerativechanges in the weightbearing surface of the head of the right femur. Noaggressive bone lesions. No compression deformity in the lumbar vertebralbodies.Soft tissues: Unremarkable.CONCLUSION:1. No acute intra- abdominal or pelvic abnormality detected.2. S/P cholecystectomy. Mild hepatosplenomegaly.[facility] CHEST PULMONARY [id number] 19:37:58HISTORY: Shortness of breath, rule out P.E. TECHNIQUE: Contrast-enhanced 64-mutidetector CT scan of the chest wascompleted with intravenous injection of ?Omnipaque-350 non ionic contrastmedium. Subseque ntly numerous sagittal, coronal and MIP reformations weregenerated. FINDINGS: Thyroid gland appears normal. Trachea and central airways appearnormal.No acute pulmonary thromboembolism detected. No aortic aneurysm or aorticdissection. No pneumothorax or pneumomediastinum. No acute pneumonia. No pleuraleffusion or pericardial effusion. No enlarged hilar ormediastinal lymph nodes. Mild atherosclerosis noted calcifications in the aortic arch. Noappreciable calcification is seen in the coronary arteries. Cystectomy noted. Degenerative changes noted in the lower thoracic spines.No compression fractures seen in the thoracic vertebral bodies.Hepatosplenomegaly suspected. CONCLUSIONS: No acute intrathoracic findings. [facility], Radiant Results Inft User - 06/23/2020 2:39 PM CDTHISTORY: Shortness of breath, rule out P.E.TECHNIQUE: Contrast-enhanced 64- mutidetector CT scan of the chest wascompleted with intravenous injection of Omnipaque-350 non ionic contrastmedium. Subsequently numerous sagittal, coronal and MIP reformations weregenerated.FINDINGS: Thyroid gland appears normal. Trachea and central airways appearnormal.No acute pulmonary thromboembolism detected. No aortic aneurysm or aorticdissection. No pneumothorax or pneumomediastinum. No acute pneumonia.No pleural effusion or pericardial effusion. Noenlarged hilar ormediastinal lymph nodes.Mild atherosclerosis noted calcifications in the aortic arch. Noappreciable calcification is seen in the coronary arteries.Cystectomy noted. Degenerative changes noted in the lower thoracic spines.No compression fractures seen in the thoracic vertebral bodies.Hepatosplenomegaly suspected.CONCLUSIONS: No acute intrathoracic findings.[facility] STREP SCREEN FOR GROUP A 2020-06-23 19:21:00 Test Item Value Reference Range Interpretation Comments Streptococcus pyogenes (group A) Negative Negative antigen (test code = 92566-8) Lab Interpretation (test code = Normal 55085-1) [facility]2020-09-24 19:02:00 Test Item Value Reference Range Interpretation Comments APPEARANCE (test code = Cloudy Clear A 0433779897) COLOR (test code = Ewa Yellow A 6721533035) PH (test code = 4.8-8.0 6984788846) SP GRAVITY (test code = 1.003-1.030 5427678223) GLU U QUAL (test code = Normal Normal 1900327869) BLOOD (test code = Negative Negative 5141693499) KETONES (test code = Negative Negative 4180023599) PROTEIN (test code = Negative Negative 2887-8) UROBILIN (test code = Normal Normal 2205752903) BILIRUBIN (test code = Negative Negative 3067329691) NITRITE (test code = Negative Negative 8564972757) LEUK LACEY (test code = Negative Negative 2789337315) RBC/HPF (test code = See_Comment [Autom ated message] 5584086676) The system [employer] generated this result transmitted ref erence range: 0 - 3 HP F. The reference range was not used to int erpret this result as normal/abnormal . WBC/HPF (test code = See_Comment H [Autom ated message] 2343936124) The system [employer] generated this result transmitted ref erence range: 0 - 5 HP F. The reference range was not used to int erpret this result as normal/abnormal . BACTERIA (test code = Many Negative A 6356783457) MUCOUS (test code = Marked Negative LPF A 0697404559) SQ EPITH (test code = HPF 0015136228) YEAST BUD (test code = See_Comment [Aut omated message] 3001134030) The system [employer] generated this result transmitted ref erence range: <=1 HPF. The reference range was not used to int erpret this result as normal/abnormal . Lab Interpretation (test Abnormal code = 19848-2) [facility] CHEST 1 VW [id number] 17:53:36No sign of acute cardiopulmonary disease. Disclaimer: Generally, the findings on chest imaging in COVID-19 are notspecific, and overlap with other infections, including influenza, H1N1,SARS and MERS.According to the Centers for Disease Control (CDC) and the [employer], viral testing remains the only specific method of diagnosiseven if CXR or CT findings are suggestive of COVID-19. PROCEDURE: CHEST XRAY CLINICAL INDICATION: chest pain , fever COMPARISON: Previous study of 05/09/2020.FINDINGS: Lungs: Clear. Pleura: No pleural effusion or pneumothorax is seen. The heart is uppernormal in size. No acute bony abnormality. [facility], Radiant Results Inft User - 06/23/2020 12:54 PM CDTPROCEDURE: CHEST XRAY CLINICAL INDICATION: chest pain , fever COMPARISON: Previous study of 05/09/2020.FINDINGS:Lungs: Clear.Pleura: No pleural effusion or pneumothorax is seen. The heart is uppernormal in size.No acute bony abnormality.IMPRESSIONNo sign of acute cardiopulmonary disease.Disclaimer: Generally,the findings on chest imaging in COVID-19 are notspecific, and overlap with other infections, including influenza, H1N1,SARS and MERS.According to the Centers for Disease Control (CDC) and the [employer]of [employer], viral testing remains the only specific method of diagnosiseven if CXR or CT findings are suggestive of COVID-19.[facility] (ID NOW RAPID TESTING)2020-06-23 17:42:00 Test Item Value Reference Range Interpretation Comments SARS-CoV-2 Rapid ID NOW Not Detected Not Detected (test code = 54038-6) AP (test code = AP) ID NOW COVID-19 Assay is an isothermal nucleic acid amplification test intended for the qualitative detection of nucleic acid from SARS-CoV-2 viral RNA in nasopharyngeal (VACCINE CUSTOMER REPRESENTATIVE) specimens. It is used under Emergency Use Authorization (EUA) by FDA. The limit of detection (LOD) of the assay is 125 Genome Equivalents/mL. A positive result is indicative of the presence of SARS-CoV-2 RNA. ?Clinical correlation with patient history and other diagnostic information is necessary to determine patient infection status. A negative (Not Detected) result does not preclude SARS-CoV-2 infection. In patients with clinical symptoms and other tests that are consistent with SARS-CoV-2 infection, negative results should be treated as presumptive negative and a new specimen should be tested with alternative PCR molecular test. Invalid: Please collect a new specimen for repeat patient testing if clinically indicated. Lab Interpretation Normal (test code = 95997-8) [facility] [id number] 17:36:00 Test Item Value Reference Range Interpretation Comments TROPONIN I (test 0.001 ng/mL See_Comment [Automated code = 6684930277) message] The system which generated this result transmitted reference range : <=0.034. The reference range was not used to interpret this result as normal/abnormal . AP (test code = Equal or Less than AP) 0.034 ng/ml---Normal ?Note: Cardiac troponin begins to rise 3-4 hours after the onset of ischemia. Repeat in 4-6 hours if the sample was drawn within 3-4 hours of the onset of the symptom and found normal. Between 0.035 and 0.120 ng/mL--- Borderline. Questionable myocardial injury or necrosis ? ?Note: Serial measurement may be necessary to confirm or exclude the diagnosis of myocardial injury or necrosis; Clinical correlation (symptoms, EKGs, imaging studies, and others) required; Repeat in 4-6 hours if clinically indicated. ? Equal or Higher than 0.121 ng/mL---Abnormal. Myocardial Injury or Necrosis Likely ? Biotin has been reported to cause a negative bias, interpret results relative to patient's use of biotin. ? Lab Interpretation Normal (test code = 29124-7) [facility] [id number] 17:33:00 Test Item Value Reference Range Interpretation Comments NT-proBNP (test code 83 pg/mL See_Comment [Autom ated = 2633100826) message] The system which generated this result transmitted reference range : <=125. The reference range was not used to interpret this result as normal/abnormal . AP (test code = AP) Biotin has been reported to cause a negative bias, interpret results relative to patient's use of biotin. Lab Interpretation Normal (test code = 29039-6) [facility]. METABOLIC PANEL (81277)2020-06-23 17:24:00 Test Item Value Reference Range Interpretation Comments NA (test code = 140 mmol/L 135-145 0638595334) K (test code = 3.7 mmol/L 3.5-5 2995084773) CL (test code = 102 mmol/L 98-108 4124140027) CO2 TOTAL (test code = 30 mmol/L 23-31 7410472793) AGAP (test code = 2-16 7418555251) BUN (test code = 15 mg/dL 7-23 9278030054) GLUCOSE (test code = 115 mg/dL 70-110 H 1455125111) CREATININE (test code = 0.74 mg/dL 0.5-1.04 4958967487) TOTAL BILI (test code = 0.5 mg/dL 0.1-1.9 9675536636) CALCIUM (test code = 9.8 mg/dL 8.6-10.6 2234684009) T PROTEIN (test code = 8.1 g/dL 6.3-8.2 5003328728) ALBUMIN (test code = 4.2 g/dL 3.5-5 8143965643) ALK PHOS (test code = 171 U/L 34-122 H 0139934017) ALTv (test code = 17 U/L 5-35 1742-6) AST(SGOT) (test code = 20 U/L 13-40 2545449909) eGFR Calculation mL/min/1.73m2 (Non-) (test code = 7230458382) eGFR Calculation mL/min/1.73m2 () (test code = 0432664319) AP (test code = AP) Association of Glomerular Filtration Rate (GFR) and Staging of Kidney Disease* + --+ --+ ------+| GFR (mL/min/1.73 m2) ?| With Kidney Damage ?| ?Without Kidney Damage+ --------+ --------+ +| ?>90 ?| ?Stage one ?| ? Normal ?+ ---+ ---+ -------+| ?60-89 ?| ?Stage two ?| ? Decreased GFR ? + --+ --+ ------+| ?30-59 ?| ?Stage three ?| ? Stage three ? + --+ --+ ------+| ?15-29 ?| ?Stage four ? | ? Stage four ?+ ---+ ---+ -------+| ?<15 (or dialysis) ? ?| ?Stage five ? | ? Stage five ?+ ---+ ---+ -------+ *Each stage assumes the associated GFR level has been in effect for at least three months. ?Stages 1 to 5, with or without kidney disease, indicate chronic kidney disease. Notes: Determination of stages one and two (with eGFR >59mL/min/1.73 m2) requires estimation of kidney damage for at least three months as defined by structural or functional abnormalities of the kidney, manifested by either:Pathological abnormalities or Markers of kidney damage (including abnormalities in the composition of the blood or urine or abnormalities in imaging tests). Lab Interpretation Abnormal (test code = 68397-8) [facility] WITH [id number] 17:10:00 Test Item Value Reference Range Interpretation Comments WBC (test code = See_Comment [Automated 1264-2) message] The sy stem which generated this result transmitted reference range : 4.30 - 11.10 10*3/?L. The reference range was not used to interpret this result as normal/abnormal . RBC (test code = See_Comment [Automated 625-8) message] The sy stem which generated this result transmitted reference range : 3.93 - 5.25 10*6/?L. The reference range was not used to interpret this result as normal/abnormal . HGB (test code = 13.2 g/dL 11.6-15 718-7) HCT (test code = 42.4 % 35.7-45.2 4544-3) MCV (test code = 87.4 fL 80.6-95.5 787-2) MCH (test code = 27.2 pg 25.9-32.8 785-6) MCHC (test code = 31.1 g/dL 31.6-35.1 L 786-4) RDW-SD (test code = 47.6 fL 39-49.9 77553-8) RDW-CV (test code = 14.8 % 12-15.5 788-0) PLT (test code = See_Comment [Automated 777-3) message] The sy stem which generated this result transmitted reference range : 166 - 358 10*3/ ?L. The reference r peyton was not used to interpret this result as normal/abnormal . MPV (test code = 11.3 fL 9.5-12.9 55690-0) NRBC/100 WBC (test See_Comment [Automat ed code = 8376809504) message] The system which generated this result transmitted reference range : 0.0 - 10.0 /100 WBCs. The refer ence range was not u sed to interpret th is result as normal/abnormal . NRBC x10^3 (test code <0.01 See_Comment [Auto mated = [id number]) message] The s ystem which generated this result transmitted reference range : 10*3/?L. The reference range was not used to interpret this result as normal/abnormal . GRAN MAT (NEUT) % 60.4 % (test code = 770-8) IMM GRAN % (test code 0.90 % = 1741931488) LYMPH % (test code = 29.6 % 736-9) MONO % (test code = 5.5 % 5905-5) EOS % (test code = 2.7 % 713-8) BASO % (test code = 0.9 % 706-2) GRAN MAT x10^3(ANC) 4.90 10*3/uL 1.88-7.09 (test code = 8286789663) IMM GRAN x10^3 (test 0.07 10*3/uL 0-0.06 H code = 3540912975) LYMPH x10^3 (test code 2.40 10*3/uL 1.32-3.29 = 731-0) MONO x10^3 (test code 0.45 10*3/uL 0.33-0.92 = 742-7) EOS x10^3 (test code = 0.22 10*3/uL 0.03-0.39 711-2) BASO x10^3 (test code 0.07 10*3/uL 0.01-0.07 = 704-7) Lab Interpretation Abnormal (test code = 95033-5) [facility] [id number] 16:52:00 Test Item Value Reference Range Interpretation Comments LACTIC ACID (test code = 2.50 mmol/L 6139009307) [facility] [id number] 18:31:15 No acute intrathoracic abnormality. PROCEDURE: XR CHEST 2 VW CLINICAL INDICATION: Persistent Cough COMPARISON: 04/30/2020 chest x-ray FINDINGS: The lungs are clear. No pleural effusion or pneumothorax is seen. The heartis normal in size. Aortic knob calcification No acute bony abnormality. Degenerativechanges are appreciated on thelateral view involving the thoracic spine [facility], Radiant Results Inft User - 05/09/2020 1:32 PM CDTPROCEDURE: XR CHEST 2 VWCLINICAL INDICATION: Persistent Cough COMPARISON:04/30/2020 chest x-rayFINDINGS:The lungs are clear. No pleural effusion or pneumothorax is seen. The heartis normal in size. Aortic knob calcificationNo acute bony abnormality. Degenerative changes are appreciated on thelateral view involving the thoracic spineIMPRESSIONNo acute intrathoracic abnormality.[facility] 2020-04-30 18:28:54 Suspect right lower lobe pneumonia.EXAM: XR CHEST 2 VW COMPARISON: 12/17/2017, 07/18/2017 HISTORY: cough, SOB FINDINGS: Lines/Tubes: None. Lungs/pleura: ?Hazy opacification is noted near the right cardi ophrenicangle, not definitely present on prior study. There is also suggestion oflower lobe opacity in the lateral projection. No pleural effusion orpneumothorax is identified. Heart/Mediastinum: The cardiac silhouette is normal in size. Trachea isnear midline. Atherosclerotic calcification is noted in the aortic arch. [facility], [facility]iant Results Inft User - 04/30/2020 1:30 PM CDTEXAM: XR CHEST 2 VWCOMPARISON: 12/17/2017, 07/18/2017HISTORY: cough, SOB FINDINGS:Lines/Tubes: None.Lungs/pleura: Hazy opacification is noted near the right cardiophrenicangle, not definitely present on prior study. There is also suggestion oflower lobe opacity in the lateral projection. No pleural effusion orpneumothorax is identified.Heart/Mediastinum: The cardiac silhouette is normal in size. Trachea isnear midline. Atherosclerotic calcification is noted in the aortic arch.IMPRESSIONSuspect right lower lobe pneumonia.[facility] FLU A AND B (MOLECULAR)2019-11-05 19:49:00 Test Item Value Reference Range Interpretation Comments POCT INFLUENZA A (test code = Negative Negative - Negative 3840) POCT INFLUENZA B (test code = Negative Negative - Negative 3841) [facility] FLU A AND B (MOLECULAR)2019-11-05 19:49:00 Test Item Value Reference Range Interpretation Comments POCT INFLUENZA A (test code = Negative Negative - Negative 3840) POCT INFLUENZA B (test code = Negative Negative - Negative 3841) [facility]"
[2023-04-07] MEDS ORDERED: ONDANSETRON 4 MG (ODT) TAB ONE (16:25)
[2023-04-07] MEDS ORDERED: HYDROCODONE/CHLORPHEN 5 ML/OSYR ONE (16:25)
[2023-04-07 16:31] LABS: Absolute Lymphocytes (CBC) 2.5 K/uL (0.7-4.9); Hematocrit 40.2 % (36.0-45.0); Lymphocytes % 25.6 % (15.3-44.8); MCV 85.5 fL (80-100); MPV 8.8 fL (7.6-11.3); RBC Red Blood Cell Count 4.71 M/uL (3.86-4.86)
[2023-04-07 16:47] LABS: SARS-CoV-2 Antigen Rapid Res Negative (Negative)
[2023-04-07 17:06] LABS: Magnesium 2.4 mg/dL (1.6-2.4); Potassium 4.3 mEq/L (3.5-5.1)
[2023-04-07] MEDS ORDERED: ACETAMINOPHEN 325 MG TABLET ONE (17:41)
--- NOTE | 2023-04-07 17:55 | RAD REPORT ---
EXAM DESCRIPTION: RAD - Chest Pa And Lat (2 Views) - 04/07/2023 5:08 pm CLINICAL HISTORY: COUGH COMPARISON: CHEST PA AND LAT 2 VIEW dated 01/01/2011 TECHNIQUE: PA and lateral views of the chest were obtained. FINDINGS: The lungs are clear. Heart size is normal and central vasculature is within normal limits. No pleural effusion or pneumothorax seen. No acute bony finding noted. IMPRESSION: No acute cardiopulmonary process.
--- NOTE | 2023-04-07 18:32 | RAD REPORT ---
EXAM DESCRIPTION: CT - Chest For Pe Angio - 04/07/2023 6:03 pm CLINICAL HISTORY: Cough;Chest pain COMPARISON: No comparisons TECHNIQUE: Thin axial CT images of the chest were obtained following administration of 95 mL Isovue 370 IV contrast. Multiplanar reconstructions, and maximum intensity projection reconstructions were g enerated and reviewed. Exam utilizes a protocol for optimal evaluation of pulmonary arterial tree. All CT scans are performed using dose optimization technique as appropriate and may include automated exposure control or mA/KV adjustment according to patient size. FINDINGS: Pulmonary arteries are normal. No emboli or other suspicious finding. No acute or signific ant aorta findings. No mass or infiltrate in the lung parenchyma. No pleural thickening or pleural effusion. No pneumotho rax. No abnormal mediastinal or hilar masses or lymphadenopathy seen. No chest wall mass or abnormal axill iary lymphadenopathy. IMPRESSION: No evidence of acute central pulmonary emboli. No other acute pulmonary process.
[2023-04-07] MEDS ORDERED: LIDOCAINE 2% MPF 5 ML VIAL ONE (18:40)
--- NOTE | 2023-04-07 18:56 | EDPHYS ---
Physician Documentation [facility] Name: Rachell Lisa Age: 63 yrs Sex: Female : 1960 Arrival Date: 04/07/2023 Time: 15:49 Bed 15 Private MD: ED Physician Robb Nava HPI: 04/07 16:10 This 63 yrs old Female presents to ER via Ambulatory with complaints of cp General Weakness, Painful Cough. 16:10 The patient or guardian reports cough, that is constant, with productive sputum. cp 16:10 Onset: The symptoms/episode began/occurred 2 day(s) ago. Associated signs and symptoms: cp Pertinent positives: chest pain, with cough, nausea, vomiting, general weakness, Pertinent negatives: diarrhea, fever. Severity of symptoms: in the emergency department the symptoms are unchanged despite home interventions. Historical: - Allergies: 15:56 No Known Allergies; vg1 - Home Meds: 15:56 amlodipine oral [Active]; Metformin Oral [Active]; Hydrochlorothiazide Oral [Active]; vg1 losartan oral [Active]; Celecoxib Oral [Active]; - PMHx: 15:56 Hypertensive disorder; Diabetes mellitus; vg1 - PSHx: 15:56 Cholecystectomy; Right Knee; Tubal; vg1 - Immunization history:: Client reports receiving the 2nd dose of the Covid vaccine. - Social history:: Smoking status: Patient denies any tobacco usage or history of. ROS: 16:15 Constitutional: Positive for body aches, Negative for fever, poor PO intake. cp 16:15 Eyes: Negative for injury, pain, redness, and discharge. cp 16:15 ENT: Negative for drainage from ear(s), ear pain, difficulty swallowing, difficulty handling secretions. 16:15 Cardiovascular: Positive for chest pain, with cough. 16:15 Respiratory: Positive for cough, shortness of breath. 16:15 Abdomen/GI: Positive for nausea and vomiting, Negative for abdominal pain, diarrhea, constipation. 16:15 Back: Positive for radiated pain. 16:15 : Negative for urinary symptoms. 16:15 Neuro: Positive for headache, weakness, Negative for altered mental status, dizziness, numbness. 16:15 All other systems are negative. Exam: 16:20 Constitutional: The patient appears in no acute distress, alert, awake, cp non-diaphoretic, non-toxic, well developed, well nourished, obese, uncomfortable. 16:20 Head/Face: Normocephalic, atraumatic. cp 16:20 Eyes: Periorbital structures: appear normal, Conjunctiva: normal, no exudate, no injection, Sclera: no appreciated abnormality, Lids and lashes: appear normal, bilaterally. 16:20 ENT: External ear(s): are unremarkable, Ear canal(s): are normal, clear, TM's: dullness, bilaterally, Nose: is normal, Mouth: Lips: moist, Oral mucosa: moist, Posterior pharynx: Airway: no evidence of obstruction, patent, Tonsils: no enlargement, no exudate, swelling, is not appreciated, erythema, that is mild, exudate, is not appreciated. 16:20 Neck: ROM/movement: is normal, is supple, without pain, no range of motions limitations, no meningismus. 16:20 Chest/axilla: Inspection: normal. 16:20 Cardiovascular: Rate: normal, Rhythm: regular, Edema: is not appreciated, JVD: is not appreciated. 16:20 Respiratory: the patient does not display signs of respiratory distress, Respirations: labored breathing, is not present, shallow respirations, are not present, Breath sounds: bronchial sounds, that are mild, are heard diffusely, decreased breath sounds, are not appreciated, stridor, is not appreciated, wheezing: is not appreciated. 16:20 Abdomen/GI: Inspection: obese Bowel sounds: active, all quadrants, Palpation: soft, in all quadrants, nontender, in all quadrants. 16:20 Back: CVA tenderness, is absent. 16:20 Skin: cellulitis, is not appreciated, no rash present. 16:20 Neuro: Orientation: to person, place \T\ time. Mentation: is normal, Cerebellar function: is grossly normal, Motor: moves all fours, strength is normal, Sensation: is normal. 16:47 ECG was reviewed by the Attending Physician. cp Vital Signs: 15:55 BP 195 / 99; Pulse 90; Resp 20; Temp 98.2(O); Pulse Ox 99% on R/A; Weight 140.61 kg; vg1 Height 5 ft. 4 in. ; 16:37 BP 156 / 99; Pulse 88; Resp 18; Pulse Ox 99% on R/A; db 17:30 BP 148 / 74; Pulse 80; Resp 18; Pulse Ox 98% on R/A; db 19:00 BP 127 / 60; Pulse 63; Resp 18; Pulse Ox 99% ; vc1 15:55 Body Mass Index 53.21 (140.61 kg, 162.56 cm) vg1 MDM: 16:03 Patient medically screened. cp 17:00 Differential diagnosis: bronchitis, flu, URI, pneumonia, cardiac arrythmia. cp 18:55 Data reviewed: vital signs, nurses notes, lab test result(s), EKG, radiologic studies, cp CT scan, plain films. 18:55 Consideration of Admission/Observation Escalation of care including cp admission/observation considered. I considered the following discharge prescriptions or medication management in the emergency department Medications were administered in the Emergency Department. See MAR. Care significantly affected by the following chronic conditions: Diabetes, Hypertension, Obesity. Counseling: I had a detailed discussion with the patient and/or guardian regarding: the historical points, exam findings, and any diagnostic results supporting the discharge/admit diagnosis, lab results, radiology results, to return to the emergency department if symptoms worsen or persist or if there are any questions or concerns that arise at home. Response to treatment: the patient's symptoms have markedly improved after treatment, and as a result, I will discharge patient. ED course: VSS. Patient appears non-toxic and no signs of respiratory distress. Will discharge to home for continued monitoring. 04/07 16:08 Order name: Basic Metabolic Panel; Complete Time: 17:17 04/07 16:08 Order name: CBC with Diff; Complete Time: 17:01 04/07 17:01 Interpretation: Normal except: MCHC 31.7; RDW 16.0. 04/07 16:08 Order name: Magnesium; Complete Time: 17:17 04/07 16:08 Order name: NT PRO-BNP; Complete Time: 17:17 07 16:08 Order name: PT-INR 04/07 16:08 Order name: Troponin HS; Complete Time: 17:17 04/07 16:08 Order name: SARS RAPID; Complete Time: 17:01 04/07 16:08 Order name: Strep; Complete Time: 17:01 04/07 16:08 Order name: Influenza Screen (a \T\ B); Complete Time: 17:01 04/07 16:52 Order name: Throat Culture EDMS 04/07 17:17 Order name: D-Dimer 04/07 16:36 Order name: XRAY Chest Pa And Lat (2 Views); Complete Time: 18:34 04/07 18:34 Interpretation: Report reviewed. 04/07 17:39 Order name: CT Chest For PE Angio; Complete Time: 18:34 04/07 18:35 Interpretation: Report reviewed. 04/07 16:08 Order name: EKG; Complete Time: 16:09 04/07 16:08 Order name: Cardiac monitoring; Complete Time: 16:47 04/07 16:08 Order name: EKG - Nurse/Tech; Complete Time: 16:47 04/07 16:08 Order name: IV Saline Lock; Complete Time: 16:47 04/07 16:08 Order name: Labs collected and sent; Complete Time: 16:47 04/07 16:08 Order name: O2 Per Protocol; Complete Time: 16:47 04/07 16:08 Order name: O2 Sat Monitoring; Complete Time: 16:47 04/07 17:17 Order name: Vital Signs: update to include blood pressure; Complete Time: 17:38 cp EC:47 Rate is 99 beats/min. Rhythm is regular. CO interval is normal. QRS interval is normal. cp QT interval is normal. T waves are Inverted in lead aVL. Interpreted by me. Reviewed by me. Administered Medications: 16:18 Drug: Tussionex Pennkinetic ER PO Suspension 5 ml Route: PO; db 19:38 Follow up: Response: No adverse reaction; Marked relief of symptoms vc1 16:20 Drug: Ondansetron PO 4 mg Route: PO; db 17:37 Follow up: Response: No adverse reaction db 17:37 Drug: Acetaminophen PO 650 mg Route: PO; db 19:37 Follow up: Response: No adverse reaction; Marked relief of symptoms vc1 18:43 Drug: Lidocaine Infiltration (2 %) 5 ml Volume: 5 ml; Route: Infiltration; db 19:05 Drug: MethylPrednisoLONE IVP 125 mg Route: IVP; Site: right antecubital; db 19:37 Follow up: Response: No adverse reaction; Marked relief of symptoms vc1 Disposition Summary: 04/07/23 18:55 Discharge Ordered Location: Home cp Problem: new cp Symptoms: have improved cp Condition: Stable cp Diagnosis - Cough cp - Weakness cp Followup: cp - With: Private Physician - When: 2 - 3 days - Reason: Recheck today's complaints Discharge Instructions: - Discharge Summary Sheet cp - Weakness cp - Cough, Adult cp Forms: - Medication Reconciliation Form cp - Thank You Letter cp - Antibiotic Education cp - Prescription Opioid Use cp - [email or web address] cp Prescriptions: - Bromfed DM 2-30-10 mg/5 mL Oral syrup - administer 10 milliliter by ORAL route every 6 hours; 180 milliliter; Refills: cp 0, Product Selection Permitted - ipratropium-albuterol 0.5 mg-3 mg(2.5 mg base)/3 mL Inhalation Solution for Nebulization - nebulize 3 milliliter by INHALATION route every 8 hours As needed; 1 Pack; cp Refills: 0, Product Selection Permitted - Prednisone 20 mg Oral Tablet - take 3 tablets by ORAL route once daily for 5 days; 15 tablet; Refills: 0, cp Product Selection Permitted - Zithromax Z-Rupert 250 mg Oral Tablet - take 1 tablet by ORAL route as directed for 5 days Day 1 - take two (2) tablets cp one time. Day 2, 3, 4 , 5 take one (1) tablet once daily.; 6 tablet; Refills: 0, Product Selection Permitted Signatures: Dispatcher [employer] EDMS Robb Joseph PA PA cp Garcia, Victoria RN RN vg1 Rosario Fontanez RN RN db Nicol Chavez RN vc1
--- NOTE | 2023-04-07 18:56 | ER ---
Nurse's Notes [facility] Name: Rachell Lisa Age: 63 yrs Sex: Female : 1960 Arrival Date: 04/07/2023 Time: 15:49 Bed 15 Private MD: Diagnosis: Cough;Weakness Presentation: 04/07 15:55 Chief complaint: Patient states: body aches, cough, SOB, nausea and chest pain that vg1 began on Saturday04/05/23. Coronavirus screen: Vaccine status: Patient reports receiving the 2nd dose of the covid vaccine. Client denies travel out of the [place] in the last 14 days. cough unrelated to allergies, nausea, Client presents with at least one sign or symptom that may indicate coronavirus-19. Ebola Screen: Patient negative for fever greater than or equal to 101.5 degrees Fahrenheit, and additional compatible Ebola Virus Disease symptoms Patient denies exposure to infectious person. Patient denies travel to an Ebola-affected area in the 21 days before illness onset. Initial Sepsis Screen: Does the patient meet any 2 criteria?. Initial Sepsis Screen: Does the patient meet any 2 criteria? No. Patient's initial sepsis screen is negative. Does the patient have a suspected source of infection? No. Patient's initial sepsis screen is negative. Risk Assessment: Do you want to hurt yourself or someone else? Patient reports no desire to harm self or others. Onset of symptoms was April 05, 2023. 15:55 Method Of Arrival: Ambulatory vg1 15:55 Acuity: REYNA 3 vg1 Triage Assessment: 15:56 General: Appears uncomfortable, Behavior is cooperative. Pain: Complains of pain in vg1 back and chest Pain currently is 8 out of 10 on a pain scale. Cardiovascular: Patient's skin is warm and dry. Respiratory: Reports shortness of breath cough that is dry, pain with respiration Airway is patent Respiratory effort is even, unlabored. GI: Reports nausea. Derm: Skin is pink, warm \T\ dry. Historical: - Allergies: 15:56 No Known Allergies; vg1 - Home Meds: 15:56 amlodipine oral [Active]; Metformin Oral [Active]; Hydrochlorothiazide Oral [Active]; vg1 losartan oral [Active]; Celecoxib Oral [Active]; - PMHx: 15:56 Hypertensive disorder; Diabetes mellitus; vg1 - PSHx: 15:56 Cholecystectomy; Right Knee; Tubal; vg1 - Immunization history:: Client reports receiving the 2nd dose of the Covid vaccine. - Social history:: Smoking status: Patient denies any tobacco usage or history of. Screenin:22 [facility] ED Fall Risk Assessment (Adult) History of falling in the last 3 months, db including since admission No falls in past 3 months (0 pts) Confusion or Disorientation No (0 pts) Intoxicated or Sedated No (0 pts) Impaired Gait No (0 pts) Mobility Assist Device Used No (0 pt) Altered Elimination No (0 pt) Score/Fall Risk Level 0 - 2 = Low Risk Oriented to surroundings, Maintained a safe environment. Abuse screen: Denies threats or abuse. Denies injuries from another. Nutritional screening: No deficits noted. Tuberculosis screening: No symptoms or risk factors identified. Assessment: 16:30 Reassessment: Patient appears in no apparent distress at this time. Patient and/or db family updated on plan of care and expected duration. Pain level reassessed. Patient is alert, oriented x 3, equal unlabored respirations, skin warm/dry/pink. Patient states feeling better. General: Appears in no apparent distress. comfortable, Behavior is calm, cooperative. Neuro: Level of Consciousness is awake, alert, obeys commands, Oriented to person, place, time, situation. 17:25 Reassessment: Patient appears in no apparent distress at this time. Patient is alert, db oriented x 3, equal unlabored respirations, skin warm/dry/pink. patient ambulatory to restroom. 17:55 Reassessment: patient to CT. db 19:15 Reassessment: discharge after neb is complete. vc1 Vital Signs: 15:55 BP 195 / 99; Pulse 90; Resp 20; Temp 98.2(O); Pulse Ox 99% on R/A; Weight 140.61 kg; vg1 Height 5 ft. 4 in. ; 16:37 BP 156 / 99; Pulse 88; Resp 18; Pulse Ox 99% on R/A; db 17:30 BP 148 / 74; Pulse 80; Resp 18; Pulse Ox 98% on R/A; db 19:00 BP 127 / 60; Pulse 63; Resp 18; Pulse Ox 99% ; vc1 15:55 Body Mass Index 53.21 (140.61 kg, 162.56 cm) vg1 ED Course: 15:50 Patient arrived in ED. ts1 15:56 Triage completed. vg1 15:56 Arm band placed on. vg1 16:01 Robb Joseph PA is PHCP. cp 16:01 Robb Nava MD is Attending Physician. cp 16:14 Rosario Fontanez, RN is Primary Nurse. db 16:20 Inserted saline lock: 20 gauge in right antecubital area, using aseptic technique. db Blood collected. 17:10 XRAY Chest Pa And Lat (2 Views) In Process Unspecified. EDMS 17:37 Patient has correct armband on for positive identification. Bed in low position. Call db light in reach. Side rails up X 1. Client placed on continuous cardiac and pulse oximetry monitoring. NIBP monitoring applied. 18:04 CT Chest For PE Angio In Process Unspecified. EDMS 19:29 No provider procedures requiring assistance completed. vc1 19:31 IV discontinued, intact, bleeding controlled, No redness/swelling at site. Pressure vc1 dressing applied. Administered Medications: 16:18 Drug: Tussionex Pennkinetic ER PO Suspension 5 ml Route: PO; db 19:38 Follow up: Response: No adverse reaction; Marked relief of symptoms vc1 16:20 Drug: Ondansetron PO 4 mg Route: PO; db 17:37 Follow up: Response: No adverse reaction db 17:37 Drug: Acetaminophen PO 650 mg Route: PO; db 19:37 Follow up: Response: No adverse reaction; Marked relief of symptoms vc1 18:43 Drug: Lidocaine Infiltration (2 %) 5 ml Volume: 5 ml; Route: Infiltration; db 19:05 Drug: MethylPrednisoLONE IVP 125 mg Route: IVP; Site: right antecubital; db 19:37 Follow up: Response: No adverse reaction; Marked relief of symptoms vc1 Medication: 19:29 VIS not applicable for this client. vc1 Outcome: 18:55 Discharge ordered by . cp 19:30 Discharged to home ambulatory. vc1 19:30 Condition: improved 19:30 Discharge instructions given to patient, Instructed on discharge instructions, follow up and referral plans. medication usage, Demonstrated understanding of instructions, follow-up care, medications, Prescriptions given X 4. 19:41 Patient left the ED. vc1 Signatures: Dispatcher [employer] EDMS Robb Joseph PA PA cp Tima, Triny, RN RN vg1 Nicol Chavez, RN RN vc1 Rosario Fontanez, RN RN db Ekaterina Hogue PAS PAS ts1
[2023-04-07] MEDS ORDERED: METHYLPREDNISOLONE 125 MG INJ ONE (19:13)
[2023-04-07 20:21] VITALS: TEMP 98.2
[2023-04-07 20:24] VITALS: BP 127/60; O2SAT 99
--- NOTE | 2023-04-08 17:12 | EKG ---
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
== END 2023-04-07 19:41 | disposition home or self-care (01) ==
LOC: ER 15:49
DX: R05.9 Cough, unspecified (principal); R53.1 Weakness; R51.9 Headache, unspecified; E11.9 Type 2 diabetes mellitus without complications; I10 Essential (primary) hypertension; Z20.822 Contact with and (suspected) exposure to COVID-19
CPT/HCPCS: 93005; 87070; 85025; 80048; 36415; 83735; 85610; 85379; 87081; 84484; 83880; 87804 ×2; 71275; 71046; 96374; 99285; 87811; Q9967; Q0162; J2001; J2930